=== PATIENT | female | born 1940 | race Caucasian/White ===

== ENCOUNTER → 2017-12-05 12:28 | Outpatient (CLI) | payer MEDICARE, BC, SELFPAY ==
[2017-12-05 14:28] LABS: Anion Gap 7 (5-15); BUN 9 mg/dL (7-18); Calcium,Total 8.4 mg/dL (8.5-10.1); Chloride 100 mmol/L (98-107); Creatinine, Serum 0.82 mg/dL (0.55-1.02); EST Glomerular Filtration Rate 72 mL/min (>60); Est Glom Filt Rate - Afr Amer 87 mL/min (>60); Glucose 98 mg/dL (70-110); Sodium Level 141 mmol/L (136-145)
[2017-12-05 14:30] LABS: CRP 7.12 mg/L (0.0-3.0)
[2017-12-06 16:11] LABS: Endomysial Antibody IgA Negative (Negative)
[2017-12-07 10:49] LABS: Immunoglobulin A 157 mg/dL (64-422); t-Transglutaminase IgA <2 U/mL (0-3)
== END ==
PROVIDERS: Physician Assistant Medical; Family Provider Internal Medicine; PCP Internal Medicine; Visit Provider Internal Medicine Gastroenterology
DX: I10 Essential (primary) hypertension (principal); R19.7 Diarrhea, unspecified
CPT/HCPCS: 36415; 80048; 82784; 83516; 86140; 86255

== ENCOUNTER → 2017-12-19 12:04 | Outpatient (CLI) | payer MEDICARE, BC, SELFPAY ==
[2017-12-19 13:27] LABS: Anion Gap 5 (5-15); BUN 10 mg/dL (7-18); BUN/Creat Ratio 13.3 RATIO (10-20); Calcium,Total 8.3 mg/dL (8.5-10.1); Chloride 105 mmol/L (98-107); Creatinine, Serum 0.75 mg/dL (0.55-1.02); EST Glomerular Filtration Rate 80 mL/min (>60); Est Glom Filt Rate - Afr Amer 97 mL/min (>60); Glucose 103 mg/dL (74-106); Potassium 4.1 mmol/L (3.5-5.1); Sodium Level 142 mmol/L (136-145)
== END ==
PROVIDERS: Family Provider Internal Medicine; PCP Internal Medicine; Visit Provider Physician Assistant Medical
DX: E87.6 Hypokalemia (principal)
CPT/HCPCS: 36415; 80048

== ENCOUNTER → 2018-01-26 10:04 | Outpatient (CLI) | payer MEDICARE, BC, SELFPAY ==
[2018-01-26 10:15] LABS: Bacteria 0 SEEN /hpf (None Seen); Mucous, Urine 0 SEEN /hpf (<or=2+); Red Blood Cells-Urine 0 SEEN /hpf (0-5)
[2018-01-26 11:58] LABS: Absolute Lymphocyte Count 1.56 X10^3/ul (0.83-4.51); Absolute Neutrophil Count 3.5 X10^3/uL (2.0-7.7); Basophil# 0.01 X10^3/uL; Basophil% 0.2 % (0-1); Eosinophil# 0.02 X10^3/uL; Eosinophils% 0.4 % (0-5); Hematocrit 42.3 % (37-47); Hemoglobin 13.7 g/dl (12.0-15.0); Lymphocyte # 1.56 X10^3/ul (4.0); Lymphocyte % 27.9 % (19-41); Mean Corp Hgb Conc 32.4 g/gl (32-36); Mean Corpuscular Hgb 30.7 pg (27.0-32.0); Mean Corpuscular Volume 94.8 fL (81-99); Mean Platelet Vol. 10.2 fl (6.2-12.0); Monocyte# 0.54 X10^3/uL; Monocyte% 9.7 % (0-10); Neutrophil # 3.45 X10^3/uL (2.7-7.7); Neutrophil % 61.6 % (47-70); POSITIVE COUNT NO; POSITIVE DIFFERENTIAL NO; POSITIVE MORPHOLOGY NO; Platelet Count 201 K/mm3 (150-450); RBC Distribution Width CV 13.2 % (11.6-14.6); RBC Distribution Width SD 45.6 fl (35.1-43.9); Red Blood Count 4.46 M/mm3 (4.2-5.4); White Blood Count 5.6 K/mm3 (4.4-11.0)
[2018-01-26 12:01] LABS: Color, Urine Yellow (Yellow); Glucose, Dipstick Normal (Normal); Ketone-Dipstick 5 mg/dl (Negative); Leukocyte Esterase-Dipstick 500 /ul (Negative); Nitrite-Dipstick Negative (Negative); Occult Blood-Urine 10 /ul (Negative); Protein-Dipstick 15 mg/dl (Negative); Urine Bilirubin Dipstick Negative (Negative); Urine Clarity Sl. Cloudy (Clear); Urine Urobilinogen Normal (Normal)
[2018-01-26 12:08] LABS: Squamous Epithelial Cells - UA 0-5 SEEN /hpf (5-10); White Blood Cells 10-25 SEEN /hpf (0-5)
[2018-01-26 12:09] LABS: Erythrocyte Sedimentation Rate 10 mm/hr (0-30)
[2018-01-26 12:28] LABS: AST(SGOT) 22 U/L (15-37); Alanine Aminotransfer ALT/SGPT 36 U/L (13-56); Albumin, Serum 3.5 g/dL (3.2-5.0); Alkaline Phosphatase 90 U/L (45-117); Anion Gap 7 (5-15); BUN 20 mg/dL (7-18); BUN/Creat Ratio 26.7 RATIO (10-20); Calcium,Total 8.5 mg/dL (8.5-10.1); Chloride 107 mmol/L (98-107); Cholesterol 207 mg/dL (200); Creatinine, Serum 0.75 mg/dL (0.55-1.02); EST Glomerular Filtration Rate 80 mL/min (>60); Est Glom Filt Rate - Afr Amer 97 mL/min (>60); Globulin 3.4 g/dL (2.2-4.2); Glucose 88 mg/dL (74-106); High Density Lipoprotein 89 mg/dL; Potassium 3.7 mmol/L (3.5-5.1); Protein, Total 6.9 g/dL (6.4-8.2); Sodium Level 143 mmol/L (136-145); Triglycerides 106 mg/dL; Very Low Density Lipoprotein 21 mg/dL (5-40)
[2018-01-26 12:29] LABS: Microalbumin,Random Urine 43.8 mg/L (NO RANGE EST.); Microalbumin:Creatinine Ratio 27.2 mg/g CRE (<30 mg/g CRE)
[2018-01-30 08:15] LABS: Dopamine, UR 1576 ug/L (Undefined); Epinephrine, 24Ur 5 ug/24 hr (0-20); Epinephrine, Ur 2 ug/L (Undefined); Metanephrine, Ur 30 ug/L (Undefined); Norepinephrine, 24Ur 57 ug/24 hr (0-135); Norepinephrine, Ur 22 ug/L (Undefined); Normetanephrines, Ur 83 ug/L (Undefined)
[2018-01-30 14:34] LABS: Dopamine, 24Ur 4098 ug/24 hr (0-510); Metanephrines, 24Ur 78 ug/24 hr (45-290); Normetanephrines, 24Ur 216 ug/24 hr (82-500)
== END ==
PROVIDERS: Family Provider Internal Medicine; PCP Internal Medicine; Visit Provider Internal Medicine
DX: E78.5 Hyperlipidemia, unspecified (principal); I11.9 Hypertensive heart disease without heart failure; R61 Generalized hyperhidrosis
CPT/HCPCS: 36415; 80053; 80061; 81001; 82043; 82384; 82570; 83835; 85025; 85652

== ENCOUNTER → 2018-02-23 10:17 | Outpatient (CLI) | payer MEDICARE, BC, SELFPAY ==
[2018-02-23 12:02] LABS: Free T3 1.2 pg/mL (2.18-3.98); T4 Free Direct 0.92 ng/dL (0.76-1.46)
[2018-02-28 03:07] LABS: Dopamine, UR 3072 ug/L (Undefined); Epinephrine, 24Ur 4 ug/24 hr (0-20); Epinephrine, Ur 3 ug/L (Undefined); Norepinephrine, 24Ur 63 ug/24 hr (0-135); Norepinephrine, Ur 45 ug/L (Undefined); VMA, UR 2.9 mg/L (Undefined)
[2018-02-28 12:35] LABS: Dopamine, 24Ur 4301 ug/24 hr (0-510); VMA, 24UR 4.1 mg/24 hr (0.0-7.5)
== END ==
PROVIDERS: Family Provider Internal Medicine; PCP Internal Medicine; Visit Provider Internal Medicine Endocrinology, Diabetes & Metabolism
DX: E03.9 Hypothyroidism, unspecified (principal); R61 Generalized hyperhidrosis
CPT/HCPCS: 36415; 82384; 84439; 84443; 84481; 84585

== ENCOUNTER → 2018-04-02 13:58 | Outpatient (CLI) | payer MEDICARE, BC, SELFPAY ==
--- NOTE | 2018-04-02 14:00 | CT_ITS ---
STUDY: CT ABDOMEN WITH AND WITHOUT CONTRAST REASON FOR EXAM: Female, 78 years old. Hypothyroidism RADIATION DOSAGE (If Supplied By Facility): CTDIvol = ( 24+24+36 ) mGy, DLP = ( 1510.63 ) mGycm TECHNIQUE: Transaxial images were obtained pre and post I.V. administration of 100 ml of Isovue 300, and with oral contrast. Sagittal and coronal images were reconstructed. Imaging obtained precontrast, portal venous phase, and renal excretory phase of contrast. Individualized dose optimization techniques were used for this CT. COMPARISON: [facility] scan 11/26/2017. CT abdomen and pelvis 11/12/2017. FINDINGS: Body wall soft tissues: No acute process. Osseous structures: Mild scoliosis and spondylosis. Osteopenia. No acute process. Prominent superior plate Schmorl's node at L1, chronic degenerative. Inferior chest: No acute pulmonary process. Normal distal esophagus. Moderate cardiomegaly without pericardial effusion. Minimal calcifications of the aortic valve. Hepatobiliary: Normal. Pancreas: Mild atrophy. Spleen: Normal. Adrenal glands: Normal. Urogenital: Renal cortical scar on the right. Symmetric nephrograms and excretion. Normal collecting systems and proximal ureters. Retroperitoneum: No mass or adenopathy. Vasculature: Mild atherosclerosis. Gastric: Normal. Small bowel and mesentery: Evaluated portions are normal. Large bowel: Evaluated portions are normal. CT/Abdomen W/WO IV Contrast IMPRESSION: No acute intra-abdominal process is evident. Electronically Signed: Thien Nancy, at 8:51 EDT Tel , Service support ,
[2018-04-02 14:51] LABS: CREATININE FINGERSTICK 0.8 mg/dL (0.55-1.02)
== END ==
PROVIDERS: Family Provider Internal Medicine; PCP Internal Medicine; Visit Provider Internal Medicine Endocrinology, Diabetes & Metabolism
DX: E03.9 Hypothyroidism, unspecified (principal)
CPT/HCPCS: 74170; Q9967

== ENCOUNTER → 2018-04-23 10:48 | Outpatient (CLI) | payer MEDICARE, BC, SELFPAY ==
[2018-04-23 13:00] LABS: Free T3 2.6 pg/mL (2.18-3.98); T4 Free Direct 1.21 ng/dL (0.76-1.46)
== END ==
PROVIDERS: Family Provider Internal Medicine; PCP Internal Medicine; Visit Provider Internal Medicine Endocrinology, Diabetes & Metabolism
DX: E03.9 Hypothyroidism, unspecified (principal)
CPT/HCPCS: 36415; 84439; 84443; 84481

== ENCOUNTER → 2018-05-15 12:48 | Outpatient (CLI) | payer MEDICARE, BC, SELFPAY ==
--- NOTE | 2018-05-15 12:52 | NM_ITS ---
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 I-123 METAIODOBENZYLGUANIDINE (MIBG) SCINTIGRAPHY COMPARISON: CT of the abdomen report 04/02/2018 FINDINGS: Following the intravenous administration of 10.6 mCi of I-123 MIBG, image acquisitions of the head, neck, chest, abdomen and pelvis obtained at 24 and 48 hours post radiopharmaceutical administration reveal: 1. There is no scintigraphic evidence of abnormal increased radiopharmaceutical concentration on review of image projections obtained at 24 and 48 hours following tracer injection. 2. Physiologic distribution of the radiopharmaceutical appears evident in the bilateral parotid and submandibular glands, pulmonary blood pool, right and left kidneys, urinary bladder, hepatic and splenic parenchyma, visualized intestinal tract. NM/Tumor Imaging WB 2+ Days IMPRESSION: 1. NEGATIVE I-123 METAIODOBENZYLGUANIDINE (MIBG) SCINTIGRAPHY. 2. No definitive scintigraphic evidence of abnormal increased tracer concentration is defined on meticulous review of image projections obtained in both 24 and 48 hours as described above. Electronically Signed: Thien Cuevas DO at 12:21 EDT Tel , Service support ,
== END ==
PROVIDERS: Family Provider Internal Medicine; PCP Internal Medicine; Visit Provider Internal Medicine Endocrinology, Diabetes & Metabolism
DX: R61 Generalized hyperhidrosis (principal)
CPT/HCPCS: 78804; A9582

== ENCOUNTER → 2018-06-13 13:32 | Outpatient (CLI) | payer MEDICARE, BC, SELFPAY | PROVIDERS: Family Provider Internal Medicine; PCP Internal Medicine; Visit Provider Nurse Practitioner Acute Care | DX: G47.33 Obstructive sleep apnea (adult) (pediatric) (principal) | CPT/HCPCS: 98960; G0463 ==

== ENCOUNTER 2018-07-31 15:00 | Outpatient (RCR) | payer MEDICARE, BC, SELFPAY ==
--- NOTE | 2018-06-26 13:53 | HP.PTEVAL_ITS ---
Patient's Visit Information BA LANZA is a 78 year old F referred to Physical Therapy by KIEAR Perdomo with a diagnosis of Parkinsons. Date of Evaluation: 06/26/18 Physical Therapist: Dahlia Sampson - Visit Plan Frequency: 2x /Week Duration: 6 Weeks Plan: 2X/ week for 4-8 weeks for gait mechanics ( normal stride length, arm swing, smaller CLAUDINE, and increased heel to toe gait pattern), functional transfers such as sit to stand, Dynamic balance activities with and without head turns, LE strength with HEP - Subjective Subjective: Goes by [employer]. Pt was dx with PD 2 years ago at the most. She is having trouble with balance, unable to stand for long period of time, she can walk but not a long distance like a mile, She has to have arms to get up and down from a chair, can't squat. SHe is doing better into the bathtub but fell a few months a go in the bathtub and medical alert nearby. SHe has not had any other falls. When she gets up she stands to make sure she gets her balance. Neurologist recommend cane on uneven ground but she has not done that yet. 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 No freezing episodes since changed meds 6 months ago. Stairs: pt reports that she needs a good railing but not for a big set of stairs and she tries to go recip with a good handrail pulling on the railing. Pt has some back issues and is seeing a chiropractor. Has a lot of stiffness in the morning. - Objective Gait: Walks with short stride and WBOS and decreased heel to toe. Pt has decreased heel to toe more ont he R than the L and some decreased coordination on the R compared to the L. Pt also had decreased arm swing worse on the R than the L and some tremor on the R. Is able to raise heels with holding on within a normal range but has decreased toe DF even with holding on. Tight gastroc complex B with the R being tighter than the L. FGA: 13. LE MMT: hip flx R 4/5 and L 4+/5, B knee ext 4+/5, B knee flex 4/5, R hip abd 4/5 and L hip abd 4-/5, able to do 3/4 normal ROM bridge. Pt did get dizzy when rising from supine to sit. Sit to stand transfers: needs B UE to be able to get up out of a chair - Balance Scores Functional Gait Assessment Score: 13 % Disability: 56.6700 - Goals Goal 1:: I HEP Goal Time Frame: 4-6 Weeks Goal 2:: Be able to get up from a chair without the use of UE's X 10 attempts Goal Time Frame: 4-6 Weeks Goal 3:: Be able to walk around dept with smaller CLAUDINE, normal stride length, heel to toe gait pattern with arm swing Goal Time Frame: 4-6 Weeks Goal 4:: Increase FGA by 5 points to decrease fall risk (at time of eval FGA was 13) Goal Time Frame: 4-6 Weeks - Rehabilitation Potential Rehabilitation Potential: Good - Anticipated Interventions Patient/Client Instruction: Educate patient on: Condition, Plan of Care For the Purpose of:: To improve muscle performance and motor function, To improve ability to perform ADL's, To increase tolerance to activity/condition/ position, To improve performance and independence with ADL's, To improve gait and locomotor functions, To improve balance, To improve safety with gait Therapeutic Exercise to Include: Strength training, Endurance training, Balance training, Coordination, Postural training, Flexibilty training, Gait and locomotor training, Neuromotor development, Passive ROM For the Purpose of:: To improve muscle performance and motor function, To improve ability to perform ADL's, To increase tolerance to activity/condition/ position, To improve performance and independence with ADL's, To decrease level of supervision to perform tasks, To improve ability of physical actions for home /community/work/leisure, To improve gait and locomotor functions, To increase flexibility/ROM, To improve balance, To improve safety with gait Functional Training to Include: Gait training For the Purpose of:: To improve gait and locomotor functions, To improve balance , To improve safety with gait Thank you for the opportunity to evaluate your patient. For Medicare and Medicare HMO plans, please review the plan of care and approve it. It will need to be FAXED BACK to us at [phone] for Medicare purposes. Please let me know if there are questions or concerns regarding this plan of care. Physician Signature: Date:
--- NOTE | 2018-07-31 15:57 | HP.PTDCSUM ---
HP - PT D/C Summary It has been my pleasure to treat BA LANZA under orders from ANABEL PerdomoC, for the diagnosis of Parkinsons for a total of 7 visit(s). Discharge Date: 07/31/18 Please see the following information for a summary of their discharge status. - Subjective Subjective: Pt thinks she has been doing good but she notices that she is limping on her L leg. She is doing her exercises at home. Does standing hip abd, standing marching, standing heell and toe raises, and mini squats. - Overall Improvement % Improvement: 40 - Objective Objective/Function: FGA: 16. gait: decreased push off on the L and decreased stance time on the L but increased side and increased arm swing. - Goals Goal 1:: I HEP Goal Progress: Goal Met Goal 2:: Be able to get up from a chair without the use of UE's X 10 attempts Goal Progress: Goal Met Goal 3:: Be able to walk around dept with smaller CLAUDINE, normal stride length, heel to toe gait pattern with arm swing Goal Progress: Goal Met Goal 4:: Increase FGA by 5 points to decrease fall risk (at time of eval FGA was 13) Goal Progress: Goal Met - Plan Plan: DC PT - D/C Information Discharge Comments: DC PT to [facility] If there are questions or concerns regarding this patient's physical therapy, please feel free to call me at [phone]. Thank you for the referral of this patient. Sincerely, Dahlia Sampson
== END 2018-07-31 19:00 | disposition home or self-care (01) ==
LOC: PT 15:00
PROVIDERS: Family Provider Internal Medicine; PCP Internal Medicine; Visit Provider Nurse Practitioner Acute Care
DX: G20 Parkinson's disease (principal)
CPT/HCPCS: 97110; 97116; 97161; 97530

== ENCOUNTER → 2018-09-17 12:45 | Outpatient (CLI) | payer MEDICARE, BC, SELFPAY ==
--- NOTE | 2018-09-17 12:49 | VDLE_ITS ---
Reason For Study: Numbness, tingling, Right leg pain, Left leg pain RIGHT LEFT GSV is normal. GSV is normal. CFV is compressible, spontaneous, phasic, CFV is compressible, spontaneous, phasic, competent and demonstrates normal competent, and demonstrates normal augmentation. augmentation. FV is compressible, spontaneous, phasic, FV is compressible, spontaneous, phasic, competent and demonstrates normal competent and demonstrates normal augmentation. augmentation. POP V is compressible, spontaneous, phasic, POP V is compressible, spontaneous, phasic, competent and demonstrates normal competent and demonstrates normal augmentation. augmentation. T/P Trunk is compressible. T/P Trunk is compressible. PTV is compressible. PTV is compressible. RT PerV is compressible. LT PerV is compressible. Procedure Exam performed in department. The exam was diagnostic. A preliminary report was called and/or faxed to Niurka Talbot. <> Interpretation Summary Deep veins of the lower extremities are bilaterally patent and compressible segmentally. There is no evidence of deep vein thrombosis on either side. Valvular competence appears intact within the proximal deep venous systems bilaterally. The greater saphenous veins appear bilaterally patent and compressible segmentally. Ordering Physician: Niurka Talbot Performed By: Joon Bustamante RVT
== END ==
PROVIDERS: Family Provider Internal Medicine; PCP Internal Medicine; Referring Provider Nurse Practitioner Acute Care; Visit Provider Nurse Practitioner Acute Care
DX: M79.604 Pain in right leg (principal); M79.605 Pain in left leg; R20.0 Anesthesia of skin; R20.2 Paresthesia of skin
CPT/HCPCS: 93970

== ENCOUNTER → 2018-11-06 12:20 | Outpatient (CLI) | payer MEDICARE, BC, SELFPAY ==
--- NOTE | 2018-11-06 12:25 | BI_ITS ---
MAMMOGRAPHY - BILATERAL SCREENING REASON FOR EXAM: Female, 78 years old. Routine annual screening examination. PERTINENT HISTORY: Mother with breast cancer. Aunts with breast cancer. TECHNIQUE: Digital bilateral breast yolanda (3D mammographic acquisition) in the CC and MLO projections. 2-D mediolateral oblique (MLO) and craniocaudad (CC) views of both breasts were obtained. CAD: Full Field Digital Mammography with Computer Added Detection was performed. COMPARISON: Comparison is made with prior study dated October 25, 2017 and October 24, 2016. FINDINGS: Breast Composition: There are scattered areas of fibroglandular density. There are no dominant masses or suspicious calcifications. No other significant abnormalities are identified. There has been no significant change since the prior study. BI/SCREENING MAMM (CAD), BILAT IMPRESSION: Stable bilateral screening mammogram. Yearly follow-up mammogram recommended. (A) ASSESSMENT CATEGORY: BIRADS Category 1: Negative. A letter regarding these results will be sent to the patient by the facility within 30 days. Approximately 10% of breast cancers are not detected by mammography. A normal mammogram should not delay biopsy of a clinically suspicious abnormality. [id number] Electronically Signed: Aramis Rodriguez MD at 16:07 EST Tel [phone], Service support ,
== END ==
PROVIDERS: Family Provider Internal Medicine; PCP Internal Medicine; Referring Provider Internal Medicine; Visit Provider Internal Medicine
DX: Z12.31 Encounter for screening mammogram for malignant neoplasm of breast (principal); Z80.3 Family history of malignant neoplasm of breast
CPT/HCPCS: 77063; 77067

== ENCOUNTER → 2018-12-10 07:45 | Outpatient (CLI) | payer MEDICARE, BC, SELFPAY ==
[2018-12-10 07:51] LABS: Mucous, Urine 0 SEEN /hpf (<or=2+)
[2018-12-10 08:19] LABS: Color, Urine Yellow (Yellow); Glucose, Dipstick Normal (Normal); Ketone-Dipstick 5 mg/dl (Negative); Leukocyte Esterase-Dipstick 25 /ul (Negative); Nitrite-Dipstick Negative (Negative); Occult Blood-Urine 10 /ul (Negative); Protein-Dipstick 30 mg/dl (Negative); Specific Gravity, Urine 1.025 (1.002-1.030); Urine Bilirubin Dipstick Negative (Negative); Urine Clarity Sl. Cloudy (Clear); Urine Urobilinogen Normal (Normal)
[2018-12-10 08:24] LABS: Absolute Lymphocyte Count 1.79 X10^3/ul (0.83-4.51); Absolute Neutrophil Count 3.1 X10^3/uL (2.0-7.7); Basophil# 0.02 X10^3/uL; Basophil% 0.4 % (0-1); Eosinophils% 1.8 % (0-5); Hematocrit 43.1 % (37-47); Hemoglobin 13.9 g/dl (12.0-15.0); Lymphocyte # 1.79 X10^3/ul (4.0); Mean Corp Hgb Conc 32.3 g/gl (32-36); Monocyte# 0.55 X10^3/uL; Monocyte% 9.8 % (0-10); Neutrophil # 3.09 X10^3/uL (2.7-7.7); Neutrophil % 55.3 % (47-70); POSITIVE COUNT NO; POSITIVE DIFFERENTIAL NO; POSITIVE MORPHOLOGY NO; Platelet Count 190 K/mm3 (150-450); RBC Distribution Width CV 12.9 % (11.6-14.6); RBC Distribution Width SD 43.7 fl (35.1-43.9); Red Blood Count 4.49 M/mm3 (4.2-5.4); White Blood Count 5.6 K/mm3 (4.4-11.0)
[2018-12-10 08:26] LABS: Red Blood Cells-Urine 0-5 SEEN /hpf (0-5); Squamous Epithelial Cells - UA 5-10 SEEN /hpf (5-10); White Blood Cells 0-5 SEEN /hpf (0-5)
[2018-12-10 08:27] LABS: Bacteria 1+ /hpf (None Seen)
[2018-12-10 08:50] LABS: ALB/GLOB Ratio 1.1 RATIO (0.9-2.4); AST(SGOT) 16 U/L (15-37); Alanine Aminotransfer ALT/SGPT 9 U/L (13-56); Albumin, Serum 3.5 g/dL (3.2-5.0); Alkaline Phosphatase 101 U/L (45-117); Anion Gap 5 (5-15); BUN 14 mg/dL (7-18); BUN/Creat Ratio 17.7 RATIO (10-20); Chloride 110 mmol/L (98-107); Cholesterol 181 mg/dL (200); Creatinine, Serum 0.79 mg/dL (0.55-1.02); EST Glomerular Filtration Rate 75 mL/min (>60); Est Glom Filt Rate - Afr Amer 91 mL/min (>60); Free T3 2.9 pg/mL (2.18-3.98); Globulin 3.3 g/dL (2.2-4.2); Glucose 101 mg/dL (74-106); High Density Lipoprotein 70 mg/dL; Protein, Total 6.8 g/dL (6.4-8.2); Sodium Level 143 mmol/L (136-145); T4 Free Direct 0.96 ng/dL (0.76-1.46); Triglycerides 151 mg/dL; Very Low Density Lipoprotein 30 mg/dL (5-40)
[2018-12-10 08:51] LABS: Microalbumin,Random Urine 26.5 mg/L (NO RANGE EST.); Microalbumin:Creatinine Ratio 16.2 mg/g CRE (<30 mg/g CRE)
--- NOTE | 2018-12-10 10:32 | NEURO ---
NCS and/or EMG Patient Report Ordering Doctor: Niurka Talbot DATE OF SERVICE: 12/10/18 This is a bilateral lower extremity nerve conduction study and a left lower extremity EMG performed on this 78-year-old female with remote history of polio which apparently fully recovered. She also has a diagnosis of prediabetes but reports her latest hemoglobin A1c is only 5.4. She describes weakness and loss of sensation in her legs associated with falls peer there is no back pain. Symptoms are worse on the left. She does have a history of atrial fibrillation and is on Coumadin. On examination she has severe loss of sensation up to her mid calves bilaterally symmetrically. Bilateral lower extremity sensory and motor nerve conduction studies were performed. The sensory distal latencies are mild to moderately prolonged with intact amplitudes. The motor conduction velocities are moderate to severely slowed symmetrically bilaterally with prolonged latencies and low amplitudes bilaterally. The tibial and common peroneal F-wave latencies are prolonged bilaterally and H reflex responses from the tibial nerves are suppressed bilaterally. Left lower extremity needle electromyography is performed. Muscles evaluated included the extensor digitorum brevis, abductor houses, medial gastrocnemius, anterior tibialis, and vastus lateralis muscles. Distal muscles demonstrated large motor units with early recruitment. These abnormalities resolved with larger more proximal muscles. Pathologic spontaneous activity was absent in all muscles tested. Impression: Abnormal electrophysiologic study of the lower extremities consistent with severe polyneuropathy, chronic length dependent.
== END ==
PROVIDERS: Family Provider Internal Medicine; PCP Internal Medicine; Referring Provider Nurse Practitioner Acute Care; Visit Provider Nurse Practitioner Acute Care
DX: R20.0 Anesthesia of skin (principal); R20.2 Paresthesia of skin; M79.604 Pain in right leg; M79.605 Pain in left leg; E78.5 Hyperlipidemia, unspecified; R94.6 Abnormal results of thyroid function studies; R73.01 Impaired fasting glucose
CPT/HCPCS: 36415; 80053; 80061; 81001; 82043; 82570; 84439; 84443; 84481; 85025; 95886; 95910

== ENCOUNTER → 2019-01-21 12:02 | Outpatient (CLI) | payer MEDICARE, BC, SELFPAY ==
[2019-01-21 11:19] VITALS: BMI 36.8
[2019-01-21 13:29] LABS: BNP,B-Type NATRIURETIC PEPTIDE 32.7 pg/mL (0-100)
== END ==
PROVIDERS: Family Provider Internal Medicine; PCP Internal Medicine; Referring Provider Internal Medicine Cardiovascular Disease; Visit Provider Internal Medicine Cardiovascular Disease
DX: R06.02 Shortness of breath (principal); I10 Essential (primary) hypertension; I48.0 Paroxysmal atrial fibrillation
CPT/HCPCS: 36415; 83880

== ENCOUNTER → 2019-02-07 13:51 | Outpatient (CLI) | payer MEDICARE, BC, SELFPAY ==
[2019-01-21 11:19] VITALS: BMI 36.8
--- NOTE | 2019-02-07 13:53 | ECHOCS_ITS ---
Reason For Study: Dyspnea/SOB Procedure This was a 2D Doppler, Color Flow transthoracic echocardiogram. Contrast injection was performed. Exam performed in department. Left Ventricle Normal LV size. Left ventricular systolic function is normal. The estimated ejection fraction is 60 %. Stage 2 diastolic dysfunction. No regional wall motion abnormalities noted. Right Ventricle Normal RV size. Normal systolic function. Atria The left atrium is mildly enlarged. Normal right atrium. Mitral Valve Normal mitral valve. Tricuspid Valve Normal tricuspid valve. Mild (1+) tricuspid valve insufficiency. Pulmonary artery systolic pressure is 40 mmHg. Aortic Valve Normal aortic valve. Pulmonic Valve The pulmonic valve is not well visualized. Great Vessels Normal aortic root. The pulmonary artery is normal size. Normal inferior vena cava. Pericardium/Pleural No pericardial effusion. Medication 22 gauge I.V. with prn adaptor inserted into right arm. Diluted definity 2ml given slow IV push to enhance endocardial definition. MMode/2D Measurements & Calculations LVIDd: 5.3 cm IVSd: 1.3 cm Ao root diam: 3.8 cm LVIDs: 3.3 cm LVPWd: 1.1 cm RVDd: 3.6 cm FS: 37.3 % LAV(MOD-bp): 81.8 ml LA A4 area: 22.0 cm2 RA A4 area: 13.2 cm2 LAV(MOD-bp) Indexed: 38.1 ml/m2 LAV(MOD-sp2): 81.8 ml LAV(MOD-sp4): 70.2 ml Time Measurements MV dec time: 0.21 sec Doppler Measurements & Calculations MV E max jyoti: 97.6 cm/sec MV V2 max: 108.8 cm/sec MV P1/2t max jyoti: 108.8 cm/sec MV A max jyoti: 57.2 cm/sec MV max P.7 mmHg MV P1/2t: 118.0 msec MV E/A: 1.7 MV V2 mean: 58.3 cm/sec MV dec slope: 270.2 cm/sec2 MV mean P.6 mmHg MV V2 VTI: 39.7 cm MVA(P1/2t): 1.9 cm2 Ao V2 max: 141.7 cm/sec AI max jyoti: 438.7 cm/sec LV V1 max: 96.0 cm/sec Ao max P.0 mmHg AI max P.0 mmHg LV V1 max P.7 mmHg AI dec slope: 268.4 cm/sec2 AI P1/2t: 478.8 msec PA V2 max: 108.8 cm/sec TR max jyoti: 298.4 cm/sec TR max P.7 mmHg Interpretation Summary Normal LV size. Left ventricular systolic function is normal. The estimated ejection fraction is 60 %. Stage 2 diastolic dysfunction. Mild (1+) tricuspid valve insufficiency. Contrast injection was performed. Ordering Physician: Irving Lamas Referring Physician: Irving Lamas Performed By: Nathan Enriquez RCS
== END ==
PROVIDERS: Family Provider Internal Medicine; PCP Internal Medicine; Referring Provider Internal Medicine Cardiovascular Disease; Visit Provider Internal Medicine Cardiovascular Disease
DX: I48.0 Paroxysmal atrial fibrillation (principal)
CPT/HCPCS: 93306; Q9957; A4216; C8929

== ENCOUNTER → 2019-03-04 17:33 | Outpatient (CLI) | payer MEDICARE, BC, SELFPAY ==
[2019-01-21 11:19] VITALS: BMI 36.8
--- NOTE | 2019-03-04 18:15 | MRI_ITS ---
STUDY: MRI BRAIN WITHOUT CONTRAST REASON FOR EXAM: Female, 79 years old. Seizure and confusion TECHNIQUE: Standardized multiplanar fat and water weighted pulse sequences were obtained. COMPARISON: 03/07/2016 FINDINGS: Normal size of the ventricles and extra-axial spaces for the patient's age. There are a limited number of small white matter hyperintensities, distributed throughout the deep white matter tracts of the cerebral hemispheres, consistent with mild chronic white matter ischemic changes. Normal bilateral basal ganglia. Normal thalami. There is no extra-axial fluid accumulation. Normal flow voids within the major intracranial circulation suggesting patency by spin echo criteria. Normal sella turcica, pituitary gland, infundibular stalk, optic chiasm and hypothalamus. Normal tectal plate and pineal gland. Normal midbrain, kolton and medulla. Normal cerebellum. Normal basal cisterns. Normal bilateral temporal bones. Normal bilateral internal auditory canals. There are bilateral ocular lens implants with otherwise normal intraorbital contents. Normal visualized paranasal sinuses. Normal calvarium and skull base. Normal visualized soft tissue structures. Normal visualized upper cervical spine. MRI/Brain without Contrast IMPRESSION: No seizure focus is identified. No evidence of infarct or hemorrhage. Mild microangiopathic white matter disease. Electronically Signed: Abram Rosen MD at 19:10 EDT Tel , Service support ,
== END ==
PROVIDERS: Family Provider Internal Medicine; PCP Internal Medicine; Referring Provider Nurse Practitioner Family; Visit Provider Nurse Practitioner Family
DX: R41.82 Altered mental status, unspecified (principal); R53.1 Weakness
CPT/HCPCS: 70551

== ENCOUNTER → 2019-03-10 09:14 | Outpatient (CLI) | payer MEDICARE, BC, SELFPAY ==
[2019-01-21 11:19] VITALS: BMI 36.8
--- NOTE | 2019-03-10 14:19 | EEG ---
- Electroencephalogram Date of service 03/10/2019 History EEG is being done in this 79 yr F to rule out seizures EEG Description: This is an 18 channel EEG with 10-20 lead placement system. Bipolar montages, and Referential montages were reviewed. Photic stimulation and Hyperventilation were performed. The posterior dominant rhythm is 10 HZ synchronous, symmetric, reacting to eye opening and closing. Photo stimulation elicited normal driving response but no abnormal photoparoxysmal response, Hyperventilation did not elicit any abnormal photoparoxysmal response. Sleep was identified. Persistent frontal lead muscle artefact noted during the record. There is no abnormal background slowing noted. EKG artefact noted during the record. There was no epileptiform discharges or electrographic seizures noted during this recording. EEG Interpretation This is a normal awake and asleep EEG. There is no epileptiform discharges or electrographic seizures noted during the record.
== END ==
PROVIDERS: Family Provider Internal Medicine; PCP Internal Medicine; Referring Provider Nurse Practitioner Family; Visit Provider Nurse Practitioner Family
DX: R53.1 Weakness (principal); R41.82 Altered mental status, unspecified
CPT/HCPCS: 95819

== ENCOUNTER 2019-03-19 12:30 | Outpatient (RCR) | payer MEDICARE, BC, SELFPAY ==
--- NOTE | 2019-01-17 14:16 | HP.PTEVAL_ITS ---
Patient's Visit Information BA LANZA is a 78 year old F referred to Physical Therapy by Arthur Liang PA-C with a diagnosis of L Achilles tendonitis. Date of Evaluation: 01/17/19 Physical Therapist: MARIBEL Stafford - Visit Plan Frequency: 2x /Week Duration: 2 Months Plan: 2X/ week for 4-6 weeks for L ankle manual stretching and AA ROM, AROM, gait training, strengthening, with HEP and US PRN to decrease pain and swelling and increase circutaltion - Subjective Findings: Pt reports that she has been having ankle pain for a couple of months. She thought that it was plantar fascitis and was doing those exercises at night but it was not working. Dr said it was achilles tendonitis and she has to wear a boot for awhile and do PT. She has just got off a course of prednizone and it made her feel better but now she has the sweating coming off of it. She now has back pain on the L side cause she is walking uneven. Sometimes she stil lhas pain walking in her boot. She has some pain at night depending on what she does that day. The more she does the more it hurts. She fell on Sunday night and hurt shoulder. She had to cancel her [employer] trip. She is so upset. She just changed her thyroid med. Pt has had a nerve conduction and it revealed severe polyneuropathy. She also had a ultrasound that did not show a blood clot. - Pain L ankle pain Pain Intensity (Out of 10): 2 - Objective Gait: walks with walking boot with decreased stance time on the L foot due to legs being uneven. Ankle AROM: L DF 12 degrees and PF 60 degrees. Pt has trouble with active inversion AROM....needs AA at first and then able to do AROM. without issue....??? motor planning issue. Tight L gastroc and increase pain with stretching ( no reddness, hot or tender to the touch). Palpation: tender over L achilles tendon. L ankle DF 3+/5, PF 3+/5, INV 3-/5 and ev 4/5. Tight gastroc with increase pain on the L - Goals Goal 1:: I HEP Goal Time Frame: 4-6 Weeks Goal 2:: iNCREASE L ankle AROM 5 degrees to 65 degrees PF Goal Time Frame: 4-6 Weeks Goal 3:: Be able to walk without an antalgic gait without her boot and without pain Goal Time Frame: 4-6 Weeks - Rehabilitation Potential Rehabilitation Potential: Good - Anticipated Interventions Patient/Client Instruction: Educate patient on: Condition, Plan of Care For the Purpose of:: To decrease pain, To decrease swelling/inflammation, To increase ROM, To improve nutrient delivery to tissue, To improve muscle performance and motor function, To improve ability to perform ADL's, To increase tolerance to activity/condition/position, To improve performance and independence with ADL's, To improve ability of physical actions for home/community/work/leisure, To improve gait and locomotor functions, To improve health of tissue, To decrease soft tissue restriction, To increase flexibility/ROM, To improve balance Therapeutic Exercise to Include: Strength training, Balance training, Flexibilty training, Gait and locomotor training, Neuromotor development, Passive ROM, Active ROM For the Purpose of:: To decrease pain, To decrease swelling/inflammation, To increase ROM, To increase oxygenation perfusion, To improve muscle performance and motor function, To improve ability to perform ADL's, To increase tolerance to activity/condition/position, To improve performance and independence with ADL's, To improve gait and locomotor functions, To decrease soft tissue restriction, To increase flexibility/ROM Functional Training to Include: Gait training For the Purpose of:: To improve gait and locomotor functions, To improve safety with gait Manual Therapy Techniques to Include: Passive ROM For the Purpose of:: To increase ROM Ultrasound (thermal/non thermal): Yes For the Purpose of:: To decrease pain, To decrease swelling/inflammation, To improve nutrient delivery to tissue, To improve muscle performance and motor function Thank you for the opportunity to evaluate your patient. For Medicare and Medicare HMO plans, please review the plan of care and approve it. It will need to be FAXED BACK to us at [phone] for Medicare purposes. For Medicare only, by signing this I certify the plan of care. Please let me know if there are questions or concerns regarding this plan of care. Physician Signature: Date:
--- NOTE | 2019-06-10 13:28 | HP.PTDCNRP_ITS ---
HP - Discharge Summary (1) - Patient Information BA LANZA was seen in my office for initial evaluation on 01/17/19. The following Plan of Care was established for this patient: Initial Frequency: 2x /Week Initial Duration: 2 Months - Anticipated Interventions Patient/Client Instruction: Educate patient on: Condition, Plan of Care For the Purpose of:: To decrease pain, To decrease swelling/inflammation, To i ncrease ROM, To improve nutrient delivery to tissue, To improve muscle performance and motor function, To improve ability to perform ADL's, To increase tolerance to activity/condition/position, To improve performance and independence with ADL's, To improve ability of physical actions for home/community/work/leisure, To improve gait and locomotor functions, To improve health of tissue, To decrease soft tissue restriction, To increase flexibility/ROM, To improve balance Therapeutic Exercise to Include: Strength training, Balance training, Flexibilty training, Gait and locomotor training, Neuromotor development, Passive ROM, Active ROM For the Purpose of:: To decrease pain, To decrease swelling/inflammation, To increase ROM, To increase oxygenation perfusion, To improve muscle performance and motor function, To improve ability to perform ADL's, To increase tolerance to activity/condition/position, To improve performance and independence with ADL's, To improve gait and locomotor functions, To decrease soft tissue restriction, To increase flexibility/ROM Functional Training to Include: Gait training For the Purpose of:: To improve gait and locomotor functions, To improve safety with gait Manual Therapy Techniques to Include: Passive ROM For the Purpose of:: To increase ROM Ultrasound (thermal/non thermal): Yes For the Purpose of:: To decrease pain, To decrease swelling/inflammation, To improve nutrient delivery to tissue, To improve muscle performance and motor function This patient was last seen in our office 03/19/19. Pertinent comments regarding their Physical therapy will appear below: ALICE PT. Pt cancelled her last couple of visits. She still has some discomfort on her last visit. At this point I will be discontinuing this patient from physical therapy. I would be happy to see this patient again in the future if found appropriate by the physician. Thank you! Dahlia Sampson, MPT
== END 2019-03-19 19:00 | disposition home or self-care (01) ==
LOC: PT 12:30
PROVIDERS: Family Provider Internal Medicine; PCP Internal Medicine; Referring Provider Physician Assistant; Visit Provider Physician Assistant
DX: M76.62 Achilles tendinitis, left leg (principal)
CPT/HCPCS: 93306; 97035; 97110; 97140; 97161; Q9957; A4216; C8929

== ENCOUNTER → 2019-07-09 10:36 | Outpatient (CLI) | payer MEDICARE, BC, SELFPAY ==
[2019-01-21 11:19] VITALS: BMI 36.8
[2019-07-09 10:52] LABS: Mucous, Urine 0 SEEN /hpf (<or=2+)
[2019-07-09 12:33] LABS: Absolute Lymphocyte Count 1.27 X10^3/uL (0.83-4.51); Absolute Neutrophil Count 3.3 X10^3/uL (2.0-7.7); Basophil# 0.03 X10^3/uL; Basophil% 0.6 % (0-1); Eosinophil# 0.08 X10^3/uL; Eosinophils% 1.5 % (0-5); Hematocrit 43.8 % (37-47); Hemoglobin 14.5 g/dL (12.0-15.0); Lymphocyte # 1.27 X10^3/ul (4.0); Lymphocyte % 24.1 % (19-41); Mean Corp Hgb Conc 33.1 g/dL (32-36); Mean Corpuscular Hgb 31.3 pg (27.0-32.0); Mean Corpuscular Volume 94.4 fL (81-99); Mean Platelet Vol. 10.2 fl (6.2-12.0); Monocyte# 0.54 X10^3/uL; Monocyte% 10.2 % (0-10); NRBC Flagged by Analyzer 0 % (0-5); Neutrophil # 3.34 X10^3/uL (2.7-7.7); Neutrophil % 63.2 % (47-70); Platelet Count 207 K/mm3 (150-450); RBC Distribution Width CV 12.3 % (11.6-14.6); RBC Distribution Width SD 42.9 fl (35.1-43.9); Red Blood Count 4.64 M/mm3 (4.2-5.4); White Blood Count 5.3 K/mm3 (4.4-11.0)
[2019-07-09 12:50] LABS: Color, Urine Yellow (Yellow); Glucose, Dipstick Normal (Normal); Ketone-Dipstick 5 mg/dl (Negative); Leukocyte Esterase-Dipstick 25 /ul (Negative); Nitrite-Dipstick Negative (Negative); Occult Blood-Urine 10 /ul (Negative); Protein-Dipstick 15 mg/dl (Negative); Urine Bilirubin Dipstick Negative (Negative); Urine Clarity Sl. Cloudy (Clear); Urine Urobilinogen Normal (Normal)
[2019-07-09 12:57] LABS: Squamous Epithelial Cells - UA 5-10 SEEN /hpf (5-10)
[2019-07-09 12:58] LABS: Bacteria 1+ /hpf (None Seen); Red Blood Cells-Urine 0-5 SEEN /hpf (0-5); White Blood Cells 0-5 SEEN /hpf (0-5)
[2019-07-09 12:59] LABS: Vitamin B12 > 2000 pg/mL (211-911)
[2019-07-09 13:05] LABS: ALB/GLOB Ratio 1.1 RATIO (0.9-2.4); AST(SGOT) 15 U/L (15-37); Alanine Aminotransfer ALT/SGPT 11 U/L (13-56); Albumin, Serum 3.6 g/dL (3.2-5.0); Alkaline Phosphatase 118 U/L (45-117); Anion Gap 4 (5-15); BUN 19 mg/dL (7-18); BUN/Creat Ratio 22.1 RATIO (10-20); Calcium,Total 8.4 mg/dL (8.5-10.1); Chloride 108 mmol/L (98-107); Creatinine, Serum 0.86 mg/dL (0.55-1.02); EST Glomerular Filtration Rate 68 mL/min (>60); Est Glom Filt Rate - Afr Amer 82 mL/min (>60); Free T3 2.9 pg/mL (2.18-3.98); Globulin 3.3 g/dL (2.2-4.2); Glucose 103 mg/dL (74-106); Potassium 4.5 mmol/L (3.5-5.1); Protein, Total 6.9 g/dL (6.4-8.2); Sodium Level 140 mmol/L (136-145); T4 Free Direct 1.06 ng/dL (0.76-1.46); Thyroid Stim Hormone (TSH) 1.66 uIU/mL (0.358-3.74)
[2019-07-09 13:21] LABS: Microalbumin,Random Urine 7.4 mg/L (NO RANGE EST.); Microalbumin:Creatinine Ratio 6.3 mg/g CRE (<30 mg/g CRE)
[2019-07-10 16:08] LABS: CHOLESTEROL TOTAL 209 mg/dL (100-199); HDL-C 63 mg/dL (>39); HDL-P TOTAL 41.8 umol/L (>=30.5); SMALL LDL-P 426 nmol/L (<=527); TRIGLYCERIDES 193 mg/dL (0-149)
[2019-07-11 12:35] LABS: INSULIN RESISTANCE SCORE 54 (<=45); LDL SIZE 21.6 nm (>20.5); LDL-C 107 mg/dL (0-99); LDL-P 1187 nmol/L (<1000)
== END ==
PROVIDERS: Family Provider Internal Medicine; PCP Internal Medicine; Referring Provider Internal Medicine; Visit Provider Internal Medicine
DX: E53.8 Deficiency of other specified B group vitamins (principal); E03.9 Hypothyroidism, unspecified; E11.9 Type 2 diabetes mellitus without complications
CPT/HCPCS: 36415; 80053; 80061; 81001; 82043; 82570; 82607; 83704; 84439; 84443; 84481; 85025

== ENCOUNTER → 2019-07-24 12:46 | Outpatient (CLI) | payer MEDICARE, BC, SELFPAY ==
[2019-01-21 11:19] VITALS: BMI 36.8
--- NOTE | 2019-07-24 12:48 | RAD_ITS ---
STUDY: SWALLOWING STUDY REASON FOR EXAM: Female, 79 years old. Dysphagia. TECHNIQUE: The examination was performed with Speech Pathology in attendance. Under fluoroscopic observation, the patient ingested thin barium, thick barium, barium pudding, and barium coated cracker. FLUOROSCOPY TIME: 1:33 minutes/seconds. 1401 fluoroscopic images were obtained. RADIOLOGIST INVOLVEMENT: Radiologist was present and providing direct supervision. COMPARISON: None. FINDINGS: The following was observed during swallowing of the various mixtures of barium: Thin Barium: There was no evidence of aspiration or laryngeal penetration. Barium Pudding: There was no evidence of aspiration or laryngeal penetration. Barium Coated Cracker: There was no evidence of aspiration or laryngeal penetration. RAD/Swallowing Function w/Video IMPRESSION: Normal tailored barium swallow study. No evidence of increased risk for aspiration. The swallow study findings were discussed with the patient by the speech pathologist at the conclusion of the examination. Please see speech pathology report for more information and recommendations. Electronically Signed: Aramis Rodriguez, at 15:51 EDT , Service support ,
--- NOTE | 2019-07-24 12:50 | SP.MBSS_ITS ---
PRIMARY / SECONDARY DIAGNOSIS: Dysphagia/Parkinson?s Disease REFERRING PHYSICIAN: Trish De La Rosa NP CURRENT DIET: regular textures/thin liquids, no restrictions DENTITION: natural dentition MENTAL STATUS: WFL for participation in MBS RESPIRATORY STATUS: oxygenating on room air, reports occasional exertional dyspnea PREVIOUS MODIFIED BARIUM SWALLOW STUDY: n/a REASON FOR REFERRAL: Referred d/t reported difficulty swallowing when lying down and increased difficulty swallowing food w/ globus sensation. MEDICAL HISTORY: (obtained from patient and review of medical record) Parkinson?s Disease, essential HTN, paroxysmal atrial fibrillation, secondary pulmonary arterial HTN, mcc use of anticoagulants, HLD, diverticulitis, diverticulosis, glucose intolerance, hx poliomyelitis, IBS, GERD, HH, hypothyroidism s/p thyroidectomy, leukoplakia, nephrolithiasis STUDY FINDINGS: Patient participated in a Modified Barium Swallow (MBS) study on 07/24/2019. Dr. Rodriguez was the radiologist present for this evaluation. This study was recorded in the lateral view and images were sent to PACs for storage. The following consistencies were presented to this patient for analysis of oropharyngeal swallow function: thin liquid, pudding and a regular texture cookie. Results of the MBS are as follows: PENETRATION / ASPIRATION SCALE (RODAS): 1 = does not enter airway 2 = enters airway/above vocal folds/ejected 3 = enters airway/above vocal folds/not ejected 4 = enters airway/contacts vocal folds/ejected 5 = enters airway/contacts vocal folds/not ejected 6 = enters airway/below vocal folds/ejected 7 = enters airway/below vocal folds/not ejected despite effort 8 = enters airway/below vocal folds/no effort PENETRATION / ASPIRATION SCALE (SCORE): 1. Thin liquid 5mL via teaspoon: 1 2. Thin liquid 5mL via teaspoon: 1 3. Thin liquid single sip via cup: 1 4. Thin liquid single sip via cup: 1 5. Thin liquid sequential swallows via cup: 2 6. Thin liquid single swallow via straw: 2 7. Puddin 8. ? barium coated cookie: 1 IMPRESSION ORAL PHASE CHARACTERIZED BY: LABIAL SEAL: no labial escape TONGUE CONTROL DURING BOLUS MANIPULATION: cohesive bolus between tongue to palatal seal BOLUS PREPARATION / MASTICATION: slow prolonged chewing/mashing with complete recollection BOLUS TRANSPORT / LINGUAL MOTION: slowed tongue motion ORAL RESIDUE: residue collection on oral structures PHARYNGEAL PHASE CHARACTERIZED BY: INITIATION OF PHARYNGEAL SWALLOW: bolus head at posterior angle of ramus at first hyoid excursion SOFT PALATE ELEVATION: no bolus between soft palate and pharyngeal wall LARYNGEAL ELEVATION: complete superior movement of thyroid cartilage with complete approximation of arytenoids cartilage to epiglottic petiole ANTERIOR HYOID EXCURSION: partial anterior movement EPIGLOTTIC MOVEMENT: complete epiglottic inversion LARYNGEAL VESTIBULE CLOSURE AT HEIGHT OF SWALLOW: complete laryngeal vestibule closure with no air/contrast in laryngeal vestibule PHARYNGEAL STRIPPING WAVE: pharyngeal stripping wave present / complete PHARYNGOESOPHAGEAL SEGMENT OPENING: complete distension and complete duration with no obstruction of flow TONGUE BASE RETRACTION: trace column of contrast between tongue base and posterior pharyngeal wall PHARYNGEAL RESIDUE: trace residue within or on pharyngeal structures ESOPHAGEAL PHASE CHARACTERIZED BY: ESOPHAGEAL BOLUS CLEARANCE IN THE UPRIGHT POSITION: complete clearance; esophageal coating EFFECTS OF TREATMENT STRATEGIES ATTEMPTED: REDUCED RATE OF INTAKE = effective REMOVAL OF STRAW straw = effective INTERPRETATION OF RESULTS Patient presents with mild oropharyngeal dysphagia (R13.12) secondary to Parkinson?s Disease. The oral phase is primarily marked by mildly prolonged mastication time and slowed lingual motion w/ A-P bolus transit resulting in decreased oral bolus clearance, requiring multiple lingual sweeps and a piecemeal deglutition pattern w/ pudding and solid texture boluses. Mildly reduced base of tongue retraction noted resulting in tongue base residue retention post deglutition. The patient was able to effectively clear this residue w/ an independently initiated swallow or use of a liquid chaser. Increased effort noted to elicit a second swallow to clear residue. The pharyngeal phase is primarily marked by prompt swallow onset w/ onset initiating when the leading edge of the bolus reached the posterior angle of the ramus and base of tongue. Incomplete anterior hyoid movement appreciated with delayed arytenoid to epiglottic petiole contact w/ slowed epiglottic inversion, resulting in contrast undercoating the posterior laryngeal surface of the epiglottis during all liquid trials. Laryngeal vestibule penetration occurred only w/ large volume sequential liquid bolus intake and w/ liquid intake via straw. Penetration entered the laryngeal vestibule, above the vocal folds, and was completely ejected from the laryngeal vestibule w/ swallow completion. Elimination of straw use, reduction in bolus volume and reduced rate of intake were all effective to eliminate laryngeal vestibule penetration. The esophageal phase was unremarkable. RECOMMENDATIONS DIET TEXTURE RECOMMENDATIONS: regular textures/thin liquids COMPENSATORY STRATEGIES RECOMMENDED: small bites/sips, slow rate of intake, avoid sequential swallows of liquids, avoid straw use, seated upright at 90 degrees during PO intake, remain upright for 30-60 minutes post meal (GERD precaution) NEED FOR REPEAT MBS: Consider repeating MBS at spaced intervals to assess performance as Parkinson?s Disease progresses and changes in swallow function are reported, as further therapy, diet texture/liquid consistency adjustments and use of compensatory strategies may be needed. NEED FOR SKILLED SPEECH-LANGUAGE INTERVENTION TARGETING DYSPHAGIA: This patient would benefit from skilled speech-language intervention targeting implementation of an oropharyngeal strengthening program for maintenance of current swallow function and to prevent deterioration in function as Parkinson?s Disease progresses. ADDITIONAL COMMENTS/RECOMMENDATIONS: Results and recommendations were discussed with the Patient immediately following MBS completion, along w/ review of the images obtained to improve patient comprehension of the deficits identified and the need for modifications to rate of intake to reduce risk for aspiration. Education was well received. Provided patient w/ an education packet targeting speech and swallowing changes associated w/ Parkinson?s Disease and encouraged the patient to review the information and implement the suggested tasks to maintain/preserve current speech/swallow function and reduce risk of decline as the disease progresses. Education was well received w/ the patient verbalizing understanding and agreement of all results/recommendations provided. Additionally, patient was voicing a desire to ?hold off? on outpatient speech therapy at this time. IMAGE COUNT: 140
== END ==
PROVIDERS: Family Provider Internal Medicine; PCP Internal Medicine; Referring Provider Nurse Practitioner Family; Visit Provider Nurse Practitioner Family
DX: R47.89 Other speech disturbances (principal); R13.10 Dysphagia, unspecified
CPT/HCPCS: 74230; 92611

== ENCOUNTER → 2019-07-31 12:51 | Outpatient (CLI) | payer MEDICARE, BC, SELFPAY ==
[2019-01-21 11:19] VITALS: BMI 36.8
--- NOTE | 2019-07-31 12:55 | BD_ITS ---
STUDY: DUAL ENERGY X-RAY ABSORPTIOMETRY / DXA REASON FOR EXAM: Female, 79 years old. Early menopause. Loss of height. TECHNIQUE: Bone Mineral Density (BMD) measurements of lumbar spine and right hip were obtained. COMPARISON: Comparison is made with prior study dated October 24, 2016. FINDINGS: Lumbar Spine (L1-L4): g/cm2 (1.037) / T-score (-1.2) / Z-score (0.6) Findings are suggestive of osteopenia with a low fracture risk. Right Femur Total: g/cm2 (0.860) / T-score (-1.2) / Z-score (0.7) Right Femoral Neck: g/cm2 (0.835) / T-score (-1.5) / Z-score (0.6) The T-Scores on the most recent prior examination were: Lumbar Spine (L1-L4): There has been worsening of bone density since the previous examination. Right Femur Total: which represents a worsening of 4.3%. BD/Dexa Bone Density Study IMPRESSION: The patient is considered osteopenic as outlined below according to World L[employer] Organization (WHO) criteria with a low fracture risk. There has been worsening of bone density since the previous examination. Reference Information: The T-score is the number of standard deviations above or below the standard which is normal for young adults at their peak bone mineral density. The World Health Organization (WHO) interprets the T-scores as follows: Above -1 Normal bone density Between -1 and -2.5 Osteopenia Equal to / or below -2.5 Osteoporosis As a practical clinical guideline, osteopenia may be graded as follows: Mild -1 through -1.5 Moderate -1.6 through -2.0 Severe -2.1 through -2.4 The Z-score is the number of standard deviations above or below age-matched controls. A Z-score of less than -1.5 would be considered abnormal. References: 1. NIH Osteoporosis and Related Bone Diseases http://www.osteo.org 2. International Society for Clinical Densitometry http://www.iscd.org 3. National Osteoporosis Foundation http://www.nof.org Electronically Signed: Aramis Rodriguez, at 15:34 EDT , Service support ,
== END ==
PROVIDERS: Family Provider Internal Medicine; PCP Internal Medicine; Referring Provider Internal Medicine; Visit Provider Internal Medicine
DX: Z78.0 Asymptomatic menopausal state (principal)
CPT/HCPCS: 77080

== ENCOUNTER → 2019-09-26 12:10 | Outpatient (CLI) | payer MEDICARE, BC, SELFPAY ==
[2019-09-26 10:16] VITALS: BMI 38.9
[2019-09-26 14:17] LABS: BNP,B-Type NATRIURETIC PEPTIDE 105.9 pg/mL (0-100)
== END ==
PROVIDERS: Family Provider Internal Medicine; PCP Internal Medicine; Referring Provider Internal Medicine Cardiovascular Disease; Visit Provider Internal Medicine Cardiovascular Disease
DX: R06.09 Other forms of dyspnea (principal)
CPT/HCPCS: 36415; 83880

== ENCOUNTER → 2019-10-10 13:53 | Outpatient (CLI) | payer MEDICARE, BC, SELFPAY ==
[2019-09-26 10:16] VITALS: BMI 38.9
--- NOTE | 2019-10-10 13:55 | ECHOCS_ITS ---
Reason For Study: Dyspnea/SOB Procedure This was a 2D Doppler, Color Flow transthoracic echocardiogram. The study was technically difficult. Contrast injection was performed. Exam performed in department. Left Ventricle Normal LV size. Left ventricular systolic function is normal. The estimated ejection fraction is 55 %. No regional wall motion abnormalities noted. Right Ventricle Normal RV size. Normal systolic function. Atria The left atrium is mildly enlarged. Normal right atrium. Mitral Valve Normal mitral valve. Tricuspid Valve Normal tricuspid valve. Aortic Valve The aortic valve is not well visualized. Pulmonic Valve The pulmonic valve is not well visualized. Great Vessels Normal aortic root. The pulmonary artery is normal size. Normal inferior vena cava. Pericardium/Pleural No pericardial effusion. Medication 22 gauge I.V. with prn adaptor inserted into right arm. Diluted definity 4ml given slow IV push to enhance endocardial definition. MMode/2D Measurements & Calculations LVIDd: 5.3 cm IVSd: 1.3 cm LA dimension: 4.3 cm LVIDs: 3.3 cm LVPWd: 0.98 cm FS: 37.8 % LAV(MOD-bp): 88.2 ml LVAd ap4: 31.6 cm2 SV(MOD-sp4): 55.7 ml LAV(MOD-bp) Indexed: 40.7 ml/m2 EDV(MOD-sp4): 110.3 ml LAV(MOD-sp2): 81.8 ml EDV(sp4-el): 118.3 ml LAV(MOD-sp4): 80.0 ml LVAs ap4: 20.5 cm2 ESV(MOD-sp4): 54.6 ml ESV(sp4-el): 56.7 ml EF(MOD-sp4): 50.5 % EF(sp4-el): 52.1 % SV(sp4-el): 61.6 ml LA A4 area: 22.5 cm2 RA A4 area: 14.1 cm2 Time Measurements MV dec time: 0.21 sec Doppler Measurements & Calculations MV E max forest: 112.4 cm/sec Lat Peak E' Forest: 11.8 cm/sec Med Peak E' Forest: 7.2 cm/sec MV A max forest: 45.4 cm/sec E/E' lat: 9.5 E/E' med: 15.7 MV E/A: 2.5 MV V2 max: 127.3 cm/sec MV P1/2t max forest: 125.2 cm/sec Ao V2 max: 142.7 cm/sec MV max P.5 mmHg MV P1/2t: 124.3 msec Ao max P.1 mmHg MV V2 mean: 56.0 cm/sec MV mean P.6 mmHg MV dec slope: 295.1 cm/sec2 MV V2 VTI: 42.9 cm MVA(P1/2t): 1.8 cm2 AI max forest: 411.5 cm/sec LV V1 max: 82.4 cm/sec MR max forest: 456.2 cm/sec AI max P.7 mmHg LV V1 max P.7 mmHg MR max P.2 mmHg AI dec slope: 150.7 cm/sec2 AI P1/2t: 799.7 msec PA V2 max: 100.6 cm/sec PI end-d forest: 119.8 cm/sec TR max forest: 302.1 cm/sec TR max P.5 mmHg Interpretation Summary Normal LV size. Left ventricular systolic function is normal. The estimated ejection fraction is 55 %. Contrast injection was performed. Structurally normal valves. Ordering Physician: Irving Lamas Referring Physician: Irving Lamas Performed By: Nathan Enriquez RCS
== END ==
PROVIDERS: Family Provider Internal Medicine; PCP Internal Medicine; Referring Provider Internal Medicine Cardiovascular Disease; Visit Provider Internal Medicine Cardiovascular Disease
DX: R06.09 Other forms of dyspnea (principal)
CPT/HCPCS: 93306; Q9957; A4216; C8929

== ENCOUNTER 2019-11-17 11:20 | Emergency (ER) | payer MEDICARE, SELFPAY ==
[2019-09-26 10:16] VITALS: BMI 38.9
[2019-11-17 11:21] VITALS: BP 105/63; PULSE 75; RESP 18; TEMP 36.7; O2SAT 97; BMI 37.5
[2019-11-17 12:20] VITALS: BP 108/76; PULSE 88; RESP 20; O2SAT 97
--- NOTE | 2019-11-17 12:21 | ED.VIS.DYS ---
History of Present Illness Chief Complaint: Shortness of Breath Informant: Patient, Relative Onset: Weeks - 2 Activity at onset: Exertion Timing: Intermittent Quality: Dyspnea on exertion, Orthopnea Current Severity: Gone - sitting, at rest Maximum Severity: Moderate Worsened by: Coughing, Lying flat Relieved by: Rest - and sitting up Associated Symptoms: Clear sputum, Cough, Rhinorrhea. Negative for: Ear pain, Fever - just chills, Sore throat Chest Pain: None Narrative: Patient has had a respiratory illness for about 2 weeks. Short of breath at times which she is relatively vague about but she does not have a history of asthma or lung disease. She was seen by her PCP at a walk-in clinic today had, she was put on amoxicillin for 2 weeks that she is almost done with as well as prednisone. She states while on the prednisone/antibiotic combination, 4 days ago she felt like she went into atrial fibrillation which she has had before and takes flecainide for. She knows when she goes into it because she can tell, that was the first day she noticed it. It has been off and on since then, she feels it right now. 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 - Past Medical History (1) Chronic diastolic (congestive) heart failure Status: Chronic (2) Essential (primary) hypertension Status: Chronic (3) HLD (hyperlipidemia) Status: Chronic (4) Paroxysmal atrial fibrillation Status: Chronic (5) Secondary pulmonary arterial hypertension Status: Chronic (6) Dyspnea on minimal exertion Status: Chronic Past Medical History - Allergies and Home Meds Allergies/Adverse Reactions: Allergies simvastatin Adverse Reaction (Severe, Verified 11/17/19 11:23) myalgias Primary Care Physician: Irving Lamas MD [STAFF PHYSICIAN] - 3-5 Days Bernice Moctezuma DO [Primary Care Provider] - Surgical History: hysterectomy - due to fibroids, total hip arthroplasty - R Lives: Alone Smoking Status: Former smoker - Family History Offspring Family History: Family History (Last Reviewed 09/26/19 @ 10:15 by Alanis Hayes) Father CAD (coronary artery disease) CVA (cerebral vascular accident) Mother CAD (coronary artery disease) Family History: Reports: - - son of a ME at 53 YOA Maternal Family History: Family History (Last Reviewed 09/26/19 @ 10:15 by Alanis Hayes) Father CAD (coronary artery disease) CVA (cerebral vascular accident) Mother CAD (coronary artery disease) Family History: Reports: Heart Disease Paternal Family History: Family History (Last Reviewed 09/26/19 @ 10:15 by Alanis Hayes) Father CAD (coronary artery disease) CVA (cerebral vascular accident) Mother CAD (coronary artery disease) Family History: Reports: Heart Disease Sibling Family History: Family History (Last Reviewed 09/26/19 @ 10:15 by Alanis Hayes) Father CAD (coronary artery disease) CVA (cerebral vascular accident) Mother CAD (coronary artery disease) Family History: Reports: Heart Disease Review of Systems General: Reports: Chills, Malaise, Sweats. Denies: Fever Eyes: Denies: Visual changes - bilaterally, Diplopia ENT: Reports: Rhinorrhea. Denies: Bilateral ear pain, Sore throat Cardiovascular: Denies: Chest pain, Palpitations Respiratory: Reports: Dyspnea, Cough, Sputum, Dyspnea on exertion, Orthopnea. Denies: Paroxysmal nocturnal dyspnea Gastrointestinal: Denies: Abdominal pain, Nausea, Vomiting, Diarrhea, Melena, Hematochezia Genitourinary: Denies: Dysuria, Hematuria, Frequency Musculoskeletal: Denies: Neck pain, Back pain, Swelling, Extremity Pain Skin: Denies: Rash, Wounds Neurological: Denies: Headache, Weakness, Numbness Physical Exam Vital Signs/Narrative: Vital Signs Temp Pulse Resp BP Pulse Ox 11/17/19 12:20 88 20 H 108/76 97 11/17/19 11:21 98.1 F 75 18 105/63 97 Inital Vital Signs reviewed: Yes General: Well nourished, Well developed, Obese, No Acute Distress Head: Normocephalic, Atraumatic Eyes: Perrl, EOMI ENT: Moist mucous membranes, No rhinorrhea. Negative for: Sinus tenderness Neck: Supple, Nontender, No lymphadenopathy, No JVD Cardiovascular: No murmurs, Irregular. Negative for: Tachycardia Respiratory: No distress, Chest nontender, Rhonchi - right base; otherwise, clear Abdomen: Soft, Nontender, Nondistended, Normal bowel sounds Back: Nontender, Normal Inspection Extremities: Nontender, No edema. Negative for: Calf Tenderness Skin: Normal color, No rash, No Trauma Neurological: Alert, Oriented x3, Cranial nerves II-XII grossly intact, Normal Strength, Normal Sensation Psychological: Normal affect, Normal Mood Diagnostic/Tx/Re-eval Impressions Chest X-Ray 11/17/19 12:34 IMPRESSION: Moderate cardiomegaly. Electronically Signed: Aramis Rodriguez, at 13:01 EST , Service support , 11/17/19 12:34 Chest PA and Lateral [RAD] Stat Laboratory Results 11/17/19 11/17/19 11/17/19 12:25 12:25 12:25 WBC 11.1 H RBC 5.21 Hgb 16.3 H Hct 48.5 H MCV 93.1 MCH 31.3 MCHC 33.6 RDW Std Deviation 41.5 RDW Coeff of Tika 12.0 Plt Count 251 MPV 9.9 Immature Gran % (Auto) 1.900 H Neut % (Auto) 66.8 Lymph % (Auto) 23.2 Glasscock % (Auto) 7.1 Eos % (Auto) 0.5 Baso % (Auto) 0.5 Absolute Neuts (auto) 7.4 Absolute Lymphs (auto) 2.56 Nucleated RBC % 0 PT INR Sodium 143 Potassium 3.5 Chloride 106 Carbon Dioxide 32.0 Anion Gap 5 BUN 27 H Creatinine 1.08 H Estim Creat Clear Calc 42.42 Est GFR (MDRD) Af Amer 63 Est GFR (MDRD) Non-Af 52 L BUN/Creatinine Ratio 25.0 H Glucose 108 H Calcium 8.8 Troponin I < 0.015 B-Natriuretic Peptide 214.0 H 11/17/19 12:25 WBC RBC Hgb Hct MCV MCH MCHC RDW Std Deviation RDW Coeff of Tika Plt Count MPV Immature Gran % (Auto) Neut % (Auto) Lymph % (Auto) Glasscock % (Auto) Eos % (Auto) Baso % (Auto) Absolute Neuts (auto) Absolute Lymphs (auto) Nucleated RBC % PT 28.0 H INR 2.6 Sodium Potassium Chloride Carbon Dioxide Anion Gap BUN Creatinine Estim Creat Clear Calc Est GFR (MDRD) Af Amer Est GFR (MDRD) Non-Af BUN/Creatinine Ratio Glucose Calcium Troponin I B-Natriuretic Peptide - Rhythm Strip Rhythm Strip: A-fib Rate: 80 Ectopy: None - Medical Decision Making Results show no evidence of pneumonia. Her symptoms are consistent with a viral illness for the past 2 weeks, certainly reassuring that her chest x-ray is unremarkable. Given the timing I did not feel an influenza test was going to be helpful. Her BNP is very low which is also reassuring given her orthopnea. I discussed her A. fib with Dr. Lamas. Of note, I did not repeat her EKG because she brought her EKG from the office that showed rate controlled atrial fibrillation with no acute injury pattern. He is aware that she is on flecainide and advises that I give her a dose of Lasix and let her go home with close outpatient follow-up. I am happy to try her on an antibiotic given that she has been 2 weeks without any improvement, however covering her for atypicals may make her INR go up, it is 2.6 right now. I discussed this with her; she states the amoxicillin has not been agreeing with her, and she wishes to discontinue it and does not wish to reintroduce another antibiotic at this time. I think that is reasonable. She is stopping the prednisone as well, she only has 2 days left of a taper and I think that should be fine as well. ED Disposition - Plan for ED Patient: Disposition: Home or Assisted Living Diagnosis: Upper respiratory infection, Rate controlled atrial fibrillation Instructions: Atrial Fibrillation, BRONCHITIS, No Antibiotic (Adult) Referrals: Bernice Moctezuma DO [Primary Care Provider] - Irving Lamas MD [STAFF PHYSICIAN] - 3-5 Days
[2019-11-17 12:22] VITALS: O2SAT 97
--- NOTE | 2019-11-17 12:34 | RAD_ITS ---
STUDY: X-RAY CHEST REASON FOR EXAM: Female, 79 years old. SOB, COUGH AND WEAKNESS FOR ABOUT 2 WEEKS. VERY DIZZY TODAY. TECHNIQUE: PA and lateral views of the chest. COMPARISON: Comparison is made with prior examination dated July 25, 2016. FINDINGS: EKG electrodes are seen. The lungs are clear and expanded. There is no demonstrated pleural abnormality. There is moderate cardiac enlargement. Normal mediastinum and eran. Normal visualized pulmonary arteries. There is atherosclerotic tortuosity of the aortic arch and descending thoracic aorta. There are diffuse degenerative changes of the visualized thoracic spine. Normal visualized ribs, clavicles, and shoulders. There is no demonstrated abnormality of the visualized soft tissue structures of the upper abdomen. RAD/Chest PA and Lateral IMPRESSION: Moderate cardiomegaly. Electronically Signed: Aramis Rodriguez, at 13:01 EST , Service support ,
[2019-11-17 12:36] LABS: Absolute Lymphocyte Count 2.56 X10^3/uL (0.83-4.51); Absolute Neutrophil Count 7.4 X10^3/uL (2.0-7.7); Basophil# 0.06 X10^3/uL; Basophil% 0.5 % (0-1); Eosinophil# 0.06 X10^3/uL; Eosinophils% 0.5 % (0-5); Hematocrit 48.5 % (37-47); Hemoglobin 16.3 g/dL (12.0-15.0); Lymphocyte # 2.56 X10^3/ul (4.0); Lymphocyte % 23.2 % (19-41); Mean Corp Hgb Conc 33.6 g/dL (32-36); Mean Corpuscular Hgb 31.3 pg (27.0-32.0); Mean Corpuscular Volume 93.1 fL (81-99); Mean Platelet Vol. 9.9 fl (6.2-12.0); Monocyte# 0.79 X10^3/uL; Monocyte% 7.1 % (0-10); NRBC Flagged by Analyzer 0 % (0-5); Neutrophil # 7.37 X10^3/uL (2.7-7.7); Neutrophil % 66.8 % (47-70); Platelet Count 251 K/mm3 (150-450); RBC Distribution Width SD 41.5 fl (35.1-43.9); Red Blood Count 5.21 M/mm3 (4.2-5.4); White Blood Count 11.1 K/mm3 (4.4-11.0)
[2019-11-17 12:44] LABS: International Normalized Ratio 2.6
[2019-11-17 12:55] LABS: Anion Gap 5 (5-15); BUN 27 mg/dL (7-18); Calcium,Total 8.8 mg/dL (8.5-10.1); Chloride 106 mmol/L (98-107); Creatinine, Serum 1.08 mg/dL (0.55-1.02); EST Glomerular Filtration Rate 52 mL/min (>60); Est Glom Filt Rate - Afr Amer 63 mL/min (>60); Estimated Creatinine Clearance 42.42 ml/min; Glucose 108 mg/dL (74-106); Potassium 3.5 mmol/L (3.5-5.1); Sodium Level 143 mmol/L (136-145)
[2019-11-17 14:05] VITALS: BP 90/35; PULSE 78; RESP 20; O2SAT 97
[2019-11-17] MEDS: Furosemide 20 MG/2 ML VIAL IV (15:48)
--- NOTE | 2019-11-17 15:50 | CON.PCM_ITS ---
Reason for Consult Date of Consultation: 11/17/19 Reason for Consultation: Shortness of breath History of Present Illness: BA LANZA, is a 79 F who presents to the emergency room with shortness of breath. She apparently has been treated for an upper respiratory tract infection with oral prednisone as well as antibiotics. She says that this been going on for a few weeks and she was not getting better and so she presented to our office today after she felt that she had gone into atrial fibrillation. An EKG confirmed it and she was taken by my nurse down to the emergency room. She is a lady with a history of hypertension, hyperlipidemia, no significant coronary artery disease, and paroxysmal atrial fibrillation. After she was seen in the office a few weeks ago she did have an natruretic peptide performed which was minimally elevated. Previous echocardiogram had demonstrated preserved ejection fraction of 60% with stage II diastolic dysfunction and she was on daily Lasix. She has had no chest pain or pedal edema and she has been compliant with her medications. The emergency room called me for an input regarding her care. Past Medical History Allergies/Adverse Reactions: Allergies simvastatin Adverse Reaction (Severe, Verified 11/17/19 11:23) myalgias Home Medications: Ambulatory Orders Medication Instructions Recorded Carbidopa/Levodopa [Sinemet Cr 1 ea PO BID 11/12/17 50-200 Tablet] melatonin 5 mg capsule mg PO 07/07/18 warfarin 1 mg tablet 1 mg PO 5XW #90 tab 07/30/18 warfarin 4 mg tablet 4 mg PO DAILY #90 tab 07/30/18 levothyroxine 100 mcg tablet 125 mcg PO MOTUWETHFR tab 01/21/19 metoprolol tartrate 25 mg tablet 25 mg PO BID tab 01/21/19 doxycycline hyclate 100 mg capsule PO 7 Days #14 cap 03/28/19 citalopram 20 mg tablet 30 mg PO QHS tab 06/06/19 omeprazole 20 mg capsule,delayed 20 mg PO QDAY #30 cap 07/14/19 release warfarin 5 mg tablet 5 mg PO .COMPLEX #90 tab 07/14/19 flecainide 150 mg tablet 150 mg PO BID #180 tab 08/22/19 lisinopril 10 mg tablet 10 mg PO DAILY #90 tab 08/22/19 alendronate 70 mg tablet 70 mg PO QWEEK 08/26/19 carbidopa 25 mg-levodopa 100 mg 1 tab PO TID 09/26/19 disintegrating tablet furosemide 40 mg tablet 40 mg PO DAILY #90 tab 09/26/19 pravastatin 40 mg tablet 40 mg PO QHS #90 tab 10/06/19 Past Medical History (Chronic Problems): Chronic Problems (Last Reviewed 09/26/19 @ 10:15 by Alanis Hayes) Dyspnea on minimal exertion (Chronic) Chronic diastolic (congestive) heart failure (Chronic) Paroxysmal atrial fibrillation (Chronic) Secondary pulmonary arterial hypertension (Chronic) Essential (primary) hypertension (Chronic) HLD (hyperlipidemia) (Chronic) alf (current) use of anticoagulants (Chronic) Surgical History: hysterectomy - due to fibroids, total hip arthroplasty - R Psychiatric History: 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: dysfunctional uterine bld, uterine fibroids, - - hs had a XAVIER/BSO - *Family History Offspring Family History: Family History (Last Reviewed 09/26/19 @ 10:15 by Alanis Hayes) Father CAD (coronary artery disease) CVA (cerebral vascular accident) Mother CAD (coronary artery disease) History Items: - - son of a [place] at 53 YOA Maternal Family History: Family History (Last Reviewed 09/26/19 @ 10:15 by Alanis Hayes) Father CAD (coronary artery disease) CVA (cerebral vascular accident) Mother CAD (coronary artery disease) History Items: Heart Disease Paternal Family History: Family History (Last Reviewed 09/26/19 @ 10:15 by Alanis Hayes) Father CAD (coronary artery disease) CVA (cerebral vascular accident) Mother CAD (coronary artery disease) History Items: Heart Disease Sibling Family History: Family History (Last Reviewed 09/26/19 @ 10:15 by Alanis Hayes) Father CAD (coronary artery disease) CVA (cerebral vascular accident) Mother CAD (coronary artery disease) History Items: Heart Disease Lives: Alone Smoking Status: Former smoker Alcohol: None Drugs: None Review of Systems - Review of Systems General: Denies: Fever, Night Sweats, Fatigue HEENT: Denies: Vision Change Cardiovascular: Reports: Shortness of Breath, Palpitations. Denies: Chest Discomfort, Orthopnea, PND, Peripheral Edema, Lightheadedness, Dizziness, Near Syncope, Syncope Respiratory: Denies: Cough, Sputum Production, Hemoptysis Gastrointestinal: Denies: Hematemesis, Hematochezia, Melena Genitourinary: Denies: Dysuria, Hematuria Skin: Denies: Rash Neurological: Denies: Dizziness Psychiatric: Denies: Anxiety Endocrine: Denies: Heat Intolerance Hematologic/ Lymphatic: Denies: Lymph Node Enlargement Subjectve: Pleasant lady in no distress sitting in bed Objective: Vital Signs Temp Pulse Resp BP Pulse Ox 98.1 F 78 20 H 90/35 L 97 11/17/19 11:21 11/17/19 14:05 11/17/19 14:05 11/17/19 14:05 11/17/19 14:05 Oxygen Delivery Method Room Air Weight: 240 lb Body Mass Index (BMI) 37.5 General: Awake, Alert, Oriented x 3 HEENT: PERRL, EOMI, Sclera Non Icteric Neck: Supple, Good ROM, No Lymph Node Enlargement Lungs: Clear to auscultation Cardiovascular: Irregular Rhythm, Normal S1, Normal S2, No Murmurs, No Rubs, No Gallops Vascular: No Carotid Bruits, Normal Femoral Pulses, Normal Radial Pulses, Normal Dorsalis Pedal Pulse, Normal Posterior Tibial Pulses Abdomen: Bowel Sounds Present, Soft, Non Tender, No HSM, No Organomegaly Extremities: No Cyanosis, No Clubbing, No edema Musculoskeletal: No Erythema Skin: No Rashes Lymphatic: No Lymph Node Enlargement Neurological: No Focal Motor or Sensory Deficit Psych/Mental Status: Appropriate 11/17/19 12:25: WBC 11.1 H, RBC 5.21, Hgb 16.3 H, Hct 48.5 H, MCV 93.1, MCH 31.3, MCHC 33.6, Plt Count 251, MPV 9.9, Immature Gran % (Auto) 1.900 H, Neut % (Auto) 66.8, Lymph % (Auto) 23.2, [place] % (Auto) 7.1, Eos % (Auto) 0.5, Baso % (Auto) 0.5, Absolute Neuts (auto) 7.4, Nucleated RBC % 0 11/17/19 12:25: Sodium 143, Potassium 3.5, Chloride 106, Carbon Dioxide 32.0, Anion Gap 5, BUN 27 H, Creatinine 1.08 H, Est GFR (MDRD) Af Amer 63, Est GFR (MDRD) Non-Af 52 L, BUN/Creatinine Ratio 25.0 H, Glucose 108 H, Calcium 8.8, Troponin I < 0.015 11/17/19 12:25: B-Natriuretic Peptide 214.0 H 11/17/19 12:25: PT 28.0 H, INR 2.6 Rhythm: EKG: Atrial fibrillation with a controlled ventricular response rate Assessment/Plan 1. Shortness of breath mild congestive heart failure diastolic * Patient appears to be in mild congestive heart failure with her elevated natruretic peptide. My recommendation would be in light of the fact that she has preserved ejection fraction to give her a dose of Lasix and for her to continue her oral Lasix at home. It is possible that her fluid retention may have been caused by her recent increase in prednisone dosage. * 2. Atrial fibrillation * She does have atrial fibrillation but with a controlled ventricular response rate. She has had a paroxysm of the above and my recommendation at this time will be to continue the same medications including the flecainide. No other major changes will be made. We will schedule a follow-up within the next few days in the office * 3. Hypertension * Blood pressure appears to be under good control and I would not recommend we make any changes at this time. * The plan will be to have her discharged from the emergency room for outpatient follow-up * Thank you for allowing me to participate in the care of your patient. Please don't hesitate to call if any issues arise
== END 2019-11-17 15:50 | disposition home or self-care (01) ==
PROVIDERS: Emergency Provider Emergency Medicine; Family Provider Internal Medicine; PCP Internal Medicine
DX: J06.9 Acute upper respiratory infection, unspecified (principal); I48.0 Paroxysmal atrial fibrillation; I11.0 Hypertensive heart disease with heart failure; I50.32 Chronic diastolic (congestive) heart failure; I27.21 Secondary pulmonary arterial hypertension; E78.5 Hyperlipidemia, unspecified; Z79.01 Long term (current) use of anticoagulants; Z79.899 Other long term (current) drug therapy; Z87.891 Personal history of nicotine dependence; Z90.710 Acquired absence of both cervix and uterus
CPT/HCPCS: 71046; 80048; 83880; 84484; 85025; 85610; 96374; 99283; A4216; J1940

== ENCOUNTER → 2019-11-27 11:58 | Outpatient (CLI) | payer MEDICARE, SELFPAY ==
[2019-09-26 10:16] VITALS: BMI 38.9
[2019-11-24 15:26] VITALS: BMI 38.5
--- NOTE | 2019-11-27 12:00 | BI_ITS ---
MAMMOGRAPHY - BILATERAL SCREENING REASON FOR EXAM: Female, 79 years old. Routine annual screening examination. PERTINENT HISTORY: Remote right breast biopsy. Sister with breast cancer. Mother with breast cancer. Aunt with breast cancer. TECHNIQUE: Digital bilateral breast abraham (3D mammographic acquisition) in the CC and MLO projections. 2-D mediolateral oblique (MLO) and craniocaudad (CC) views of both breasts were obtained. CAD: Full Field Digital Mammography with Computer Added Detection was performed. COMPARISON: Comparison is made with prior study dated November 06, 2018 and October 25, 2017. FINDINGS: Breast Composition: There are scattered areas of fibroglandular density. There are no dominant masses or suspicious calcifications. No other significant abnormalities are identified. There has been no significant change since the prior study. BI/SCREEN MAMM (CAD) W/ABRAHAM BILAT IMPRESSION: Stable bilateral screening mammogram. Yearly follow-up mammogram recommended. (A) ASSESSMENT CATEGORY: BIRADS Category 1: Negative. A letter regarding these results will be sent to the patient by the facility within 30 days. Approximately 10% of breast cancers are not detected by mammography. A normal mammogram should not delay biopsy of a clinically suspicious abnormality. [id number] Electronically Signed: Aramis Rodriguez, at 13:47 EST , Service support ,
== END ==
PROVIDERS: Family Provider Internal Medicine; PCP Internal Medicine; Referring Provider Internal Medicine; Visit Provider Internal Medicine
DX: Z12.31 Encounter for screening mammogram for malignant neoplasm of breast (principal)
CPT/HCPCS: 77063; 77067

== ENCOUNTER → 2019-12-15 10:04 | Outpatient (CLI) | payer MEDICARE, SELFPAY ==
[2019-11-24 15:26] VITALS: BMI 38.5
[2019-12-15 10:18] LABS: Mucous, Urine 0 SEEN /hpf (<or=2+); Red Blood Cells-Urine 0 SEEN /hpf (0-5); White Blood Cells 0 SEEN /hpf (0-5)
[2019-12-15 11:14] LABS: Absolute Lymphocyte Count 1.73 X10^3/uL (0.83-4.51); Absolute Neutrophil Count 3.8 X10^3/uL (2.0-7.7); Basophil# 0.03 X10^3/uL; Basophil% 0.5 % (0-1); Eosinophil# 0.05 X10^3/uL; Eosinophils% 0.8 % (0-5); Hematocrit 44.3 % (37-47); Hemoglobin 14.4 g/dL (12.0-15.0); Lymphocyte # 1.73 X10^3/ul (4.0); Lymphocyte % 27.2 % (19-41); Mean Corp Hgb Conc 32.5 g/dL (32-36); Mean Corpuscular Hgb 30.3 pg (27.0-32.0); Mean Corpuscular Volume 93.3 fL (81-99); Mean Platelet Vol. 10.2 fl (6.2-12.0); Monocyte# 0.67 X10^3/uL; Monocyte% 10.5 % (0-10); NRBC Flagged by Analyzer 0 % (0-5); Neutrophil # 3.83 X10^3/uL (2.7-7.7); Neutrophil % 60.2 % (47-70); Platelet Count 227 K/mm3 (150-450); RBC Distribution Width CV 12.6 % (11.6-14.6); RBC Distribution Width SD 42.9 fl (35.1-43.9); Red Blood Count 4.75 M/mm3 (4.2-5.4); White Blood Count 6.4 K/mm3 (4.4-11.0)
[2019-12-15 11:22] LABS: Color, Urine Yellow (Yellow); Glucose, Dipstick Normal (Normal); Ketone-Dipstick Negative (Negative); Leukocyte Esterase-Dipstick Negative /ul (Negative); Nitrite-Dipstick Negative (Negative); Occult Blood-Urine Negative /ul (Negative); Protein-Dipstick Negative (Negative); Urine Bilirubin Dipstick Negative (Negative); Urine Clarity Clear (Clear); Urine Urobilinogen Normal (Normal); Urine pH 6.5 (5.0 - 8.0)
[2019-12-15 11:33] LABS: Microalbumin,Random Urine 6.2 mg/L (NO RANGE EST.)
[2019-12-15 11:39] LABS: International Normalized Ratio 1.8; Prothrombin Time (Protime)PT. 20.7 SECONDS (11.7-14.9)
[2019-12-15 11:53] LABS: Vitamin B12 1207 pg/mL (211-911)
[2019-12-15 12:04] LABS: BUN 23 mg/dL (7-18); Creatinine, Serum 1.07 mg/dL (0.55-1.02); Glucose 101 mg/dL (74-106)
[2019-12-15 12:05] LABS: AST(SGOT) 15 U/L (15-37); Alanine Aminotransfer ALT/SGPT 12 U/L (13-56); Albumin, Serum 3.9 g/dL (3.2-5.0); Alkaline Phosphatase 102 U/L (45-117); Anion Gap 7 (5-15); BUN/Creat Ratio 21.5 RATIO (10-20); Calcium,Total 8.8 mg/dL (8.5-10.1); Chloride 100 mmol/L (98-107); Cholesterol 226 mg/dL (200); EST Glomerular Filtration Rate 53 mL/min (>60); Est Glom Filt Rate - Afr Amer 64 mL/min (>60); Globulin 3.9 g/dL (2.2-4.2); High Density Lipoprotein 78 mg/dL; Protein, Total 7.8 g/dL (6.4-8.2); Sodium Level 138 mmol/L (136-145); Thyroid Stim Hormone (TSH) 0.31 uIU/mL (0.358-3.74); Triglycerides 234 mg/dL; Very Low Density Lipoprotein 47 mg/dL (5-40)
[2019-12-15 12:10] LABS: Bacteria 1+ /hpf (None Seen); Squamous Epithelial Cells - UA 0-5 SEEN /hpf (5-10)
== END ==
PROVIDERS: Internal Medicine Cardiovascular Disease; PCP Internal Medicine; Referring Provider Nurse Practitioner Family; Visit Provider Internal Medicine
DX: I48.0 Paroxysmal atrial fibrillation (principal); E11.9 Type 2 diabetes mellitus without complications; E53.8 Deficiency of other specified B group vitamins; E03.9 Hypothyroidism, unspecified; Z79.01 Long term (current) use of anticoagulants
CPT/HCPCS: 80053; 80061; 81001; 82043; 82570; 82607; 84443; 85025; 85610

== ENCOUNTER → 2020-05-06 13:48 | Outpatient (CLI) | payer MEDICARE, SELFPAY ==
[2020-05-06 13:12] VITALS: BMI 40.1
[2020-05-06 16:44] LABS: BNP,B-Type NATRIURETIC PEPTIDE 135.7 pg/mL (0-100)
[2020-05-06 16:54] LABS: Anion Gap 9 (5-15); BUN 28 mg/dL (7-18); BUN/Creat Ratio 29.5 RATIO (10-20); Calcium,Total 8.4 mg/dL (8.5-10.1); Chloride 101 mmol/L (98-107); Creatinine, Serum 0.95 mg/dL (0.55-1.02); EST Glomerular Filtration Rate 61 mL/min (>60); Est Glom Filt Rate - Afr Amer 73 mL/min (>60); Glucose 79 mg/dL (74-106); Potassium 3.7 mmol/L (3.5-5.1); Sodium Level 139 mmol/L (136-145)
== END ==
PROVIDERS: PCP Internal Medicine; Referring Provider Internal Medicine Cardiovascular Disease; Visit Provider Internal Medicine Cardiovascular Disease
DX: R06.09 Other forms of dyspnea (principal); I10 Essential (primary) hypertension
CPT/HCPCS: 36415; 80048; 83880

== ENCOUNTER 2020-08-27 16:15 | Emergency (ER) | payer MEDICARE, SELFPAY ==
[2020-05-06 13:12] VITALS: BMI 40.1
[2020-08-27 16:16] VITALS: BP 137/42; PULSE 60; RESP 15; TEMP 36.3; O2SAT 92; BMI 35.2
--- NOTE | 2020-08-27 16:47 | EKG12_ITS ---
Test Reason : Blood Pressure : / mmHG Vent. Rate : 058 BPM Atrial Rate : 058 BPM P-R Int : 232 ms QRS Dur : 110 ms QT Int : 506 ms P-R-T Axes : 058 042 035 degrees QTc Int : 496 ms Sinus bradycardia with 1st degree A-V block T wave abnormality, consider anterior ischemia Prolonged QT Abnormal ECG Confirmed by VIDAL LAST, ROSE ([id number]), book editor MAHENDRA VARELA ([id number]) on 08/30/2020 11:38:33 AM Referred By: ZOILA Confirmed By:ROSE DRAKE MD
--- NOTE | 2020-08-27 16:47 | RAD_ITS ---
STUDY: X-RAY CHEST REASON FOR EXAM: Female, 80 years old. BILATERAL FOOT EDEMA AND PAIN SINCE SUNDAY TECHNIQUE: Single AP portable view of the chest. COMPARISON: November 17, 2019 FINDINGS: The lungs are clear and expanded. There is no demonstrated pleural abnormality. The heart is mildly enlarged. This is unchanged from the prior study. Normal mediastinum and eran. Normal visualized pulmonary arteries. Normal visualized aortic arch and descending thoracic aorta. Stable osseous structures. RAD/Chest 1 View (Portable) IMPRESSION: Mild cardiac enlargement Electronically Signed: Chele Burton MD at 18:01 EDT , Service support ,
--- NOTE | 2020-08-27 16:48 | RAD_ITS ---
STUDY: X-RAY - RIGHT FOOT CLINICAL: Female, 80 years old. RIGHT FOOT EDEMA AND PAIN SINCE SUNDAY TECHNIQUE: 3 view(s) of the foot. COMPARISON: None. FINDINGS: Normal talus, calcaneal body, and tarsal bones. A small to moderate-sized kolton are calcaneal spur is present. Normal visualized subtalar, talonavicular, calcaneocuboid, tarsal and tarsometatarsal articulations. Normal metatarsi. The bony structures are demineralized. No visualized acute fracture. Mild soft tissue swelling is present. RAD/Foot min 3 Views IMPRESSION: 1. Mild soft tissue swelling. 2. Degenerative changes. Electronically Signed: Chele Burton MD at 17:49 EDT , Service support ,
--- NOTE | 2020-08-27 16:49 | RAD_ITS ---
STUDY: X-RAY - LEFT FOOT CLINICAL: Female, 80 years old. LEFT FOOT EDEMA AND PAIN SINCE SUNDAY TECHNIQUE: 3 view(s) of the foot. COMPARISON: None. FINDINGS: The bony structures are demineralized. Scattered degenerative changes are present. A small plantar calcaneal spur is present. The soft tissues are mildly swollen. Normal talus, calcaneus, and tarsal bones. Normal visualized subtalar, talonavicular, calcaneocuboid, tarsal and tarsometatarsal articulations. Normal metatarsi. RAD/Foot min 3 Views IMPRESSION: Mild soft tissue swelling and degenerative changes Electronically Signed: Chele Burton MD at 17:51 EDT , Service support ,
--- NOTE | 2020-08-27 16:53 | ED.DCSUM_ITS ---
History of Present Illness Informant: Patient, Family Onset: Yesterday Context: Gradual Onset Timing: Continuous Quality: Swelling Location: Bilateral feet Current Severity: Severe Maximum Severity: Severe Worsened by: Nothing Relieved by: Nothing Associated Symptoms: Cough Narrative: 80-year-old female history of CHF presents with bilateral feet and leg pain and swelling. She is concerned for acute heart failure. She takes 40 Lasix daily. She has not had improvement. She denies any chest pain she is not short of breath at rest but is with mild exertion. No fevers or hemoptysis. She has a nonproductive cough. No orthopnea. No abdominal pain. No vomiting or diarrhea. She states that she also has a history of gout. She also has a history of neuropathy. She is on Coumadin. Prior similar symptoms: Yes Recent Illness/Hospitalization: No <Darron Willoughby - Last Filed: 08/27/20 16:53> <Scotty Perez - Last Filed: 08/28/20 00:05> Chief Complaint: Edema Past Medical History Prior records reviewed: Yes Past Medical History: - - CHF A. fib hypertension hyperlipidemia neuropathy gout Surgical History: hysterectomy - due to fibroids, total hip arthroplasty - R Lives: With Family Smoking Status: Former smoker Alcohol: None Drugs: None - Family History Offspring Family History: Family History (Last Reviewed 05/06/20 @ 13:[address] Irving Lamas MD) Father CAD (coronary artery disease) CVA (cerebral vascular accident) Mother CAD (coronary artery disease) Family History: Reports: - - son of a [place] at 53 YOA Maternal Family History: Family History (Last Reviewed 05/06/20 @ 13:[address] Irving Lamas MD) Father CAD (coronary artery disease) CVA (cerebral vascular accident) Mother CAD (coronary artery disease) Family History: Reports: Heart Disease Paternal Family History: Family History (Last Reviewed 05/06/20 @ 13:[address] Irving Lamas MD) Father CAD (coronary artery disease) CVA (cerebral vascular accident) Mother CAD (coronary artery disease) Family History: Reports: Heart Disease Sibling Family History: Family History (Last Reviewed 05/06/20 @ 13:[address] Irving Lamas MD) Father CAD (coronary artery disease) CVA (cerebral vascular accident) Mother CAD (coronary artery disease) Family History: Reports: Heart Disease <Darron Willoughby - Last Filed: 08/27/20 16:53> - Family History Offspring Family History: Family History (Last Reviewed 05/06/20 @ 13:[address] Irving Lamas MD) Father CAD (coronary artery disease) CVA (cerebral vascular accident) Mother CAD (coronary artery disease) Maternal Family History: Family History (Last Reviewed 05/06/20 @ 13:[address] Irving Lamas MD) Father CAD (coronary artery disease) CVA (cerebral vascular accident) Mother CAD (coronary artery disease) Paternal Family History: Family History (Last Reviewed 05/06/20 @ 13:[address] Irving Lamas MD) Father CAD (coronary artery disease) CVA (cerebral vascular accident) Mother CAD (coronary artery disease) Sibling Family History: Family History (Last Reviewed 05/06/20 @ 13:[address] Irving Lamas MD) Father CAD (coronary artery disease) CVA (cerebral vascular accident) Mother CAD (coronary artery disease) <Scotty Perez - Last Filed: 08/28/20 00:05> - Allergies and Home Meds Allergies/Adverse Reactions: Allergies simvastatin Adverse Reaction (Severe, Verified 08/27/20 16:18) myalgias prednisone Adverse Reaction (Verified 08/27/20 16:18) SOB and possible atrial fibrillation trigger (11/2019) Primary Care Physician: Bernice Moctezuma DO [Primary Care Provider] - 5-7 Days Review of Systems All systems negative except as indicated General: Denies: Chills, Fever, Sweats Eyes: Denies: Visual changes - bilaterally, Diplopia ENT: Denies: Rhinorrhea, Sore throat Cardiovascular: Denies: Chest pain, Palpitations Respiratory: Reports: Cough. Denies: Dyspnea, Sputum, Dyspnea on exertion, Orthopnea Gastrointestinal: Denies: Abdominal pain, Nausea, Vomiting, Diarrhea, Melena, Hematochezia Genitourinary: Denies: Dysuria, Hematuria, Frequency Musculoskeletal: Reports: Swelling, Extremity Pain. Denies: Back pain Skin: Denies: Rash, Wounds Neurological: Denies: Headache, Weakness, Numbness <Darron Willoughby - Last Filed: 08/27/20 16:53> Physical Exam Vital Signs/Narrative: Vital Signs Temp Pulse Resp BP Pulse Ox 08/27/20 16:16 97.4 F L 60 15 137/42 H 92 Inital Vital Signs reviewed: Yes General: Well nourished, Well developed, No Acute Distress Head: Normocephalic, Atraumatic Eyes: Perrl, EOMI ENT: Moist mucous membranes, No rhinorrhea Neck: Supple, Nontender Cardiovascular: Regular rate, Regular rhythm, No murmurs Respiratory: No distress, CTA bilaterally, Chest nontender Abdomen: Soft, Nontender, Nondistended, Normal bowel sounds Back: Nontender, Normal Inspection Extremities: Tenderness - Patient has normal active range of motion of her right ankle and foot without pain. Patient has a normal DP and PT pulse normal sensation and cap refill all 5 toes and normal inspection of the left foot and ankle., Edema, - - She has bilateral lower extremity edema 2+ that is symmetrical. Neither lower extremity demonstrates any redness palpable cords signs of trauma or infection or rash. She has normal DP PT pulses. area on her right lateral ankle that is red and swollen and erythematous concerning for gout. no absce. Negative for: Calf Tenderness Skin: Normal color, No rash Neurological: Alert, Oriented x3, Cranial nerves II-XII grossly intact, Normal Strength, Normal Sensation, - Psychological: Normal affect, Normal Mood <Darron Willoughby - Last Filed: 08/27/20 16:53> Vital Signs/Narrative: Vital Signs Temp Pulse Resp BP Pulse Ox 08/27/20 18:42 57 L 18 118/48 L 95 08/27/20 16:16 97.4 F L 60 15 137/42 H 92 <Scotty Perez - Last Filed: 08/28/20 00:05> Diagnostic/Tx/Re-eval - Medical Decision Making Patient was seen with me. I did a [id number] examination with the patient. Patient presents with bilateral leg swelling but worse on the right. There is also pain in her ankles bilaterally which is also worse on the right. Patient denies any trauma or injury. Patient states the pain is worse with movement. Patient denies any fevers or chills. Patient is on Lasix and is concerned for possible congestive heart failure. Patient also is concerned for possible gout. Patient is currently on Augmentin. Vital signs are stable. Patient is afebrile. Patient is in no acute distress. Skin is warm dry. There is tenderness, erythema, warmth over the lateral aspect of the right ankle. There is no joint effusion noted. There is some mild tenderness over the left ankle. There is no erythema or warmth noted. Range of motion was limited in all motions of the ankles bilaterally secondary to pain. Pedal pulses are equal bilaterally. Sensation was intact to light touch in all digits. Capillary refill was less than 2 seconds in all digits. There is no calf tenderness or edema noted. CBC and basic metabolic profile were obtained and were within normal limits. Troponin was normal. BNP was only slightly elevated at 173. Patient was given oxycodone initially. Patient was still having pain. Patient was given a dose of hydrocodone. Patient was instructed to complete her prescription for Augmentin. Patient was also given a prescription for doxycycline to cover for possible MRSA. I discussed with the patient and family the possibility of gout. Since the redness is only over the lateral aspect of the right ankle I do not feel that is acute gout flareup at this time however, I am unable to completely rule this out as a possibility. Patient was instructed to ice and elevate the ankles. Patient was given a prescription for tramadol to take for severe pain. Patient was instructed to follow-up with her primary care physician or return to the emergency department if worse in any way. Patient and family understood and were agreeable with the plan. All questions were answered. <Scotty Perez - Last Filed: 08/28/20 00:05> ED Disposition <Draron Willoughby - Last Filed: 08/27/20 16:53> <Scotty Perez - Last Filed: 08/28/20 00:05> - Plan for ED Patient: Disposition: Home or Assisted Living Diagnosis: Cellulitis of right ankle Instructions: ED Cellulitis Prescriptions: Doxycycline 100 mg PO BID #20 cap Transmission Status: Received by [facility]/pharmacy #[id number] traMADol [Ultram] 50 mg PO Q4H PRN PRN 3 Days #20 tab PRN Reason: Pain Prescription Printed Referrals: Bernice Moctezuma DO [Primary Care Provider] - 5-7 Days
[2020-08-27] MEDS: oxyCODONE 5 MG Tablet PO (17:02)
--- NOTE | 2020-08-27 17:15 | RAD_ITS ---
STUDY: X-RAY - RIGHT ANKLE REASON FOR EXAM: Female, 80 years old. RIGHT FOOT EDEMA AND PAIN SINCE SUNDAY TECHNIQUE: 3 view(s) of the ankle. COMPARISON: None. FINDINGS: Small corticated ossicle at the undersurface of the medial malleolus is compatible with sequela from previous trauma or bulging. No demonstrated acute fracture. A small plantar calcaneal spur is present. Minor enthesopathy is seen at the Achilles tendon site. The soft tissues are mildly swollen. Normal visualized distal tibia and fibula. Normal tibiotalar articulation and ankle mortise. Normal visualized talus and calcaneus. The visualized subtalar, talonavicular, calcaneocuboid and tarsal articulations are normal. RAD/Ankle min 3 Views IMPRESSION: Mild soft tissue swelling. No acute fracture. Electronically Signed: Chele Burton MD at 18:03 EDT , Service support ,
[2020-08-27 17:16] LABS: Absolute Neutrophil Count 7.8 X10^3/uL (2.0-7.7); Basophil# 0.03 X10^3/uL; Basophil% 0.3 % (0-1); Eosinophil# 0.02 X10^3/uL; Eosinophils% 0.2 % (0-5); Hematocrit 36.7 % (37-47); Hemoglobin 12.1 g/dL (12.0-15.0); Lymphocyte % 10.9 % (19-41); Mean Corpuscular Hgb 30.9 pg (27.0-32.0); Mean Corpuscular Volume 93.6 fL (81-99); Mean Platelet Vol. 9.7 fl (6.2-12.0); Monocyte# 1.08 X10^3/uL; Monocyte% 10.7 % (0-10); NRBC Flagged by Analyzer 0 % (0-5); Neutrophil # 7.84 X10^3/uL (2.7-7.7); Neutrophil % 77.3 % (47-70); Platelet Count 215 K/mm3 (150-450); RBC Distribution Width CV 13.2 % (11.6-14.6); RBC Distribution Width SD 44.5 fl (35.1-43.9); Red Blood Count 3.92 M/mm3 (4.2-5.4); White Blood Count 10.1 K/mm3 (4.4-11.0)
[2020-08-27 17:21] LABS: International Normalized Ratio 1.6
[2020-08-27 17:27] LABS: Anion Gap 6 (5-15); BUN 24 mg/dL (7-18); BUN/Creat Ratio 23.5 RATIO (10-20); Calcium,Total 8.6 mg/dL (8.5-10.1); Chloride 102 mmol/L (98-107); Creatinine, Serum 1.02 mg/dL (0.55-1.02); EST Glomerular Filtration Rate 56 mL/min (>60); Est Glom Filt Rate - Afr Amer 67 mL/min (>60); Glucose 113 mg/dL (74-106); Potassium 3.6 mmol/L (3.5-5.1); Sodium Level 138 mmol/L (136-145)
[2020-08-27 18:42] VITALS: BP 118/48; PULSE 57; RESP 18; O2SAT 95
[2020-08-27] MEDS: HYDROcodone Bitartrate/Apap 5/325 Tablet PO (19:49)
[2020-08-27 19:51] VITALS: BP 126/53; PULSE 59
== END 2020-08-27 19:58 | disposition home or self-care (01) ==
PROVIDERS: Physician Assistant Medical; Emergency Provider Emergency Medicine; PCP Internal Medicine
DX: L03.115 Cellulitis of right lower limb (principal); E78.5 Hyperlipidemia, unspecified; I11.0 Hypertensive heart disease with heart failure; I50.9 Heart failure, unspecified; I48.91 Unspecified atrial fibrillation; Z79.01 Long term (current) use of anticoagulants; Z79.899 Other long term (current) drug therapy
CPT/HCPCS: 71045; 73610; 73630; 80048; 83880; 84484; 85025; 85610; 93005; 99283

== ENCOUNTER → 2020-09-21 11:16 | Outpatient (CLI) | payer MEDICARE, SELFPAY ==
[2020-08-27 16:16] VITALS: BMI 35.2
[2020-09-21 15:19] LABS: Absolute Lymphocyte Count 1.44 X10^3/uL (0.83-4.51); Absolute Neutrophil Count 6.8 X10^3/uL (2.0-7.7); Basophil# 0.03 X10^3/uL; Basophil% 0.3 % (0-1); Eosinophil# 0.02 X10^3/uL; Eosinophils% 0.2 % (0-5); Hematocrit 42.8 % (37-47); Hemoglobin 13.8 g/dL (12.0-15.0); Lymphocyte # 1.44 X10^3/ul (4.0); Lymphocyte % 16.1 % (19-41); Mean Corp Hgb Conc 32.2 g/dL (32-36); Mean Corpuscular Hgb 30.3 pg (27.0-32.0); Mean Corpuscular Volume 93.9 fL (81-99); Mean Platelet Vol. 10.1 fl (6.2-12.0); Monocyte# 0.56 X10^3/uL; Monocyte% 6.3 % (0-10); NRBC Flagged by Analyzer 0 % (0-5); Neutrophil % 76.3 % (47-70); Platelet Count 223 K/mm3 (150-450); RBC Distribution Width CV 13.2 % (11.6-14.6); RBC Distribution Width SD 45.2 fl (35.1-43.9); Red Blood Count 4.56 M/mm3 (4.2-5.4); White Blood Count 8.9 K/mm3 (4.4-11.0)
[2020-09-21 15:30] LABS: CRP 7.37 mg/L (0.0-3.0); Rheumatoid Factor < 10.0 IU/mL (<15); Uric Acid 11.5 mg/dL (2.6-6.0)
[2020-09-21 15:34] LABS: Erythrocyte Sedimentation Rate 23 mm/hr (0-30)
[2020-09-23 14:48] LABS: ANTINUCLEAR ANTIBODIES DIRECT Negative (Negative)
== END ==
PROVIDERS: PCP Internal Medicine; Referring Provider Podiatrist Foot & Ankle Surgery; Visit Provider Podiatrist Foot & Ankle Surgery
DX: M25.571 Pain in right ankle and joints of right foot (principal)
CPT/HCPCS: 36415; 84550; 85025; 85652; 86038; 86140; 86431

== ENCOUNTER → 2020-12-14 11:43 | Outpatient (CLI) | payer MEDICARE, SELFPAY ==
[2020-12-09 12:04] VITALS: BMI 35.2
--- NOTE | 2020-12-14 11:44 | BI_ITS ---
MAMMOGRAPHY - BILATERAL SCREENING REASON FOR EXAM: Female, 80 years old. Routine annual screening examination. PERTINENT HISTORY: Sister with breast cancer. Mother with breast cancer. Aunts with breast cancer. Prior right excisional breast biopsy. TECHNIQUE: Digital bilateral breast abraham (3D mammographic acquisition) in the CC and MLO projections. 2-D mediolateral oblique (MLO) and craniocaudad (CC) views of both breasts were obtained. CAD: Full Field Digital Mammography with Computer Added Detection was performed. COMPARISON: Comparison is made with prior examination dated generally 2019 and 11/06/2018. FINDINGS: Breast Composition: There are scattered areas of fibroglandular density. There are no dominant masses or suspicious calcifications. Stable small benign-appearing bilateral axillary lymph nodes. No other significant abnormalities are identified. There has been no significant change since the prior study. BI/SCRN MAMM (CAD)W/ABRAHAM BILAT IMPRESSION: Stable bilateral screening mammogram. Yearly follow-up mammogram recommended. (A) ASSESSMENT CATEGORY: BIRADS Category 2: Benign. A letter regarding these results will be sent to the patient by the facility within 30 days. Approximately 10% of breast cancers are not detected by mammography. A normal mammogram should not delay biopsy of a clinically suspicious abnormality. [id number] Electronically Signed: Aramis Rodriguez MD at 12:56 EST , Service support ,
== END ==
PROVIDERS: PCP Internal Medicine; Referring Provider Internal Medicine; Visit Provider Internal Medicine
DX: Z12.31 Encounter for screening mammogram for malignant neoplasm of breast (principal)
CPT/HCPCS: 77063; 77067

== ENCOUNTER → 2020-12-15 09:34 | Outpatient (CLI) | payer MEDICARE, SELFPAY ==
[2020-12-09 12:04] VITALS: BMI 35.2
[2020-12-15 12:45] LABS: Cholesterol 196 mg/dL (200); High Density Lipoprotein 71 mg/dL; Triglycerides 207 mg/dL; Very Low Density Lipoprotein 41 mg/dL (5-40)
[2020-12-15 12:52] LABS: Vitamin B12 420 pg/mL (211-911)
[2020-12-15 13:01] LABS: AST(SGOT) 16 U/L (15-37); Alanine Aminotransfer ALT/SGPT 8 U/L (13-56); Albumin, Serum 3.7 g/dL (3.2-5.0); Alkaline Phosphatase 105 U/L (45-117); Anion Gap 5 (5-15); BUN 38 mg/dL (7-18); BUN/Creat Ratio 30.9 RATIO (10-20); Bilirubin, Direct 0.12 mg/dL (0.00-0.30); Calcium,Total 8.6 mg/dL (8.5-10.1); Chloride 105 mmol/L (98-107); Creatinine, Serum 1.23 mg/dL (0.55-1.02); EST Glomerular Filtration Rate 45 mL/min (>60); Est Glom Filt Rate - Afr Amer 54 mL/min (>60); Globulin 3.6 g/dL (2.2-4.2); Glucose 110 mg/dL (74-106); Potassium 4.2 mmol/L (3.5-5.1); Protein, Total 7.3 g/dL (6.4-8.2); Sodium Level 139 mmol/L (136-145); Thyroid Stim Hormone (TSH) 1.18 uIU/mL (0.358-3.74)
[2020-12-16 16:09] LABS: Free Kappa Light Chains 22.3 mg/L (3.3-19.4)
== END ==
PROVIDERS: Psychiatry & Neurology Neurology; PCP Internal Medicine; Referring Provider Internal Medicine Cardiovascular Disease; Visit Provider Internal Medicine Cardiovascular Disease
DX: G62.9 Polyneuropathy, unspecified (principal); E03.9 Hypothyroidism, unspecified; E78.5 Hyperlipidemia, unspecified; G31.84 Mild cognitive impairment of uncertain or unknown etiology
CPT/HCPCS: 36415; 80053; 80061; 82248; 82607; 82746; 83883; 84443

== ENCOUNTER → 2021-01-06 16:04 | Outpatient (CLI) | payer MEDICARE, SELFPAY ==
[2020-12-09 12:04] VITALS: BMI 35.2
--- NOTE | 2021-01-06 16:06 | MRI_ITS ---
STUDY: MRI BRAIN WITHOUT CONTRAST REASON FOR EXAM: Female, 80 years old. Parkinson''s disease; Mild cognitive impairment TECHNIQUE: Standardized multiplanar fat and water weighted pulse sequences were obtained. COMPARISON: 03/04/2019 FINDINGS: Moderate atrophy and periventricular white matter ischemic changes without mass effect or restricted diffusion.. Normal bilateral basal ganglia. Normal thalami. There is no extra-axial fluid accumulation. Normal flow voids within the major intracranial circulation suggesting patency by spin echo criteria. Normal sella turcica, pituitary gland, infundibular stalk, optic chiasm and hypothalamus. Normal tectal plate and pineal gland. Normal midbrain, kolton and medulla. Normal cerebellum. Normal basal cisterns. Normal bilateral temporal bones. Normal bilateral internal auditory canals. Postsurgical changes of the orbits.. Normal visualized paranasal sinuses. Normal calvarium and skull base. Normal visualized soft tissue structures. Normal visualized upper cervical spine. No significant change since prior study MRI/Brain without Contrast IMPRESSION: Moderate atrophy and periventricular white matter ischemic changes without evidence for acute infarct Electronically Signed: Anil Diallo MD at 17:37 EST , Service support ,
== END ==
PROVIDERS: PCP Internal Medicine; Referring Provider Psychiatry & Neurology Neurology; Visit Provider Psychiatry & Neurology Neurology
DX: G20 Parkinson's disease (principal); G31.84 Mild cognitive impairment of uncertain or unknown etiology; I67.9 Cerebrovascular disease, unspecified
CPT/HCPCS: 70551

== ENCOUNTER → 2021-01-11 11:49 | Outpatient (CLI) | payer MEDICARE, SELFPAY ==
[2020-12-09 12:04] VITALS: BMI 35.2
[2021-01-11 12:44] LABS: Hemoglobin A1c 5.7 % (3.8-5.6)
[2021-01-13 14:09] LABS: Alpha-1-Globulins 0.2 g/dL (0.0-0.4); Alpha-2-Globulins 0.7 g/dL (0.4-1.0); Gamma Globulin 0.8 g/dL (0.4-1.8); Immunoglobulin A 160 mg/dL (64-422); Immunoglobulin G 887 mg/dL (586-1602); Immunoglobulin M 51 mg/dL (26-217); PROEL- TOTAL PROTEIN 6.7 g/dL (6.0-8.5)
== END ==
PROVIDERS: PCP Internal Medicine; Referring Provider Nurse Practitioner Family; Visit Provider Nurse Practitioner Family
DX: R73.09 Other abnormal glucose (principal); G62.9 Polyneuropathy, unspecified
CPT/HCPCS: 36415; 82784; 83036; 84165; 86334; 86335

== ENCOUNTER → 2021-05-12 11:42 | Outpatient (CLI) | payer MEDICARE, SELFPAY ==
[2021-05-10 09:44] VITALS: BMI 39.9
== END ==
PROVIDERS: PCP Internal Medicine; Referring Provider Internal Medicine Cardiovascular Disease; Visit Provider Internal Medicine Cardiovascular Disease
DX: I50.32 Chronic diastolic (congestive) heart failure (principal); I48.0 Paroxysmal atrial fibrillation
CPT/HCPCS: 36415; 83880; 93225; 93226

== ENCOUNTER → 2021-05-13 12:38 | Outpatient (CLI) | payer MEDICARE, SELFPAY ==
[2021-05-10 09:44] VITALS: BMI 39.9
--- NOTE | 2021-05-13 12:42 | ECHOCS_ITS ---
Version 2 Reason For Study: Paroxysmal Atrial Fibrillation Procedure This was a 2D Doppler, Color Flow transthoracic echocardiogram. Technically difficult study due to patients body habitus. Contrast injection performed. Exam performed in department. Left Ventricle Normal LV size. Left ventricular systolic function is normal. The estimated ejection fraction is 55 %. Stage 3 diastolic dysfunction. No regional wall motion abnormalities noted. Right Ventricle Normal RV size. Normal systolic function. Atria The left atrium is mildly enlarged. The right atrium is moderately enlarged. Mitral Valve Normal mitral valve. Mild (1+) eccentric mitral valve insufficiency. Tricuspid Valve Normal tricuspid valve. Mild to moderate (1-2+) tricuspid valve insufficiency. Pulmonary artery systolic pressure is 47 mmHg. Mild pulmonary hypertension. Pulmonic Valve Normal pulmonic valve. Great Vessels Normal aortic root. The pulmonary artery is normal size. Normal inferior vena cava. Pericardium/Pleural No pericardial effusion. Medication 22 gauge I.V. with prn adaptor inserted into right arm. Diluted definity 5ml given slow IV push to enhance endocardial definition. MMode/2D Measurements & Calculations LVIDd: 5.5 cm IVSd: 1.3 cm LA dimension: 4.3 cm LVIDs: 3.6 cm LVPWd: 0.99 cm FS: 33.3 % LAV(MOD-sp4): 74.7 ml LA A4 area: 23.4 cm2 RA A4 area: 34.2 cm2 Time Measurements MV dec time: 0.14 sec Doppler Measurements & Calculations MV E max jyoti: 136.5 cm/sec MV V2 max: 131.0 cm/sec MV P1/2t max jyoti: 131.0 cm/sec MV A max jyoti: 35.0 cm/sec MV max P.9 mmHg MV P1/2t: 110.9 msec MV E/A: 3.9 MV V2 mean: 56.0 cm/sec MV dec slope: 346.1 cm/sec2 MV mean P.7 mmHg MVA(P1/2t): 2.0 cm2 MV V2 VTI: 40.5 cm Ao V2 max: 162.2 cm/sec LV V1 max: 93.4 cm/sec PA V2 max: 91.5 cm/sec Ao max P.5 mmHg LV V1 max P.5 mmHg TR max jyoti: 325.6 cm/sec TR max P.4 mmHg ECHO/Echo Complete W/ Contrast Interpretation Summary Normal LV size. Left ventricular systolic function is normal. The estimated ejection fraction is 55 %. Stage 3 diastolic dysfunction. Pulmonary artery systolic pressure is 47 mmHg. Mild pulmonary hypertension. The right atrium is moderately enlarged. Ordering Physician: Irving Lamas Referring Physician: Bernice Moctezuma M.D. Performed By: Nathan Enriquez RCS
== END ==
PROVIDERS: PCP Internal Medicine; Referring Provider Internal Medicine Cardiovascular Disease; Visit Provider Internal Medicine Cardiovascular Disease
DX: I48.0 Paroxysmal atrial fibrillation (principal); R06.00 Dyspnea, unspecified; R06.02 Shortness of breath
CPT/HCPCS: 93306; Q9957; A4216; C8929; J3490

== ENCOUNTER → 2021-05-23 08:34 | Outpatient (CLI) | payer MEDICARE, SELFPAY ==
[2021-05-10 09:44] VITALS: BMI 39.9
[2021-05-23 08:53] LABS: Mucous, Urine 0 SEEN /hpf (<or=2+); Red Blood Cells-Urine 0 SEEN /hpf (0-5); White Blood Cells 0 SEEN /hpf (0-5)
[2021-05-23 10:09] LABS: Absolute Lymphocyte Count 1.65 X10^3/uL (0.83-4.51); Absolute Neutrophil Count 5.8 X10^3/uL (2.0-7.7); Basophil# 0.03 X10^3/uL; Basophil% 0.4 % (0-1); Eosinophils% 1.2 % (0-5); Hematocrit 37.8 % (37-47); Hemoglobin 12.4 g/dL (12.0-15.0); Lymphocyte # 1.65 X10^3/ul (0.83-4.51); Lymphocyte % 19.8 % (19-41); Mean Corp Hgb Conc 32.8 g/dL (32-36); Mean Corpuscular Hgb 31.7 pg (27.0-32.0); Mean Corpuscular Volume 96.7 fL (81-99); Mean Platelet Vol. 10.6 fl (6.2-12.0); Monocyte# 0.74 X10^3/uL; Monocyte% 8.9 % (0-10); NRBC Flagged by Analyzer 0 % (0-5); Neutrophil # 5.77 X10^3/uL (2.7-7.7); Neutrophil % 69.3 % (47-70); Platelet Count 221 K/mm3 (150-450); RBC Distribution Width CV 13.6 % (11.6-14.6); RBC Distribution Width SD 48.3 fl (35.1-43.9); Red Blood Count 3.91 M/mm3 (4.2-5.4); White Blood Count 8.3 K/mm3 (4.4-11.0)
[2021-05-23 10:10] LABS: Color, Urine Yellow (Yellow); Glucose, Dipstick Normal (Normal); Ketone-Dipstick Negative (Negative); Leukocyte Esterase-Dipstick 25 /ul (Negative); Nitrite-Dipstick Negative (Negative); Occult Blood-Urine Negative /ul (Negative); Protein-Dipstick Negative (Negative); Urine Bilirubin Dipstick Negative (Negative); Urine Clarity Clear (Clear); Urine Urobilinogen Normal (Normal)
[2021-05-23 10:20] LABS: Bacteria 1+ /hpf (None Seen); Hyaline Cast 0-5 SEEN /lpf (0-5); Squamous Epithelial Cells - UA 10-25 SEEN /hpf (5-10)
[2021-05-23 10:36] LABS: Microalbumin,Random Urine 32.4 mg/L (NO RANGE EST.); Microalbumin:Creatinine Ratio 173.3 mg/g CRE (<30 mg/g CRE)
[2021-05-23 10:47] LABS: Vitamin B12 1077 pg/mL (211-911); Vitamin D,25 Hydroxy 26.9 ng/mL
[2021-05-23 10:57] LABS: ALB/GLOB Ratio 1.2 RATIO (0.9-2.4); AST(SGOT) 17 U/L (15-37); Alanine Aminotransfer ALT/SGPT 13 U/L (13-56); Albumin, Serum 3.9 g/dL (3.2-5.0); Alkaline Phosphatase 111 U/L (45-117); Anion Gap 8 (5-15); BUN 25 mg/dL (7-18); BUN/Creat Ratio 21.6 RATIO (10-20); Calcium,Total 8.5 mg/dL (8.5-10.1); Chloride 103 mmol/L (98-107); Cholesterol 161 mg/dL (200); Creatinine, Serum 1.16 mg/dL (0.55-1.02); EST Glomerular Filtration Rate 48 mL/min (>60); Est Glom Filt Rate - Afr Amer 58 mL/min (>60); Globulin 3.3 g/dL (2.2-4.2); Glucose 113 mg/dL (74-106); High Density Lipoprotein 69 mg/dL; Potassium 4.1 mmol/L (3.5-5.1); Protein, Total 7.2 g/dL (6.4-8.2); Sodium Level 139 mmol/L (136-145); Thyroid Stim Hormone (TSH) 5.98 uIU/mL (0.358-3.74); Triglycerides 142 mg/dL; Very Low Density Lipoprotein 28 mg/dL (5-40)
== END ==
PROVIDERS: PCP Internal Medicine; Referring Provider Internal Medicine; Visit Provider Internal Medicine
DX: E53.8 Deficiency of other specified B group vitamins (principal); E78.5 Hyperlipidemia, unspecified; E03.9 Hypothyroidism, unspecified; I11.9 Hypertensive heart disease without heart failure; E55.9 Vitamin D deficiency, unspecified
CPT/HCPCS: 36415; 80053; 80061; 81001; 82043; 82306; 82570; 82607; 84443; 85025

== ENCOUNTER 2021-06-13 13:23 | Emergency (ER) | payer MEDICARE, SELFPAY ==
[2021-05-10 09:44] VITALS: BMI 39.9
[2021-06-13 13:24] VITALS: BP 145/59; PULSE 57; RESP 18; TEMP 36.7; O2SAT 97; BMI 33.6
--- NOTE | 2021-06-13 13:59 | RAD_ITS ---
STUDY: X-RAY CHEST REASON FOR EXAM: Female, 81 years old. Sob TECHNIQUE: Single AP portable view of the chest. COMPARISON: Comparison is made with prior study 08/27/2020. FINDINGS: EKG electrodes are seen. New right infrahilar infiltrate. There is no demonstrated pleural abnormality. There is mild cardiac enlargement. Normal mediastinum and eran. Normal visualized pulmonary arteries. There is atherosclerotic calcification of the aortic arch with tortuosity. Normal visualized thoracic spine. Normal visualized ribs, clavicles, and shoulders. There is no demonstrated abnormality of the visualized soft tissue structures of the upper abdomen. RAD/Chest 1 View (Portable) IMPRESSION: There is a new right infrahilar infiltrate. Mild cardiomegaly. Electronically Signed: Aramis Rodriguez MD at 15:07 EDT , Service support ,
--- NOTE | 2021-06-13 14:00 | EKG12_ITS ---
Test Reason : SOB Blood Pressure : / mmHG Vent. Rate : 049 BPM Atrial Rate : 049 BPM P-R Int : 106 ms QRS Dur : 118 ms QT Int : 506 ms P-R-T Axes : 213 096 081 degrees QTc Int : 457 ms Undetermined rhythm : Consider Sinus vs Ectopic Atrial Bradycardia with prolonged OR-Interval and occ asional PVC's Low voltage QRS Incomplete left bundle branch block Borderline ECG Confirmed by VIDAL LAST, ROSE ([id number]), copy editor MAHENDRA VARELA ([id number]) on 06/15/2021 10:37:59 AM Referred By: STONEY Confirmed By:ROSE DRAKE MD
[2021-06-13 14:31] VITALS: BP 136/56; PULSE 51; RESP 17; O2SAT 99
--- NOTE | 2021-06-13 14:33 | EX.ED.DYSGE1 ---
HPI History of Present Illness Chief Complaint: Dizziness Informant: patient Narrative Narrative: Patient is a 81-year-old female complex medical history including atrial fibrillation with RVR and Parkinson's disease presenting with dizziness and bradycardia. Patient was at her PCP office today when she is on be bradycardic with a heart rate of 35. She had an EKG that confirmed this. They spoke to cardiology on-call recommend she come to the emergency for further evaluation. Patient is on metoprolol and flecainide. She is currently being followed for possible CHF exacerbation. Patient was hypoxic and in the office last week and was put on 2 L of home oxygen. 3 weeks ago her Lasix was increased to 2 pills a day however then she states she got dehydrated they took her back down to 1 pill a day. She notes she has had some orthopnea at night and been using multiple pillows. She feels that her weight is down but she is having dyspnea on exertion and feeling like a rag doll. She has had lower extremity swelling. She denies any chest pain. She denies any syncopal episodes. Patient is on Coumadin. She denies any urinary symptoms, change in bowel habits or abdominal pain. She denies any black or blood in her stool. [facility] Medical History Arthritis Atrial fibrillation with RVR Back pain Cerebrovascular disease Chronic diastolic (congestive) heart failure Chronic fatigue Difficulty balancing Diverticulosis Essential (primary) hypertension Fatigue GERD (gastroesophageal reflux disease) Gout Hiatal hernia HLD (hyperlipidemia) Hypothyroidism Hypothyroidism IBS (irritable bowel syndrome) Incontinence Limb weakness MCI (mild cognitive impairment) Microscopic colitis Parkinson disease Paroxysmal atrial fibrillation Polyneuropathy, unspecified Shy-Drager syndrome Home Medications flecainide 150 mg tablet 150 mg PO BID #180 tab 08/18/20 [Rx Last Taken 08/27/20] allopurinol 300 mg tablet 300 mg PO DAILY 12/03/20 [History Last Taken Unknown] levothyroxine 100 mcg tablet 100 mcg PO DAILY tab 12/03/20 [History Last Taken Unknown] lisinopril 10 mg tablet 10 mg PO DAILY tab 01/11/21 [History Last Taken Unknown] Pepto-Bismol 1 tab PO PRN PRN 06/13/21 [History Last Taken Unknown] Zyrtec 10 mg PO DAILY 06/13/21 [History Last Taken Unknown] albuterol sulfate 2.5 mg INHALATION Q4H PRN 06/13/21 [History Last Taken Unknown] albuterol sulfate [ProAir HFA] 2 puff INHALATION Q6H PRN 06/13/21 [History Last Taken Unknown] budesonide [Entocort EC] 3 mg PO DAILY 06/13/21 [History Last Taken Unknown] calcium carbonate-vitamin D3 1 tab PO BID 06/13/21 [History Last Taken Unknown] carbidopa-levodopa 1 tab PO BID 06/13/21 [History Last Taken Unknown] citalopram 20 mg PO QHS 06/13/21 [History Last Taken Unknown] desloratadine [Clarinex] 5 mg PO DAILY PRN PRN 06/13/21 [History Last Taken Unknown] diclofenac sodium 1 ea TOPICAL PRN PRN 06/13/21 [History Last Taken Unknown] doxycycline monohydrate 100 mg PO BID #20 cap 06/13/21 [Rx Last Taken Unknown] furosemide 20 mg PO DAILY #0 tab 06/13/21 [Rx Last Taken Unknown] liothyronine [Cytomel] 6.25 mcg PO DAILY 06/13/21 [History Last Taken Unknown] metoprolol tartrate 25 mg PO DAILY 06/13/21 [History Last Taken Unknown] mometasone [Nasonex] 2 spray INTRANASAL DAILY 06/13/21 [History Last Taken Unknown] jnxkhetfizem-tsfldbvn-xkwxmb 1 tab PO DAILY 06/13/21 [History Last Taken Unknown] nystatin-triamcinolone 1 applic TOPICAL BID 06/13/21 [History Last Taken Unknown] pravastatin 40 mg PO QHS 06/13/21 [History Last Taken Unknown] warfarin 6 mg PO QHS 06/13/21 [History Last Taken Unknown] Allergy/AdvReac Type Severity Reaction Status Date / Time adhesive tape Allergy Intermediate Hives Verified 06/13/21 13:28 simvastatin AdvReac Severe myalgias Verified 06/13/21 13:28 Family History Father CAD (coronary artery disease) CVA (cerebral vascular accident) Anesthesia complication Arthritis Heart disease Myocardial infarction Hypertension Mother CAD (coronary artery disease) Arthritis Breast cancer Heart disease Myocardial infarction Hypertension Thyroid disorder Sister Breast cancer Heart disease Thyroid disorder Aunt Parkinson's disease suspected but no diagnosis; maternal aunt Surgical History H/O bilateral salpingo-oophorectomy History of arthroscopic knee surgery History of cardioversion (04/22/15) History of hysterectomy History of left heart catheterization (08/14/16) History of left hip replacement History of lithotripsy History of lumpectomy Social History Smoking Status: Unknown if ever smoked alcohol intake: current alcohol intake frequency: a few times a week Alcohol type: wine substance use type: does not use ROS ROS ED Constitutional Constitutional ED: Denies chills or fever(s) Eyes Eyes: Denies blurry vision ENT ENT ED: Denies ear pain or rhinorrhea Cardiovascular Cardiovascular: Reports orthopnea; Denies chest pain or palpitations Respiratory/Chest Respiratory/Chest: Reports cough, dyspnea, dyspnea on exertion and orthopnea Gastrointestinal Gastrointestinal: Denies abdominal pain, diarrhea, nausea or vomiting Genitourinary Genitourinary ED: Denies dysuria or hematuria Musculoskeletal Musculoskeletal: Denies arthralgias or myalgias Integumentary Denies rash Neurologic Neurologic: Denies headache(s) or weakness Psychiatric Psychiatric: Denies depression EXAM Physical Exam Const Vital Signs: 06/13/21 13:24 06/13/21 14:31 06/13/21 15:02 Temperature 98.1 F Temperature Source Temporal Pulse Rate 57 L 51 L Pulse Rate [Lying] Pulse Rate [Sitting] Pulse Rate [Standing] Respiratory Rate 18 17 Respiratory Effort Non-Labored Respiratory Pattern Normal Blood Pressure 145/59 H 136/56 H Blood Pressure [Lying] Blood Pressure [Sitting] Blood Pressure [Standing] Blood Pressure Mean 87 82 Blood Pressure Mean [Lying] Blood Pressure Mean [Sitting] Blood Pressure Mean [Standing] Pulse Ox 97 99 Oxygen Delivery Method Room Air Nasal Cannula Oxygen Flow Rate (L/min) 2 06/13/21 15:25 06/13/21 15:42 06/13/21 17:09 Temperature Temperature Source Pulse Rate 50 L 54 L 54 L Pulse Rate [Lying] 48 L Pulse Rate [Sitting] 52 L Pulse Rate [Standing] 50 L Respiratory Rate 16 16 16 Respiratory Effort Respiratory Pattern Blood Pressure 140/85 H 132/77 H Blood Pressure [Lying] 141/67 H Blood Pressure [Sitting] 139/65 H Blood Pressure [Standing] 129/70 H Blood Pressure Mean 103 Blood Pressure Mean [Lying] 91 Blood Pressure Mean [Sitting] 89 Blood Pressure Mean [Standing] 89 Pulse Ox 98 Oxygen Delivery Method Nasal Cannula Oxygen Flow Rate (L/min) 2 Positive well nourished and well developed General Appearance ED: well developed HEENT Reports moist mucous membranes Negative for trauma Eyes PERRL and EOMs intact bilaterally Neck no lymphadenopathy, supple and no JVD Chest Wall inspection of chest normal Resp normal respiratory effort Auscultation: diminished lung sounds right (Base); Negative for rhonchi or wheezes Cardio Rate: bradycardia Rhythm: abnormal rhythm GI normal to inspection, nondistended, normoactive bowel sounds Extremity normal to inspection General Extremety ED: Negative for edema or tenderness General Extremity: Negative for edema Neuro oriented x3 and CN's II-XII intact bilaterally Neuro Narrative: Mild resting tremor Psych mental status grossly normal Mood & Affect: Negative for depressed Skin no rashes or lesions noted and no wounds MDM MDM MDM Narrative Medical decision making narrative: Patient is evaluated for bradycardia that was found on her PCP office today. She does have a history of bradycardia secondary to her metoprolol. She was she has been feeling well. She was recently treated for fluid overload and then subsequently had some overdiuresis. Patient is well-appearing on my exam. She is not having significant bradycardia in the emergency room. CBC is unremarkable. INR is subtherapeutic at 1.7. CMP shows a mild bump in a creatinine of 1.55. No other significant abnormalities. Her chest x-ray entered by myself as well as radiology does show right perihilar infiltrate. I suspect patient has a early pneumonia and that was causing her to feel unwell and weak. She started on doxycycline. I did touch base with cardiology on-call, Dr. Odom, who is comfortable with outpatient follow-up and decreasing her Lasix. I also discussed with her PCP who sent her to the emergency room who is also agreeable this plan will follow up with her outpatient. Patient is instructed to decrease her Lasix to 20 mg daily. She is counseled return precautions. Patient feeling member agreeable with this plan of care. Patient discharged home in stable condition. She is given first dose of doxycycline in the emergency room. Lab Data Labs: Laboratory Results - last 24 hr 06/13/21 06/13/21 06/13/21 14:34 14:34 14:34 WBC 7.7 RBC 3.90 L Hgb 12.0 Hct 37.8 MCV 96.9 MCH 30.8 MCHC 31.7 L RDW Std Deviation 46.5 H RDW Coeff of Tika 13.1 Plt Count 228 MPV 9.8 Immature Gran % (Auto) 0.700 Neut % (Auto) 73.1 H Lymph % (Auto) 18.1 L Parmer % (Auto) 7.3 Eos % (Auto) 0.5 Baso % (Auto) 0.3 Absolute Neuts (auto) 5.6 Absolute Lymphs (auto) 1.39 Nucleated RBC % 0 PT 19.5 H INR 1.7 Sodium 136 Potassium 4.4 Chloride 100 Carbon Dioxide 29.0 Anion Gap 7 BUN 46 H Creatinine 1.55 H Estim Creat Clear Calc 28.62 Est GFR (MDRD) Af Amer 41 L Est GFR (MDRD) Non-Af 34 L BUN/Creatinine Ratio 29.7 H Glucose 96 Calcium 8.5 Total Bilirubin 0.40 AST 15 ALT 10 L Alkaline Phosphatase 106 Troponin I High Sens 4.1 B-Natriuretic Peptide Total Protein 7.5 Albumin 3.9 Globulin 3.6 Albumin/Globulin Ratio 1.1 Urine Color Urine Clarity Urine pH Ur Specific [place] Urine Protein Urine Glucose (UA) Urine Ketones Urine Occult Blood Urine Nitrite Urine Bilirubin Urine Urobilinogen Ur Leukocyte Esterase Urine RBC Urine WBC Ur Squamous Epith Cells Urine Bacteria Urine Mucus 06/13/21 06/13/21 14:34 15:35 WBC RBC Hgb Hct MCV MCH MCHC RDW Std Deviation RDW Coeff of Tika Plt Count MPV Immature Gran % (Auto) Neut % (Auto) Lymph % (Auto) Parmer % (Auto) Eos % (Auto) Baso % (Auto) Absolute Neuts (auto) Absolute Lymphs (auto) Nucleated RBC % PT INR Sodium Potassium Chloride Carbon Dioxide Anion Gap BUN Creatinine Estim Creat Clear Calc Est GFR (MDRD) Af Amer Est GFR (MDRD) Non-Af BUN/Creatinine Ratio Glucose Calcium Total Bilirubin AST ALT Alkaline Phosphatase Troponin I High Sens B-Natriuretic Peptide 204.7 H Total Protein Albumin Globulin Albumin/Globulin Ratio Urine Color Yellow Urine Clarity Clear Urine pH 6.0 Ur Specific Cl[place] 1.015 Urine Protein Negative Urine Glucose (UA) Normal Urine Ketones Negative Urine Occult Blood Negative Urine Nitrite Negative Urine Bilirubin Negative Urine Urobilinogen Normal Ur Leukocyte Esterase Negative Urine RBC 0 SEEN Urine WBC 0 SEEN Ur Squamous Epith Cells 0-5 SEEN Urine Bacteria 0 SEEN Urine Mucus 0 SEEN Radiography Chest X-Ray - ED: 1 View, Read by ED Physician, Read by Radiologist and Right Infiltrate Diagnostic Testing: Radiology Impression Chest X-Ray 06/13/21 13:59 IMPRESSION: There is a new right infrahilar infiltrate. Mild cardiomegaly. Electronically Signed: Aramis Rodriguez MD at 15:07 EDT , Service support , Rhythm Strip Rhythm Strip: A-fib Rate: 49 Ectopy: PVC(s) EKG Initial EKG: Attestation: I personally reviewed and interpreted this EKG as follows: Comments: Poor baseline secondary to motion artifact however it appears to be atrial fibrillation with slow ventricular response at a rate of 49, PVCs present Normal axis Normal ST segments Discharge Plan Triage Chief Complaint: Dizziness ED Provider: Fanta Leija Dx/Rx/DC Orders Clinical Impression: Pneumonia involving right lung, Bradycardia Instructions: ED Bradycardia, ED Pneumonia (Adult) Prescriptions: New doxycycline monohydrate 100 MG capsule 100 mg PO BID Qty: 20 RF: 0 Continued allopurinol 300 mg tablet 300 mg PO DAILY RF: 0 lisinopril 10 mg tablet 10 mg PO DAILY RF: 0 levothyroxine 100 mcg tablet 100 mcg PO DAILY RF: 0 albuterol sulfate 2.5 mg /3 mL (0.083 %) Solution For Nebulization 2.5 mg INHALATION Q4H PRN (Reason: sob) RF: 0 pravastatin 40 mg Tablet 40 mg PO QHS RF: 0 liothyronine [Cytomel] 25 mcg Tablet 6.25 mcg PO DAILY RF: 0 carbidopa-levodopa 50-200 mg Tablet Extended Release 1 tab PO BID RF: 0 calcium carbonate-vitamin D3 600 mg(1,500mg) -200 unit Tablet 1 tab PO BID RF: 0 citalopram 20 mg Tablet 20 mg PO QHS RF: 0 desloratadine [Clarinex] 5 mg Tablet 5 mg PO DAILY PRN PRN (Reason: allergies) RF: 0 mometasone [Nasonex] 50 mcg/actuation [place],Non-Aerosol 2 spray INTRANASAL DAILY RF: 0 Pepto-Bismol 262 mg Tablet 1 tab PO PRN PRN (Reason: Indigestion) RF: 0 budesonide [Entocort EC] 3 mg Capsule,Delayed,Extend.Release 3 mg PO DAILY RF: 0 albuterol sulfate [ProAir HFA] 90 mcg/actuation Hfa Aerosol Inhaler 2 puff INHALATION Q6H PRN (Reason: sob) RF: 0 hpkigenvnibu-wnsvbdra-dlmnat Tablet 1 tab PO DAILY RF: 0 nystatin-triamcinolone Cream 1 applic TOPICAL BID RF: 0 diclofenac sodium 1 % Gel 1 ea TOPICAL PRN PRN (Reason: arthritis pain) RF: 0 Zyrtec 10 mg Capsule 10 mg PO DAILY RF: 0 warfarin 5 mg tablet 6 mg PO QHS RF: 0 metoprolol tartrate 25 mg tablet 25 mg PO DAILY RF: 0 flecainide 150 mg tablet 150 mg PO BID Qty: 180 RF: 3 Changed furosemide 40 mg tablet 20 mg PO DAILY Qty: 0 RF: 0 Primary Care Provider: Bernice Moctezuma Referrals: Bernice Moctezuma, [Primary Care Provider] - Activity Restrictions/Additional Instructions: Take half a pill of your Lasix daily as you do have a mild elevation of your creatinine/slight dehydration. Take antibiotics as prescribed. Your INR today is 1.7. Please follow-up with your Coumadin clinic for this. Let them know you are currently on antibiotics as this can affect your INR. Disposition Disposition: Home, Self Care Discharge Date/Time: 06/13/21 17:27
[2021-06-13 14:41] LABS: Absolute Lymphocyte Count 1.39 X10^3/uL (0.83-4.51); Absolute Neutrophil Count 5.6 X10^3/uL (2.0-7.7); Basophil# 0.02 X10^3/uL; Basophil% 0.3 % (0-1); Eosinophil# 0.04 X10^3/uL; Eosinophils% 0.5 % (0-5); Hematocrit 37.8 % (37-47); Lymphocyte # 1.39 X10^3/ul (0.83-4.51); Lymphocyte % 18.1 % (19-41); Mean Corp Hgb Conc 31.7 g/dL (32-36); Mean Corpuscular Hgb 30.8 pg (27.0-32.0); Mean Corpuscular Volume 96.9 fL (81-99); Mean Platelet Vol. 9.8 fl (6.2-12.0); Monocyte# 0.56 X10^3/uL; Monocyte% 7.3 % (0-10); NRBC Flagged by Analyzer 0 % (0-5); Neutrophil % 73.1 % (47-70); Platelet Count 228 K/mm3 (150-450); RBC Distribution Width CV 13.1 % (11.6-14.6); RBC Distribution Width SD 46.5 fl (35.1-43.9); White Blood Count 7.7 K/mm3 (4.4-11.0)
[2021-06-13 14:50] LABS: International Normalized Ratio 1.7; Prothrombin Time (Protime)PT. 19.5 SECONDS (11.7-14.9)
[2021-06-13 15:02] LABS: ALB/GLOB Ratio 1.1 RATIO (0.9-2.4); AST(SGOT) 15 U/L (15-37); Alanine Aminotransfer ALT/SGPT 10 U/L (13-56); Albumin, Serum 3.9 g/dL (3.2-5.0); Alkaline Phosphatase 106 U/L (45-117); Anion Gap 7 (5-15); BUN 46 mg/dL (7-18); BUN/Creat Ratio 29.7 RATIO (10-20); Calcium,Total 8.5 mg/dL (8.5-10.1); Chloride 100 mmol/L (98-107); Creatinine, Serum 1.55 mg/dL (0.55-1.02); EST Glomerular Filtration Rate 34 mL/min (>60); Est Glom Filt Rate - Afr Amer 41 mL/min (>60); Estimated Creatinine Clearance 28.62 ml/min; Globulin 3.6 g/dL (2.2-4.2); Glucose 96 mg/dL (74-106); Potassium 4.4 mmol/L (3.5-5.1); Protein, Total 7.5 g/dL (6.4-8.2); Sodium Level 136 mmol/L (136-145); Troponin-I HS 4.1 pg/mL (3.0-53.7)
[2021-06-13 15:04] LABS: BNP,B-Type NATRIURETIC PEPTIDE 204.7 pg/mL (0-100)
[2021-06-13 15:25] VITALS: BP 129/70; BP 139/65; BP 141/67; PULSE 48; PULSE 50; PULSE 52; RESP 16
[2021-06-13 15:42] VITALS: BP 140/85; PULSE 54; RESP 16; O2SAT 98
[2021-06-13 15:44] LABS: Bacteria 0 SEEN /hpf (None Seen); Mucous, Urine 0 SEEN /hpf (<or=2+); Red Blood Cells-Urine 0 SEEN /hpf (0-5); White Blood Cells 0 SEEN /hpf (0-5)
[2021-06-13 15:53] LABS: Color, Urine Yellow (Yellow); Glucose, Dipstick Normal (Normal); Ketone-Dipstick Negative (Negative); Leukocyte Esterase-Dipstick Negative /ul (Negative); Nitrite-Dipstick Negative (Negative); Occult Blood-Urine Negative /ul (Negative); Protein-Dipstick Negative (Negative); Specific Gravity, Urine 1.015 (1.002-1.030); Urine Bilirubin Dipstick Negative (Negative); Urine Clarity Clear (Clear); Urine Urobilinogen Normal (Normal)
[2021-06-13 15:59] LABS: Squamous Epithelial Cells - UA 0-5 SEEN /hpf (5-10)
[2021-06-13 17:09] VITALS: BP 132/77; PULSE 54; RESP 16
[2021-06-13] MEDS: Doxycycline 100 MG CAPSULE PO (17:10)
== END 2021-06-13 17:27 | disposition home or self-care (01) ==
PROVIDERS: Emergency Provider Emergency Medicine; PCP Internal Medicine
DX: J18.9 Pneumonia, unspecified organism (principal); R00.1 Bradycardia, unspecified; I11.0 Hypertensive heart disease with heart failure; I50.32 Chronic diastolic (congestive) heart failure; I48.0 Paroxysmal atrial fibrillation; E78.5 Hyperlipidemia, unspecified; E03.9 Hypothyroidism, unspecified; Z79.01 Long term (current) use of anticoagulants; Z79.51 Long term (current) use of inhaled steroids; Z79.899 Other long term (current) drug therapy
CPT/HCPCS: 71045; 80053; 81001; 83880; 84484; 85025; 85610; 93005; 99285; A4216

== ENCOUNTER → 2021-08-04 13:02 | Outpatient (CLI) | payer MEDICARE, SELFPAY ==
--- NOTE | 2021-08-04 13:05 | RAD_ITS ---
STUDY: X-RAY CHEST REASON FOR EXAM: Female, 81 years old. CHEST PAIN PNEUMONIA TECHNIQUE: XR Chest 2 Views COMPARISON: 8.9.21 FINDINGS: There is no demonstrated pleural abnormality. There is mild cardiac enlargement. Normal mediastinum and eran. Normal visualized pulmonary arteries. There is atherosclerotic calcification of the aortic arch with tortuosity. There are diffuse degenerative changes of the visualized thoracic spine. There is degenerative osteoarthritis of the bilateral shoulders. There is no demonstrated abnormality of the visualized soft tissue structures of the upper abdomen. RAD/Chest PA and Lateral IMPRESSION: There are no acute findings. Electronically Signed: Harley Vincent MD at 21:25 EDT , Service support ,
== END ==
PROVIDERS: PCP Internal Medicine; Referring Provider Internal Medicine; Visit Provider Internal Medicine
DX: J18.9 Pneumonia, unspecified organism (principal)
CPT/HCPCS: 71046

== ENCOUNTER → 2021-08-23 12:21 | Outpatient (CLI) | payer MEDICARE, SELFPAY ==
--- NOTE | 2021-08-23 12:26 | BD_ITS ---
STUDY: DUAL ENERGY X-RAY ABSORPTIOMETRY / DXA REASON FOR EXAM: Female, 81 years old. [id number] TECHNIQUE: Bone Mineral Density (BMD) measurements of lumbar spine and right hip were obtained. The patient is status post left hip replacement. COMPARISON: Comparison is made with prior examination of 07/31/2019. FINDINGS: Lumbar Spine (L1-L4): g/cm2 (0.977) / T-score (-0.6) / Z-score (2.0) Findings are suggestive of normal bone density with a low fracture risk. Right Femur Total: g/cm2 (0.800) / T-score (-1.2) / Z-score (0.9) Right Femoral Neck: g/cm2 (0.658) / T-score (-1.7) / Z-score (0.6) The T-Scores on the most recent prior examination were: Lumbar Spine (L1-L4): There has been improvement of bone density since the previous examination. Right Femur Total: which represents an improvement of 0.2%. BD/Dexa Bone Density Study IMPRESSION: The patient is considered osteopenic as outlined below according to World Lenny Organization (WHO) criteria with a moderate fracture risk. There has been improvement of bone density since the previous examination. Reference Information: The T-score is the number of standard deviations above or below the standard which is normal for young adults at their peak bone mineral density. The World Health Organization (WHO) interprets the T-scores as follows: Above -1 Normal bone density Between -1 and -2.5 Osteopenia Equal to / or below -2.5 Osteoporosis As a practical clinical guideline, osteopenia may be graded as follows: Mild -1 through -1.5 Moderate -1.6 through -2.0 Severe -2.1 through -2.4 The Z-score is the number of standard deviations above or below age-matched controls. A Z-score of less than -1.5 would be considered abnormal. References: 1. NIH Osteoporosis and Related Bone Diseases www osteo.org 2. International Society for Clinical Densitometry www iscd.org 3. National Osteoporosis Foundation www nof.org Electronically Signed: Aramis Rodriguez MD at 13:29 EDT , Service support ,
== END ==
PROVIDERS: PCP Internal Medicine; Referring Provider Internal Medicine; Visit Provider Internal Medicine
DX: Z78.0 Asymptomatic menopausal state (principal)
CPT/HCPCS: 77080

== ENCOUNTER → 2021-09-08 14:13 | Outpatient (CLI) | payer MEDICARE, SELFPAY ==
--- NOTE | 2021-09-08 14:15 | RAD_ITS ---
STUDY: X-RAY - LUMBAR SPINE REASON FOR EXAM: Female, 81 years old. Low back pain TECHNIQUE: 3 view(s) of the lumbar spine were obtained. COMPARISON: None FINDINGS: There is straightening of the normal lumbar lordosis. There is no substantial scoliosis. There is a normal alignment of the vertebrae. There is multilevel endplate spondylosis of the lumbar vertebrae. There is multi-level degenerative disc disease with multi-level disc space narrowing. There is no demonstrated fracture. There is atherosclerotic calcification of the abdominal aorta without a demonstrated aneurysm. Calcifications in the left upper quadrant could be within the left kidney RAD/Lumbar Spine 2 or 3 Views IMPRESSION: Degenerative changes of the spine, as detailed above. Possible left nephrolithiasis Electronically Signed: Guy Steniberg MD at 16:51 EDT , Service support ,
== END ==
PROVIDERS: PCP Internal Medicine; Referring Provider Nurse Practitioner Family; Visit Provider Nurse Practitioner Family
DX: M54.42 Lumbago with sciatica, left side (principal); M54.41 Lumbago with sciatica, right side
CPT/HCPCS: 72100

== ENCOUNTER → 2021-09-15 12:11 | Outpatient (CLI) | payer MEDICARE, SELFPAY ==
--- NOTE | 2021-09-15 12:13 | US_ITS ---
STUDY: RENAL ULTRASOUND - COMPLETE REASON FOR EXAM: Female, 81 years old. possible left kidney stone on xray TECHNIQUE: Ultrasound evaluation of the kidneys was performed with real-time and static rabago-scale imaging. COMPARISON: None. FINDINGS: RIGHT KIDNEY: Normal location of the right kidney, which is normal in size. The right kidney measures 11.9 x 5.4 x 4.7 cm. There is a normal cortex of the right kidney. The renal cortex measures 3 cm. There is no right renal mass or cyst. There are no right renal calculi. There is no right hydronephrosis. DISTAL RIGHT URETER: There is non-visualization of the distal right ureter. There is no demonstrated right ureterovesical junction calculus. There is a visualized right ureteral jet. LEFT KIDNEY: Normal location of the left kidney, which is normal in size. The left kidney measures 11.8 x 5.6 x 4.6 cm. There is a normal cortex of the left kidney. The renal cortex measures 1.6 cm. There is no left renal mass or cyst. There are no left renal calculi. There is no left hydronephrosis. DISTAL LEFT URETER: There is non-visualization of the distal left ureter. There is no demonstrated left ureterovesical junction calculus. There is a visualized left ureteral jet. BLADDER: Completely distended urinary bladder has a volume of 10.53 ml. There is a normal wall thickness of the distended urinary bladder. There is no demonstrated mass within the urinary bladder. There are no demonstrated bladder calculi. US/Kidney and Bladder IMPRESSION: Normal ultrasound of the kidneys and urinary bladder. No definitive evidence for renal calculi Electronically Signed: Anil Diallo MD at 19:52 EST , Service support ,
== END ==
PROVIDERS: PCP Internal Medicine; Referring Provider Nurse Practitioner Family; Visit Provider Nurse Practitioner Family
DX: M54.9 Dorsalgia, unspecified (principal); R35.0 Frequency of micturition
CPT/HCPCS: 76770

== ENCOUNTER → 2021-09-16 12:48 | Outpatient (CLI) | payer MEDICARE, SELFPAY | PROVIDERS: PCP Internal Medicine; Referring Provider Physician Assistant Medical; Visit Provider Physician Assistant Medical | DX: I48.0 Paroxysmal atrial fibrillation (principal); R00.1 Bradycardia, unspecified | CPT/HCPCS: 93225; 93226 ==

== ENCOUNTER 2021-12-02 13:12 | Outpatient (CLI) | payer MEDICARE, SELFPAY ==
[2021-12-02 15:35] LABS: Anion Gap 4 (5-15); BUN 20 mg/dL (7-18); BUN/Creat Ratio 22.1 RATIO (10-20); Calcium,Total 8.6 mg/dL (8.5-10.1); Chloride 102 mmol/L (98-107); EST Glomerular Filtration Rate 64 mL/min (>60); Est Glom Filt Rate - Afr Amer 77 mL/min (>60); Glucose 85 mg/dL (74-106); Potassium 3.6 mmol/L (3.5-5.1); Sodium Level 139 mmol/L (136-145)
== END 2021-12-02 23:59 | disposition short-term general hospital (02) ==
LOC: MTLAB 13:13
PROVIDERS: PCP Internal Medicine; Referring Provider Nurse Practitioner Gerontology; Visit Provider Nurse Practitioner Gerontology
DX: R06.09 Other forms of dyspnea (principal)
CPT/HCPCS: 36415; 80048; 83880

== ENCOUNTER 2021-12-15 12:54 | Outpatient (CLI) | payer MEDICARE, SELFPAY ==
--- NOTE | 2021-12-15 12:56 | BI_ITS ---
MAMMOGRAPHY - BILATERAL SCREENING REASON FOR EXAM: Female, 81 years old. Routine annual screening examination. PERTINENT HISTORY: Sister with breast cancer. Mother with breast cancer. Aunt with breast cancer. TECHNIQUE: Digital bilateral breast abraham (3D mammographic acquisition) in the CC and MLO projections. 2-D mediolateral oblique (MLO) and craniocaudad (CC) views of both breasts were obtained. CAD: Full Field Digital Mammography with Computer Added Detection was performed. COMPARISON: Comparison is made with prior study dated 12/14/2020 and 11/27/2019. FINDINGS: Breast Composition: There are scattered areas of fibroglandular density. There are no dominant masses or suspicious calcifications. Stable small benign-appearing bilateral axillary lymph nodes. No other significant abnormalities are identified. There has been no significant change since the prior study. BI/SCRN MAMM (CAD)W/ABRAHAM BILAT IMPRESSION: Stable bilateral screening mammogram. Yearly follow-up mammogram recommended. (A) ASSESSMENT CATEGORY: BIRADS Category 2: Benign. A letter regarding these results will be sent to the patient by the facility within 30 days. Approximately 10% of breast cancers are not detected by mammography. A normal mammogram should not delay biopsy of a clinically suspicious abnormality. [id number] Electronically Signed: Aramis Rodriguez MD at 8:17 EST ,
== END 2021-12-15 23:59 | disposition home or self-care (01) ==
LOC: OPBI 12:54
PROVIDERS: PCP Internal Medicine; Referring Provider Internal Medicine; Visit Provider Internal Medicine
DX: Z12.31 Encounter for screening mammogram for malignant neoplasm of breast (principal)
CPT/HCPCS: 77063; 77067

== ENCOUNTER 2021-12-26 10:02 | Outpatient (CLI) | payer MEDICARE, SELFPAY ==
[2021-12-26 10:11] LABS: Bacteria 0 SEEN /hpf (None Seen); Mucous, Urine 0 SEEN /hpf (<or=2+); Red Blood Cells-Urine 0 SEEN /hpf (0-5); Squamous Epithelial Cells - UA 0 SEEN /hpf (5-10); White Blood Cells 0 SEEN /hpf (0-5)
[2021-12-26 11:55] LABS: Absolute Lymphocyte Count 1.47 X10^3/uL (0.83-4.51); Absolute Neutrophil Count 4.7 X10^3/uL (2.0-7.7); Basophil# 0.04 X10^3/uL; Basophil% 0.6 % (0-1); Eosinophil# 0.11 X10^3/uL; Eosinophils% 1.6 % (0-5); Hematocrit 40.1 % (37-47); Hemoglobin 12.6 g/dL (12.0-15.0); Lymphocyte # 1.47 X10^3/ul (0.83-4.51); Lymphocyte % 21.1 % (19-41); Mean Corp Hgb Conc 31.4 g/dL (32-36); Mean Corpuscular Volume 98.5 fL (81-99); Mean Platelet Vol. 9.9 fl (6.2-12.0); Monocyte# 0.64 X10^3/uL; Monocyte% 9.2 % (0-10); NRBC Flagged by Analyzer 0 % (0-5); Neutrophil # 4.69 X10^3/uL (2.7-7.7); Neutrophil % 67.2 % (47-70); Platelet Count 230 K/mm3 (150-450); RBC Distribution Width CV 13.2 % (11.6-14.6); RBC Distribution Width SD 47.7 fl (35.1-43.9); Red Blood Count 4.07 M/mm3 (4.2-5.4)
[2021-12-26 12:00] LABS: Color, Urine Yellow (Yellow); Glucose, Dipstick NEGATIVE (Normal); Ketone-Dipstick Negative (Negative); Protein-Dipstick Negative (Negative); Urine Bilirubin Dipstick Negative (Negative); Urine Clarity Clear (Clear)
[2021-12-26 12:01] LABS: Leukocyte Esterase-Dipstick Negative /ul (Negative); Nitrite-Dipstick Negative (Negative); Occult Blood-Urine Negative /ul (Negative); Urine Urobilinogen Normal (Normal)
[2021-12-26 12:31] LABS: Microalbumin,Random Urine < 5.0 mg/L (NO RANGE EST.)
[2021-12-26 12:48] LABS: AST(SGOT) 18 U/L (15-37); Alanine Aminotransfer ALT/SGPT 11 U/L (13-56); Albumin, Serum 3.9 g/dL (3.2-5.0); Alkaline Phosphatase 108 U/L (45-117); Anion Gap 6 (5-15); BUN 26 mg/dL (7-18); BUN/Creat Ratio 26.9 RATIO (10-20); Chloride 99 mmol/L (98-107); Cholesterol 181 mg/dL (200); Creatinine, Serum 0.97 mg/dL (0.55-1.02); EST Glomerular Filtration Rate 59 mL/min (>60); Est Glom Filt Rate - Afr Amer 71 mL/min (>60); Globulin 4.1 g/dL (2.2-4.2); Glucose 104 mg/dL (74-106); High Density Lipoprotein 80 mg/dL; Potassium 3.6 mmol/L (3.5-5.1); Sodium Level 139 mmol/L (136-145); Thyroid Stim Hormone (TSH) 8.91 uIU/mL (0.358-3.74); Triglycerides 126 mg/dL; Very Low Density Lipoprotein 25 mg/dL (5-40)
== END 2021-12-26 23:59 | disposition home or self-care (01) ==
LOC: MTLAB 10:06
PROVIDERS: PCP Internal Medicine; Referring Provider Internal Medicine; Visit Provider Internal Medicine
DX: E11.9 Type 2 diabetes mellitus without complications (principal)
CPT/HCPCS: 36415; 80053; 80061; 81001; 82043; 82570; 84443; 85025

== ENCOUNTER 2022-01-04 06:59 | Outpatient (CLI) | payer MEDICARE, SELFPAY ==
--- NOTE | 2022-01-04 17:47 | STRESSREP_ITS ---
Stress Test Report Pharmacologic myocardial perfusion stress test. Patient with a history of paroxysmal atrial fibrillation. Medications warfarin, flecainide, metoprolol, pravastatin. Stress protocol: Resting EKG demonstrates sinus bradycardia with a rate of 47 bpm normal intervals are noted resting blood pressure is 122/80 mmHg. 0.4 mg of regadenoson was infused per usual protocol followed by rapid venous saline flush injection continuous EKG monitoring was performed. The maximum heart rate attained was 70 bpm which was 49% of max impact at heart rate the maximum workload was 1 metabolic equivalent. At rest there were no ST or T wave changes noted to suggest abnormal flow reserve and at peak infusion nonspecific ST changes were noted with did not meet the criteria for ischemia. No clinical angina was noted the final blood pressure was 122/80 mmHg. Myocardial perfusion protocol. 14.1 mCi of technetium 99m sestamibi was injected at rest. 0.4 mg of regadenoson was infused per usual protocol. At peak infusion 44.5 mCi of technetium 99m sestamibi was injected stress images were obtained stress and rest images were reconstructed and compared in the short axis vertical long and horizontal long axis. Gated images were also obtained. Perfusion SPECT analysis: Review of the stress images demonstrate normal uptake of tracer noted in all ar eas of the myocardium. The resting images similarly demonstrate normal uptake of tracer noted in all areas of the myocardium. No areas of reversibility are noted to suggest ischemia and no previous infarct is noted. Gated SPECT analysis: The gated ejection fraction is 63%. Conclusion: Pharmacologic myocardial perfusion stress test with no evidence of ischemia. Preserved ejection fraction.
== END 2022-01-04 23:59 | disposition home or self-care (01) ==
LOC: CVS 07:01
PROVIDERS: PCP Internal Medicine; Referring Provider Nurse Practitioner Gerontology; Visit Provider Nurse Practitioner Gerontology
DX: R07.9 Chest pain, unspecified (principal)
CPT/HCPCS: 78452; 93017; A9500; A4216; J2785

== ENCOUNTER 2022-01-23 13:00 | Outpatient (RCR) | payer MEDICARE, SELFPAY ==
--- NOTE | 2021-09-26 12:02 | HP.PTEVAL_ITS ---
Patient's Visit Information BA LANZA is a 81 year old F referred to Physical Therapy by KIERA Mercedes with a diagnosis of Lumbago, PD, Polyneuropathy. Date of Evaluation: 09/26/21 Physical Therapist: MARIBEL Stafford - Visit Plan Frequency: 2x /Week Duration: 2 Months Plan: Pt has a previous L THR. 2X/ week for 6-8 weeks for Lumbar stretches, neutral spine core stability, LE strengthening (including hip, knee and ankle), transfers, gait training with HEP - Subjective Pt reports that her back started to hurt quite awhile ago and was going to make an appt but had a lot of health issues. She still walks around her house with a cane outside of the house and she can go to a store for a short time. She is weaning herself off the oxygen. She is SOB a lot and she is having some heart issues too. She had a Holter monitor but has not gotten the results yet. Her back hurts all the time across her LB and sometimes more to to the L side. She had Lumbar x-rays and was told that she has DDD. She does have some leg pain B. But she has neuropathy and every once in awhile she will get a tingle. She does not have pain shooting down her legs. She has trouble on stairs and does not use them other than once every 2 weeks. She stays on the one floor of her house. The pain in her back has not keeped her up at night but she has been take 2 extra strength Tylenol before bed. She feels that she has leg weakness. Her balance is not good. She has a way of getting up and standing and make sure she has her balance before she moves and she can not piviot. Tylenol takes the edge off. She sits alot during the day but tries to get [id number] steps a day cooking etc. - Pain Back pain Pain Intensity (Out of 10): 7 Pain Intensity Range: 7 Comment: 05/14 with walking - Objective Gait: walks with a straight can and she shuffles and drags her R foot at times. She has increase stance time on the L. Sit to stand: needs B arms to get up out of the chair and needs the UE support... struggles on first attempt. Has to stand for a minute to get balance. LE MMT: R hip flex 3-/5 and L hip flex 3- /5, knee ext B 4-/5, Knee flex B 4/5, B hip abd 4-/5, pt is able to do less than 1/4 normal ROM bridge. Pelvic Tilt increased pain if went too far but was ok with 1/2 way ROM. LTR (pt was only able to move VERY small movements or had increase pain). Seated trunk flexion (pt was only able to do very small movements or she had increase sharp pain..... it did loosen up the more small movements she did). - Balance/Special Test Scores Lower Extremity Functional Score: 22 - Goals Goal 1:: I HEP Goal Time Frame: 6-8 Weeks Goal 2:: Decrease back pain to 2/10 walking back to the department with straight cane Goal Time Frame: 6-8 Weeks Goal 3:: Increase LE strength by 1/2 muscle grade (at time of the eval: LE MMT: R hip flex 3-/5 and L hip flex 3-/5, knee ext B 4-/5, Knee flex B 4/5, B hip abd 4-/5, pt is able to do less than 1/4 normal ROM bridge) Goal Time Frame: 6-8 Weeks Goal 4:: Pt to walk with a more normal gait pattern with a straight cane Goal Time Frame: 6-8 Weeks Goal 5:: Pt to be able to get out of a chair with ease and use of the chair rails Goal Time Frame: 6-8 Weeks - Rehabilitation Potential Rehabilitation Potential: Good - Anticipated Interventions Patient/Client Instruction: Educate patient on: Condition, Plan of Care For the Purpose of:: To decrease pain, To increase ROM, To improve nutrient delivery to tissue, To improve muscle performance and motor function, To improve ability to perform ADL's, To increase tolerance to activity/condition/position, To improve performance and independence with ADL's, To improve ability of physical actions for home/community/work/leisure, To improve gait and locomotor functions, To improve health of tissue, To decrease soft tissue restriction, To increase flexibility/ROM Therapeutic Exercise to Include: Strength training, Postural training, Flexibilty training, Neuromotor development, Passive ROM, Active ROM, Dynamic Lumbar Stabilization For the Purpose of:: To decrease pain, To increase ROM, To improve nutrient delivery to tissue, To improve muscle performance and motor function, To improve ability to perform ADL's, To increase tolerance to activity/condition/position, To improve performance and independence with ADL's, To decrease level of supervision to perform tasks, To improve ability of physical actions for home/community/work/leisure, To improve gait and locomotor functions, To improve health of tissue, To increase flexibility/ROM Thank you for the opportunity to evaluate your patient. For Medicare and Medicare HMO plans, please review the plan of care and approve it. It will need to be FAXED BACK to us at [phone] for Medicare purposes. For Medicare only, by signing this I certify the plan of care. Please let me know if there are questions or concerns regarding this plan of care. Physician Signature: Date:
--- NOTE | 2021-11-28 13:47 | HP.PTREVAL ---
Aga Cosme, JOAN-Tawny, It has been my pleasure to treat BA LANZA over the last 10 visits for Lumbago, PD, Polyneuropathy. Please see the progress note below for an update on the physical therapy plan of care! Subjective: Pt reports that she had to go to the heart Dr on Sunday cause she was SOB and HR was 157. They changed her meds and will get an EKG to see if damage to the heart. Objective/Function: sit to stands: still needs UE to get out of a chair. Pt walks back to the dept with slow gait pattern. Pt does get dizzy with supine to sit and sit to stand. Plan Plan: Add knee flexion with t-band next visit. Pt has a previous L THR. 2X/ week for 6-8 weeks for Lumbar stretches, neutral spine core stability, LE strengthening (including hip, knee and ankle), transfers, gait training with HEP Balance/Gait/Functional tests - Balance/Special Test Scores Lower Extremity Functional Score: 36 Goals Goal 1:: I HEP Goal Time Frame: 6-8 Weeks Goal Progress: Goal Met Goal 2:: Decrease back pain to 2/10 walking back to the department with straight cane Goal Time Frame: 6-8 Weeks Goal Progress: Progressing Goal 3:: Increase LE strength by 1/2 muscle grade (at time of the eval: LE MMT: R hip flex 3-/5 and L hip flex 3-/5, knee ext B 4-/5, Knee flex B 4/5, B hip abd 4-/5, pt is able to do less than 1/4 normal ROM bridge) Goal Time Frame: 6-8 Weeks Goal Progress: Progressing Goal 4:: Pt to walk with a more normal gait pattern with a straight cane Goal Time Frame: 6-8 Weeks Goal Progress: Progressing Goal 5:: Pt to be able to get out of a chair with ease and use of the chair rails Goal Time Frame: 6-8 Weeks Anticipated Interventions Patient/Client Instruction: Educate patient on: Condition, Plan of Care For the Purpose of:: To decrease pain, To increase ROM, To improve nutrient delivery to tissue, To improve muscle performance and motor function, To improve ability to perform ADL's, To increase tolerance to activity/condition/position, To improve performance and independence with ADL's, To improve ability of physical actions for home/community/work/leisure, To improve gait and locomotor functions, To improve health of tissue, To decrease soft tissue restriction, To increase flexibility/ROM Therapeutic Exercise to Include: Strength training, Postural training, Flexibilty training, Neuromotor development, Passive ROM, Active ROM, Dynamic Lumbar Stabilization For the Purpose of:: To decrease pain, To increase ROM, To improve nutrient delivery to tissue, To improve muscle performance and motor function, To improve ability to perform ADL's, To increase tolerance to activity/condition/position, To improve performance and independence with ADL's, To decrease level of supervision to perform tasks, To improve ability of physical actions for home/community/work/leisure, To improve gait and locomotor functions, To improve health of tissue, To increase flexibility/ROM Please do not hesitate to contact me at [phone] by phone or if you have questions or concerns regarding this new plan of care! Sincerely, Dahlia Sampson MPT
--- NOTE | 2022-01-16 13:52 | HP.PTREVAL_ITS ---
Aga Cosme, JOAN-C, It has been my pleasure to treat BA LANZA over the last 20 visits for Lumbago, PD, Polyneuropathy. Please see the progress note below for an update on the physical therapy plan of care! Subjective: Pt is getting pain in her back and her legs feel so heavy. She could not leave her bed or house last week. She has an appt with the neurologist sharath. Pt feels that her L leg is weaker still. Objective/Function: Pain now with LTR and picking up L leg. Pt is walking now with WBOS and straight cane and less stability, slower cadance and shorter stride. Most of the exercises were uncomfortable today. Not able to progress as we would like. Discussed lack of progress with pt and the fact that her symptoms are changing and her balance is now off as well. Plan Plan: Pt will let us know what says sharath. Pt has a previous L THR. 2X/ week for 10 weeks for Lumbar stretches, neutral spine core stability, LE strengthening (including hip, knee and ankle), transfers, gait training with HEP Balance/Gait/Functional tests - Balance/Special Test Scores Lower Extremity Functional Score: 20 Goals Goal 1:: I HEP Goal Time Frame: 6-8 Weeks Goal Progress: Goal Met Goal 2:: Decrease back pain to 2/10 walking back to the department with straight cane Goal Time Frame: 6-8 Weeks Goal Progress: Progressing Goal 3:: Increase LE strength by 1/2 muscle grade (at time of the eval: LE MMT: R hip flex 3-/5 and L hip flex 3-/5, knee ext B 4-/5, Knee flex B 4/5, B hip abd 4-/5, pt is able to do less than 1/4 normal ROM bridge) Goal Time Frame: 6-8 Weeks Goal Progress: Progressing Goal 4:: Pt to walk with a more normal gait pattern with a straight cane Goal Time Frame: 6-8 Weeks Goal Progress: Progressing Goal 5:: Pt to be able to get out of a chair with ease and use of the chair rails Goal Time Frame: 6-8 Weeks Goal Progress: Progressing Anticipated Interventions Patient/Client Instruction: Educate patient on: Condition, Plan of Care For the Purpose of:: To decrease pain, To increase ROM, To improve nutrient delivery to tissue, To improve muscle performance and motor function, To improve ability to perform ADL's, To increase tolerance to activity/condition/position, To improve performance and independence with ADL's, To improve ability of physical actions for home/community/work/leisure, To improve gait and locomotor functions, To improve health of tissue, To decrease soft tissue restriction, To increase flexibility/ROM Therapeutic Exercise to Include: Strength training, Postural training, Flex ibilty training, Neuromotor development, Passive ROM, Active ROM, Dynamic Lumbar Stabilization For the Purpose of:: To decrease pain, To increase ROM, To improve nutrient deli very to tissue, To improve muscle performance and motor function, To improve ability to perform ADL's, To increase tolerance to activity/condition/position, To improve performance and independence with ADL's, To decrease level of supervision to perform tasks, To improve ability of physical actions for home/community/work/leisure, To improve gait and locomotor functions, To improve health of tissue, To increase flexibility/ROM Please do not hesitate to contact me at [phone] by phone or if you have questions or concerns regarding this new plan of care! Sincerely, Dahlia Sampson MPT
--- NOTE | 2022-01-23 13:39 | HP.PTDCSUM_ITS ---
It has been my pleasure to treat BA LANZA referred by KIERA Mercedes, with the diagnosis of Lumbago, PD, Polyneuropathy for a total of 22 visit(s). Discharge Date: 01/23/22 Please see the following information for a summary of their discharge status. Subjective: Pt has 5/10 back pain. Earlier today it was better but she walked around the house without the cane and she should not have done that. Pt reports that she is on Prednizone and started it on Sunday. She reports that they have not gotten an MRI appointment yet. Back pain Pain Intensity (Out of 10): 5 L hip pain Pain Intensity (Out of 10): 0 R hip pain Pain Intensity (Out of 10): 0 % Improvement: 60 Objective/Function: Sit to stand: pt has to stand for a minute or so before she can walk and has to use B hand rails. Gait: walking with a cane all the time now with wider CLAUDINE and slower kenia and more guarded. LE MMT: R hip flex 3- /5 and L hip flex 3-/5, knee ext B 4-/5, Knee flex B 4/5, B hip abd 4-/5, bridge less than 1/4 rom bridge because too painful Goal 1:: I HEP Goal Progress: Goal Met Goal 2:: Decrease back pain to 2/10 walking back to the department with straight cane Goal Progress: Progressing Goal 3:: Increase LE strength by 1/2 muscle grade (at time of the eval: LE MMT: R hip flex 3-/5 and L hip flex 3-/5, knee ext B 4-/5, Knee flex B 4/5, B hip abd 4-/5, pt is able to do less than 1/4 normal ROM bridge) Goal Progress: Progressing Goal 4:: Pt to walk with a more normal gait pattern with a straight cane Goal Progress: Progressing Goal 5:: Pt to be able to get out of a chair with ease and use of the chair rails Goal Progress: Progressing Plan: DC PT at this point to get an MRI. Discharge Comments: DC PT for further testing If there are questions or concerns regarding this patient's physical therapy, please feel free to call me at [phone]. Thank you for the referral of this patient. Sincerely, Dahlia Sampson, MPT Balance/Gait/Functional tests - Balance/Special Test Scores Lower Extremity Functional Score: 20
== END 2022-01-23 19:00 | disposition home or self-care (01) ==
LOC: PT 13:00
PROVIDERS: PCP Internal Medicine; Referring Provider Nurse Practitioner Family; Visit Provider Nurse Practitioner Family
DX: M54.42 Lumbago with sciatica, left side (principal); G20 Parkinson's disease; M54.41 Lumbago with sciatica, right side; G62.9 Polyneuropathy, unspecified
CPT/HCPCS: 97110; 97162

== ENCOUNTER 2022-02-09 15:30 | Outpatient (CLI) | payer MEDICARE, SELFPAY ==
--- NOTE | 2022-02-09 15:52 | MRI_ITS ---
STUDY: MRI LUMBAR SPINE WITHOUT CONTRAST REASON FOR EXAM: Female, 82 years old. Chronic BL LBP w/ BL radiculopathy; worsening TECHNIQUE: Standardized fat and water weighted pulse sequences were obtained in the sagittal and axial planes. COMPARISON: CT abdomen and pelvis with IV contrast 11/12/2017. FINDINGS: T11-T12: (Sagittal only). Normal endplates. Normal disc height, hydration and morphology. No ventral extradural defect. Normal central canal and bilateral intervertebral neural foramina. T12-L1: (Sagittal only). Normal T12 inferior endplate. Prominent Schmorl''s node in the anterior L1 superior endplate old mild anterior wedging of the upper L1 vertebral body. This is unchanged. No ventral extradural defect. Normal central canal and bilateral intervertebral neural foramina. Normal lumbar lordosis. There is no substantial scoliosis. Normal conus medullaris that terminates at the mid T12 vertebral body level. L1-2: Normal endplates. Normal disc height, hydration and morphology. Normal bilateral facet joints. Normal central canal and bilateral lateral recesses. Normal bilateral intervertebral neural foramina. L2-3: Normal endplates. Normal disc height, hydration and morphology. Normal bilateral facet joints. Normal central canal and bilateral lateral recesses. Normal bilateral intervertebral neural foramina. L3-4: Normal endplates. Moderate disc space height narrowing. No significant facet arthropathy. Normal central canal and bilateral lateral recesses. Normal bilateral intervertebral neural foramina. L4-5: Mixed MODIC type I and type II degenerative changes in the vertebral marrow underneath the vertebral endplates. Moderate disc space height narrowing. Mild degenerative retrolisthesis of L4 on L5. Moderate central canal stenosis with an AP canal diameter of 6.7 mm. Normal bilateral lateral recesses. Mild bilateral degenerative facet arthropathy. Mild stenosis of the right intervertebral neural foramen. Normal left intervertebral neural foramen. L5-S1: Normal endplates. Mild disc space height narrowing. Small posterior bulging disc is unchanged. Prominent ventral epidural fat. Tapered termination of the thecal sac at the disc level. Mild right degenerative facet arthropathy. Normal left facet joint. Normal bilateral intervertebral neural foramina. Normal visualized sacral ala. Normal visualized paraspinous soft tissue structures. MRI/Spine Lumbar (Routine) IMPRESSION: 1. Moderate central canal stenosis at L4-L5 disc space level with an AP canal diameter of 6.7 mm, mild degenerative retrolisthesis of L4 on L5 and mild stenosis of the right intervertebral neural foramen. 2. Small L5-S1 posterior annular bulging disc and mild right L5-S1 degenerative facet arthropathy. 3. No MRI evidence of lumbar extruded disc fragment. Electronically Signed: Yousif Dinh MD at 13:33 EDT ,
== END 2022-02-09 23:59 | disposition home or self-care (01) ==
PROVIDERS: PCP Internal Medicine; Referring Provider Nurse Practitioner Family; Visit Provider Nurse Practitioner Family
DX: M54.16 Radiculopathy, lumbar region (principal)
CPT/HCPCS: 72148

== ENCOUNTER 2022-02-20 12:41 | Outpatient (CLI) | payer MEDICARE, SELFPAY ==
[2022-02-20 14:05] LABS: Anion Gap 6 (5-15); BUN 22 mg/dL (7-18); Calcium,Total 8.3 mg/dL (8.5-10.1); Chloride 101 mmol/L (98-107); EST Glomerular Filtration Rate 57 mL/min (>60); Est Glom Filt Rate - Afr Amer 69 mL/min (>60); Glucose 102 mg/dL (74-106); Magnesium 2.1 mg/dL (1.6-2.6); Potassium 3.5 mmol/L (3.5-5.1); Sodium Level 142 mmol/L (136-145)
[2022-02-20 14:14] LABS: BNP,B-Type NATRIURETIC PEPTIDE 220.1 pg/mL (0-100)
== END 2022-02-20 23:59 | disposition home or self-care (01) ==
PROVIDERS: PCP Internal Medicine; Referring Provider Nurse Practitioner Gerontology; Visit Provider Nurse Practitioner Gerontology
DX: I50.32 Chronic diastolic (congestive) heart failure (principal); R06.09 Other forms of dyspnea
CPT/HCPCS: 36415; 80048; 83735; 83880

== ENCOUNTER → 2022-05-11 | Outpatient (CLI) | payer MEDICARE, SELFPAY ==
[2022-05-16 13:08] LABS: Free Kappa Light Chains 26.7 mg/L (3.3-19.4); Free Lambda Light Chains 20.7 mg/L (5.7-26.3)
== END | disposition home or self-care (01) ==
LOC: MTLAB 12:38
PROVIDERS: PCP Internal Medicine; Referring Provider Nurse Practitioner Family; Visit Provider Nurse Practitioner Family
DX: G62.9 Polyneuropathy, unspecified (principal)
CPT/HCPCS: 36415; 83883; 86335

== ENCOUNTER → 2022-05-23 | Outpatient (CLI) | payer MEDICARE, SELFPAY ==
[2022-05-23 16:24] LABS: Absolute Neutrophil Count 4.8 X10^3/uL (2.0-7.7); Basophil# 0.04 X10^3/uL; Basophil% 0.5 % (0-1); Eosinophil# 0.09 X10^3/uL; Eosinophils% 1.2 % (0-5); Hematocrit 39.9 % (37-47); Hemoglobin 12.9 g/dL (12.0-15.0); Lymphocyte % 24.9 % (19-41); Mean Corp Hgb Conc 32.3 g/dL (32-36); Mean Corpuscular Hgb 31.7 pg (27.0-32.0); Mean Platelet Vol. 10.2 fl (6.2-12.0); Monocyte# 0.74 X10^3/uL; Monocyte% 9.7 % (0-10); NRBC Flagged by Analyzer 0 % (0-5); Neutrophil % 62.9 % (47-70); Platelet Count 185 K/mm3 (150-450); RBC Distribution Width CV 13.7 % (11.6-14.6); RBC Distribution Width SD 49.8 fl (35.1-43.9); Red Blood Count 4.07 M/mm3 (4.2-5.4); White Blood Count 7.6 K/mm3 (4.4-11.0)
[2022-05-23 16:53] LABS: BNP,B-Type NATRIURETIC PEPTIDE 161.1 pg/mL (0-100)
[2022-05-23 17:01] LABS: Anion Gap 5 (5-15); BUN 24 mg/dL (7-18); BUN/Creat Ratio 28.1 RATIO (10-20); Calcium,Total 8.8 mg/dL (8.5-10.1); Chloride 99 mmol/L (98-107); Creatinine, Serum 0.86 mg/dL (0.55-1.02); EST Glomerular Filtration Rate 68 mL/min (>60); Est Glom Filt Rate - Afr Amer 82 mL/min (>60); Glucose 76 mg/dL (74-106); Magnesium 2.4 mg/dL (1.6-2.6); Potassium 3.4 mmol/L (3.5-5.1); Sodium Level 141 mmol/L (136-145); T4 Free Direct 1.01 ng/dL (0.76-1.46)
== END | disposition home or self-care (01) ==
LOC: LAB 14:37
PROVIDERS: PCP Internal Medicine; Referring Provider Nurse Practitioner Gerontology; Visit Provider Nurse Practitioner Gerontology
DX: R06.09 Other forms of dyspnea (principal); I48.0 Paroxysmal atrial fibrillation
CPT/HCPCS: 36415; 80048; 83735; 83880; 84439; 84443; 85025

== ENCOUNTER → 2022-06-02 | Outpatient (CLI) | payer MEDICARE, SELFPAY | END | disposition home or self-care (01) | LOC: CVS 10:52 | PROVIDERS: PCP Internal Medicine; Referring Provider Internal Medicine; Visit Provider Internal Medicine | DX: I73.9 Peripheral vascular disease, unspecified (principal) | CPT/HCPCS: 93922 ==

== ENCOUNTER → 2022-06-21 | Outpatient (CLI) | payer MEDICARE, SELFPAY | END | disposition home or self-care (01) | PROVIDERS: PCP Internal Medicine; Referring Provider Internal Medicine Critical Care Medicine; Visit Provider Internal Medicine Critical Care Medicine | DX: G47.33 Obstructive sleep apnea (adult) (pediatric) (principal) | CPT/HCPCS: 95811 ==

== ENCOUNTER → 2022-07-05 | Outpatient (CLI) | payer MEDICARE, SELFPAY ==
[2022-07-05 16:12] LABS: Anion Gap 5 (5-15); BUN 24 mg/dL (7-18); BUN/Creat Ratio 28.8 RATIO (10-20); Chloride 101 mmol/L (98-107); Creatinine, Serum 0.83 mg/dL (0.55-1.02); EST Glomerular Filtration Rate 70 mL/min (>60); Est Glom Filt Rate - Afr Amer 85 mL/min (>60); Glucose 84 mg/dL (74-106); Magnesium 2.3 mg/dL (1.6-2.6); Potassium 3.9 mmol/L (3.5-5.1); Sodium Level 142 mmol/L (136-145); T4 Total, Thyroxin 9.3 ug/dL (4.8-13.9); Thyroid Stim Hormone (TSH) 2.31 uIU/mL (0.358-3.74)
== END | disposition home or self-care (01) ==
LOC: LAB 14:08
PROVIDERS: PCP Internal Medicine; Referring Provider Specialist; Visit Provider Specialist
DX: I10 Essential (primary) hypertension (principal)
CPT/HCPCS: 36415; 80048; 83735; 84436; 84443

== ENCOUNTER → 2022-07-06 | Outpatient (CLI) | payer MEDICARE, SELFPAY | END | disposition home or self-care (01) | LOC: PSN 10:30 | PROVIDERS: PCP Internal Medicine; Referring Provider Nurse Practitioner Family; Visit Provider Nurse Practitioner Family | DX: I48.0 Paroxysmal atrial fibrillation (principal); G20 Parkinson's disease; R00.1 Bradycardia, unspecified | CPT/HCPCS: 93225; 93226 ==

== ENCOUNTER → 2022-07-06 | Outpatient (CLI) | payer MEDICARE, SELFPAY | END | disposition home or self-care (01) | LOC: SL 11:49 | PROVIDERS: PCP Internal Medicine; Referring Provider Nurse Practitioner Acute Care; Visit Provider Nurse Practitioner Acute Care | DX: Z46.89 Encounter for fitting and adjustment of other specified devices (principal) ==

== ENCOUNTER → 2022-08-14 | Outpatient (CLI) | payer MEDICARE, SELFPAY ==
--- NOTE | 2022-08-16 06:03 | PFTCOMP_ITS ---
COMPLETE PULMONARY FUNCTION TEST INTERPRETATION Brief HPI: Patient is an 82-year-old female, currently under the care of Alma Mason, who presents to [facility] for complete pulmonary function tests secondary to diagnosis of dyspnea. Respiratory therapist reports good effort and reproducible results. Interpretation: Forced expiration spirometry shows no large airways obstructive ventilatory defect with an FEV1 of 76% predicted. There is no significant bronchodilator response by strict ATS criteria. Spirograms are of good quality and plateau normally. The respiratory flow volume loop shows decreased expiratory flow rates at high lung volumes consistent with small airways obstruction. Lung volumes by body plethysmography show a decreased total lung capacity at 4.57 L, 82% predicted. All other lung volumes are reduced symmetrically. Diffusion capacity by carbon monoxide is decreased at 68% predicted. The airway resistance is elevated. Compared to previous pulmonary function tests from 12/04/2016, there is been a significant reduction in FEV1 by 17%. Impression: Mild restrictive ventilatory defect with a disproportionate reduction in diffusion capacity. There is some stigmata of small airways disease noted.
== END | disposition home or self-care (01) ==
LOC: PSN 12:52
PROVIDERS: PCP Internal Medicine; Referring Provider Nurse Practitioner Acute Care; Visit Provider Nurse Practitioner Acute Care
DX: R06.09 Other forms of dyspnea (principal)
CPT/HCPCS: 94060; 94726; 94729

== ENCOUNTER → 2022-08-15 | Outpatient (CLI) | payer MEDICARE, SELFPAY ==
--- NOTE | 2022-08-15 09:38 | BI_ITS ---
MAMMOGRAPHY - UNILATERAL DIAGNOSTIC: RIGHT BREAST REASON FOR EXAM: Female, 82 years old. Right breast lump. The swelling has subsided at this time. PERTINENT HISTORY: Sister with breast cancer. Mother with breast cancer. Aunts with breast cancer. Remote right excisional breast biopsy. TECHNIQUE: Digital unilateral breast yolanda (3D mammographic acquisition) in the CC and MLO projections. 2-D mediolateral oblique (MLO) and craniocaudad (CC) views of both breasts were obtained. CAD: Full Field Digital Mammography with Computer Added Detection was performed. COMPARISON: Comparison is made with prior study dated 12/15/2021 and 12/14/2020. FINDINGS: Breast Composition: There are scattered areas of fibroglandular density. There are no dominant masses or suspicious calcifications. No other significant abnormalities are identified. There has been no significant change since the prior study. BI/DIAG MAMM W/CAD, UNILAT IMPRESSION: Stable unilateral diagnostic mammogram. With the patient''s history of a palpable lump in the right breast, correlation with ultrasound is recommended. ASSESSMENT CATEGORY: BIRADS Category 0: Incomplete. Need additional imaging evaluation. A letter regarding these results will be sent to the patient by the facility within 30 days. Approximately 10% of breast cancers are not detected by mammography. A normal mammogram should not delay biopsy of a clinically suspicious abnormality. Electronically Signed: Aramis Rodriguez MD at 10:55 EDT ,
--- NOTE | 2022-08-15 09:38 | US_ITS ---
STUDY: ULTRASOUND BREAST - RIGHT REASON FOR EXAM: Female, 82 years old. Retroareolar pain and pea-sized lump. TECHNIQUE: Axial and longitudinal images of the RIGHT breast were performed with a high resolution ultrasound transducer. # OF IMAGES: 62 COMPARISON: None. FINDINGS: RIGHT Breast: The retroareolar region of the breast was examined by ultrasound. There is evidence of a dilated retroareolar ducts. This also evidence of a 3 mm x 4 mm x 3 mm hypoechoic nodule in the retroareolar region. This is not a typical cyst. Biopsy recommended. US/Breast Limited Unilateral IMPRESSION: Dilated retroareolar ducts. 3 mm x 4 mm x 3 mm well-defined hypoechoic nodule in the retroareolar region. Biopsy is recommended. ASSESSMENT CATEGORY: BIRADS Category 4: Suspicious - Biopsy Should Be Considered. A letter regarding these results will be sent to the patient by the facility within 30 days. Electronically Signed: Aramis Rodriguez MD at 10:17 EDT ,
== END | disposition home or self-care (01) ==
LOC: OPBI 09:24
PROVIDERS: PCP Internal Medicine; Referring Provider Obstetrics & Gynecology Gynecology; Visit Provider Obstetrics & Gynecology Gynecology
DX: N64.4 Mastodynia (principal); R92.2 Inconclusive mammogram
CPT/HCPCS: 76642; 77061; 77065; G0279

== ENCOUNTER → 2022-08-17 | Outpatient (CLI) | payer MEDICARE, SELFPAY ==
[2022-08-17 11:15] VITALS: PULSE 100; PULSE 103; PULSE 84; PULSE 90; PULSE 92; PULSE 97; O2SAT 90; O2SAT 91; O2SAT 92; O2SAT 93; O2SAT 94; O2SAT 95
--- NOTE | 2022-08-17 14:04 | WT_ITS ---
PSN 6 Minute Walk Test 6 Minute Walk Test 6 Minute Walk Test: 6 Minute Walk Test PSN:6-Minute Walk Test Start: 08/17/22 11:28 Freq: Status: Active Protocol: [id number] Document 08/17/22 11:15 EW (Rec: 08/17/22 11:34 EW [id number]) 6 Minute Walk Test Date Performed 08/17/22 Time Performed 11:15 Height 5 ft 7 in Weight: 102.058 kg Weight in Pounds 225.[address]: Alma Mason [employer] Assistive device used: Cane Pre-test Oxygen Delivery Method Room Air Pulse Ox (%) 95 Pulse Rate (60-100 beats/min) 84 Dyspnea Apolonia Scale (0-10) 3 Exertion Apoolnia Scale (6-20) 8 1st minute Oxygen Delivery Method Room Air Pulse Ox (%) 90 Pulse Rate (60-100 beats/min) 103 H 2nd minute Oxygen Delivery Method Room Air Pulse Ox (%) 90 Pulse Rate (60-100 beats/min) 100 3rd minute Oxygen Delivery Method Room Air Pulse Ox (%) 90 Pulse Rate (60-100 beats/min) 97 4th minute Oxygen Delivery Method Room Air Pulse Ox (%) 91 Pulse Rate (60-100 beats/min) 103 H 5th minute Oxygen Delivery Method Room Air Pulse Ox (%) 92 Pulse Rate (60-100 beats/min) 97 6th minute Oxygen Delivery Method Room Air Pulse Ox (%) 93 Pulse Rate (60-100 beats/min) 90 Post-test Oxygen Delivery Method Room Air Pulse Ox (%) 94 Pulse Rate (60-100 beats/min) 92 Dyspnea Apolonia Scale (0-10) 4 Exertion Apolonia Scale (6-20) 13 Full Laps Walked 9 Partial Lap, Number of Tiles Walked 25 Total Distance Walked (ft) 556 Interpretation Interpretation: The patient was able to ambulate 556 feet over the course of 6 minutes on room air with no assistive devices or breaks. The patient did experience significant desaturation from a baseline of 95% to as low as 90% with ambulation. No significant tachycardia was noted. These findings are consistent with a respiratory limitation exercise tolerance. Recommendations Recommendations: No supplemental oxygen is indicated at this time. However, patient will need to be followed closely given level of desaturation.
== END | disposition home or self-care (01) ==
LOC: PSN 11:00
PROVIDERS: PCP Internal Medicine; Visit Provider Nurse Practitioner Acute Care
DX: R06.09 Other forms of dyspnea (principal)
CPT/HCPCS: 94618

== ENCOUNTER → 2022-08-21 | Outpatient (CLI) | payer MEDICARE, SELFPAY ==
[2022-08-21 15:15] LABS: Anion Gap 5 (5-15); BUN 28 mg/dL (7-18); BUN/Creat Ratio 26.4 RATIO (10-20); Calcium,Total 8.9 mg/dL (8.5-10.1); Chloride 105 mmol/L (98-107); Creatinine, Serum 1.06 mg/dL (0.55-1.02); EST Glomerular Filtration Rate 53 mL/min (>60); Est Glom Filt Rate - Afr Amer 64 mL/min (>60); Glucose 95 mg/dL (74-106); Potassium 4.4 mmol/L (3.5-5.1); Sodium Level 142 mmol/L (136-145)
[2022-08-21 15:18] LABS: BNP,B-Type NATRIURETIC PEPTIDE 208.2 pg/mL (0-100)
== END | disposition home or self-care (01) ==
LOC: LAB 14:12
PROVIDERS: PCP Internal Medicine; Referring Provider Nurse Practitioner Gerontology; Visit Provider Nurse Practitioner Gerontology
DX: R06.09 Other forms of dyspnea (principal)
CPT/HCPCS: 80048; 83880

== ENCOUNTER → 2022-08-28 | Outpatient (CLI) | payer MEDICARE, SELFPAY ==
[2022-08-28 18:03] LABS: Anion Gap 8 (5-15); BUN 49 mg/dL (7-18); BUN/Creat Ratio 36.3 RATIO (10-20); Calcium,Total 9.3 mg/dL (8.5-10.1); Chloride 100 mmol/L (98-107); Creatinine, Serum 1.35 mg/dL (0.55-1.02); EST Glomerular Filtration Rate 40 mL/min (>60); Est Glom Filt Rate - Afr Amer 49 mL/min (>60); Glucose 81 mg/dL (74-106); Potassium 3.8 mmol/L (3.5-5.1); Sodium Level 138 mmol/L (136-145)
== END | disposition home or self-care (01) ==
LOC: MTLAB 14:38
PROVIDERS: PCP Internal Medicine; Referring Provider Nurse Practitioner Gerontology; Visit Provider Nurse Practitioner Gerontology
DX: R06.09 Other forms of dyspnea (principal)
CPT/HCPCS: 36415; 80048

== ENCOUNTER → 2022-08-29 | Outpatient (CLI) | payer MEDICARE, SELFPAY ==
--- NOTE | 2022-08-29 09:33 | US_ITS ---
STUDY: ABDOMINAL ULTRASOUND - ELASTOGRAPHY REASON FOR VISIT: Female, 82 years old. Fatty infiltration of the liver. TECHNIQUE: Liver stiffness measurements were obtained on a CEYX RS 85 ultrasound machine using a CA 1-7 probe following the SRU guidelines. 3 measurements were obtained using a 2-D-SWE method. The IQR/M was 22% suggesting a quality data set. TECHNICAL QUALITY: Adequate. COMPARISON: Comparison is made with prior study done earlier today. FINDINGS: Liver: Fatty infiltration of the liver. Median liver stiffness measured 12.6 kPa. US/Elastography Parenchyma/Organ IMPRESSION: Liver stiffness measures 12.6 kPa compatible with F2-F3 (Mild to moderate liver fibrosis) Metavir score. Electronically Signed: Aramis Rodriguez MD at 14:51 EDT ,
--- NOTE | 2022-08-29 09:33 | US_ITS ---
STUDY: ABDOMINAL ULTRASOUND - RIGHT UPPER QUADRANT REASON FOR VISIT: Female, 82 years old FATTY LIVER -- K76.0 TECHNIQUE: Ultrasound evaluation of the right upper quadrant was performed with real-time and static zheng-scale imaging. TECHNICAL QUALITY: Adequate. COMPARISON: Comparison is made with prior examination of 05/22/2017. FINDINGS: Liver: The liver measures 16.7 cm. There is increased echogenicity consistent with fatty infiltration. The bile ducts are within normal limits. There is hepatic color flow. The direction of portal flow is hepatopetal. There is no demonstrated mass lesion. Gallbladder: Normal distended gallbladder. The gallbladder wall measures 2 mm. There is a negative sonographic Grajeda''s sign. There is no pericholecystic fluid. There are no gallstones. Common Bile Duct (C.B.D.): The common bile duct measures 6 mm. Pancreas: Normal size of the head, body and tail of the pancreas. There is increased echogenicity of the pancreas. There is no demonstrated pancreatic mass or cyst. Right Kidney: Normal size of the right kidney. The right kidney measures 12.6 cm x 5.2 cm x 4.6 cm. Normal renal cortex. The right cortex measures 1.2 cm. There is no demonstrated renal mass or cyst. There is no right hydronephrosis. US/Abdomen Limited IMPRESSION: Fatty infiltration of the liver. Electronically Signed: Aramis Rodriguez MD at 14:50 EDT ,
== END | disposition home or self-care (01) ==
LOC: US 09:32
PROVIDERS: PCP Internal Medicine; Referring Provider Internal Medicine; Visit Provider Internal Medicine
DX: K76.0 Fatty (change of) liver, not elsewhere classified (principal)
CPT/HCPCS: 76705; 76981

== ENCOUNTER → 2022-09-15 | Outpatient (CLI) | payer MEDICARE, SELFPAY ==
[2022-09-15 18:08] LABS: Anion Gap 7 (5-15); BUN 59 mg/dL (7-18); BUN/Creat Ratio 34.5 RATIO (10-20); Calcium,Total 8.9 mg/dL (8.5-10.1); Chloride 102 mmol/L (98-107); Creatinine, Serum 1.71 mg/dL (0.55-1.02); EST Glomerular Filtration Rate 31 mL/min (>60); Est Glom Filt Rate - Afr Amer 37 mL/min (>60); Glucose 95 mg/dL (74-106); Potassium 4.4 mmol/L (3.5-5.1); Sodium Level 139 mmol/L (136-145)
== END | disposition home or self-care (01) ==
LOC: MTLAB 13:03
PROVIDERS: PCP Internal Medicine; Referring Provider Internal Medicine Cardiovascular Disease; Visit Provider Internal Medicine Cardiovascular Disease
DX: I50.32 Chronic diastolic (congestive) heart failure (principal)
CPT/HCPCS: 36415; 80048

== ENCOUNTER → 2022-09-21 | Outpatient (CLI) | payer MEDICARE, SELFPAY ==
[2022-09-21 14:59] LABS: Hematocrit 37.2 % (37-47); Hemoglobin 12.4 g/dL (12.0-15.0); Mean Corp Hgb Conc 33.3 g/dL (32-36); Mean Corpuscular Hgb 33.2 pg (27.0-32.0); Mean Corpuscular Volume 99.5 fL (81-99); Mean Platelet Vol. 10.5 fl (6.2-12.0); Platelet Count 181 K/mm3 (150-450); RBC Distribution Width CV 13.6 % (11.6-14.6); RBC Distribution Width SD 49.1 fl (35.1-43.9); Red Blood Count 3.74 M/mm3 (4.2-5.4); White Blood Count 6.6 K/mm3 (4.4-11.0)
[2022-09-21 15:12] LABS: BNP,B-Type NATRIURETIC PEPTIDE 201.6 pg/mL (0-100)
[2022-09-21 15:22] LABS: International Normalized Ratio 1.5; Prothrombin Time (Protime)PT. 18.1 SECONDS (11.7-14.9)
[2022-09-21 15:28] LABS: Anion Gap 7 (5-15); BUN 66 mg/dL (7-18); BUN/Creat Ratio 34.2 RATIO (10-20); Calcium,Total 8.7 mg/dL (8.5-10.1); Chloride 102 mmol/L (98-107); Creatinine, Serum 1.93 mg/dL (0.55-1.02); EST Glomerular Filtration Rate 27 mL/min (>60); Est Glom Filt Rate - Afr Amer 32 mL/min (>60); Glucose 133 mg/dL (74-106); Potassium 4.3 mmol/L (3.5-5.1); Sodium Level 139 mmol/L (136-145); T4 Total, Thyroxin 13.2 ug/dL (4.8-13.9); Thyroid Stim Hormone (TSH) 1.86 uIU/mL (0.358-3.74)
== END | disposition home or self-care (01) ==
LOC: MTLAB 12:36
PROVIDERS: PCP Internal Medicine; Referring Provider Internal Medicine Cardiovascular Disease; Visit Provider Internal Medicine Cardiovascular Disease
DX: I50.32 Chronic diastolic (congestive) heart failure (principal); I48.0 Paroxysmal atrial fibrillation; E03.9 Hypothyroidism, unspecified; R53.83 Other fatigue
CPT/HCPCS: 36415; 80048; 83880; 84436; 84443; 85027; 85610

== ENCOUNTER → 2022-09-22 | Outpatient (CLI) | payer MEDICARE, SELFPAY ==
--- NOTE | 2022-09-22 | BRBX_PTH ---
PATIENT: BA LANZA LOC: U#:[id number] AGE/SX: 82/F ROOM: RE09/22/[address]: Dr. Rohan Viera MD : 1940 BED: DIS: 09/22/2022 SPEC #: [id number] RECD: 09/22/22 13:56 STATUS: SANDRA REMary Kate #: [id number] TRACI: 09/22/22 00:[address]: Rohan Viera DEPT: SURGICAL PATHOLOGY RECD BY: Mack Walden ENTERED: 09/22/22 13:57 SP TYPE: BREAST BX OTHR DR: Dr. Bernice Moctezuma, DO Tissues: Right breast, NOS Procedures: Surgery Specimen Level IV HEADER OPERATION: Ultrasound guided, right breast biopsy PRE-OP DIAGNOSIS: Right retro areolar TISSUE SUBMITTED: Right breast biopsy MICROSCOPIC DIAGNOSIS Right breast, ultrasound-guided core biopsy: Fibrocystic change. No evidence of malignancy. AM:maggie 09/25/2022 MICROSCOPIC DESCRIPTION Slides are reviewed. GROSS DESCRIPTION Received in fixative is one container labeled with the patient's name and designated right breast. The specimen consists of multiple elongated fragments of joya-yellow fibroadipose tissue that in aggregate measure 2 x 0.3 x 0.1 cm. The entire specimen is submitted in one cassette. / SJ:maggie 09/22/2022 TC:5 [facility]: [id number]
--- NOTE | 2022-09-22 11:49 | US_ITS ---
MAMMOGRAPHY - UNILATERAL DIAGNOSTIC: RIGHT BREAST REASON FOR EXAM: Female, 82 years old. ABN MAMM -- ABN RT US PERTINENT HISTORY: Clip placement. TECHNIQUE: Digital examination. Mediolateral oblique (MLO) and craniocaudad (CC) views of the breast were obtained. CAD: CAD was performed on this study. COMPARISON: None. FINDINGS: A tissue clip marker is seen in the deep retroareolar region of the right breast. US/US Breast Biopsy 1st Lesion IMPRESSION: A tissue clip marker is seen in the deep retroareolar region of the right breast. ASSESSMENT CATEGORY: BIRADS Category 2: Benign. A letter regarding these results will be sent to the patient by the facility within 30 days. FOLLOW-UP RECOMMENDATION: Approximately 10% of breast cancers are not detected by mammography. A normal mammogram should not delay biopsy of a clinically suspicious abnormality. Electronically Signed: Aramis Rodriguez MD at 13:45 EST ,
--- NOTE | 2022-09-22 12:57 | HP.PCM_ITS ---
History and Physical Date of Admission: 09/22/22 HISTORY AND PHYSICAL - BREAST COMPLAINT ? Mirtha Ventura 1940 ? ? REFERRING PHYSICIAN: Self ? CHIEF COMPLAINT: Abnormal mammogram (primary encounter diagnosis) ? HPI: The patient is a 82 year old female with a complaint of an abnormal mammogram. The patient had a mammogram with ultrasound which demonstrated 4 mm lesion in the retroareolar region of the right breast: ? ? The patient denies a history of breast masses. She does perform a self breast exam routinely. She notes no skin changes. She denies nipple discharge. She notes no axillary masses. She notes no family history of breast problems. She notes no significant breast trauma or breast difficulties in the past. ? ? ? PAST MEDICAL HISTORY PAST MEDICAL HISTORY Diagnosis Date ? Acute bronchitis ? ? Acute gastritis without mention of hemorrhage ? ? Acute sinusitis, unspecified ? ? Allergic rhinitis, cause unspecified ? ? Arthropathy, unspecified, site unspecified ? ? Atrial fibrillation (HCC) ? ? Backache, unspecified ? ? Diarrhea ? ? Diverticulitis ? ? Esophageal reflux ? ? Essential hypertension, benign ? ? GERD (gastroesophageal reflux disease) ? ? Heart disease, unspecified ? ? Neuropathy ? ? Other malaise and fatigue ? ? Pneumonia, organism unspecified([id number]) ? ? Thyroid disease ? ? Type II or unspecified type diabetes mellitus without mention of complication, not stated as uncontrolled ? ? Unspecified cataract ? ? Unspecified hypothyroidism ? ? Unspecified urinary incontinence ? ? ? PAST SURGICAL HISTORY PAST SURGICAL HISTORY Procedure Laterality Date ? COLONOSCOPY ? 2001 ? COLONOSCOPY W/BIOPSY SINGLE/MULTIPLE ? 10/03/11 ? RECALL-2014 MAC- 3 DAY STOP COUMADIN ? EGD TRANSORAL BIOPSY SINGLE/MULTIPLE ? 10/03/11 ? HYSTEROTOMY, ABDOMINAL ? ? ? LITHOTRIPSY COMMON BILE DUCT ? ? ? SALPINGECTOMY OR OOPHERECTOMY-ECTOPIC ? 09/13 ? bilat ? THYROIDECTOMY TOTAL/COMPLETE ? 2009 ? total ? TOTAL HIP JOINT REPLACEMENT ? 2005 ? left ? TUBAL LIGATION, ? CURRENT MEDICATIONS Current Outpatient Medications Medication Sig Dispense Refill ? furosemide (LASIX) 40 mg tablet Take 40 mg by mouth twice daily. ? ? ? allopurinol (ZYLOPRIM) 300 mg tablet Take 300 mg by mouth once daily. ? ? ? omeprazole (PRILOSEC) 20 mg capsule Take 20 mg by mouth once daily. ? ? ? carbidopa-levodopa CR (SINEMET CR) 50-200 mg per tablet Take 1 tablet by mouth twice daily. ? ? ? carbidopa-levodopa (SINEMET 25-100) 25-100 mg per tablet Take 2 tablets by mouth three times daily. ? ? ? potassium chloride 20 mEq TbER Take 1 tablet by mouth once daily. ? ? ? traZODone (DESYREL) 100 mg tablet Take 100 mg by mouth daily at bedtime. ? ? ? metoprolol succinate ER (TOPROL XL) 50 mg 24 hr tablet Take 50 mg by mouth twice daily. ? ? ? citalopram (CELEXA) 20 mg tablet Take 20 mg by mouth once daily. ? ? ? warfarin (COUMADIN) 5 mg tablet Take 5 mg by mouth daily as directed. as directed ? ? ? pravastatin 40 mg tablet Take 40 mg by mouth once daily. ? ? ? levothyroxine sodium(SYNTHROID 125 MCG TAB) Take one(1) tablet daily. ? 0 ? multivitamins w-minerals/lut(CENTRUM SILVER TAB) Take one(1) tablet daily. ? 0 ? calcium carbonate/vitamin d3(CALCIUM 600 + D(3) 600 MG-125 UNIT TAB) Take one(1) tablet two(2) times daily. ? 0 ? hydrochlorothiazide (HYDRODIURIL, ESIDRIX) 25 mg tablet Take 25 mg by mouth once daily. (Patient not taking: Reported on 08/28/2022) ? ? ? zolpidem (AMBIEN) 5 mg tablet Take 5 mg by mouth daily at bedtime. (Patient not taking: Reported on 08/28/2022) ? ? ? COQ10, UBIQUINOL, ORAL Take 200 mg by mouth once daily. (Patient not taking: Reported on 08/28/2022) ? ? ? ROPINIROLE HCL (REQUIP ORAL) Take by mouth daily at bedtime. (Patient not taking: Reported on 08/28/2022) ? ? ? esomeprazole mag trihydrate(NEXIUM 40 MG CAP) Take one(1) capsule daily. (Patient not taking: Reported on 08/28/2022) ? 0 ? No current facility-administered medications for this visit. ? ? ALLERGIES: Patient has no known allergies. ? PERSONAL HISTORY: SOCIAL HISTORY Social History ? Tobacco Use ? Smoking status: Former ? ? Packs/day: 0.50 ? ? Types: Cigarettes ? ? Quit date: 07/06/2002 ? ? Years since quittin.1 Substance Use Topics ? Alcohol use: Yes ? ? Alcohol/week: 5.0 - 10.0 standard drinks ? ? Types: 2 - 4 Glasses of Wine (5oz) per week ? FAMILY HISTORY: FAMILY HISTORY FAMILY HISTORY Problem Relation Age of Onset ? Breast Cancer Mother ? ? Cancer Mother ? ? Coronary Artery Disease Father ? ? Diabetes Mother ? ? Diabetes Father ? ? Diabetes Sister ? ? Diabetes Son ? ? Heart Mother ? ? Heart Father ? ? Hypertension Mother ? ? Hypertension Father ? ? Stroke Father ? ? ? REVIEW OF SYMPTOMS: The review of systems data was entered by the nurse and reviewed by me ? Nursing Notes: Alla Seymour RN 08/28/2022 2:16 PM Signed REVIEW OF SYSTEMS: General: The patient denies fatigue, denies weight loss, NOTES weight gain, denies feeling hot, and denies feelings of cold. Eyes: The patient denies glaucoma, NOTES eye injury/surgery, does not wear glasses or contacts. Ear/Nose/Throat: The patient NOTES allergies, NOTES hayfever, denies ear infections, and denies bloody noses. Cardiovascular: The patient denies chest pain, NOTES heart disease, NOTES high blood pressure,denies cardiac stent, denies prior heart attack, NOTES irregular heart beat, NOTES high cholesterol, NOTES poor circulation, NOTES heart failure, other cardiac issues, denies claudication, denies cold feet, denies peripheral arterial stent. Respiratory: The patient denies tuberculosis, NOTES pneumonia, denies frequent cough, denies pulmonary embolism, NOTES shortness of breath, and denies coughing up blood. Gastrointestinal: The patient NOTES difficulty swallowing, denies acid reflux, denies ulcers, denies vomiting, denies jaundice/hepatitis, denies gallbladder problems, denies black or tarry stools, NOTES hemorrhoids, denies bleeding from rectum, NOTES diverticulitis, denies constipation, NOTES diarrhea, denies loss of stool control, and NOTES hernias. Kidney/Bladder: The patient NOTES kidney stones, denies urine infections, and denies bloody urine. Skin: The patient denies a history of skin cancer, denies bleeding/changing moles, and denies a history of skin rash. Neurologic: The patient denies a history of epilepsy/convulsions, denies headaches, denies head/spinal injuries, and denies stroke/TIA. Psychiatric: The patient denies psychiatric medications, notes depression, and denies voices, denies substance abuse. Endocrine: The patient denies thyroid disorders, NOTES diabetes, and denies hormonal problems. Hematologic: The patient NOTES a history of bruising, denies bleeding, and denies anemia, denies blood clots. Infections: The patient NOTES a history of measles and mumps, denies rheumatic fever, and denies sexually transmitted diseases. Musculoskeletal: The patient denies back pain/injury, NOTES back problems, denies sciatica, denies knee/foot trouble, denies arthritis, or NOTES gout. ? ? When was patient's last Mammogram screening? 2021 ? Last Colonoscopy: unknown ? Alla Seymour RN PHYSICAL EXAMINATION: ? General: The patient is 82 year old female, well nourished, well hydrated in no acute distress. The patient is oriented to time, place, and person. ? VITALS: Blood pressure 112/72, pulse 60, temperature 36.1 ?C (97 ?F), resp. rate 14, height 172.7 cm (5' 8), weight 114.3 kg (252 lb), SpO2 93 %. Body mass index is 38.32 kg/m?. ? HEENT: Normal cephalic, ataumatic, pupils are equally round, sclera are anicteric, mucous membranes are moist, oropharynx is clear. Neck has no masses, asymmetry or lymphadenopathy. Thyroid is unremarkable. ? Respiratory: Clear to auscultation and percussion. Normal respiratory excursion and pattern. ? Cardiac: Examination is regular rate and rhythm. ? Abdominal exam: Soft, nontender, with no palpable masses. No hepatospl enomegaly. No palpable hernias. ? Rectal exam: exam deferred Extremities: no clubbing, cyanosis or edema. No adenopathy. ? Breast: Visual inspection reveals no retractions, nipple inversion, or skin changes. Palpation of the right breast reveals no dominant or suspicious masses. Palpation of the left breast reveals no dominant or suspicious masses. Axillary exam demonstrates no suspicious masses in either the left or right axilla. There is no nipple discharge expressed from either the left or right breast. ? LABORATORY VALUES: As Noted ? RADIOLOGIC STUDIES: As Noted ? Assessment IMPRESSION: Abnormal mammogram (primary encounter diagnosis) ? PLAN: I plan to perform a ultrasound guided mammotome core biopsy of the right breast. The planned surgical procedure was discussed extensively with the patient. The risks, benefits, anticipated outcomes and possible complications were mentioned. My staff has also explained the procedure in understandable terms and the patient was given the option to take printed material concerning the planned procedure. The patient had the opportunity to ask questions concerning the planned procedure. The patient freely consents to the planned procedure. ? ? Diagnoses: (R92.8) Abnormal mammogram (primary encounter diagnosis) ? ? Patient will be off her Coumadin for 5 days prior to the procedure Return to Clinic: The patient is instructed to follow-up with me 1 week post operatively. ? Rohan Viera III, MD I have examined the patient and the H&P has been reviewed. There are no clinical changes since date of exam.
--- NOTE | 2022-09-22 12:58 | PCM.OPRPT ---
Problems Associated Problem List Diagnoses (1) Abnormal mammogram of right breast: Report of Operation Date of Procedure: 09/22/22 Pre-Operative Diagnosis: Abnormal mammogram right breast Post-Operative Diagnosis: Same Surgery/Procedure Performed:: Ultrasound-guided needle core biopsy of abnormal mammogram to right breast Surgeon: Rohan Viera rn support services: None Type of Anesthesia: Local Description of Procedure: Patient was brought into the ultrasound unit placed in the supine position. Ultrasound of the right breast underneath the nipple areolar complex revealed the lesion in question. I prepped the breast with chlorhexidine. I injected 1% lidocaine plain. A skin elana was made. I injected local down to the lesion. Under ultrasound guidance 2 needle core biopsies were obtained of this lesion. Under ultrasound guidance a small titanium clip was placed. Sterile dressings were applied. Patient was taken down in standard mammograms were obtained. She tolerated the procedure well. Admit VTE Documentation VTE Present on Admission: No VTE Pharm Prophylaxis ordered?: No Reason prophylaxis not ordered:: Treatment Not Indicated
== END | disposition home or self-care (01) ==
LOC: US 11:46
PROVIDERS: PCP Internal Medicine; Visit Provider Surgery
DX: N60.11 Diffuse cystic mastopathy of right breast (principal); E11.40 Type 2 diabetes mellitus with diabetic neuropathy, unspecified; I48.91 Unspecified atrial fibrillation; I10 Essential (primary) hypertension; E03.9 Hypothyroidism, unspecified; K21.9 Gastro-esophageal reflux disease without esophagitis; R32 Unspecified urinary incontinence; R92.8 Other abnormal and inconclusive findings on diagnostic imaging of breast; F17.210 Nicotine dependence, cigarettes, uncomplicated; Z79.84 Long term (current) use of oral hypoglycemic drugs; Z79.01 Long term (current) use of anticoagulants; Z79.899 Other long term (current) drug therapy
CPT/HCPCS: 19083; 88305

== ENCOUNTER → 2022-11-08 | Outpatient (CLI) | payer MEDICARE, SELFPAY | END | disposition home or self-care (01) | PROVIDERS: PCP Internal Medicine; Referring Provider Internal Medicine Gastroenterology; Visit Provider Internal Medicine Gastroenterology | DX: R19.7 Diarrhea, unspecified (principal) | CPT/HCPCS: 36415; 86140 ==

== ENCOUNTER → 2022-11-10 | Outpatient (CLI) | payer MEDICARE, SELFPAY ==
[2022-11-15 16:55] LABS: Calprotectin, Stool 146 ug/g (0-120)
== END | disposition home or self-care (01) ==
LOC: LABSPEC 13:54
PROVIDERS: PCP Internal Medicine; Visit Provider Internal Medicine Gastroenterology
DX: R19.7 Diarrhea, unspecified (principal)
CPT/HCPCS: 83993

== ENCOUNTER → 2023-01-04 | Outpatient (CLI) | payer MEDICARE, SELFPAY ==
[2023-01-04 14:53] LABS: Absolute Neutrophil Count 6.3 X10^3/uL (2.0-7.7); Basophil# 0.03 X10^3/uL; Basophil% 0.3 % (0-1); Eosinophil# 0.03 X10^3/uL; Eosinophils% 0.3 % (0-5); Erythrocyte Sedimentation Rate 19 mm/hr (0-30); Hematocrit 42.4 % (37-47); Hemoglobin 14.2 g/dL (12.0-15.0); Lymphocyte % 20.8 % (19-41); Mean Corp Hgb Conc 33.5 g/dL (32-36); Mean Corpuscular Volume 95.5 fL (81-99); Mean Platelet Vol. 9.6 fl (6.2-12.0); Monocyte# 0.81 X10^3/uL; Monocyte% 8.9 % (0-10); NRBC Flagged by Analyzer 0 % (0-5); Neutrophil # 6.32 X10^3/uL (2.7-7.7); Platelet Count 205 K/mm3 (150-450); RBC Distribution Width CV 13.2 % (11.6-14.6); RBC Distribution Width SD 46.7 fl (35.1-43.9); Red Blood Count 4.44 M/mm3 (4.2-5.4); White Blood Count 9.2 K/mm3 (4.4-11.0)
[2023-01-04 14:58] LABS: International Normalized Ratio 2.5; Prothrombin Time (Protime)PT. 26.7 SECONDS (11.7-14.9)
[2023-01-04 15:30] LABS: ALB/GLOB Ratio 1.1 RATIO (0.9-2.4); AST(SGOT) 45 U/L (15-37); Alanine Aminotransfer ALT/SGPT 56 U/L (13-56); Albumin, Serum 3.6 g/dL (3.2-5.0); Alkaline Phosphatase 89 U/L (45-117); Anion Gap 9 (5-15); BUN 37 mg/dL (7-18); BUN/Creat Ratio 29.6 RATIO (10-20); CRP 3.77 mg/L (0.0-3.0); Calcium,Total 8.9 mg/dL (8.5-10.1); Chloride 99 mmol/L (98-107); Creatinine, Serum 1.25 mg/dL (0.55-1.02); EST Glomerular Filtration Rate 44 mL/min (>60); Est Glom Filt Rate - Afr Amer 53 mL/min (>60); Ferritin 356 ng/mL (8-252); Globulin 3.4 g/dL (2.2-4.2); Glucose 93 mg/dL (74-106); LDH 296 U/L (84-246); Sodium Level 139 mmol/L (136-145)
[2023-01-04 15:34] LABS: Hemoglobin A1c 5.8 % (3.8-5.6)
[2023-01-04 15:55] LABS: HIV - WCH Non-Reactive (Nonreactive)
[2023-01-08 12:08] LABS: Anti-Centromere B Ab <0.2 AI (0.0-0.9); Anti-Chromatin <0.2 AI (0.0-0.9); Anti-Jo <0.2 AI (0.0-0.9); Anti-Scleroderma-70 AB <0.2 AI (0.0-0.9); RNP Ab 0.3 AI (0.0-0.9); SJOGREN'S Anti-SS-A test < 0.2 AI (0.0-0.9); SJOGREN'S Anti-SS-B test < 0.2 AI (0.0-0.9); Smith Ab <0.2 AI (0.0-0.9)
[2023-01-08 15:08] LABS: Angiotensin Convert Enzyme 21 U/L (14-82); Ceruloplasmin 26.2 mg/dL (19.0-39.0); Cytoplasmic Ab (C-ANCA) <1:20 titer (Neg:<1:20); HEPATITIS B SURFACE AG Negative (Negative); Hep C Antibodies Non Reactive (Non Reactive); Hepatitis A IgM Antibody Negative (Negative); Hepatitis B Core AB IgM Negative (Negative)
[2023-01-08 18:50] LABS: Anti-Mitochondrial AB <20.0 Units (0.0-20.0); Anti-dsDNA Ab <1 IU/mL (0-9)
[2023-01-08 19:01] LABS: Anti-Smooth Muscle ABS 4 Units (0-19); Copper, Serum or Plasma 117 ug/dL (80-158); Haptoglobin 284 mg/dL (42-346); Perinuclear Ab (P-ANCA) <1:20 titer (Neg:<1:20)
== END | disposition home or self-care (01) ==
LOC: LAB 14:07
PROVIDERS: PCP Internal Medicine; Referring Provider Nurse Practitioner Adult Health; Visit Provider Nurse Practitioner Adult Health
DX: K76.0 Fatty (change of) liver, not elsewhere classified (principal); Z79.01 Long term (current) use of anticoagulants; R79.89 Other specified abnormal findings of blood chemistry; G62.9 Polyneuropathy, unspecified; R53.82 Chronic fatigue, unspecified
CPT/HCPCS: 36415; 80053; 80074; 82140; 82164; 82390; 82525; 82728; 83010; 83036; 83516; 83615; 85025; 85610; 85652; 86140; 86225; 86235; 86256; 86703

== ENCOUNTER → 2023-01-19 | Outpatient (CLI) | payer MEDICARE, SELFPAY ==
--- NOTE | 2023-01-19 13:00 | BI_ITS ---
MAMMOGRAPHY - BILATERAL SCREENING 3-D TOMOSYNTHESIS REASON FOR EXAM: Female, 82 years old. Routine screening PERTINENT HISTORY: Mother, sister, and aunt with breast cancer TECHNIQUE: 2-D mammograms and 3-D Tomosynthesis of the breast (s) were performed. CAD was performed. COMPARISON: 12/15/2021 FINDINGS: The breast composition is almost entirely fat. Scattered benign calcifications are seen. No dense spiculated masses or suspicious microcalcifications are identified. No architectural distortion is identified. There is no skin thickening or retraction. There has been no significant change since the prior study. BI/SCRN MAMM (CAD)W/ABRAHAM BILAT IMPRESSION: No mammographic signs of malignancy. Routine yearly mammograms recommended. ASSESSMENT CATEGORY: BIRADS Category 1: Negative. A letter regarding these results will be sent to the patient by the facility within 30 days. FOLLOW UP RECOMMENDATION: Yearly follow up mammogram recommended. (A) Approximately 10% of breast cancers are not detected by mammography. A normal mammogram should not delay biopsy of a clinically suspicious abnormality. Electronically Signed: Guy Steinberg MD at 14:13 EDT ,
== END | disposition home or self-care (01) ==
LOC: OPBI 12:58
PROVIDERS: PCP Internal Medicine; Referring Provider Internal Medicine; Visit Provider Internal Medicine
DX: Z12.31 Encounter for screening mammogram for malignant neoplasm of breast (principal)
CPT/HCPCS: 77063; 77067

== ENCOUNTER 2023-02-09 10:44 | Outpatient (CLI) | payer MEDICARE, SELFPAY ==
[2023-02-09 10:48] LABS: Bacteria 0 SEEN /hpf (None Seen); Mucous, Urine 0 SEEN /hpf (<or=2+); Red Blood Cells-Urine 0 SEEN /hpf (0-5); Squamous Epithelial Cells - UA 0 SEEN /hpf (5-10); White Blood Cells 0 SEEN /hpf (0-5)
[2023-02-09 13:00] LABS: Absolute Lymphocyte Count 1.88 X10^3/uL (0.83-4.51); Absolute Neutrophil Count 6.1 X10^3/uL (2.0-7.7); Basophil# 0.03 X10^3/uL; Basophil% 0.3 % (0-1); Eosinophil# 0.01 X10^3/uL; Eosinophils% 0.1 % (0-5); Hematocrit 40.2 % (37-47); Hemoglobin 13.6 g/dL (12.0-15.0); Lymphocyte # 1.88 X10^3/ul (0.83-4.51); Lymphocyte % 21.5 % (19-41); Mean Corp Hgb Conc 33.8 g/dL (32-36); Mean Corpuscular Hgb 33.3 pg (27.0-32.0); Mean Corpuscular Volume 98.3 fL (81-99); Mean Platelet Vol. 10.2 fl (6.2-12.0); Monocyte# 0.64 X10^3/uL; Monocyte% 7.3 % (0-10); NRBC Flagged by Analyzer 0 % (0-5); Neutrophil # 6.05 X10^3/uL (2.7-7.7); Neutrophil % 69.1 % (47-70); Platelet Count 191 K/mm3 (150-450); RBC Distribution Width SD 50.1 fl (35.1-43.9); Red Blood Count 4.09 M/mm3 (4.2-5.4); White Blood Count 8.8 K/mm3 (4.4-11.0)
[2023-02-09 13:05] LABS: Vitamin B12 667 pg/mL (211-911); Vitamin D,25 Hydroxy 34.9 ng/mL
[2023-02-09 13:15] LABS: ALB/GLOB Ratio 1.1 RATIO (0.9-2.4); AST(SGOT) 18 U/L (15-37); Alanine Aminotransfer ALT/SGPT 13 U/L (13-56); Albumin, Serum 3.5 g/dL (3.2-5.0); Alkaline Phosphatase 87 U/L (45-117); Anion Gap 7 (5-15); BUN 35 mg/dL (7-18); BUN/Creat Ratio 38.3 RATIO (10-20); Calcium,Total 8.6 mg/dL (8.5-10.1); Chloride 104 mmol/L (98-107); Cholesterol 208 mg/dL (200); Creatinine, Serum 0.91 mg/dL (0.55-1.02); EST Glomerular Filtration Rate 63 mL/min (>60); Est Glom Filt Rate - Afr Amer 76 mL/min (>60); Globulin 3.3 g/dL (2.2-4.2); Glucose 104 mg/dL (74-106); High Density Lipoprotein 88 mg/dL; Potassium 3.2 mmol/L (3.5-5.1); Protein, Total 6.8 g/dL (6.4-8.2); Sodium Level 141 mmol/L (136-145); Thyroid Stim Hormone (TSH) 1.34 uIU/mL (0.358-3.74); Triglycerides 159 mg/dL; Very Low Density Lipoprotein 32 mg/dL (5-40)
[2023-02-09 13:23] LABS: Color, Urine Yellow (Yellow); Glucose, Dipstick Normal (Normal); Ketone-Dipstick Negative (Negative); Leukocyte Esterase-Dipstick 100 /ul (Negative); Nitrite-Dipstick Negative (Negative); Occult Blood-Urine Negative /ul (Negative); Protein-Dipstick Negative (Negative); Specific Gravity, Urine 1.015 (1.002-1.030); Urine Bilirubin Dipstick Negative (Negative); Urine Clarity Clear (Clear); Urine Urobilinogen Normal (Normal)
[2023-02-09 13:25] LABS: Microalbumin,Random Urine 12.1 mg/L (NO RANGE EST.); Microalbumin:Creatinine Ratio 20.9 mg/g CRE (<30 mg/g CRE)
== END 2023-02-09 23:59 | disposition home or self-care (01) ==
LOC: MTLAB 10:46
PROVIDERS: PCP Internal Medicine; Referring Provider Internal Medicine; Visit Provider Internal Medicine
DX: E55.9 Vitamin D deficiency, unspecified (principal); E11.9 Type 2 diabetes mellitus without complications; E53.8 Deficiency of other specified B group vitamins
CPT/HCPCS: 36415; 80053; 80061; 81001; 82043; 82306; 82570; 82607; 84443; 85025

== ENCOUNTER → 2023-02-23 | Outpatient (CLI) | payer MEDICARE, SELFPAY ==
[2023-02-23 18:41] LABS: Hemoglobin A1c 5.7 % (3.8-5.6); Magnesium 2.2 mg/dL (1.6-2.6); Potassium 2.9 mmol/L (3.5-5.1)
== END | disposition home or self-care (01) ==
LOC: MTLAB 14:19
PROVIDERS: PCP Internal Medicine; Referring Provider Internal Medicine; Visit Provider Internal Medicine
DX: E11.9 Type 2 diabetes mellitus without complications (principal); E87.6 Hypokalemia
CPT/HCPCS: 36415; 83036; 83735; 84132

== ENCOUNTER → 2023-03-02 | Outpatient (CLI) | payer MEDICARE, SELFPAY ==
[2023-03-02 16:09] LABS: Potassium 4.3 mmol/L (3.5-5.1)
== END | disposition home or self-care (01) ==
LOC: LABSPEC 15:20
PROVIDERS: PCP Internal Medicine; Referring Provider Internal Medicine; Visit Provider Internal Medicine
DX: E87.6 Hypokalemia (principal)
CPT/HCPCS: 84132

== ENCOUNTER 2023-03-12 13:00 | Outpatient (RCR) | payer MEDICARE, SELFPAY ==
--- NOTE | 2023-02-12 13:54 | HP.PTEVAL_ITS ---
Patient's Visit Information BA LANZA is a 83 year old F referred to Physical Therapy by Dr. Josep Law MD with a diagnosis of Shy-Drager syndrome and OD, polyneuropathy. 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 A-fib is under control. said to go to therapy and have her brain talk to her muscles. She feels unsteady. She uses the cane when she goes out, not in the house. She has had no falls recently. She is struggles with balance and tremors the most and even now restless legs. She wants o not be wobbly when getting out of a chair or stand for longer periods of time. Currently she is a ble to stand 10-15 minutes and then she will have to sit and then get back up. Sit to stand: she has to use the arms of the chair. - Objective Gait: walks with WBOS and decreased stride length with a cane. Flexed trunk, decreased to no arm swing. LE MMT: R hip flex 5.2 and L 4.7. R KNEE EXT 14.7 and L 8.5. R Knee flex 5.1 and L 6.6. TU.73. FGA: 7. Sit to stand: Able to sit to stand on first attempt with use of B UE's. Tight gastroc B - Balance/Special Test Scores Functional Gait Assessment Score: 7 % Disability: 76.6700 Lower Extremity Functional Score: 30 - Goals Goal 1:: I HEP Goal Time Frame: 6-8 Weeks Goal 2:: Be able to sit to stand X 10 with 1 UE and stand up tall balance on first attempt Goal Time Frame: 6-8 Weeks Goal 3:: Increase LE strength (LE MMT: R hip flex 5.2 and L 4.7. R KNEE EXT 14.7 and L 8.5. R Knee flex 5.1 and L 6.6). Goal Time Frame: 6-8 Weeks Goal 4:: Decrease TUG time (25.73 at eval) Goal Time Frame: 6-8 Weeks Goal 5:: Walk with increase stride length and smaller CLAUDINE Goal Time Frame: 6-8 Weeks Goal 6:: Increase balance by increase FGA (score was 7 at eval) Goal Time Frame: 6-8 Weeks - Rehabilitation Potential Rehabilitation Potential: Good - Anticipated Interventions Patient/Client Instruction: Educate patient on: Condition, Plan of Care For the Purpose of:: To decrease pain, To decrease swelling/inflammation, To increase ROM, To improve nutrient delivery to tissue, To increase oxygenation perfusion, To improve muscle performance and motor function, To improve ability to perform ADL's, To increase tolerance to activity/condition/position, To improve performance and independence with ADL's, To decrease level of supervision to perform tasks, To improve ability of physical actions for home/community/work/leisure, To improve gait and locomotor functions, To improve health of tissue, To increase flexibility/ROM, To improve balance, To improve safety with gait Therapeutic Exercise to Include: Strength training, Endurance training, Balance training, Postural training, Flexibilty training, Gait and locomotor training, Neuromotor development, Passive ROM, Active ROM For the Purpose of:: To decrease pain, To increase ROM, To improve nutrient delivery to tissue, To improve muscle performance and motor function, To improve ability to perform ADL's, To increase tolerance to activity/condition/position, To improve performance and independence with ADL's, To decrease level of supervision to perform tasks, To improve ability of physical actions for home/community/work/leisure, To improve gait and locomotor functions, To improve health of tissue, To increase flexibility/ROM, To improve endurance, To improve balance, To improve safety with gait Functional Training to Include: Gait training For the Purpose of:: To improve gait and locomotor functions, To improve safety with gait Thank you for the opportunity to evaluate your patient. For Medicare and Medicare HMO plans, please review the plan of care and approve it. It will need to be FAXED BACK to us at [phone] for Medicare purposes. For Medicare only, by signing this I certify the plan of care. Please let me know if there are questions or concerns regarding this plan of care. Physician Signature: Date:
--- NOTE | 2023-03-12 13:34 | HP.PTDCSUM ---
It has been my pleasure to treat BA LANZA referred by Dr. Josep Law MD, with the diagnosis of Shy-Drager syndrome and OD, polyneuropathy for a total of 9 visit(s). Discharge Date: 03/12/23 Please see the following information for a summary of their discharge status. Subjective: Pt feels that lately she feels that she has more strength in her legs and back. She feels that her balance is better but she still has to stand up a few seconds before she goes. She was up all night cause her sister is in the ICU. Objective/Function: LE MMT: R hip flex 7 and L 7.6. R KNEE EXT 20.5 and L 18.8. R Knee flex 11.2 and L 7.4. Sit to stand X 10 with the use of the B UE (has to go slow to make sure her legs are working). TUG time (25.73 at eval) today 19.35. FGA 10 Goal 1:: I HEP Goal Progress: Progressing Goal 2:: Be able to sit to stand X 10 with 1 UE and stand up tall balance on first attempt Goal Progress: Progressing Goal 3:: Increase LE strength (LE MMT: R hip flex 5.2 and L 4.7. R KNEE EXT 14.7 and L 8.5. R Knee flex 5.1 and L 6.6). Goal Progress: Goal Met Goal 4:: Decrease TUG time (25.73 at eval) Goal Progress: Goal Met Goal 5:: Walk with increase stride length and smaller CLAUDINE Goal Progress: Progressing Goal 6:: Increase balance by increase FGA (score was 7 at eval) Goal Progress: Goal Met Plan: DC PT to PD [facility] class starting this week or next. Discharge Comments: DC PT to [facility] PD class If there are questions or concerns regarding this patient's physical therapy, please feel free to call me at [phone]. Thank you for the referral of this patient. Sincerely, Dahlia Sampson, MPT Balance/Gait/Functional tests - Balance/Special Test Scores Functional Gait Assessment Score: 10 % Disability: 66.6700 Lower Extremity Functional Score: 39
== END 2023-03-12 19:00 | disposition home or self-care (01) ==
LOC: PT 13:00
PROVIDERS: PCP Internal Medicine; Referring Provider Psychiatry & Neurology Neurology; Visit Provider Psychiatry & Neurology Neurology
DX: G90.3 Multi-system degeneration of the autonomic nervous system (principal); G20 Parkinson's disease; G62.9 Polyneuropathy, unspecified
CPT/HCPCS: 97110; 97161; 97530

== ENCOUNTER 2023-03-30 06:31 | Day surgery (SDC) | payer MEDICARE, SELFPAY ==
--- NOTE | 2023-03-29 14:28 | RAD_ITS ---
INDICATION: Atrial fib, cardioversion EXAMINATION/TECHNIQUE: X-RAY - XR Chest 2 Views COMPARISON: August 04, 2021. FINDINGS: LINES/DEVICES: None. LUNGS: Lungs symmetrically mildly hyperexpanded with flattening of the hemidiaphragms on lateral view. No consolidation or florid edema. Trace left effusion. No pneumothorax. MEDIASTINUM AND CARDIOVASCULAR STRUCTURES: Unchanged cardiomegaly. Mild aortic atherosclerosis. BONES AND SOFT TISSUES: Unremarkable. RAD/Chest PA and Lateral IMPRESSION: Hyperexpansion as can be seen with chronic obstructive pulmonary disease. Cardiomegaly without florid edema or focal airspace consolidation. Trace left effusion. Electronically Signed: Rafael Delgado MD at 0:17 EDT ,
[2023-03-29 14:30] VITALS: BMI 37.7
--- NOTE | 2023-03-29 14:56 | HP.PCM_ITS ---
History and Physical Date of Admission: 03/30/23 BA LANZA, is an 83 F who presents today for a cardioversion. Her EKG from 03/29/2023 demonstrated atrial fibrillation. She acknowledges shortness of breath, weakness, and fatigue over the last three days. She has a history of hypertension, hyperlipidemia, no significant coronary artery disease, paroxysmal atrial fibrillation, KEE with CPAP, and Parkinson's.? As you know she has had intermittent periods of being lightheaded and she has been diagnosed with Shy- Drager syndrome.? Holter monitor performed in September 2021 demonstrated an average heart rate of 56 bpm minimum of 43 bpm and a maximum of 81 bpm.? No atrial fibrillation was noted at that time and no pauses.? Her last ejection fraction in May of 2021 demonstrated an ejection fraction of 55% with stage III diastolic dysfunction and pulmonary artery systolic pressure of 47 mmHg.? Patient presented to our office on 07/05/2022 for a nurse visit with complaints of elevated blood pressure and low heart rate.? Her EKG at that time demonstrated atrial fibrillation with PVCs, heart rate 52-56 her flecainide was stopped and her lisinopril was increased to 10 mg twice daily.? She obtained a Holter monitor which demonstrated PAF with wide QRS/aberrancy, average HR 91. She was then started on amiodarone, and restarted metoprolol, 12.5 mg twice daily, which was then increased to 25mg daily for elevated heart rates. Intake Vital Signs See EMR Allergies See EMR Medications See EMR [facility] Medical History? Acute insomnia Arthritis Atrial fibrillation with RVR Back pain Cellulitis Cerebrovascular disease Chronic diastolic (congestive) heart failure Chronic fatigue Claudication Difficulty balancing Diverticulosis Edema Essential (primary) hypertension Fatigue Fatty liver Gastritis GERD (gastroesophageal reflux disease) Gout Heart disease Hiatal hernia HLD (hyperlipidemia) Hypothyroidism Hypothyroidism Hypoxia IBS (irritable bowel syndrome) Incontinence Limb weakness Low back pain with bilateral sciatica Lumbar degenerative disc disease MCI (mild cognitive impairment) Microscopic colitis Osteopenia Parkinson disease Paroxysmal atrial fibrillation Pneumonia involving right lung Polyneuropathy, unspecified Postural lightheadedness Shy-Drager syndrome Stool incontinence Tremor Urinary incontinence Surgical History? H/O bilateral salpingo-oophorectomy History of arthroscopic knee surgery History of cardioversion (04/22/15) History of colonoscopy History of hysterectomy History of left heart catheterization (08/14/16) History of left hip replacement History of lithotripsy History of lumpectomy Family History? Father CAD (coronary artery disease) CVA (cerebral vascular accident) Anesthesia complication Arthritis Heart disease Myocardial infarction HypertensionMother CAD (coronary artery disease) Arthritis Breast cancer Heart disease Myocardial infarction Hypertension Thyroid disorderSister Breast cancer Heart disease Thyroid disorderAunt Parkinson's disease ?? ? suspected but no diagnosis; maternal aunt Social History? Smoking Status:? Unknown if ever smoked Tobacco: How many years used:? 5 second hand exposure:? No alcohol intake:? current alcohol intake frequency: a few times a week Alcohol type: wine details:? DAILY WINE substance use type:? does not use ROS Const Const: Positive for fatigue, weakness. Negative for fever(s), headache(s), chills, frequent falls, weight gain or weight loss Eyes Eyes: Negative for blind spots, loss of peripheral vision, transient loss of vision, blurry vision, change in vision, double vision, floaters or tunnel vision ENT ENT: Negative for headache(s), dizziness, Nosebleed/epistaxis, balance problems or neck pain Cardio Chest Pain: No Palpitations: Yes (occasional) Edema: None Muscle aches with walking: None Resp Respiratory: Positive for SOB with activity; Negative for SOB at rest or SOB orthopnea\SOB lying down GI GI: Negative nausea, vomiting, heartburn, bloating, vomiting blood/hematemesis, bright, red blood in stools or black,tarry stools Musc Musc: Negative for muscle aches/ myalgia, muscle weakness, joint pain or balance problems Neuro Neuro: Positive for lightheadedness (occasional with positional changes); Negative for dizziness, near syncope, syncope, orthostatic symptoms, frequent falls, headache(s), weakness, blurry vision or double vision Noah Hematologic/Lymphatic: Negative for easy bleeding or easy bruising Endo Endo: Negative for fatigue Cardiology Exam Const Appearance: cooperative and no acute distress Nutritional Appearance: obese Orientation: alert and oriented x3 Limitations: physical limitations (uses a cane to help with ambulation) Head Head: normal to inspection Ears: hearing grossly normal bilaterally Nose: external nose normal Face and Sinus: face symmetric Eyes General: appearance normal, both eyes and all related structures Eyelids: eyelids normal Conjunctivae: conjunctivae normal Pupils: PERRL and pupil size EOM: EOM intact bilaterally Neck Neck: normal visual inspection Carotids: Negative bruit Chest Chest inspection: normal inspection of the chest and normal respiratory effort Auscultation: Bilateral: Clear to Auscultation Cardio Palpation: normal PMI Rate: regular rate Rhythm: irregularly irregular rhythm Heart sounds: S1 normal and S2 normal; Negative rub, gallop or murmur GI GI: normal to inspection, soft and obese; Negative no hepatosplenomegaly Neuro General: patient alert, patient oriented x3 and CN's II-XI intact bilaterally Skin Skin: no rashes or lesions noted Extremities Pulses: Normal: Right Posterior Tibial Pulse, Left Posterior Tibial Pulse, Right Radial Pulse and Left Radial Pulse Lower Extremity Edema: None: Bilateral Psych Psychological: normal affect Supplemental Info Supplemental Information Stress Test 01/04/2022: Pharmacologic myocardial perfusion stress test. Patient with a history of paroxysmal atrial fibrillation. Medications warfarin, flecainide, metoprolol, pravastatin. Stress protocol: Resting EKG demonstrates sinus bradycardia with a rate of 47 bpm normal intervals are noted resting blood pressure is 122/80 mmHg.? 0.4 mg of regadenoson was infused per usual protocol followed by rapid venous saline flush injection continuous EKG monitoring was performed.? The maximum heart rate attained was 70 bpm which was 49% of max impact at heart rate the maximum workload was 1 metabolic equivalent.? At rest there were no ST or T wave changes noted to suggest abnormal flow reserve and at peak infusion nonspecific ST changes were noted with did not meet the criteria for ischemia.? No clinical angina was noted the final blood pressure was 122/80 mmHg. Myocardial perfusion protocol. 14.1 mCi of technetium 99m sestamibi was injected at rest.? 0.4 mg of regadenoson was infused per usual protocol.? At peak infusion 44.5 mCi of technetium 99m sestamibi was injected stress images were obtained stress and rest images were reconstructed and compared in the short axis vertical long and horizontal long axis.? Gated images were also obtained. Perfusion SPECT analysis: Review of the stress images demonstrate normal uptake of tracer noted in all areas of the myocardium.? The resting images similarly demonstrate normal uptake of tracer noted in all areas of the myocardium.? No areas of reversibility are noted to suggest ischemia and no previous infarct is noted. Gated SPECT analysis: The gated ejection fraction is 63%. Conclusion: Pharmacologic myocardial perfusion stress test with no evidence of ischemia. Preserved ejection fraction. Echocardiogram 05/2021: Normal LV size. Left ventricular systolic function is normal. The estimated ejection fraction is 55 %. Stage 3 diastolic dysfunction. Pulmonary artery systolic pressure is 47 mmHg. Mild pulmonary hypertension. The right atrium is moderately enlarged. CORONARY ARTERIOGRAPHY 2016 : 1.? LEFT MAIN: The left main coronary artery was noted to be angiographically normal.? It bifurcated into left anterior descending artery and left circumflex artery. LEFT CIRCUMFLEX ARTERY: The left circumflex artery was a nondominant vessel.? It gave off a small obtuse marginal branch, a second larger obtuse marginal branch, which bifurcated.? The superior and inferior divisions both bifurcated with no significant stenosis. LEFT ANTERIOR DESCENDING ARTERY: The left anterior descending artery was a medium-sized vessel.? It gave off a first diagonal branch, which was angiographically free of significant disease.? The left anterior descending artery then continued and gave off another small diagonal branch.? The vessel continued towards the apex of the left ventricle.? No high-grade stenosis was noted in this vessel. RAMUS INTERMEDIUS: There was a ramus intermedius, which was noted coursing between the left anterior descending artery and left anterior ascending artery and this vessel also bifurcated with no high-grade stenosis. RIGHT CORONARY ARTERY: The right coronary artery was a dominant vessel.? It gave a sinoatrial branch, a conus branch, and an acute marginal branch.? Distally terminated with a posterior descending artery and a posterolateral vessel.? No significant stenosis was noted in this vessel. LEFT VENTRICULOGRAM: The left ventriculogram demonstrated preserved left ventricular systolic function, estimated ejection fraction of 65%, mild 1+ mitral regurgitation was noted. CONCLUSION: 1.? Mild mitral regurgitation. 2.? Preserved ejection fraction. 3.? Hypertension. 4.? Normal left main coronary artery. 5.? Left anterior descending artery with no high-grade stenosis. 6.? Left circumflex artery with no high-grade stenosis. 7.? Ramus intermedius with no high-grade stenosis. 8.? Dominant right coronary artery with no high-grade stenosis. Assessment and Plan Assessment and Plan (1) Paroxysmal atrial fibrillation: ?Status:?Chronic ?Plan: Patient has a history of paroxysmal atrial fibrillation. Her most recent echocardiogram from 05/2021 demonstrated an ejection fraction of 55%, and a mildly enlarged left atrium, and moderately enlarged right atrium. Patient's EKG from 03/29/2023 demonstrated atrial fibrillation, heart rate 77 bpm, right bundle branch block. She is symptomatic with this, complaining of fatigue, shortness of breath, and weakness. Her INR has been therapeutic. She will proceed with cardioversion.
[2023-03-29 16:24] LABS: International Normalized Ratio 2.2; Prothrombin Time (Protime)PT. 24.4 SECONDS (11.7-14.9)
[2023-03-29 16:40] LABS: Anion Gap 7 (5-15); BUN 23 mg/dL (7-18); BUN/Creat Ratio 27.4 RATIO (10-20); Calcium,Total 8.7 mg/dL (8.5-10.1); Chloride 100 mmol/L (98-107); Creatinine, Serum 0.84 mg/dL (0.55-1.02); EST Glomerular Filtration Rate 69 mL/min (>60); Est Glom Filt Rate - Afr Amer 84 mL/min (>60); Estimated Creatinine Clearance 51.08 ml/min; Glucose 90 mg/dL (74-106); Sodium Level 142 mmol/L (136-145)
[2023-03-30 06:45] LABS: INR Fingerstick 2.4; Prothrombin Time Fingerstick 25.7 SEC (11.7-14.9)
[2023-03-30 07:05] LABS: Anion Gap 6 (5-15); BUN 26 mg/dL (7-18); BUN/Creat Ratio 26.2 RATIO (10-20); Calcium,Total 8.4 mg/dL (8.5-10.1); Chloride 104 mmol/L (98-107); Creatinine, Serum 0.99 mg/dL (0.55-1.02); EST Glomerular Filtration Rate 57 mL/min (>60); Est Glom Filt Rate - Afr Amer 69 mL/min (>60); Estimated Creatinine Clearance 43.34 ml/min; Glucose 110 mg/dL (74-106); Potassium 4.4 mmol/L (3.5-5.1); Sodium Level 142 mmol/L (136-145)
--- NOTE | 2023-03-30 07:40 | EKG12_ITS ---
Test Reason : DCCV Blood Pressure : / mmHG Vent. Rate : 078 BPM Atrial Rate : 110 BPM P-R Int : 000 ms QRS Dur : 140 ms QT Int : 468 ms P-R-T Axes : 000 093 -24 degrees QTc Int : 533 ms Atrial fibrillation Right bundle branch block Abnormal ECG When compared with ECG of 13-JUN-2021 13:33, Current undetermined rhythm precludes rhythm comparison, needs review Right bundle branch block is now Present Confirmed by WAN LAST, IRVING ([id number]), school photograph editor MAHENDRA VARELA ([id number]) on 03/30/2023 1:35:41 PM Referred By: Irving Lamas Confirmed By:IRVING LAMAS MD
--- NOTE | 2023-03-30 08:30 | EKG12_ITS ---
Test Reason : DCCV Blood Pressure : / mmHG Vent. Rate : 051 BPM Atrial Rate : 045 BPM P-R Int : 164 ms QRS Dur : 134 ms QT Int : 560 ms P-R-T Axes : 053 072 000 degrees QTc Int : 516 ms Marked sinus bradycardia with Premature atrial complexes Right bundle branch block Abnormal ECG When compared with ECG of 30-MAR-2023 07:40, MANUAL COMPARISON REQUIRED, DATA IS UNCONFIRMED Confirmed by WAN LAST, IRVING ([id number]), graphic editor MAHENDRA VARELA ([id number]) on 03/30/2023 1:35:48 PM Referred By: Irving Lamas Confirmed By:IRVING LAMAS MD
--- NOTE | 2023-03-30 08:44 | PCM.OP.BLANK ---
Operative Report Date of Procedure: 03/30/23 DC cardioversion. Atrial fibrillation. Patient presented to the noninvasive suite with atrial fibrillation which is symptomatic has been on anticoagulation for a minimum of 4 weeks with therapeutic INRs. Patient was seen by Dr. Reis of the critical care division. Informed consent was obtained. Anterior-posterior pads were applied. The patient was then administered 60 mg of intravenous propofol. 200 J of biphasic DC cardioversion energy were applied with prompt reversal to sinus rhythm. Patient tolerated the procedure well. Conclusion: Successful DC cardioversion from atrial fibrillation to sinus rhythm. Follow-up as per office protocol.
--- NOTE | 2023-03-30 10:24 | PRO.PCM_ITS ---
Procedure Report Date of Procedure: 03/30/23 CONSCIOUS SEDATION REPORT BRIEF HISTORY OF PRESENT ILLNESS: The patient is an 83-year-old female who presented to [facility] for an elective outpatient cardioversion due to underlying atrial fibrillation. The patient reports no PO intake since midnight, but is currently therapeutic on anticoagulation. The patient does have a history of KEE, but only uses supplemental oxygen at night with sleep. The patient reports no history of smoking and COPD. The patient denies any recent constitutional symptoms such as fevers, chills, nausea or vomiting. The patient denies previous applicable anesthetic complications. Patient's last known ejection fraction was 55%. INR on the day of the procedure was noted to be 2.4. PHYSICAL EXAMINATION: VITAL SIGNS: Reviewed and were acceptable. GENERAL: The patient is a female, in no apparent distress, speaking in full sentences. HEENT: Normocephalic, atraumatic. Mucous membranes are moist and pink. Good mouth opening noted. Trachea is midline. Good neck mobility. MP III CHEST: S1, S2 irregularly irregular. No murmurs, rubs or gallops were noted. LUNGS: Clear to auscultation bilaterally without appreciable wheezes, rales or rhonchi. ABDOMEN: Soft, nontender, nondistended. Positive bowel sounds. EXTREMITIES: There is no clubbing, cyanosis or edema. ASA Class: II DESCRIPTION OF PROCEDURE: After confirmation of informed consent, the patient's anesthesia plan was reviewed in detail. Propofol was chosen. Risks and benefits were reviewed and the patient agreed to proceed. At 8:34 AM, the patient was given 40 mg of propofol. The patient required a total of 60 mg of propofol throughout the procedure to achieve appropriate sedation. The patient achieved an appropriate level of sedation and received 1 attempt synchronized cardioversion, at [address] Lamas at the bedside. This was successful in achieving normal sinus rhythm, but was noted to be bradycardic. The patient was monitored until 8:48 AM, at which time the patient reached their baseline mental status and function. The patient tolerated the procedure well. COMPLICATIONS: None ESTIMATED BLOOD LOSS: None RECOMMENDATIONS: Okay to recover in usual fashion. Procedures Pulmonary 9xxxx: [id number] Con Sedation
== END 2023-03-30 09:45 | disposition home or self-care (01) ==
PROVIDERS: PCP Internal Medicine; Referring Provider Internal Medicine Cardiovascular Disease; Visit Provider Internal Medicine Cardiovascular Disease
DX: I48.0 Paroxysmal atrial fibrillation (principal); I11.0 Hypertensive heart disease with heart failure; I50.32 Chronic diastolic (congestive) heart failure; I45.10 Unspecified right bundle-branch block; K76.0 Fatty (change of) liver, not elsewhere classified; R53.1 Weakness; R53.83 Other fatigue; R06.02 Shortness of breath; E66.9 Obesity, unspecified; K21.9 Gastro-esophageal reflux disease without esophagitis; E78.5 Hyperlipidemia, unspecified; E03.9 Hypothyroidism, unspecified; Z79.899 Other long term (current) drug therapy; Z79.01 Long term (current) use of anticoagulants
CPT/HCPCS: 36415; 36416; 71046; 80048; 85610; 92960; 93005; J7040

== ENCOUNTER → 2023-04-06 | Outpatient (CLI) | payer MEDICARE, SELFPAY ==
--- NOTE | 2023-04-06 14:20 | RAD_ITS ---
INDICATION: Shortness of breath EXAMINATION/TECHNIQUE: X-RAY - frontal and lateral views of chest COMPARISON: Two-view chest x-ray from 03/29/2023 FINDINGS: LINES/DEVICES: None. LUNGS: No overt pulmonary edema or focal airspace consolidation. No sizable pleural effusion. No detectable pneumothorax. Stable slightly elevated right hemidiaphragm. MEDIASTINUM AND CARDIOVASCULAR STRUCTURES: Stable mild cardiomegaly. Atherosclerotic calcifications along aorta. BONES AND SOFT TISSUES: Skeletal degenerative changes. RAD/Chest PA and Lateral IMPRESSION: Stable atherosclerotic disease and mild cardiomegaly. Electronically Signed: Franck Johnson MD at 23:47 EDT ,
[2023-04-06 15:44] LABS: Absolute Lymphocyte Count 1.16 X10^3/uL (0.83-4.51); Absolute Neutrophil Count 7.6 X10^3/uL (2.0-7.7); Basophil# 0.04 X10^3/uL; Basophil% 0.4 % (0-1); Eosinophil# 0.02 X10^3/uL; Eosinophils% 0.2 % (0-5); Hematocrit 41.6 % (37-47); Hemoglobin 14.2 g/dL (12.0-15.0); Lymphocyte # 1.16 X10^3/ul (0.83-4.51); Lymphocyte % 12.3 % (19-41); Mean Corp Hgb Conc 34.1 g/dL (32-36); Mean Corpuscular Hgb 34.1 pg (27.0-32.0); Mean Platelet Vol. 10.3 fl (6.2-12.0); Monocyte# 0.57 X10^3/uL; Monocyte% 6.1 % (0-10); NRBC Flagged by Analyzer 0 % (0-5); Neutrophil # 7.55 X10^3/uL (2.7-7.7); Neutrophil % 80.3 % (47-70); Platelet Count 184 K/mm3 (150-450); RBC Distribution Width SD 48.2 fl (35.1-43.9); Red Blood Count 4.16 M/mm3 (4.2-5.4); White Blood Count 9.4 K/mm3 (4.4-11.0)
[2023-04-06 16:14] LABS: Anion Gap 9 (5-15); BNP,B-Type NATRIURETIC PEPTIDE 181.2 pg/mL (0-100); BUN 20 mg/dL (7-18); BUN/Creat Ratio 19.2 RATIO (10-20); Chloride 99 mmol/L (98-107); Creatinine, Serum 1.04 mg/dL (0.55-1.02); EST Glomerular Filtration Rate 54 mL/min (>60); Est Glom Filt Rate - Afr Amer 65 mL/min (>60); Glucose 106 mg/dL (74-106); Potassium 3.2 mmol/L (3.5-5.1); Sodium Level 141 mmol/L (136-145)
== END | disposition home or self-care (01) ==
LOC: RAD 14:02
PROVIDERS: Internal Medicine Cardiovascular Disease; PCP Internal Medicine; Referring Provider Nurse Practitioner Family; Visit Provider Nurse Practitioner Family
DX: E87.6 Hypokalemia (principal); R06.09 Other forms of dyspnea
CPT/HCPCS: 36415; 71046; 80048; 83880; 85025

== ENCOUNTER 2023-04-25 12:21 | Emergency (ER) | payer MEDICARE, SELFPAY ==
[2023-04-25 12:21] VITALS: BP 157/107; PULSE 70; RESP 18; TEMP 36.4; O2SAT 98
[2023-04-25 12:28] VITALS: BMI 38.0
--- NOTE | 2023-04-25 13:16 | EX.ED.DYSGE1 ---
HPI History of Present Illness Chief Complaint: Nosebleed Narrative Narrative: 83-year-old female with epistaxis in the right naris. Patient states that started about 4 to 5 hours ago. She has not been able to control it. Is been dripping the whole time. Patient states that when she pinches her nose it starts to bleed out of the other side. She does states that the back of her throat. Patient on Coumadin. She does not feel lightheaded or dizzy. Her last INR on the was 3.3. [facility] Medical History Acute insomnia Arthritis Atrial fibrillation with RVR Back pain Cellulitis Cerebrovascular disease Chronic diastolic (congestive) heart failure Chronic fatigue Claudication Difficulty balancing Diverticulosis Edema Essential (primary) hypertension Fatigue Fatty liver Gastritis GERD (gastroesophageal reflux disease) Gout Heart disease Hiatal hernia HLD (hyperlipidemia) Hypothyroidism Hypothyroidism Hypoxia IBS (irritable bowel syndrome) Incontinence Limb weakness Low back pain with bilateral sciatica Lumbar degenerative disc disease MCI (mild cognitive impairment) Microscopic colitis Osteopenia Parkinson disease Paroxysmal atrial fibrillation Pneumonia involving right lung Polyneuropathy, unspecified Postural lightheadedness Shy-Drager syndrome Stool incontinence Tremor Urinary incontinence Home Medications allopurinol 300 mg tablet 300 mg PO DAILY 12/03/20 [History Last Taken Unknown] citalopram 20 mg tablet 20 mg PO QHS 06/13/21 [History Last Taken Unknown] sswjexeczadp-pihebnwb-plqiea tablet 1 tab PO DAILY 06/13/21 [History Last Taken Unknown] trazodone 100 mg tablet 100 mg PO QHS 09/05/21 [History Last Taken Unknown] ascorbate calcium (vitamin C) 500 mg tablet 500 mg PO DAILY 01/17/22 [History Last Taken Unknown] cetirizine 10 mg capsule (Zyrtec) 10 mg PO DAILY 01/17/22 [History Last Taken Unknown] cholecalciferol (vitamin D3) 25 mcg (1,000 unit) capsule 25 mcg PO DAILY 01/17/22 [History Last Taken Unknown] meclizine 25 mg tablet 25 mg PO DAILY PRN Dizziness 10/16/22 [History Last Taken Unknown] amiodarone 200 mg tablet 200 mg PO DAILY #90 tabs 11/15/22 [Rx Last Taken Unknown] furosemide 40 mg tablet 40 mg PO .COMPLEX #180 tabs 11/15/22 [Rx Last Taken Unknown] levothyroxine 112 mcg tablet 112 mcg PO DAILY #90 tabs 11/15/22 [Rx Last Taken Unknown] metoprolol tartrate 50 mg tablet 50 mg PO BID #180 tabs 11/15/22 [Rx Last Taken Unknown] omeprazole 20 mg capsule,delayed release 20 mg PO DAILY #90 caps 11/15/22 [Rx Last Taken Unknown] warfarin 5 mg tablet 5 mg PO .COMPLEX #180 tabs 11/15/22 [Rx Last Taken Unknown] zinc acetate 50 mg (zinc) capsule 100 mg PO DAILY 11/28/22 [History Last Taken Unknown] ursodiol 250 mg tablet 250 mg PO BID #180 tabs 01/04/23 [Rx Last Taken Unknown] pravastatin 40 mg tablet 40 mg PO DAILY #90 TABLETS 01/29/23 [Rx Last Taken Unknown] baclofen 20 mg tablet 20 mg PO .Every evening #30 tabs 02/01/23 [Rx Last Taken Unknown] carbidopa 25 mg-levodopa 100 mg tablet 2 tab PO .COMPLEX #540 tabs 02/01/23 [Rx Last Taken Unknown] carbidopa ER 50 mg-levodopa 200 mg tablet,extended release 1 tab PO .COMPLEX #180 tabs 02/01/23 [Rx Last Taken Unknown] buspirone 10 mg tablet 10 mg PO BID PRN anxiety #60 tabs 02/08/23 [Rx Last Taken Unknown] budesonide 3 mg capsule,delayed,extended release 6 mg PO QAM #180 ea 03/20/23 [Rx Last Taken Unknown] potassium chloride 20 mEq tablet,extended release 40 meq PO DAILY 04/06/23 [History Last Taken Unknown] Allergy/AdvReac Type Severity Reaction Status Date / Time adhesive tape Allergy Intermediate Hives Verified 02/01/23 14:37 amitriptyline Allergy Intermediate Rash Verified 02/01/23 14:37 prednisone Allergy Intermediate Other Verified 02/01/23 14:37 simvastatin AdvReac Severe myalgias Verified 02/01/23 14:37 celecoxib [From Celebrex] AdvReac Mild Diarrhea Verified 02/01/23 14:37 Family History Father CAD (coronary artery disease) CVA (cerebral vascular accident) Anesthesia complication Arthritis Heart disease Myocardial infarction Hypertension Mother CAD (coronary artery disease) Arthritis Breast cancer Heart disease Myocardial infarction Hypertension Thyroid disorder Sister Breast cancer Heart disease Thyroid disorder Aunt Parkinson's disease suspected but no diagnosis; maternal aunt Surgical History H/O bilateral salpingo-oophorectomy History of arthroscopic knee surgery History of cardioversion (04/22/15) History of colonoscopy History of hysterectomy History of left heart catheterization (08/14/16) History of left hip replacement History of lithotripsy History of lumpectomy Social History Smoking Status: Former smoker Tobacco: How many years used: 8 second hand exposure: No alcohol intake: current alcohol intake frequency: a few times a week Alcohol type: wine details: DAILY WINE substance use type: does not use ramsey/zoroastrian: Catholic seatbelt use: always ROS ROS ED Review of Systems ROS Unobtainable: Denies due to encephalopathy Constitutional Constitutional ED: Denies fever(s) Eyes Eyes: Denies change in vision or diplopia ENT ENT ED: Reports other Details: Epistaxis Cardiovascular Cardiovascular: Denies chest pain or palpitations Respiratory/Chest Respiratory/Chest: Denies cough or dyspnea Gastrointestinal Gastrointestinal: Denies abdominal pain or constipation Genitourinary Genitourinary ED: Denies dysuria or hematuria Musculoskeletal Musculoskeletal: Denies arthralgias or back pain Integumentary Denies abscess or Abrasions Neurologic Neurologic: Denies headache(s) Psychiatric Psychiatric: Denies anxiety or depression EXAM Physical Exam Const Vital Signs: 04/25/23 12:21 Temperature 97.5 F L Temperature Source Temporal Pulse Rate 70 Respiratory Rate 18 Blood Pressure 157/107 H Blood Pressure Mean 123 Pulse Ox 98 Oxygen Delivery Method Room Air Positive well nourished and obese Nutritional Appearance: obese HEENT Reports moist mucous membranes HEENT Narrative: Dried blood in bilateral naris. trauma Eyes PERRL and EOMs intact bilaterally Chest Wall inspection of chest normal Cardio regular rate and regular rhythm GI normal to inspection, nondistended, normoactive bowel sounds Extremity normal to inspection Neuro oriented x3 and CN's II-XII intact bilaterally Sensorium / Orientation: alert Motor Exam: strength 5/5 throughout Psych mental status grossly normal Skin no rashes or lesions noted MDM MDM MDM Narrative Medical decision making narrative: Patient presents with epistaxis from the right nare. The blood is dried right now. I had her blow her nose to blow out a lot of clots and is now a lot of bleeding coming from the right nare. Is difficult to find where the source is. Given that she is on Coumadin think she would benefit from a packing. I put a 5.5 cm rapid Rhino into the left nare and this completely stopped the bleeding. Patient's been monitored for 20 minutes afterwards and she still feels well. She is not have any blood going on the back of her throat. She states she already sees Dr. Bach. We will leave the packing in place and have her see ENT in follow-up. She is amenable to this. Return precautions discussed. Impression: 1. Epistaxis Lab Data Attestation: I reviewed the patient's lab results. Discharge Plan Triage Chief Complaint: Nosebleed ED Provider: Nader Camarena Dx/Rx/DC Orders Instructions: Nosebleed Prescriptions: No Action allopurinol 300 mg tablet 300 mg PO DAILY trazodone 100 mg tablet 100 mg PO QHS Zyrtec 10 mg capsule 10 mg PO DAILY ascorbate calcium (vitamin C) 500 mg tablet 500 mg PO DAILY cholecalciferol (vitamin D3) 25 mcg (1,000 unit) capsule 25 mcg PO DAILY zinc acetate 50 mg (zinc) capsule 100 mg PO DAILY meclizine 25 mg tablet 25 mg PO DAILY PRN (Reason: Dizziness) ursodiol 250 mg tablet 250 mg PO BID Qty: 180 3RF baclofen 20 mg tablet 20 mg PO .Every evening Qty: 30 5RF carbidopa-levodopa 25-100 mg tablet 2 tab PO .COMPLEX Qty: 540 1RF Rx Instructions: 2 tabs orally 3 times daily (8 AM, 2 PM and 6 PM) carbidopa-levodopa 50-200 mg tablet extended release 1 tab PO .COMPLEX Qty: 180 1RF Rx Instructions: 1 TAB orally Twice daily (11 AM and 10 PM) buspirone 10 mg tablet 10 mg PO BID PRN (Reason: anxiety) Qty: 60 5RF citalopram 20 mg Tablet 20 mg PO QHS glmizwgunfuh-agrfklhc-mmjcle Tablet 1 tab PO DAILY amiodarone 200 mg tablet 200 mg PO DAILY Qty: 90 3RF Rx Instructions: start after loading dose furosemide 40 mg tablet 40 mg PO .COMPLEX Qty: 180 3RF Rx Instructions: 40 mg orally daily: give extra pills as pt may need to take extra for SOB, swelling, etc; levothyroxine 112 mcg tablet 112 mcg PO DAILY Qty: 90 3RF metoprolol tartrate 50 mg tablet 50 mg PO BID Qty: 180 3RF omeprazole 20 mg capsule,delayed release(DR/EC) 20 mg PO DAILY Qty: 90 3RF warfarin 5 mg tablet 5 mg PO .COMPLEX Qty: 180 3RF Protocol: Dose Management Condition: Sunday Dose/Route: 5 mg Instruction: 1 x 5 mg tablet Condition: Sunday Dose/Route: 5 mg Instruction: 1 x 5 mg tablet Condition: Sunday Dose/Route: 2.5 mg Instruction: 0.5 x 5 mg tablets Condition: Sunday Dose/Route: 2.5 mg Instruction: 0.5 x 5 mg tablets Condition: Dose/Route: 2.5 mg Instruction: 0.5 x 5 mg tablets Condition: Sunday Dose/Route: 2.5 mg Instruction: 0.5 x 5 mg tablets Condition: Sunday Dose/Route: 5 mg Instruction: 1 x 5 mg tablet Protocol Text: Adjustment Start Date: Sunday04/18/23 INR Value: 3.3 INR Date: 04/18/23 Recheck Date: 04/25/23 Rx Instructions: 5 mg orally take TWO tablets (10 mg) on and Sunday, 1 tablet all other days of the week; or as directed (dose changes often, please give extra pills); pravastatin 40 mg tablet 40 mg PO DAILY Qty: 90 3RF budesonide 3 mg capsule,delayed,extend.release 6 mg PO QAM Qty: 180 1RF potassium chloride 20 mEq tablet extended release 40 meq PO DAILY Primary Care Provider: Bernice Moctezuma Referrals: Bernice Moctezuma DO [Primary Care Provider] - Disposition Disposition: Home, Self Care
[2023-04-25] MEDS: Mixture 30 ML Bottle 15 ML TOPICAL (14:53)
== END 2023-04-25 14:58 | disposition home or self-care (01) ==
PROVIDERS: Emergency Provider Student in an Organized Health Care Education/Training Program; PCP Internal Medicine; Visit Provider Student in an Organized Health Care Education/Training Program
DX: R04.0 Epistaxis (principal); I50.32 Chronic diastolic (congestive) heart failure; K76.0 Fatty (change of) liver, not elsewhere classified; E66.9 Obesity, unspecified; Z87.891 Personal history of nicotine dependence; Z79.01 Long term (current) use of anticoagulants
CPT/HCPCS: 30901; 99282

== ENCOUNTER → 2023-06-05 | Outpatient (CLI) | payer MEDICARE, SELFPAY ==
[2023-06-05 12:32] LABS: Anion Gap 7 (5-15); BNP,B-Type NATRIURETIC PEPTIDE 142.7 pg/mL (0-100); BUN 27 mg/dL (7-18); BUN/Creat Ratio 30.5 RATIO (10-20); Calcium,Total 8.8 mg/dL (8.5-10.1); Chloride 100 mmol/L (98-107); Creatinine, Serum 0.89 mg/dL (0.55-1.02); EST Glomerular Filtration Rate 65 mL/min (>60); Est Glom Filt Rate - Afr Amer 79 mL/min (>60); Glucose 109 mg/dL (74-106); Sodium Level 140 mmol/L (136-145)
== END | disposition home or self-care (01) ==
LOC: LAB 11:43
PROVIDERS: PCP Internal Medicine; Referring Provider Internal Medicine Cardiovascular Disease; Visit Provider Internal Medicine Cardiovascular Disease
DX: I50.32 Chronic diastolic (congestive) heart failure (principal); R06.09 Other forms of dyspnea
CPT/HCPCS: 36415; 80048; 83880

== ENCOUNTER → 2023-06-19 | Outpatient (CLI) | payer MEDICARE, SELFPAY ==
[2023-06-19 11:42] LABS: Bacteria 0 SEEN /hpf (None Seen); Mucous, Urine 0 SEEN /hpf (<or=2+); Red Blood Cells-Urine 0 SEEN /hpf (0-5); Squamous Epithelial Cells - UA 0 SEEN /hpf (5-10); White Blood Cells 0 SEEN /hpf (0-5)
[2023-06-19 15:29] LABS: Absolute Lymphocyte Count 2.75 X10^3/uL (0.83-4.51); Absolute Neutrophil Count 6.5 X10^3/uL (2.0-7.7); Basophil# 0.07 X10^3/uL; Basophil% 0.7 % (0-1); Color, Urine Yellow (Yellow); Eosinophil# 0.06 X10^3/uL; Eosinophils% 0.6 % (0-5); Glucose, Dipstick Normal (Normal); Hematocrit 43.7 % (37-47); Hemoglobin 14.4 g/dL (12.0-15.0); Ketone-Dipstick Negative (Negative); Leukocyte Esterase-Dipstick Negative /ul (Negative); Lymphocyte # 2.75 X10^3/ul (0.83-4.51); Lymphocyte % 26.7 % (19-41); Mean Corpuscular Hgb 32.7 pg (27.0-32.0); Mean Corpuscular Volume 99.3 fL (81-99); Mean Platelet Vol. 10.3 fl (6.2-12.0); Monocyte# 0.75 X10^3/uL; Monocyte% 7.3 % (0-10); NRBC Flagged by Analyzer 0 % (0-5); Neutrophil # 6.47 X10^3/uL (2.7-7.7); Neutrophil % 62.9 % (47-70); Nitrite-Dipstick Negative (Negative); Occult Blood-Urine Negative /ul (Negative); Platelet Count 231 K/mm3 (150-450); Protein-Dipstick Negative (Negative); RBC Distribution Width SD 46.9 fl (35.1-43.9); Urine Bilirubin Dipstick Negative (Negative); Urine Clarity Clear (Clear); Urine Urobilinogen Normal (Normal); White Blood Count 10.3 K/mm3 (4.4-11.0)
[2023-06-19 15:53] LABS: Vitamin B12 746 pg/mL (211-911)
[2023-06-19 16:01] LABS: Cholesterol 225 mg/dL (200); Free T3 1.1 pg/mL (2.18-3.98); High Density Lipoprotein 93 mg/dL; Triglycerides 157 mg/dL; Very Low Density Lipoprotein 31 mg/dL (5-40)
[2023-06-19 16:04] LABS: Microalbumin,Random Urine 12.5 mg/L (NO RANGE EST.); Microalbumin:Creatinine Ratio 39.1 mg/g CRE (<30 mg/g CRE)
[2023-06-19 16:11] LABS: Anion Gap 8 (5-15); BUN 27 mg/dL (7-18); BUN/Creat Ratio 24.1 RATIO (10-20); Calcium,Total 9.1 mg/dL (8.5-10.1); Chloride 102 mmol/L (98-107); Creatinine, Serum 1.12 mg/dL (0.55-1.02); EST Glomerular Filtration Rate 50 mL/min (>60); Est Glom Filt Rate - Afr Amer 60 mL/min (>60); Glucose 102 mg/dL (74-106); Potassium 3.7 mmol/L (3.5-5.1); Sodium Level 140 mmol/L (136-145)
[2023-06-19 16:22] LABS: Hemoglobin A1c 5.9 % (3.8-5.6)
== END | disposition home or self-care (01) ==
LOC: MTLAB 11:37
PROVIDERS: Physician Assistant Medical; PCP Internal Medicine; Referring Provider Internal Medicine; Visit Provider Internal Medicine
DX: E11.9 Type 2 diabetes mellitus without complications (principal); E53.8 Deficiency of other specified B group vitamins; E03.9 Hypothyroidism, unspecified
CPT/HCPCS: 36415; 80048; 80061; 81001; 82043; 82570; 82607; 83036; 84439; 84443; 84481; 85025

== ENCOUNTER 2023-07-03 09:43 | Emergency (ER) | payer MEDICARE, SELFPAY ==
[2023-07-03 09:44] VITALS: BP 124/78; PULSE 76; RESP 14; TEMP 36.4; O2SAT 98; BMI 35.2
--- NOTE | 2023-07-03 09:50 | EDS_ITS ---
HPI History of Present Illness Chief Complaint: Nosebleed Detail of Chief Complaint: Epistaxis initially right-sided now blood both sides Informant: patient Onset/Context/Timing Onset: Today (Onset approximately midnight) Context: Sudden Onset Timing: Intermittent Quality: Bright red blood from right naris predominantly but also left Location: No Current Severity: Mild Maximum Severity: Moderate Worsened by: Patient warfarin for A-fib, INR 2.4 Relieved by: Temporarily pressure Associated Symptoms Associated Symptoms: None Narrative Narrative: Patient is an 83-year-old woman with history of hypertension, hyperlipidemia, cerebrovascular disease, Parkinson disease on long-term anticoagulant for A-fib who presents with spontaneous epistaxis. Blood initially right side. She now reports blood both sides. She states she contacted the ENT office. She was instructed to come to the emergency department. She has been seen by Dr. Jaiden Sanchez in the past. Last nosebleed April. Prior similar symptoms: Yes Recent Illness/Hospitalization: No PFSH PFSH Medical History Acute insomnia Arthritis Atrial fibrillation with RVR Back pain Cellulitis Cerebrovascular disease Chronic diastolic (congestive) heart failure Chronic fatigue Claudication Difficulty balancing Diverticulosis Edema Essential (primary) hypertension Fatigue Fatty liver Gastritis GERD (gastroesophageal reflux disease) Gout Heart disease Hiatal hernia HLD (hyperlipidemia) Hypothyroidism Hypoxia IBS (irritable bowel syndrome) Incontinence Limb weakness Low back pain with bilateral sciatica Lumbar degenerative disc disease MCI (mild cognitive impairment) Microscopic colitis Osteopenia Parkinson disease Paroxysmal atrial fibrillation Pneumonia involving right lung Polyneuropathy, unspecified Postural lightheadedness Shy-Drager syndrome Stool incontinence Tremor Urinary incontinence Home Medications allopurinol 300 mg tablet 300 mg PO DAILY 12/03/20 [History Last Taken Unknown] citalopram 20 mg tablet 20 mg PO QHS 06/13/21 [History Last Taken Unknown] bjefgncxehsb-xzsinwrr-xsevts tablet 1 tab PO DAILY 06/13/21 [History Last Taken Unknown] trazodone 100 mg tablet 100 mg PO QHS 09/05/21 [History Last Taken Unknown] ascorbate calcium (vitamin C) 500 mg tablet 500 mg PO DAILY 01/17/22 [History Last Taken Unknown] cholecalciferol (vitamin D3) 25 mcg (1,000 unit) capsule 25 mcg PO DAILY 01/17/22 [History Last Taken Unknown] meclizine 25 mg tablet 25 mg PO DAILY PRN Dizziness 12/12/22 [History Last Taken Unknown] amiodarone 200 mg tablet 200 mg PO DAILY #90 tabs 11/15/22 [Rx Last Taken Unknown] levothyroxine 112 mcg tablet 112 mcg PO DAILY #90 tabs 11/15/22 [Rx Last Taken Unknown] metoprolol tartrate 50 mg tablet 50 mg PO BID #180 tabs 11/15/22 [Rx Last Taken Unknown] omeprazole 20 mg capsule,delayed release 20 mg PO DAILY #90 caps 11/15/22 [Rx Last Taken Unknown] warfarin 5 mg tablet 5 mg PO .COMPLEX #180 tabs 11/15/22 [Rx Last Taken Unknown] zinc acetate 50 mg (zinc) capsule 100 mg PO DAILY 11/28/22 [History Last Taken Unknown] ursodiol 250 mg tablet 250 mg PO BID #180 tabs 01/04/23 [Rx Last Taken Unknown] pravastatin 40 mg tablet 40 mg PO DAILY #90 TABLETS 01/29/23 [Rx Last Taken Unknown] budesonide 3 mg capsule,delayed,extended release 6 mg (2 x 3 mg) PO QAM #180 ea 03/20/23 [Rx Last Taken Unknown] amlodipine 5 mg tablet 5 mg PO DAILY #30 tabs 05/21/23 [Rx Last Taken Unknown] cetirizine 10 mg capsule (Zyrtec) 10 mg PO DAILY PRN 06/05/23 [History Last Taken Unknown] entacapone 200 mg tablet 200 mg PO BID 06/05/23 [History Last Taken Unknown] furosemide 40 mg tablet 40 mg PO BID #180 tabs 06/05/23 [Rx Last Taken Unknown] spironolactone 25 mg tablet 25 mg PO DAILY #90 tabs 06/05/23 [Rx Last Taken Unknown] baclofen 20 mg tablet 20 mg PO .Every evening #30 tabs 06/08/23 [Rx Last Taken Unknown] buspirone 10 mg tablet 10 mg PO TID anxiety #90 tabs 06/08/23 [Rx Last Taken Unknown] carbidopa 25 mg-levodopa 100 mg tablet 2 tab PO .COMPLEX #540 tabs 06/08/23 [Rx Last Taken Unknown] carbidopa ER 50 mg-levodopa 200 mg tablet,extended release 1 tab PO .COMPLEX #180 tabs 06/08/23 [Rx Last Taken Unknown] potassium chloride 20 mEq tablet,extended release 20 meq PO DAILY #90 tabs 06/26/23 [Rx Last Taken Unknown] amoxicillin 500 mg tablet 500 mg PO TID #12 tabs 07/03/23 [Rx Last Taken Unknown] Allergy/AdvReac Type Severity Reaction Status Date / Time adhesive tape Allergy Intermediate Hives Verified 07/03/23 09:45 amitriptyline Allergy Intermediate Rash Verified 07/03/23 09:45 prednisone Allergy Intermediate Other Verified 07/03/23 09:45 simvastatin AdvReac Severe myalgias Verified 07/03/23 09:45 celecoxib [From Celebrex] AdvReac Mild Diarrhea Verified 07/03/23 09:45 Family History Father CAD (coronary artery disease) CVA (cerebral vascular accident) Anesthesia complication Arthritis Heart disease Myocardial infarction Hypertension Mother CAD (coronary artery disease) Arthritis Breast cancer Heart disease Myocardial infarction Hypertension Thyroid disorder Sister Breast cancer Heart disease Thyroid disorder Aunt Parkinson's disease suspected but no diagnosis; maternal aunt Surgical History H/O bilateral salpingo-oophorectomy History of arthroscopic knee surgery History of cardioversion (03/30/23) History of colonoscopy History of hysterectomy History of left heart catheterization (08/14/16) History of left hip replacement History of lithotripsy History of lumpectomy Social History Smoking Status: Former smoker Tobacco: How many years used: 8 second hand exposure: No alcohol intake: current alcohol intake frequency: a few times a week Alcohol type: wine details: DAILY WINE substance use type: does not use ramsey/pentecostalism: Muslim seatbelt use: always ROS ROS ED Constitutional Constitutional ED: Denies chills, fever(s) or subjective ENT ENT ED: Reports other Details: Please read HPI narrative for complete detail ; Denies ear pain, rhinorrhea or sore throat Cardiovascular Cardiovascular: Reports chest pain Respiratory/Chest Respiratory/Chest: Reports dyspnea and dyspnea on exertion Hematologic/Lymphatic Hematologic/Lymphatic: Reports systems reviewed and no addt'l complaints, except as documented and as per HPI EXAM Physical Exam Const Vital Signs: 07/03/23 09:44 Temperature 97.6 F L Temperature Source Temporal Pulse Rate 76 Respiratory Rate 14 Blood Pressure 124/78 H Blood Pressure Mean 93 Pulse Ox 98 Oxygen Delivery Method Room Air Positive well nourished, well developed and obese Constitutional Narrative: Patient is noted to have multiple areas of blood on her sweatshirt type jacket. General Appearance ED: well developed and NAD; Negative for cyanotic, diaphoretic or pallor Nutritional Appearance: obese HEENT Reports moist mucous membranes HEENT Narrative: Patient noted to have blood right and left vestibule. There is a clot noted on the left. There is irritation over the nasal septum on the right. Presently there is no active bleeding. There is some blood noted in the posterior pharynx. Uvula is midline. Eyes PERRL and EOMs intact bilaterally General Eye ED: Negative for pale conjunctiva or scleral icterus Neck no lymphadenopathy, supple and no JVD Resp normal respiratory effort and clear to auscultation bilaterally Cardio regular rate, S2 normal heart sound and no murmurs Rhythm: abnormal rhythm irregularly irregular Extremity normal to inspection General Extremety ED: Yes edema; Negative for tenderness General Extremity: edema Neuro oriented x3, CN's II-XII intact bilaterally and no sensory deficits noted Sensorium / Orientation: alert Psych mental status grossly normal Skin no rashes or lesions noted, no wounds and skin turgor normal General Skin Exam: Negative for jaundice or pallor MDM MDM MDM Narrative Medical decision making narrative: Patient presents with epistaxis. Will have patient evacuate clots. Will then and still cotton saturated with [place] mix followed by repeat examination and probable packing. INR was not reassessed since it was assessed yesterday and 2.4. Treatment and Re-Evaluation :: Right and left naris packed with cotton saturated with [place] mix. Patient appears to have a septal defect. Procedures Other Procedures Procedure(s): Right and left naris anesthetized using [place] solution. Patient's bleeding site is a large septal defect. Because there is a large septal defect as a source of bleeding and she is on Coumadin bilateral anterior packs were placed. Discharge Plan Triage Chief Complaint: Nosebleed ED Provider: Reynaldo Barnhart Dx/Rx/DC Orders Clinical Impression: Acute anterior epistaxis, Anticoagulant long-term use, Paroxysmal atrial fibrillation, Acquired nasal septal defect Instructions: ED Epistaxis (Adult) Prescriptions: New amoxicillin 500 mg tablet 500 mg PO TID Qty: 12 0RF No Action allopurinol 300 mg tablet 300 mg PO DAILY trazodone 100 mg tablet 100 mg PO QHS ascorbate calcium (vitamin C) 500 mg tablet 500 mg PO DAILY cholecalciferol (vitamin D3) 25 mcg (1,000 unit) capsule 25 mcg PO DAILY Zyrtec 10 mg capsule 10 mg PO DAILY PRN zinc acetate 50 mg (zinc) capsule 100 mg PO DAILY meclizine 25 mg tablet 25 mg PO DAILY PRN (Reason: Dizziness) ursodiol 250 mg tablet 250 mg PO BID Qty: 180 3RF baclofen 20 mg tablet 20 mg PO .Every evening Qty: 30 5RF buspirone 10 mg tablet 10 mg PO TID Qty: 90 5RF carbidopa-levodopa 25-100 mg tablet 2 tab PO .COMPLEX Qty: 540 1RF Rx Instructions: 2 tabs orally 3 times daily (8 AM, 2 PM and 6 PM) carbidopa-levodopa 50-200 mg tablet extended release 1 tab PO .COMPLEX Qty: 180 1RF Rx Instructions: 1 TAB orally Twice daily (11 AM and 10 PM) entacapone 200 mg tablet 200 mg PO BID Rx Instructions: administer at the same time as l-dopa/carbidopa dose Hasn't started yet. furosemide 40 mg tablet 40 mg PO BID Qty: 180 3RF citalopram 20 mg Tablet 20 mg PO QHS sbilfewlkrkx-psainipq-djksud Tablet 1 tab PO DAILY amiodarone 200 mg tablet 200 mg PO DAILY Qty: 90 3RF Rx Instructions: start after loading dose levothyroxine 112 mcg tablet 112 mcg PO DAILY Qty: 90 3RF metoprolol tartrate 50 mg tablet 50 mg PO BID Qty: 180 3RF omeprazole 20 mg capsule,delayed release(DR/EC) 20 mg PO DAILY Qty: 90 3RF warfarin 5 mg tablet 5 mg PO .COMPLEX Qty: 180 3RF Protocol: Dose Management Condition: Sunday Dose/Route: 5 mg Instruction: 1 x 5 mg tablet Condition: Sunday Dose/Route: 2.5 mg Instruction: 0.5 x 5 mg tablets Condition: Sunday Dose/Route: 2.5 mg Instruction: 0.5 x 5 mg tablets Condition: Sunday Dose/Route: 5 mg Instruction: 1 x 5 mg tablet Condition: Dose/Route: 2.5 mg Instruction: 0.5 x 5 mg tablets Condition: Sunday Dose/Route: 5 mg Instruction: 1 x 5 mg tablet Condition: Sunday Dose/Route: 5 mg Instruction: 1 x 5 mg tablet Protocol Text: Adjustment Start Date: Sunday07/02/23 INR Value: 2.4 INR Date: 07/02/23 Recheck Date: 07/09/23 Rx Instructions: 5 mg orally take TWO tablets (10 mg) on and Sunday, 1 tablet all other days of the week; or as directed (dose changes often, please give extra pills); pravastatin 40 mg tablet 40 mg PO DAILY Qty: 90 3RF budesonide 3 mg capsule,delayed,extend.release 6 mg PO QAM Qty: 180 1RF amlodipine 5 mg tablet 5 mg PO DAILY Qty: 30 1RF spironolactone 25 mg tablet 25 mg PO DAILY Qty: 90 3RF potassium chloride 20 mEq tablet extended release 20 meq PO DAILY Qty: 90 3RF Primary Care Provider: Bernice Moctezuma Referrals: Bernice Moctezuma DO [Primary Care Provider] - Thierry Bach MD [Med Staff - Courtesy Staff] - 3-5 Days Activity Restrictions/Additional Instructions: 1. Hold your warfarin dose. Do not resume taking the warfarin until Sunday 2. Call Dr. Veronica Sanchez's office today to be seen Sunday Disposition Disposition: Home, Self Care
[2023-07-03] MEDS: Mixture 30 ML Bottle 20 ML TOPICAL (10:33)
[2023-07-03] MEDS: AMOXICILLIN 500 MG CAPSULE PO (10:33)
[2023-07-03 10:35] VITALS: BP 134/78; PULSE 74; RESP 14; TEMP 36.9; O2SAT 100
== END 2023-07-03 10:36 | disposition home or self-care (01) ==
PROVIDERS: Emergency Provider Emergency Medicine; PCP Internal Medicine; Visit Provider Emergency Medicine
DX: R04.0 Epistaxis (principal); I50.32 Chronic diastolic (congestive) heart failure; I48.0 Paroxysmal atrial fibrillation; J34.2 Deviated nasal septum; E66.9 Obesity, unspecified; Z79.01 Long term (current) use of anticoagulants; Z87.891 Personal history of nicotine dependence
CPT/HCPCS: 30901; 99283

== ENCOUNTER → 2023-08-14 | Outpatient (CLI) | payer MEDICARE, SELFPAY ==
[2023-08-14 15:39] LABS: Absolute Lymphocyte Count 2.11 X10^3/uL (0.83-4.51); Absolute Neutrophil Count 5.7 X10^3/uL (2.0-7.7); Basophil# 0.04 X10^3/uL; Basophil% 0.5 % (0-1); Eosinophil# 0.04 X10^3/uL; Eosinophils% 0.5 % (0-5); Hematocrit 40.4 % (37-47); Hemoglobin 13.5 g/dL (12.0-15.0); Lymphocyte # 2.11 X10^3/ul (0.83-4.51); Lymphocyte % 24.2 % (19-41); Mean Corp Hgb Conc 33.4 g/dL (32-36); Mean Corpuscular Hgb 33.1 pg (27.0-32.0); Mean Platelet Vol. 10.4 fl (6.2-12.0); Monocyte# 0.71 X10^3/uL; Monocyte% 8.1 % (0-10); NRBC Flagged by Analyzer 0 % (0-5); Neutrophil % 65.3 % (47-70); Platelet Count 202 K/mm3 (150-450); RBC Distribution Width CV 13.3 % (11.6-14.6); RBC Distribution Width SD 48.4 fl (35.1-43.9); RET-HE 36.6 pg (30-35); Red Blood Count 4.08 M/mm3 (4.2-5.4); Reticulocyte Count 2.73 % (0.5-1.5); White Blood Count 8.7 K/mm3 (4.4-11.0)
[2023-08-14 15:56] LABS: Erythrocyte Sedimentation Rate 11 mm/hr (0-30)
[2023-08-14 16:24] LABS: ALB/GLOB Ratio 1.1 RATIO (0.9-2.4); AST(SGOT) 14 U/L (15-37); Alanine Aminotransfer ALT/SGPT 13 U/L (13-56); Albumin, Serum 3.5 g/dL (3.2-5.0); Alkaline Phosphatase 75 U/L (45-117); Anion Gap 9 (5-15); BUN 28 mg/dL (7-18); BUN/Creat Ratio 20.1 RATIO (10-20); CRP < 2.90 mg/L (0.0-3.0); Calcium,Total 8.6 mg/dL (8.5-10.1); Chloride 100 mmol/L (98-107); Creatinine, Serum 1.39 mg/dL (0.55-1.02); EST Glomerular Filtration Rate 39 mL/min (>60); Est Glom Filt Rate - Afr Amer 47 mL/min (>60); Ferritin 241 ng/mL (8-252); Free T3 1.2 pg/mL (2.18-3.98); Globulin 3.1 g/dL (2.2-4.2); Glucose 107 mg/dL (74-106); Iron 139 ug/dL (50-170); Iron Binding Capacity,Total 325 ug/dL (250-450); LDH 307 U/L (84-246); Potassium 3.3 mmol/L (3.5-5.1); Protein, Total 6.6 g/dL (6.4-8.2); Sodium Level 140 mmol/L (136-145); T4 Free Direct 1.03 ng/dL (0.76-1.46)
[2023-08-16 14:09] LABS: Albumin 3.7 g/dL (2.9-4.4); Alpha-1-Globulins 0.2 g/dL (0.0-0.4); Alpha-2-Globulins 0.9 g/dL (0.4-1.0); Gamma Globulin 0.6 g/dL (0.4-1.8); Haptoglobin 306 mg/dL (41-333); Immunoglobulin A 161 mg/dL (64-422); Immunoglobulin G 598 mg/dL (586-1602); Immunoglobulin M 50 mg/dL (26-217); PROEL- TOTAL PROTEIN 6.3 g/dL (6.0-8.5)
[2023-08-17 04:07] LABS: AFP, Tumor Marker 9.5 ng/mL (0.0-8.7)
== END | disposition home or self-care (01) ==
LOC: MTLAB 11:32
PROVIDERS: Internal Medicine Gastroenterology; PCP Internal Medicine; Referring Provider Internal Medicine; Visit Provider Internal Medicine
DX: Z79.01 Long term (current) use of anticoagulants (principal); I48.0 Paroxysmal atrial fibrillation; E87.6 Hypokalemia; K52.839 Microscopic colitis, unspecified; K76.0 Fatty (change of) liver, not elsewhere classified; R79.89 Other specified abnormal findings of blood chemistry
CPT/HCPCS: 36415; 80053; 82105; 82677; 82728; 82784; 83010; 83540; 83550; 83615; 84165; 84439; 84443; 84481; 84702; 85025; 85045; 85652; 86140; 86334

== ENCOUNTER 2023-08-31 04:01 | Emergency (ER) | payer MEDICARE, SELFPAY ==
[2023-08-31 04:02] VITALS: BP 129/84; PULSE 84; RESP 16; TEMP 36.9; O2SAT 98; BMI 38.0
--- NOTE | 2023-08-31 04:09 | EKG12_ITS ---
Test Reason : N/V Blood Pressure : / mmHG Vent. Rate : 084 BPM Atrial Rate : 000 BPM P-R Int : 000 ms QRS Dur : 150 ms QT Int : 468 ms P-R-T Axes : 000 085 -41 degrees QTc Int : 553 ms Atrial fibrillation Right bundle branch block Cannot rule out Inferior infarct , age undetermined Abnormal ECG Confirmed by WAN LAST, SARAH ([id number]), subeditor ALEJANDRINA THOMPSON ([id number]) on 09/05/2023 6:40:12 AM Referred By: Confirmed By:SARAH BLAS MD
--- NOTE | 2023-08-31 04:11 | EDS_ITS ---
HPI History of Present Illness Chief Complaint: Nausea/Vomiting Informant: patient and EMS Onset/Context/Timing Onset: Days (2 days) Context: Gradual Onset Current Severity: Moderate Maximum Severity: Moderate Narrative Narrative: Patient presents with nausea, dry heaves, diarrhea and abdominal pain. Patient states for the past couple days she had nausea and vomiting with some diarrhea. She noted some blood in her stool yesterday. She felt as if she may have a fever tonight but did not check her temperature. [facility] Medical History Acute insomnia Arthritis Atrial fibrillation with RVR Back pain Cellulitis Cerebrovascular disease Chronic diastolic (congestive) heart failure Chronic fatigue Claudication Difficulty balancing Diverticulosis Edema Essential (primary) hypertension Fatigue Fatty liver Gastritis GERD (gastroesophageal reflux disease) Gout Heart disease Hiatal hernia HLD (hyperlipidemia) Hypothyroidism Hypoxia IBS (irritable bowel syndrome) Incontinence Limb weakness Low back pain with bilateral sciatica Lumbar degenerative disc disease MCI (mild cognitive impairment) Microscopic colitis Osteopenia Parkinson disease Paroxysmal atrial fibrillation Pneumonia involving right lung Polyneuropathy, unspecified Postural lightheadedness Shy-Drager syndrome Stool incontinence Tremor Urinary incontinence Home Medications allopurinol 300 mg tablet 300 mg PO DAILY 12/03/20 [History Last Taken Unknown] citalopram 20 mg tablet 20 mg PO QHS 06/13/21 [History Last Taken Unknown] [id number] tablet 1 tab PO DAILY 06/13/21 [History Last Taken Unknown] trazodone 100 mg tablet 100 mg PO QHS 09/05/21 [History Last Taken Unknown] ascorbate calcium (vitamin C) 500 mg tablet 500 mg PO DAILY 01/17/22 [History Last Taken Unknown] cholecalciferol (vitamin D3) 25 mcg (1,000 unit) capsule 25 mcg PO DAILY 01/17/22 [History Last Taken Unknown] meclizine 25 mg tablet 25 mg PO DAILY PRN Dizziness 10/16/22 [History Last Taken Unknown] amiodarone 200 mg tablet 200 mg PO DAILY #90 tabs 11/15/22 [Rx Last Taken Unknown] metoprolol tartrate 50 mg tablet 50 mg PO BID #180 tabs 11/15/22 [Rx Last Taken Unknown] omeprazole 20 mg capsule,delayed release 20 mg PO DAILY #90 caps 11/15/22 [Rx Last Taken Unknown] zinc acetate 50 mg (zinc) capsule 100 mg PO DAILY 11/28/22 [History Last Taken Unknown] ursodiol 250 mg tablet 250 mg PO BID #180 tabs 01/04/23 [Rx Last Taken Unknown] pravastatin 40 mg tablet 40 mg PO DAILY #90 TABLETS 01/29/23 [Rx Last Taken Unknown] budesonide 3 mg capsule,delayed,extended release 6 mg (2 x 3 mg) PO QAM #180 ea 03/20/23 [Rx Last Taken Unknown] entacapone 200 mg tablet 200 mg PO BID 06/05/23 [History Last Taken Unknown] furosemide 40 mg tablet 40 mg PO BID #180 tabs 06/05/23 [Rx Last Taken Unknown] carbidopa 25 mg-levodopa 100 mg tablet 2 tab PO .COMPLEX #540 tabs 06/08/23 [Rx Last Taken Unknown] carbidopa ER 50 mg-levodopa 200 mg tablet,extended release 1 tab PO .COMPLEX #180 tabs 06/08/23 [Rx Last Taken Unknown] potassium chloride 20 mEq tablet,extended release 20 meq PO DAILY #90 tabs 06/26/23 [Rx Last Taken Unknown] apixaban 2.5 mg tablet (Eliquis) 2.5 mg PO BID #180 tabs 08/06/23 [Rx Last Taken Unknown] folic acid 1 mg tablet 1 mg PO DAILY #30 tabs 08/09/23 [Rx Last Taken Unknown] sulfasalazine 500 mg tablet,delayed release 1 g (2 x 500 mg) PO BID 30 days #120 tabs 08/09/23 [Rx Last Taken Unknown] spironolactone 25 mg tablet 25 mg PO DAILY #90 tabs 08/16/23 [Rx Last Taken Unknown] amlodipine 5 mg tablet 5 mg PO DAILY #90 tabs 08/20/23 [Rx Last Taken Unknown] colestipol 1 gram tablet 1 g PO BID 30 days #60 tabs 08/30/23 [Rx Last Taken Unknown] baclofen 20 mg tablet 20 mg PO QHS 08/31/23 [History Last Taken Unknown] buspirone 10 mg tablet 10 mg PO TID PRN anxiety 08/31/23 [History Last Taken Unknown] cyclosporine 0.05 % eye drops in a dropperette 1 drp ophthalmic (eye) Q12H 08/31/23 [History Last Taken Unknown] levothyroxine 175 mcg tablet 175 mcg PO DAILY 08/31/23 [History Last Taken Unknown] Allergy/AdvReac Type Severity Reaction Status Date / Time adhesive tape Allergy Intermediate Hives Verified 08/31/23 04:08 amitriptyline Allergy Intermediate Rash Verified 08/31/23 04:08 simvastatin AdvReac Severe myalgias Verified 08/31/23 04:08 celecoxib [From Celebrex] AdvReac Mild Diarrhea Verified 08/31/23 04:08 Family History Father CAD (coronary artery disease) CVA (cerebral vascular accident) Anesthesia complication Arthritis Heart disease Myocardial infarction Hypertension Mother CAD (coronary artery disease) Arthritis Breast cancer Heart disease Myocardial infarction Hypertension Thyroid disorder Sister Breast cancer Heart disease Thyroid disorder Aunt Parkinson's disease suspected but no diagnosis; maternal aunt Surgical History H/O bilateral salpingo-oophorectomy History of arthroscopic knee surgery History of cardioversion (03/30/23) History of colonoscopy History of hysterectomy History of left heart catheterization (08/14/16) History of left hip replacement History of lithotripsy History of lumpectomy Social History Smoking Status: Former smoker Tobacco: How many years used: 8 second hand exposure: No alcohol intake: current alcohol intake frequency: a few times a week Alcohol type: wine details: DAILY WINE substance use type: does not use ramsey/buddhist: Anabaptist seatbelt use: always ROS ROS ED Constitutional Constitutional ED: Reports fever(s) and subjective; Denies chills Eyes Eyes: Denies change in vision ENT ENT ED: Denies rhinorrhea or sore throat Cardiovascular Cardiovascular: Denies chest pain or palpitations Respiratory/Chest Respiratory/Chest: Denies cough or dyspnea Gastrointestinal Gastrointestinal: Reports abdominal pain, diarrhea and nausea Genitourinary Genitourinary ED: Denies dysuria Musculoskeletal Musculoskeletal: Denies back pain or extremity pain Integumentary Denies Abrasions or rash Neurologic Neurologic: Denies headache(s) or weakness Psychiatric Psychiatric: Denies anxiety or depression Allergic/Immunologic Allergic/Immunologic ED: Denies lip swelling or urticaria EXAM Physical Exam Const Vital Signs: 08/31/23 04:02 08/31/23 06:02 Temperature 98.5 F Temperature Source Oral Pulse Rate 84 77 Respiratory Rate 16 19 H Blood Pressure 129/84 H 122/82 H Blood Pressure Mean 99 95 Pulse Ox 98 97 Positive well nourished and well developed General Appearance ED: well developed Eyes EOMs intact bilaterally Chest Wall inspection of chest normal and palpation of chest normal Resp normal respiratory effort and clear to auscultation bilaterally Cardio Rhythm: abnormal rhythm irregularly irregular GI GI Narrative: Abdomen soft with mild diffuse tenderness, worse in the suprapubic region. Hypoactive but present bowel sounds are noted. No guarding or rebound. Extremity normal to inspection Neuro oriented x3 and no sensory deficits noted Motor Exam: strength 5/5 throughout Psych mental status grossly normal Skin no rashes or lesions noted MDM MDM MDM Narrative Medical decision making narrative: Patient was on cardiac rehabilitation specialist. EKG obtained to evaluate for cardiac arrhythmia/ischemia. Labwork obtained to evaluate for leukocytosis, anemia, and electrolyte derangement. Urinalysis obtained to evaluate for infection/hematuria. Patient given IV fluids along with fentanyl and Zofran to help with pain and nausea. History & Record Review Discussion w/independent historian: EMS personnel and Patient Additional record(s) reviewed:: Prior labs Lab Data Attestation: I reviewed the patient's lab results. Labs: Laboratory Results - last 24 hr 08/31/23 08/31/23 04:20 04:50 WBC 8.8 RBC 4.03 L Hgb 13.1 Hct 39.5 MCV 98.0 MCH 32.5 H MCHC 33.2 RDW Std Deviation 48.7 H RDW Coeff of Tika 13.4 Plt Count 203 MPV 10.0 Immature Gran % (Auto) 1.100 H Neut % (Auto) 66.9 Lymph % (Auto) 22.3 Hood % (Auto) 9.1 Eos % (Auto) 0.0 Baso % (Auto) 0.6 Absolute Neuts (auto) 5.9 Absolute Lymphs (auto) 1.97 Nucleated RBC % 0 Sodium 140 Potassium 2.9 L Chloride 103 Carbon Dioxide 29.0 Anion Gap 8 BUN 15 Creatinine 1.18 H Estim Creat Clear Calc 36.36 Est GFR (MDRD) Af Amer 57 L Est GFR (MDRD) Non-Af 47 L BUN/Creatinine Ratio 12.7 Glucose 118 H Lactic Acid 2.0 Calcium 9.2 Total Bilirubin 0.60 Direct Bilirubin 0.18 AST 14 L ALT 11 L Alkaline Phosphatase 69 Total Protein 7.1 Albumin 3.8 Globulin 3.3 Lipase 20 Urine Color Yellow Urine Clarity Clear Urine pH 6.0 Ur Specific [place] 1.010 Urine Protein 30 H Urine Glucose (UA) Normal Urine Ketones 5 H Urine Occult Blood 10 H Urine Nitrite Negative Urine Bilirubin Negative Urine Urobilinogen Normal Ur Leukocyte Esterase 100 H Urine RBC 0 SEEN Urine WBC 0-5 SEEN Ur Squamous Epith Cells 0-5 SEEN Ur Transition Epith Cell 0-5 SEEN Ur Renal Epithelial Cell 0-5 SEEN Urine Bacteria 1+ Hyaline Casts 0-5 SEEN Urine Mucus 0 SEEN Radiography Diagnostic Testing: Clinical Impression(s) from Imaging Studies Abdomen/Pelvis CT 08/31/23 05:04 IMPRESSION: Mild wall thickening and inflammation of the sigmoid colon with multiple diverticuli, consistent with mild diverticulitis. Electronically Signed: Harley Miramontes MD at 6:06 EDT , EKG Initial EKG: Attestation: I personally reviewed and interpreted this EKG as follows: Interpretation: Atrial Fibrillation (Atrial fibrillation 84 bpm. Right bundle branch block.) Treatment and Re-Evaluation :: CBC was normal white count 8.8 with a hemoglobin of 13.1. Chemistry studies significant for potassium of 2.9. This is replaced via IV potassium chloride. LFTs are unremarkable. Lipase is normal. Urinalysis reveals 1+ bacteria with no sign of acute infection. CT scan of the abdomen and pelvis with IV contrast is obtained. Mild wall thickening and inflammation of the sigmoid colon with multiple diverticuli consistent with mild diverticulitis. Patient had initially been given Zofran for nausea. She states this helped for only a short time. She was then given a dose of Reglan which she states did not help her nausea. At this time she has been given a dose of p.o. Phenergan as well as a dose of Imodium for diarrhea. Nursing staff notes that she has had multiple bouts of diarrhea here with no bloody stool noted. If patient's nausea and diarrhea are controlled, she would like to try to go home with antibiotics for her diverticulitis. She will be observed during her potassium replacement and final disposition decision will be made depending on her progress. Patient was sent out to oncoming physician for repeat evaluation. Discharge Plan Triage Chief Complaint: Nausea/Vomiting ED Provider: Shannan Llamas Dx/Rx/DC Orders Clinical Impression: Nausea vomiting and diarrhea, Diverticulitis, Hypokalemia Instructions: ED Diverticulitis Prescriptions: No Action allopurinol 300 mg tablet 300 mg PO DAILY trazodone 100 mg tablet 100 mg PO QHS ascorbate calcium (vitamin C) 500 mg tablet 500 mg PO DAILY cholecalciferol (vitamin D3) 25 mcg (1,000 unit) capsule 25 mcg PO DAILY zinc acetate 50 mg (zinc) capsule 100 mg PO DAILY meclizine 25 mg tablet 25 mg PO DAILY PRN (Reason: Dizziness) ursodiol 250 mg tablet 250 mg PO BID Qty: 180 3RF carbidopa-levodopa 25-100 mg tablet 2 tab PO .COMPLEX Qty: 540 1RF Rx Instructions: 2 tabs orally 3 times daily (8 AM, 2 PM and 6 PM) carbidopa-levodopa 50-200 mg tablet extended release 1 tab PO .COMPLEX Qty: 180 1RF Rx Instructions: 1 TAB orally Twice daily (11 AM and 10 PM) sulfasalazine 500 mg tablet,delayed release (DR/EC) 1 g PO BID 30 Days Qty: 120 3RF Patient Comments: HAS NOT STARTED YET folic acid 1 mg tablet 1 mg PO DAILY Qty: 30 3RF entacapone 200 mg tablet 200 mg PO BID Rx Instructions: administer at the same time as l-dopa/carbidopa dose Hasn't started yet. furosemide 40 mg tablet 40 mg PO BID Qty: 180 3RF Patient Comments: OCCASIONALLY TAKES ONLY ONCE DAILY citalopram 20 mg Tablet 20 mg PO QHS [id number] Tablet 1 tab PO DAILY levothyroxine 175 mcg tablet 175 mcg PO DAILY Patient Comments: TAKE 1 TABLET BY MOUTH EVERY DAY cyclosporine 0.05 % dropperette 1 drp ophthalmic (eye) Q12H Rx Instructions: EACH EYE baclofen 20 mg tablet 20 mg PO QHS buspirone 10 mg tablet 10 mg PO TID PRN (Reason: anxiety) amiodarone 200 mg tablet 200 mg PO DAILY Qty: 90 3RF Rx Instructions: start after loading dose metoprolol tartrate 50 mg tablet 50 mg PO BID Qty: 180 3RF omeprazole 20 mg capsule,delayed release(DR/EC) 20 mg PO DAILY Qty: 90 3RF pravastatin 40 mg tablet 40 mg PO DAILY Qty: 90 3RF budesonide 3 mg capsule,delayed,extend.release 6 mg PO QAM Qty: 180 1RF potassium chloride 20 mEq tablet extended release 20 meq PO DAILY Qty: 90 3RF Eliquis 2.5 mg tablet 2.5 mg PO BID Qty: 180 4RF spironolactone 25 mg tablet 25 mg PO DAILY Qty: 90 3RF amlodipine 5 mg tablet 5 mg PO DAILY Qty: 90 3RF colestipol 1 gram tablet 1 g PO BID 30 Days Qty: 60 1RF Patient Comments: HAS NOT STARTED YET Primary Care Provider: Bernice Moctezuma Referrals: Bernice Moctezuma DO [Primary Care Provider] -
[2023-08-31] MEDS: Ondansetron 4 MG/2 ML Vial IV (04:20)
[2023-08-31] MEDS: 0.9% Normal Saline (1000mL) 1,000 ML 150 ML IV (04:20)
[2023-08-31] MEDS: fentaNYL 100 MCG/2 ML Ampul 25 MCG IV (04:20)
[2023-08-31 04:35] LABS: Absolute Lymphocyte Count 1.97 X10^3/uL (0.83-4.51); Absolute Neutrophil Count 5.9 X10^3/uL (2.0-7.7); Basophil# 0.05 X10^3/uL; Basophil% 0.6 % (0-1); Hematocrit 39.5 % (37-47); Hemoglobin 13.1 g/dL (12.0-15.0); Lymphocyte # 1.97 X10^3/ul (0.83-4.51); Lymphocyte % 22.3 % (19-41); Mean Corp Hgb Conc 33.2 g/dL (32-36); Mean Corpuscular Hgb 32.5 pg (27.0-32.0); Monocyte% 9.1 % (0-10); NRBC Flagged by Analyzer 0 % (0-5); Neutrophil % 66.9 % (47-70); Platelet Count 203 K/mm3 (150-450); RBC Distribution Width CV 13.4 % (11.6-14.6); RBC Distribution Width SD 48.7 fl (35.1-43.9); Red Blood Count 4.03 M/mm3 (4.2-5.4); White Blood Count 8.8 K/mm3 (4.4-11.0)
[2023-08-31 04:56] LABS: Mucous, Urine 0 SEEN /hpf (<or=2+); Red Blood Cells-Urine 0 SEEN /hpf (0-5)
[2023-08-31 04:59] LABS: AST(SGOT) 14 U/L (15-37); Alanine Aminotransfer ALT/SGPT 11 U/L (13-56); Albumin, Serum 3.8 g/dL (3.2-5.0); Alkaline Phosphatase 69 U/L (45-117); Anion Gap 8 (5-15); BUN 15 mg/dL (7-18); BUN/Creat Ratio 12.7 RATIO (10-20); Bilirubin, Direct 0.18 mg/dL (0.00-0.30); Calcium,Total 9.2 mg/dL (8.5-10.1); Chloride 103 mmol/L (98-107); Creatinine, Serum 1.18 mg/dL (0.55-1.02); EST Glomerular Filtration Rate 47 mL/min (>60); Est Glom Filt Rate - Afr Amer 57 mL/min (>60); Estimated Creatinine Clearance 36.36 ml/min; Globulin 3.3 g/dL (2.2-4.2); Glucose 118 mg/dL (74-106); Lipase 20 U/L (13-75); Potassium 2.9 mmol/L (3.5-5.1); Protein, Total 7.1 g/dL (6.4-8.2); Sodium Level 140 mmol/L (136-145)
[2023-08-31 05:03] LABS: Color, Urine Yellow (Yellow); Glucose, Dipstick Normal (Normal); Ketone-Dipstick 5 mg/dl (Negative); Leukocyte Esterase-Dipstick 100 /ul (Negative); Nitrite-Dipstick Negative (Negative); Occult Blood-Urine 10 /ul (Negative); Protein-Dipstick 30 mg/dl (Negative); Urine Bilirubin Dipstick Negative (Negative); Urine Clarity Clear (Clear); Urine Urobilinogen Normal (Normal)
--- NOTE | 2023-08-31 05:04 | CT_ITS ---
EXAM: CT ABDOMEN AND PELVIS WITH INTRAVENOUS CONTRAST CLINICAL INDICATION: abd pain TECHNIQUE: Helically acquired images were obtained of the abdomen and pelvis with intravenous contrast. This CT exam was performed using one or more of the following dose reduction techniques: automated exposure control, adjustment of the mA and/or kV according to patient size, and/or use of iterative reconstruction technique. CONTRAST: IV 100mL Isovue-370 RADIATION DOSE: CTDIvol = 24.39 mGy, DLP = 1667.40 mGy-cm COMPARISON: CT abdomen and pelvis 11/12/2017 FINDINGS: LOWER THORAX: Bibasilar dependent atelectasis. ABDOMEN: LIVER: Unremarkable. Homogeneous. No focal mass. GALLBLADDER AND BILE DUCTS: Unremarkable. No calcified gallstones. No gallbladder distention or wall edema. No intra- or extrahepatic biliary ductal dilation. PANCREAS: Unremarkable. No focal cystic or solid mass. SPLEEN: Unremarkable. Normal size without focal cystic or solid mass. ADRENALS: Unremarkable. No nodules. KIDNEYS AND URETERS: Unremarkable. Normal renal size and position. No hydronephrosis. STOMACH AND BOWEL: Mild wall thickening and inflammation of the sigmoid colon with multiple diverticuli. PELVIS: APPENDIX: No evidence of acute appendicitis. BLADDER: Unremarkable. REPRODUCTIVE: Hysterectomy. ABDOMEN and PELVIS: INTRAPERITONEAL SPACE: Unremarkable. No ascites or other fluid collection. No free air. BONES/JOINTS: Degenerative changes of the spine. Left hip arthroplasty. No suspicious lytic or blastic abnormality. SOFT TISSUES: Lipomatosis of the ileocecal valve. No discrete abdominal or pelvic wall hernia. VASCULATURE: Moderate atherosclerotic changes of the abdominal aorta without aneurysm. LYMPH NODES: Unremarkable. No enlarged lymph nodes. CT/Abdomen/Pelvis W IV Cont ONLY IMPRESSION: Mild wall thickening and inflammation of the sigmoid colon with multiple diverticuli, consistent with mild diverticulitis. Electronically Signed: Harley Miramontes MD at 6:06 EDT ,
[2023-08-31 05:10] LABS: Bacteria 1+ /hpf (None Seen); Hyaline Cast 0-5 SEEN /lpf (0-5); Renal Epithelial Cells 0-5 SEEN /hpf (0-5); Squamous Epithelial Cells - UA 0-5 SEEN /hpf (5-10); Transitional Epithelial - Ur 0-5 SEEN /hpf (0-5); White Blood Cells 0-5 SEEN /hpf (0-5)
[2023-08-31] MEDS: Potassium Chloride 10mEq/100mL 10 MEQ/100 ML IV.SOLN. 100 MEQ IV BOLUS ×4 (05:38→09:10)
[2023-08-31 06:02] VITALS: BP 122/82; PULSE 77; RESP 19; O2SAT 97
[2023-08-31] MEDS: Metoclopramide 10 MG/2 ML Vial 5 MG IV (06:42)
[2023-08-31] MEDS: proMETHazine 25 MG Tablet 12.5 MG PO (08:01)
[2023-08-31] MEDS: Loperamide 2 MG Capsule 4 MG PO (08:01)
--- NOTE | 2023-08-31 08:20 | ED.RN ---
Patient cleaned of medium incontinent stool. Tolerated well
[2023-08-31 08:33] LABS: Reflex Lactate? Y
--- NOTE | 2023-08-31 09:02 | ED.RN ---
Blood drawn and sent to lab
[2023-08-31 09:23] VITALS: BP 110/61; PULSE 76; RESP 18; O2SAT 99
[2023-08-31] MEDS: Dicyclomine 20 MG/2 ML Vial IM (10:13)
[2023-08-31] MEDS: Morphine 4 MG/ML Syringe IV (10:13)
[2023-08-31 10:43] VITALS: BP 138/78; PULSE 70; RESP 16; O2SAT 99
== END 2023-08-31 10:45 | disposition home or self-care (01) ==
PROVIDERS: Emergency Provider Emergency Medicine; PCP Internal Medicine; Visit Provider Emergency Medicine
DX: R11.2 Nausea with vomiting, unspecified (principal); I11.0 Hypertensive heart disease with heart failure; I50.32 Chronic diastolic (congestive) heart failure; I48.0 Paroxysmal atrial fibrillation; R19.7 Diarrhea, unspecified; E78.5 Hyperlipidemia, unspecified; K57.92 Diverticulitis of intestine, part unspecified, without perforation or abscess without bleeding; E87.6 Hypokalemia; K21.9 Gastro-esophageal reflux disease without esophagitis; E03.9 Hypothyroidism, unspecified; Z79.01 Long term (current) use of anticoagulants; Z79.899 Other long term (current) drug therapy; Z87.891 Personal history of nicotine dependence
CPT/HCPCS: 96365; 96366; 96372; 96375; 99285; 74177; 80048; 80076; 81001; 83605; 83690; 85025; 93005; J7030; Q9967; A4216; J2405

== ENCOUNTER 2023-09-03 13:41 | Inpatient (IN) | payer MEDICARE, SELFPAY ==
[2023-09-03 13:41] VITALS: BP 131/80; PULSE 94; RESP 16; TEMP 36.2; O2SAT 98
[2023-09-03 14:11] LABS: Absolute Lymphocyte Count 0.84 X10^3/uL (0.83-4.51); Absolute Neutrophil Count 7.4 X10^3/uL (2.0-7.7); Basophil# 0.04 X10^3/uL; Basophil% 0.4 % (0-1); Eosinophil# 0.01 X10^3/uL; Eosinophils% 0.1 % (0-5); Hematocrit 40.3 % (37-47); Hemoglobin 13.2 g/dL (12.0-15.0); Lymphocyte # 0.84 X10^3/ul (0.83-4.51); Lymphocyte % 9.3 % (19-41); Mean Corp Hgb Conc 32.8 g/dL (32-36); Mean Corpuscular Hgb 32.7 pg (27.0-32.0); Mean Corpuscular Volume 99.8 fL (81-99); Mean Platelet Vol. 9.8 fl (6.2-12.0); Monocyte# 0.63 X10^3/uL; NRBC Flagged by Analyzer 0 % (0-5); Neutrophil # 7.37 X10^3/uL (2.7-7.7); Neutrophil % 81.8 % (47-70); Platelet Count 231 K/mm3 (150-450); RBC Distribution Width CV 13.6 % (11.6-14.6); RBC Distribution Width SD 50.1 fl (35.1-43.9); Red Blood Count 4.04 M/mm3 (4.2-5.4)
--- NOTE | 2023-09-03 14:25 | CT_ITS ---
STUDY: CT ABDOMEN AND PELVIS WITH CONTRAST REASON FOR EXAM: Female, 83 years old. Worsening LLQ pain, recent CT w/ divertic. RADIATION DOSAGE (If Supplied By Facility): CTDIvol = ( 23.61 ) mGy, DLP = ( 1461.54 ) mGycm TECHNIQUE: Transaxial images were obtained from the dome of the diaphragm to the symphysis pubis without oral contrast. IV 100mL Isovue-300 was administered. Sagittal and coronal images were reconstructed. Individualized dose optimization techniques were used for this CT. COMPARISON: Comparison is made with prior study dated August 31, 2003. FINDINGS: Stable minimal increase in markings at the lung bases suggestive of linear atelectasis and/or scarring. Coronary artery calcification. Normal liver. Questionable sludge or small gallstones along the deep ended portion of the gallbladder lumen. Normal spleen. Normal pancreas. Normal bilateral adrenal glands. Stable focal scarring in the lateral aspect of the right kidney. Normal left kidney. Normal visualized stomach. Normal small intestine. There is diverticulosis, with thickening of the colon wall, and pericolonic inflammation changes consistent with a mild degree of acute diverticulitis. There has been improvement as compared to prior study. The patient is status post appendectomy. There is scattered atherosclerotic calcification of the abdominal aorta, without a demonstrated aneurysm. Normal inferior vena cava. There is small retroperitoneal lymphadenopathy with enlarged nodes no greater than 10mm in the short axis diameter. Normal urinary bladder. There is absence of the uterus consistent with a prior hysterectomy. Normal abdominal wall. There are diffuse degenerative changes of the visualized lumbar spine. Stable Schmorl''s node along the superior endplate of the L1 vertebrae. Left total hip replacement. CT/Abdomen/Pelvis W IV Cont ONLY IMPRESSION: Mild degree of residual sigmoid diverticulitis. There has been improvement as compared to prior study. The remainder of the examination is unchanged. Electronically Signed: Aramis Rodriguez MD at 15:20 EDT ,
[2023-09-03 14:30] LABS: ALB/GLOB Ratio 1.2 RATIO (0.9-2.4); AST(SGOT) 20 U/L (15-37); Alanine Aminotransfer ALT/SGPT 13 U/L (13-56); Albumin, Serum 3.8 g/dL (3.2-5.0); Alkaline Phosphatase 68 U/L (45-117); Anion Gap 7 (5-15); BUN 11 mg/dL (7-18); BUN/Creat Ratio 10.1 RATIO (10-20); Calcium,Total 8.8 mg/dL (8.5-10.1); Chloride 106 mmol/L (98-107); Creatinine, Serum 1.09 mg/dL (0.55-1.02); EST Glomerular Filtration Rate 51 mL/min (>60); Est Glom Filt Rate - Afr Amer 62 mL/min (>60); Globulin 3.3 g/dL (2.2-4.2); Glucose 136 mg/dL (74-106); Potassium 2.8 mmol/L (3.5-5.1); Protein, Total 7.1 g/dL (6.4-8.2); Sodium Level 142 mmol/L (136-145)
--- NOTE | 2023-09-03 14:34 | ED.VIS.GI ---
HPI HPI - GI History of Present Illness Chief Complaint: Nausea/Vomiting Informant: patient Narrative Narrative: Patient states she was here 4 days ago diagnosed with diverticulitis on CT and placed on antibiotics discharged home treated as an outpatient. Since then she has been vomiting more, increasing pain, feels like she is getting worse. She is having subjective fevers and chills. Feeling weak. She was having pain for about a week prior to being seen here and diagnosed on CT. She has also been having some discomfort in epigastrium that goes up into her chest all of which is worse with vomiting. Her vomiting is yellow stomach juice nonbilious nonbloody. Patient also states for the past 5 days she has noticed trouble swallowing things and feeling like things are stuck in her upper esophagus area. She states she was barely able to squeeze her potassium pill down this morning. She is even having trouble swallowing liquids although she is able to take some of it if she just barely sips. [facility] Medical History Acute insomnia Arthritis Atrial fibrillation with RVR Back pain Cellulitis Cerebrovascular disease Chronic diastolic (congestive) heart failure Chronic fatigue Claudication Difficulty balancing Diverticulosis Edema Essential (primary) hypertension Fatigue Fatty liver Gastritis GERD (gastroesophageal reflux disease) Gout Heart disease Hiatal hernia HLD (hyperlipidemia) Hypothyroidism Hypoxia IBS (irritable bowel syndrome) Incontinence Limb weakness Low back pain with bilateral sciatica Lumbar degenerative disc disease MCI (mild cognitive impairment) Microscopic colitis Osteopenia Parkinson disease Paroxysmal atrial fibrillation Pneumonia involving right lung Polyneuropathy, unspecified Postural lightheadedness Shy-Drager syndrome Stool incontinence Tremor Urinary incontinence Home Medications allopurinol 300 mg tablet 300 mg PO DAILY 12/03/20 [History Last Taken 09/03/23] citalopram 20 mg tablet 20 mg PO QHS 06/13/21 [History Last Taken 09/02/23] twvxvylcnbki-[id number] tablet 1 tab PO DAILY 06/13/21 [History Last Taken 09/02/23] trazodone 100 mg tablet 100 mg PO QHS 09/05/21 [History Last Taken 09/02/23] ascorbate calcium (vitamin C) 500 mg tablet 500 mg PO DAILY 01/17/22 [History Last Taken 09/03/23] cholecalciferol (vitamin D3) 25 mcg (1,000 unit) capsule 25 mcg PO DAILY 01/17/22 [History Last Taken 09/03/23] meclizine 25 mg tablet 25 mg PO DAILY PRN Dizziness 10/16/22 [History Last Taken Unknown] amiodarone 200 mg tablet 200 mg PO DAILY #90 tabs 11/15/22 [Rx Last Taken 09/03/23] metoprolol tartrate 50 mg tablet 50 mg PO BID #180 tabs 11/15/22 [Rx Last Taken 09/03/23] omeprazole 20 mg capsule,delayed release 20 mg PO DAILY #90 caps 11/15/22 [Rx Last Taken 09/03/23] zinc acetate 50 mg (zinc) capsule 100 mg PO DAILY 11/28/22 [History Last Taken 09/03/23] ursodiol 250 mg tablet 250 mg PO BID #180 tabs 01/04/23 [Rx Last Taken 09/03/23] pravastatin 40 mg tablet 40 mg PO DAILY #90 TABLETS 01/29/23 [Rx Last Taken 09/03/23] budesonide 3 mg capsule,delayed,extended release 6 mg (2 x 3 mg) PO QAM #180 ea 03/20/23 [Rx Last Taken Unknown] entacapone 200 mg tablet 200 mg PO BID 06/05/23 [History Last Taken 09/03/23] furosemide 40 mg tablet 40 mg PO BID #180 tabs 06/05/23 [Rx Last Taken 09/03/23] carbidopa 25 mg-levodopa 100 mg tablet 2 tab PO .COMPLEX #540 tabs 06/08/23 [Rx Last Taken 09/03/23] carbidopa ER 50 mg-levodopa 200 mg tablet,extended release 1 tab PO .COMPLEX #180 tabs 06/08/23 [Rx Last Taken 09/03/23] potassium chloride 20 mEq tablet,extended release 20 meq PO DAILY #90 tabs 06/26/23 [Rx Last Taken 09/03/23] apixaban 2.5 mg tablet (Eliquis) 2.5 mg PO BID #180 tabs 08/06/23 [Rx Last Taken 09/03/23] folic acid 1 mg tablet 1 mg PO DAILY #30 tabs 08/09/23 [Rx Last Taken 09/03/23] sulfasalazine 500 mg tablet,delayed release 1 g (2 x 500 mg) PO BID 30 days #120 tabs 08/09/23 [Rx Last Taken 09/03/23] spironolactone 25 mg tablet 25 mg PO DAILY #90 tabs 08/16/23 [Rx Last Taken 09/03/23] amlodipine 5 mg tablet 5 mg PO DAILY #90 tabs 08/20/23 [Rx Last Taken 09/03/23] colestipol 1 gram tablet 1 g PO BID 30 days #60 tabs 08/30/23 [Rx Last Taken 09/03/23] baclofen 20 mg tablet 20 mg PO QHS 08/31/23 [History Last Taken 09/02/23] buspirone 10 mg tablet 10 mg PO TID PRN anxiety 08/31/23 [History Last Taken 09/03/23] ciprofloxacin HCl 500 mg tablet 500 mg PO BID #14 TABLETS 08/31/23 [Rx Last Taken 09/03/23] cyclosporine 0.05 % eye drops in a dropperette 1 drp ophthalmic (eye) Q12H 08/31/23 [History Last Taken 09/03/23] dicyclomine 10 mg capsule 20 mg (2 x 10 mg) PO TIDAC #20 CAPSULES 08/31/23 [Rx Last Taken 09/03/23] hydrocodone-acetaminophen 5-325mg 5mg-325mg 1 tab PO Q6H PRN PRN Pain 3 days #10 TABLETS 08/31/23 [Rx Last Taken 09/03/23] levothyroxine 175 mcg tablet 175 mcg PO DAILY 08/31/23 [History Last Taken 09/03/23] metronidazole 500 mg tablet 500 mg PO Q8H #21 tabs 08/31/23 [Rx Last Taken 09/03/23] Allergy/AdvReac Type Severity Reaction Status Date / Time adhesive tape Allergy Intermediate Hives Verified 09/03/23 13:43 amitriptyline Allergy Intermediate Rash Verified 09/03/23 13:43 simvastatin AdvReac Severe myalgias Verified 09/03/23 13:43 celecoxib [From Celebrex] AdvReac Mild Diarrhea Verified 09/03/23 13:43 Family History Father CAD (coronary artery disease) CVA (cerebral vascular accident) Anesthesia complication Arthritis Heart disease Myocardial infarction Hypertension Mother CAD (coronary artery disease) Arthritis Breast cancer Heart disease Myocardial infarction Hypertension Thyroid disorder Sister Breast cancer Heart disease Thyroid disorder Aunt Parkinson's disease suspected but no diagnosis; maternal aunt Surgical History H/O bilateral salpingo-oophorectomy History of arthroscopic knee surgery History of cardioversion (03/30/23) History of colonoscopy History of hysterectomy History of left heart catheterization (08/14/16) History of left hip replacement History of lithotripsy History of lumpectomy Social History Smoking Status: Former smoker Tobacco: How many years used: 8 second hand exposure: No alcohol intake: current alcohol intake frequency: a few times a week Alcohol type: wine details: DAILY WINE substance use type: does not use ramsey/voodoo: Latter-Day seatbelt use: always ROS ROS ED Constitutional Constitutional ED: Reports chills, fatigue, fever(s) and subjective Eyes Eyes: Denies change in vision or diplopia ENT ENT ED: Denies rhinorrhea or sore throat Cardiovascular Cardiovascular: Denies chest pain or palpitations Respiratory/Chest Respiratory/Chest: Denies cough or dyspnea Gastrointestinal Gastrointestinal: Reports abdominal pain, nausea and vomiting; Denies diarrhea, melena or rectal bleeding Genitourinary Genitourinary ED: Denies dysuria or hematuria Musculoskeletal Musculoskeletal: Denies back pain or neck pain Integumentary Denies abscess or rash Neurologic Neurologic: Denies headache(s), paresthesias or weakness Psychiatric Psychiatric: Denies anxiety or suicidal thoughts EXAM Physical Exam Const Vital Signs: 09/03/23 13:41 Temperature 97.2 F L Temperature Source Temporal Pulse Rate 94 Respiratory Rate 16 Blood Pressure 131/80 H Blood Pressure Mean 97 Pulse Ox 98 Oxygen Delivery Method Room Air Positive well nourished and well developed General Appearance ED: well developed and NAD HEENT Reports moist mucous membranes normocephalic and atraumatic Eyes PERRL and EOMs intact bilaterally Neck full ROM and supple Resp normal respiratory effort and clear to auscultation bilaterally Cardio regular rate, regular rhythm and no murmurs GI non-distended GI Narrative: Moderate tenderness in the medial aspect of the left lower quadrant, mildly tender in epigastrium, otherwise benign abdomen. No guarding or rebound. Auscultation: normoactive bowel sounds Palpation: soft Back/Spine no CVA tenderness General Back: other FROM Extremity normal to inspection General Extremety ED: Negative for edema, pulses abnormal or tenderness General Extremity: Negative for edema or pulses abnormal Neuro oriented x3, CN's II-XII intact bilaterally and no sensory deficits noted Sensorium / Orientation: awake and alert Motor Exam: strength 5/5 throughout Skin no rashes or lesions noted and no wounds MDM MDM MDM Narrative Medical decision making narrative: Out of concern for worsening diverticulitis or development of an abscess, CT was repeated with IV contrast, I reviewed images and report and agree with it, basically showing that her diverticulitis has been improving on antibiotic she has been taking. Patient states has been having significant difficulty swallowing. Her potassium is pretty low, 2.8. She states she has been vomiting on occasion but mostly when she swallows and not vomiting a lot. She is on diuretics, furosemide, for congestive heart failure as well as potassium. She and her daughter indicate that her most recent refill for her potassium was changed from her usual twice daily to once daily and they do not know why that she has been taking it as prescribed, once daily. We gave her IV 10 mill equivalents of potassium chloride here in addition to 20 mill equivalents orally she was not able to swallow it or plain water. She has never had a stricture that she knows of in the past or had issues like this. I discussed with Dr. Quintana who is available and happy to consult on her for possible EGD, discussed with hospitalist for admission for this reason not for the diverticulitis. Lab Data Attestation: I reviewed the patient's lab results. Labs: Laboratory Results - last 24 hr 09/03/23 09/03/23 13:45 14:55 WBC 9.0 RBC 4.04 L Hgb 13.2 Hct 40.3 MCV 99.8 H MCH 32.7 H MCHC 32.8 RDW Std Deviation 50.1 H RDW Coeff of Tika 13.6 Plt Count 231 MPV 9.8 Immature Gran % (Auto) 1.400 H Neut % (Auto) 81.8 H Lymph % (Auto) 9.3 L [place] % (Auto) 7.0 Eos % (Auto) 0.1 Baso % (Auto) 0.4 Absolute Neuts (auto) 7.4 Absolute Lymphs (auto) 0.84 Nucleated RBC % 0 Sodium 142 Potassium 2.8 L Chloride 106 Carbon Dioxide 29.0 Anion Gap 7 BUN 11 Creatinine 1.09 H Est GFR (MDRD) Af Amer 62 Est GFR (MDRD) Non-Af 51 L BUN/Creatinine Ratio 10.1 Glucose 136 H Calcium 8.8 Total Bilirubin 0.60 AST 20 ALT 13 Alkaline Phosphatase 68 Total Protein 7.1 Albumin 3.8 Globulin 3.3 Albumin/Globulin Ratio 1.2 Lipase 33 Urine Color Yellow Urine Clarity Sl. Cloudy Urine pH 6.0 Ur Specific [place] 1.010 Urine Protein Negative Urine Glucose (UA) Normal Urine Ketones Negative Urine Occult Blood Negative Urine Nitrite Negative Urine Bilirubin Negative Urine Urobilinogen Normal Ur Leukocyte Esterase Negative Urine RBC 0 SEEN Urine WBC 0 SEEN Ur Squamous Epith Cells 0 SEEN Urine Bacteria 0 SEEN Urine Mucus 0 SEEN Radiography Diagnostic Testing: Clinical Impression(s) from Imaging Studies Abdomen/Pelvis CT 09/03/23 14:25 IMPRESSION: Mild degree of residual sigmoid diverticulitis. There has been improvement as compared to prior study. The remainder of the examination is unchanged. Electronically Signed: Aramis Rodriguez MD at 15:20 EDT , Management Discussion w/another healthcare provider: Hospitalist and Financial Analyst (GI friend) Discharge Plan Triage Chief Complaint: Nausea/Vomiting ED Provider: Andreas Soto Dx/Rx/DC Orders Clinical Impression: Diverticulitis, Esophageal dysphagia, Hypokalemia Prescriptions: No Action allopurinol 300 mg tablet 300 mg PO DAILY trazodone 100 mg tablet 100 mg PO QHS ascorbate calcium (vitamin C) 500 mg tablet 500 mg PO DAILY cholecalciferol (vitamin D3) 25 mcg (1,000 unit) capsule 25 mcg PO DAILY zinc acetate 50 mg (zinc) capsule 100 mg PO DAILY meclizine 25 mg tablet 25 mg PO DAILY PRN (Reason: Dizziness) ursodiol 250 mg tablet 250 mg PO BID Qty: 180 3RF carbidopa-levodopa 25-100 mg tablet 2 tab PO .COMPLEX Qty: 540 1RF Rx Instructions: 2 tabs orally 3 times daily (8 AM, 2 PM and 6 PM) carbidopa-levodopa 50-200 mg tablet extended release 1 tab PO .COMPLEX Qty: 180 1RF Rx Instructions: 1 TAB orally Twice daily (11 AM and 10 PM) sulfasalazine 500 mg tablet,delayed release (DR/EC) 1 g PO BID 30 Days Qty: 120 3RF folic acid 1 mg tablet 1 mg PO DAILY Qty: 30 3RF entacapone 200 mg tablet 200 mg PO BID Rx Instructions: administer at the same time as l-dopa/carbidopa dose furosemide 40 mg tablet 40 mg PO BID Qty: 180 3RF Patient Comments: OCCASIONALLY TAKES ONLY ONCE DAILY citalopram 20 mg Tablet 20 mg PO QHS [id number] Tablet 1 tab PO DAILY levothyroxine 175 mcg tablet 175 mcg PO DAILY Patient Comments: TAKE 1 TABLET BY MOUTH EVERY DAY cyclosporine 0.05 % dropperette 1 drp ophthalmic (eye) Q12H Rx Instructions: EACH EYE baclofen 20 mg tablet 20 mg PO QHS buspirone 10 mg tablet 10 mg PO TID PRN (Reason: anxiety) hydrocodone-acetaminophen [hydrocodone-acetaminophen] 5-325 mg tablet 1 tab PO Q6H PRN PRN (Reason: Pain) 3 Days Qty: 10 0RF ciprofloxacin HCl [ciprofloxacin HCl] 500 mg tablet 500 mg PO BID Qty: 14 0RF dicyclomine 10 mg capsule 20 mg PO TIDAC Qty: 20 0RF metronidazole [metronidazole] 500 mg tablet 500 mg PO Q8H Qty: 21 0RF amiodarone 200 mg tablet 200 mg PO DAILY Qty: 90 3RF Rx Instructions: start after loading dose metoprolol tartrate 50 mg tablet 50 mg PO BID Qty: 180 3RF omeprazole 20 mg capsule,delayed release(DR/EC) 20 mg PO DAILY Qty: 90 3RF pravastatin 40 mg tablet 40 mg PO DAILY Qty: 90 3RF budesonide 3 mg capsule,delayed,extend.release 6 mg PO QAM Qty: 180 1RF potassium chloride 20 mEq tablet extended release 20 meq PO DAILY Qty: 90 3RF Eliquis 2.5 mg tablet 2.5 mg PO BID Qty: 180 4RF spironolactone 25 mg tablet 25 mg PO DAILY Qty: 90 3RF amlodipine 5 mg tablet 5 mg PO DAILY Qty: 90 3RF colestipol 1 gram tablet 1 g PO BID 30 Days Qty: 60 1RF Primary Care Provider: Bernice Moctezuma Referrals: Bernice Moctezuma DO [Primary Care Provider] - Disposition Disposition: Acute Care Hospital [facility]
[2023-09-03] MEDS: 0.9% Normal Saline (1000mL) 1,000 ML 125 ML IV (14:38)
[2023-09-03] MEDS: Morphine 4 MG/ML Syringe IV (14:39)
[2023-09-03] MEDS: Ondansetron 4 MG/2 ML Vial IV (14:39)
[2023-09-03 15:02] LABS: Bacteria 0 SEEN /hpf (None Seen); Mucous, Urine 0 SEEN /hpf (<or=2+); Red Blood Cells-Urine 0 SEEN /hpf (0-5); Squamous Epithelial Cells - UA 0 SEEN /hpf (5-10); White Blood Cells 0 SEEN /hpf (0-5)
[2023-09-03 15:22] LABS: Color, Urine Yellow (Yellow); Glucose, Dipstick Normal (Normal); Ketone-Dipstick Negative (Negative); Leukocyte Esterase-Dipstick Negative /ul (Negative); Nitrite-Dipstick Negative (Negative); Occult Blood-Urine Negative /ul (Negative); Protein-Dipstick Negative (Negative); Urine Bilirubin Dipstick Negative (Negative); Urine Clarity Sl. Cloudy (Clear); Urine Urobilinogen Normal (Normal)
[2023-09-03 15:27] LABS: Lipase 33 U/L (13-75)
--- NOTE | 2023-09-03 16:46 | ED.RN ---
PT ATTEMPTED TO SWALLOW POTASSIUM, COUGHING AND CHOKING UNABLE TO KEEP IT DOWN. PT COUGHED FOR SEVERAL MINUTES AFTER DRINKING WATER AFTER PILL WELL.
[2023-09-03] MEDS: Potassium Chloride 10mEq/100mL 10 MEQ/100 ML IV.SOLN. 100 MEQ IV BOLUS ×4 (16:55→23:29)
[2023-09-03 17:36] VITALS: BP 134/85; PULSE 89; RESP 16; O2SAT 99
[2023-09-03 18:50] VITALS: BP 145/90; PULSE 90; RESP 18; O2SAT 97
[2023-09-03 18:56] VITALS: BMI 36.8
[2023-09-03 19:00] VITALS: BP 142/79; PULSE 86; RESP 18; TEMP 36.1; O2SAT 97
[2023-09-03 19:02] VITALS: BMI 36.8
--- NOTE | 2023-09-03 19:18 | PCM.HP.STD ---
HPI - General General Date of Admission: 09/03/23 Date of Service: 09/03/23 Chief Complaint: Difficulty swallowing, nausea and vomiting HPI Narrative BA LANZA, is a 83 F who presents to the emergency room at [facility] with a chief complaint of persistent vomiting along with epigastric discomfort, she states that has been going on for the last 2 to 3 days. Patient was diagnosed recently with diverticulitis and is currently taking Cipro and Flagyl. She has a history of Parkinson's disease. Labs obtained in the emergency room showed her white blood cell count to be normal, hemoglobin was also normal, potassium was low at 2.8, creatinine was slightly elevated at 1.09, urinalysis was unremarkable. Patient had a CT of the abdomen and pelvis which showed improving diverticulitis in the sigmoid area. Patient was given oral potassium due to her low potassium, she was unable to swallow water or her potassium tablet. Gastroenterology was contacted and agreed to see the patient in consultation for an EGD tomorrow to rule out esophageal stricture. Patient will be admitted to PCU for hypokalemia and dysphagia, her oral medicines will be held at this time, she will receive potassium supplementation. BMP will be monitored. COUNTS INCLUDE 234 BEDS AT THE [facility] Medical History Acute insomnia Arthritis Atrial fibrillation with RVR Back pain Cellulitis Cerebrovascular disease Chronic diastolic (congestive) heart failure Chronic fatigue Claudication Difficulty balancing Diverticulosis Edema Essential (primary) hypertension Fatigue Fatty liver Gastritis GERD (gastroesophageal reflux disease) Gout Heart disease Hiatal hernia HLD (hyperlipidemia) Hypothyroidism Hypoxia IBS (irritable bowel syndrome) Incontinence Limb weakness Low back pain with bilateral sciatica Lumbar degenerative disc disease MCI (mild cognitive impairment) Microscopic colitis Osteopenia Parkinson disease Paroxysmal atrial fibrillation Pneumonia involving right lung Polyneuropathy, unspecified Postural lightheadedness Shy-Drager syndrome Stool incontinence Tremor Urinary incontinence Home Medications allopurinol 300 mg tablet 300 mg PO DAILY 12/03/20 [History Last Taken 09/03/23] citalopram 20 mg tablet 20 mg PO QHS 06/13/21 [History Last Taken 09/02/23] sewrgahxnkrg-clwtyans-gdmbsy tablet 1 tab PO DAILY 06/13/21 [History Last Taken 09/02/23] trazodone 100 mg tablet 100 mg PO QHS 09/05/21 [History Last Taken 09/02/23] ascorbate calcium (vitamin C) 500 mg tablet 500 mg PO DAILY 01/17/22 [History Last Taken 09/03/23] cholecalciferol (vitamin D3) 25 mcg (1,000 unit) capsule 25 mcg PO DAILY 01/17/22 [History Last Taken 09/03/23] meclizine 25 mg tablet 25 mg PO DAILY PRN Dizziness 10/16/22 [History Last Taken Unknown] amiodarone 200 mg tablet 200 mg PO DAILY #90 tabs 11/15/22 [Rx Last Taken 09/03/23] metoprolol tartrate 50 mg tablet 50 mg PO BID #180 tabs 11/15/22 [Rx Last Taken 09/03/23] omeprazole 20 mg capsule,delayed release 20 mg PO DAILY #90 caps 11/15/22 [Rx Last Taken 09/03/23] zinc acetate 50 mg (zinc) capsule 100 mg PO DAILY 11/28/22 [History Last Taken 09/03/23] ursodiol 250 mg tablet 250 mg PO BID #180 tabs 01/04/23 [Rx Last Taken 09/03/23] pravastatin 40 mg tablet 40 mg PO DAILY #90 TABLETS 01/29/23 [Rx Last Taken 09/03/23] budesonide 3 mg capsule,delayed,extended release 6 mg (2 x 3 mg) PO QAM #180 ea 03/20/23 [Rx Last Taken Unknown] entacapone 200 mg tablet 200 mg PO BID 06/05/23 [History Last Taken 09/03/23] furosemide 40 mg tablet 40 mg PO BID #180 tabs 06/05/23 [Rx Last Taken 09/03/23] carbidopa 25 mg-levodopa 100 mg tablet 2 tab PO .COMPLEX #540 tabs 06/08/23 [Rx Last Taken 09/03/23] carbidopa ER 50 mg-levodopa 200 mg tablet,extended release 1 tab PO .COMPLEX #180 tabs 06/08/23 [Rx Last Taken 09/03/23] potassium chloride 20 mEq tablet,extended release 20 meq PO DAILY #90 tabs 06/26/23 [Rx Last Taken 09/03/23] apixaban 2.5 mg tablet (Eliquis) 2.5 mg PO BID #180 tabs 08/06/23 [Rx Last Taken 09/03/23] folic acid 1 mg tablet 1 mg PO DAILY #30 tabs 08/09/23 [Rx Last Taken 09/03/23] sulfasalazine 500 mg tablet,delayed release 1 g (2 x 500 mg) PO BID 30 days #120 tabs 08/09/23 [Rx Last Taken 09/03/23] spironolactone 25 mg tablet 25 mg PO DAILY #90 tabs 08/16/23 [Rx Last Taken 09/03/23] amlodipine 5 mg tablet 5 mg PO DAILY #90 tabs 08/20/23 [Rx Last Taken 09/03/23] colestipol 1 gram tablet 1 g PO BID 30 days #60 tabs 08/30/23 [Rx Last Taken 09/03/23] baclofen 20 mg tablet 20 mg PO QHS 08/31/23 [History Last Taken 09/02/23] buspirone 10 mg tablet 10 mg PO TID PRN anxiety 08/31/23 [History Last Taken 09/03/23] ciprofloxacin HCl 500 mg tablet 500 mg PO BID #14 TABLETS 08/31/23 [Rx Last Taken 09/03/23] cyclosporine 0.05 % eye drops in a dropperette 1 drp ophthalmic (eye) Q12H 08/31/23 [History Last Taken 09/03/23] dicyclomine 10 mg capsule 20 mg (2 x 10 mg) PO TIDAC #20 CAPSULES 08/31/23 [Rx Last Taken 09/03/23] hydrocodone-acetaminophen 5-325mg 5mg-325mg 1 tab PO Q6H PRN PRN Pain 3 days #10 TABLETS 08/31/23 [Rx Last Taken 09/03/23] levothyroxine 175 mcg tablet 175 mcg PO DAILY 08/31/23 [History Last Taken 09/03/23] metronidazole 500 mg tablet 500 mg PO Q8H #21 tabs 08/31/23 [Rx Last Taken 09/03/23] Allergy/AdvReac Type Severity Reaction Status Date / Time adhesive tape Allergy Intermediate Hives Verified 09/03/23 13:43 amitriptyline Allergy Intermediate Rash Verified 09/03/23 13:43 simvastatin AdvReac Severe myalgias Verified 09/03/23 13:43 celecoxib [From Celebrex] AdvReac Mild Diarrhea Verified 09/03/23 13:43 Family History Father CAD (coronary artery disease) CVA (cerebral vascular accident) Anesthesia complication Arthritis Heart disease Myocardial infarction Hypertension Mother CAD (coronary artery disease) Arthritis Breast cancer Heart disease Myocardial infarction Hypertension Thyroid disorder Sister Breast cancer Heart disease Thyroid disorder Aunt Parkinson's disease suspected but no diagnosis; maternal aunt Surgical History H/O bilateral salpingo-oophorectomy History of arthroscopic knee surgery History of cardioversion (03/30/23) History of colonoscopy History of hysterectomy History of left heart catheterization (08/14/16) History of left hip replacement History of lithotripsy History of lumpectomy Social History Smoking Status: Former smoker Tobacco: How many years used: 8 second hand exposure: No alcohol intake: current alcohol intake frequency: a few times a week Alcohol type: wine details: DAILY WINE substance use type: does not use ramsey/taoist: Taoism seatbelt use: always ROS Constitutional Constitutional: Denies anorexia, change in weight, chills, fatigue, fever(s), night sweats or weakness Eyes Eyes: Denies blurry vision, change in vision, discharge from eye(s) or eye pain ENT HEENT: Reports dysphagia; Denies ear pain, epistaxis or headache(s) Cardiovascular Cardiovascular: Denies chest pain, claudication, dyspnea on exertion, edema, lightheadedness or palpitations Respiratory/Chest Respiratory/Chest: Denies cough, hemoptysis, shortness of breath at rest or shortness of breath with exertion Gastrointestinal Gastrointestinal: Reports abdominal pain, nausea and vomiting; Denies constipation, diarrhea, hematemesis, hematochezia or melena Genitourinary Genitourinary: Denies dysuria, hematuria, urinary frequency, urinary hesitancy, urinary incontinence or urinary urgency Musculoskeletal Musculoskeletal: Denies back pain, joint pain, joint stiffness, joint swelling, myalgias or neck pain Neurologic Neurologic: Denies abnormal gait, abnormal speech, dizziness, focal weakness, headache(s), loss of vision, numbness, other visual disturbances, paresthesias, syncope or tingling Psychiatric Psychiatric: Denies anxiety, cognitive impairment, depression, irritability, mood swings or suicidal ideation Endocrine Endocrinology: Denies change in body appearance, cold intolerance, excessive sweating, heat intolerance, polydipsia or polyuria Hematologic/Lymphatic Hematologic/Lymphatic: Denies none, anemia, easy bleeding, easy bruising or lymphadenopathy Allergic/Immunologic Allergic/Immunologic: Denies rhinitis, urticaria, eczemia or asthma Vital Signs Vital Signs Vital Signs: 09/03/23 13:41 09/03/23 17:36 09/03/23 18:50 Temperature 97.2 F L Temperature Source Temporal Pulse Rate 94 89 90 Respiratory Rate 16 16 18 Blood Pressure 131/80 H 134/85 H 145/90 H Blood Pressure Mean 97 101 108 Blood Pressure Source Blood Pressure Position Blood Pressure Location Pulse Ox 98 99 97 Oxygen Delivery Method Room Air 09/03/23 19:00 Temperature 97 F L Temperature Source Temporal Pulse Rate 86 Respiratory Rate 18 Blood Pressure 142/79 H Blood Pressure Mean 100 Blood Pressure Source Monitor Blood Pressure Position Semi-Fowlers Blood Pressure Location Right Arm Pulse Ox 97 Oxygen Delivery Method Room Air Weight Weight: 106.594 kg Body Mass Index (BMI) 36.8 Physical Exam Const alert, oriented x3 and no apparent distress General Appearance: cooperative, well kempt and well developed Orientation / Consciousness: awake, oriented to person, oriented to place and oriented to time HEENT normocephalic, head/scalp atraumatic, hearing grossly normal bilaterally and moist oral mucous membranes Eyes PERRL, EOMs intact bilaterally and conjunctivae normal Neck supple, no JVD, thyroid normal and no carotid bruits General: trachea midline Resp normal respiratory effort, no retractions, no use of accessory muscles and clear to auscultation bilaterally Auscultation: Negative for rales, rhonchi or wheezes Cardio regular rate, regular rhythm, S1 normal heart sound, S2 normal heart sound, no murmurs, no rub and no gallops GI normal to inspection, nondistended, normoactive bowel sounds, soft to palpation, non-tender and non-distended Extremity Extremity Narrative: Has generalized edema over both lower legs. There is a small skin opening on the posterior aspect of her right lower leg, she does have an abrasion over her right upper meehan area Skin no rashes or lesions noted Neuro oriented x3, CN's II-XII intact bilaterally, moves all extremities, no focal motor deficits and no sensory deficits noted Neuro Narrative: Patient has a resting tremor noted Sensorium / Orientation: awake and alert Speech: speech normal Psych affect normal Results Lab / Micro Data 09/03/23 13:45 09/03/23 13:45 Labs: Laboratory Results - last 24 hr 09/03/23 13:45: WBC 9.0, RBC 4.04 L, Hgb 13.2, Hct 40.3, MCV 99.8 H, MCH 32.7 H, MCHC 32.8, RDW Std Deviation 50.1 H, RDW Coeff of Tika 13.6, Plt Count 231, MPV 9.8, Immature Gran % (Auto) 1.400 H, Neut % (Auto) 81.8 H, Lymph % (Auto) 9.3 L, [place] % (Auto) 7.0, Eos % (Auto) 0.1, Baso % (Auto) 0.4, Absolute Neuts (auto) 7.4, Absolute Lymphs (auto) 0.84, Nucleated RBC % 0, Sodium 142, Potassium 2.8 L, Chloride 106, Carbon Dioxide 29.0, Anion Gap 7, BUN 11, Creatinine 1.09 H, Est GFR (MDRD) Af Amer 62, Est GFR (MDRD) Non-Af 51 L, BUN/Creatinine Ratio 10.1, Glucose 136 H, Calcium 8.8, Total Bilirubin 0.60, AST 20, ALT 13, Alkaline Phosphatase 68, Total Protein 7.1, Albumin 3.8, Globulin 3.3, Albumin/Globulin Ratio 1.2, Lipase 33 09/03/23 14:55: Urine Color Yellow, Urine Clarity Sl. Cloudy, Urine pH 6.0, Ur Specific [place] 1.010, Urine Protein Negative, Urine Glucose (UA) Normal, Urine Ketones Negative, Urine Occult Blood Negative, Urine Nitrite Negative, Urine Bilirubin Negative, Urine Urobilinogen Normal, Ur Leukocyte Esterase Negative, Urine RBC 0 SEEN, Urine WBC 0 SEEN, Ur Squamous Epith Cells 0 SEEN, Urine Bacteria 0 SEEN, Urine Mucus 0 SEEN Radiology Impression Abdomen/Pelvis CT 09/03/23 14:25 IMPRESSION: Mild degree of residual sigmoid diverticulitis. There has been improvement as compared to prior study. The remainder of the examination is unchanged. Electronically Signed: Aramis Rodriguez MD at 15:20 EDT , Assessment & Plan Assessment/Plan (1) Hypokalemia: PLAN: Plan 1. Hypokalemia-patient will be admitted to PCU and given IV potassium supplementation, BMP will be rechecked #2 dysphagia-etiology unclear at this point, patient will undergo an EGD tomorrow to rule out esophageal pathology she will be seen by gastroenterology. Patient is n.p.o. #3 recent diverticulitis-present on admission, patient will be placed on IV Unasyn #4 consents disease-patient will be seen by speech therapy #5 paroxysmal atrial fibrillation, now in atrial fib-patient is currently taking Eliquis, amiodarone, metoprolol-these will have to be held due to her n.p.o. status #6 hypothyroidism-patient will remain off her Synthroid at the present time due to her n.p.o. status #7 microscopic colitis-patient's Entocort will be held at this time due to her n.p.o. status #8 essential hypertension-patient's medications will be held at this time due to her n.p.o. status blood pressure will be monitored #9 chronic diastolic congestive heart failure-patient's Lasix will be held at this time due to her n.p.o. status, her spironolactone will also be held #10 hyperlipidemia-patient's statin will be held at this time due to her n.p.o. status #11 mild pulmonary hypertension-patient's diuretics will be held at this time due to her n.p.o. status Clinical time spent by myself addressing patient's medical issues, reviewing all of her data, and collaborating with patient's care team: 55 minutes Charges/Coding Visit Charges Inpatient E&M: 29056 Init Hosp L2
[2023-09-03] MEDS: KCl 20MEQ in D5NS 20 MEQ/1,000 ML IV.SOLN. 100 MEQ IV (20:09)
[2023-09-03] MEDS: Morphine 2 MG/ML Syringe IV (21:37)
[2023-09-03] MEDS: Pantoprazole Sodium 40 MG in 0.9% Normal Saline (100mL MB+) 100 ML 330 MG IV (22:29)
--- NOTE | 2023-09-03 23:00 | EX.PCM.CON.G ---
HPI Consult Data Date of Consult: 09/03/23 HPI Narrative Reason for Consultation: Dysphagia HPI Narrative: BA LANZA, is a 83 F who presents with difficulty swallowing. Patient states she was here 4 days ago diagnosed with diverticulitis on CT and placed on antibiotics discharged home treated as an outpatient. Since then she has been vomiting more, increasing pain, feels like she is getting worse. She is having subjective fevers and chills. Feeling weak. She was having pain for about a week prior to being seen here and diagnosed on CT. She has also been having some discomfort in epigastrium that goes up into her chest all of which is worse with vomiting. Her vomiting is yellow stomach juice nonbilious nonbloody. Patient also states for the past 5 days she has noticed trouble swallowing things and feeling like things are stuck in her upper esophagus area. She states she was barely able to squeeze her potassium pill down this morning. She is even having trouble swallowing liquids although she is able to take some of it if she just barely sips. FORMERLY [facility], [facility] Medical History (Updated 09/03/23 @ 20:55 by Adriana Martinez) Acute insomnia Arthritis Atrial fibrillation Atrial fibrillation with RVR Back pain Bleeding tendency Cellulitis Cerebrovascular disease Chronic diastolic (congestive) heart failure Chronic fatigue Claudication Congestive heart failure (CHF) Coronary artery disease Diabetes Difficulty balancing Difficulty swallowing Diverticulosis Dyspnea Edema Essential (primary) hypertension Fatigue Fatty liver Former smoker Gastritis GERD (gastroesophageal reflux disease) Gout Hearing loss, left Hearing loss, right Heart disease Hiatal hernia High cholesterol History of steroid therapy History of stress test HLD (hyperlipidemia) Hypertension Hypothyroidism Hypoxia IBS (irritable bowel syndrome) Incontinence Limb weakness Low back pain with bilateral sciatica Lumbar degenerative disc disease MCI (mild cognitive impairment) Microscopic colitis On home oxygen therapy Osteopenia Osteoporosis Parkinson disease Paroxysmal atrial fibrillation Pneumonia involving right lung Polyneuropathy, unspecified Post-menopausal Postural lightheadedness Restless legs Shy-Drager syndrome Sleep apnea Stool incontinence Tremor Urinary incontinence Home Medications allopurinol 300 mg tablet 300 mg PO DAILY 12/03/20 [History Last Taken 09/03/23] citalopram 20 mg tablet 20 mg PO QHS 06/13/21 [History Last Taken 09/02/23] npmddxfqqaei-spmbbzde-jwwmbx tablet 1 tab PO DAILY 06/13/21 [History Last Taken 09/02/23] trazodone 100 mg tablet 100 mg PO QHS 09/05/21 [History Last Taken 09/02/23] ascorbate calcium (vitamin C) 500 mg tablet 500 mg PO DAILY 01/17/22 [History Last Taken 09/03/23] cholecalciferol (vitamin D3) 25 mcg (1,000 unit) capsule 25 mcg PO DAILY 01/17/22 [History Last Taken 09/03/23] meclizine 25 mg tablet 25 mg PO DAILY PRN Dizziness 10/16/22 [History Last Taken Unknown] amiodarone 200 mg tablet 200 mg PO DAILY #90 tabs 11/15/22 [Rx Last Taken 09/03/23] metoprolol tartrate 50 mg tablet 50 mg PO BID #180 tabs 11/15/22 [Rx Last Taken 09/03/23] omeprazole 20 mg capsule,delayed release 20 mg PO DAILY #90 caps 11/15/22 [Rx Last Taken 09/03/23] zinc acetate 50 mg (zinc) capsule 100 mg PO DAILY 11/28/22 [History Last Taken 09/03/23] ursodiol 250 mg tablet 250 mg PO BID #180 tabs 01/04/23 [Rx Last Taken 09/03/23] pravastatin 40 mg tablet 40 mg PO DAILY #90 TABLETS 01/29/23 [Rx Last Taken 09/03/23] budesonide 3 mg capsule,delayed,extended release 6 mg (2 x 3 mg) PO QAM #180 ea 03/20/23 [Rx Last Taken Unknown] entacapone 200 mg tablet 200 mg PO BID 06/05/23 [History Last Taken 09/03/23] furosemide 40 mg tablet 40 mg PO BID #180 tabs 06/05/23 [Rx Last Taken 09/03/23] carbidopa 25 mg-levodopa 100 mg tablet 2 tab PO .COMPLEX #540 tabs 06/08/23 [Rx Last Taken 09/03/23] carbidopa ER 50 mg-levodopa 200 mg tablet,extended release 1 tab PO .COMPLEX #180 tabs 06/08/23 [Rx Last Taken 09/03/23] potassium chloride 20 mEq tablet,extended release 20 meq PO DAILY #90 tabs 06/26/23 [Rx Last Taken 09/03/23] apixaban 2.5 mg tablet (Eliquis) 2.5 mg PO BID #180 tabs 08/06/23 [Rx Last Taken 09/03/23] folic acid 1 mg tablet 1 mg PO DAILY #30 tabs 08/09/23 [Rx Last Taken 09/03/23] sulfasalazine 500 mg tablet,delayed release 1 g (2 x 500 mg) PO BID 30 days #120 tabs 08/09/23 [Rx Last Taken 09/03/23] spironolactone 25 mg tablet 25 mg PO DAILY #90 tabs 08/16/23 [Rx Last Taken 09/03/23] amlodipine 5 mg tablet 5 mg PO DAILY #90 tabs 08/20/23 [Rx Last Taken 09/03/23] colestipol 1 gram tablet 1 g PO BID 30 days #60 tabs 08/30/23 [Rx Last Taken 09/03/23] baclofen 20 mg tablet 20 mg PO QHS 08/31/23 [History Last Taken 09/02/23] buspirone 10 mg tablet 10 mg PO TID PRN anxiety 08/31/23 [History Last Taken 09/03/23] ciprofloxacin HCl 500 mg tablet 500 mg PO BID #14 TABLETS 08/31/23 [Rx Last Taken 09/03/23] cyclosporine 0.05 % eye drops in a dropperette 1 drp ophthalmic (eye) Q12H 08/31/23 [History Last Taken 09/03/23] dicyclomine 10 mg capsule 20 mg (2 x 10 mg) PO TIDAC #20 CAPSULES 08/31/23 [Rx Last Taken 09/03/23] hydrocodone-acetaminophen 5-325mg 5mg-325mg 1 tab PO Q6H PRN PRN Pain 3 days #10 TABLETS 08/31/23 [Rx Last Taken 09/03/23] levothyroxine 175 mcg tablet 175 mcg PO DAILY 08/31/23 [History Last Taken 09/03/23] metronidazole 500 mg tablet 500 mg PO Q8H #21 tabs 08/31/23 [Rx Last Taken 09/03/23] Allergy/AdvReac Type Severity Reaction Status Date / Time adhesive tape Allergy Intermediate Hives Verified 09/03/23 13:43 amitriptyline Allergy Intermediate Rash Verified 09/03/23 13:43 simvastatin AdvReac Severe myalgias Verified 09/03/23 13:43 celecoxib [From Celebrex] AdvReac Mild Diarrhea Verified 09/03/23 13:43 Family History Father CAD (coronary artery disease) CVA (cerebral vascular accident) Anesthesia complication Arthritis Heart disease Myocardial infarction Hypertension Mother CAD (coronary artery disease) Arthritis Breast cancer Heart disease Myocardial infarction Hypertension Thyroid disorder Sister Breast cancer Heart disease Thyroid disorder Aunt Parkinson's disease suspected but no diagnosis; maternal aunt Surgical History (Updated 09/03/23 @ 20:55 by Adriana Martinez) H/O bilateral salpingo-oophorectomy H/O cardiac catheterization History of appendectomy History of arthroscopic knee surgery History of cardioversion (03/30/23) History of colonoscopy History of hysterectomy History of left heart catheterization (08/14/16) History of left hip replacement History of lithotripsy History of lumpectomy S/P hysterectomy Social History Smoking Status: Former smoker Tobacco: How many years used: 8 second hand exposure: No alcohol intake: current alcohol intake frequency: a few times a week Alcohol type: wine details: DAILY WINE substance use type: does not use ramsey/yarsani: [employer] seatbelt use: always ROS Constitutional Constitutional: Denies anorexia, change in weight, chills, fatigue, fever(s), night sweats or weakness Eyes Eyes: Denies blurry vision, change in vision, discharge from eye(s) or eye pain ENT HEENT: Reports dysphagia; Denies ear pain, epistaxis or headache(s) Cardiovascular Cardiovascular: Denies chest pain, claudication, dyspnea on exertion, edema, lightheadedness or palpitations Respiratory/Chest Respiratory/Chest: Denies cough, hemoptysis, shortness of breath at rest or shortness of breath with exertion Gastrointestinal Gastrointestinal: Reports abdominal pain, nausea and vomiting; Denies constipation, diarrhea, hematemesis, hematochezia or melena Genitourinary Genitourinary: Denies dysuria, hematuria, urinary frequency, urinary hesitancy, urinary incontinence or urinary urgency Musculoskeletal Musculoskeletal: Denies back pain, joint pain, joint stiffness, joint swelling, myalgias or neck pain Neurologic Neurologic: Denies abnormal gait, abnormal speech, dizziness, focal weakness, headache(s), loss of vision, numbness, other visual disturbances, paresthesias, syncope or tingling Psychiatric Psychiatric: Denies anxiety, cognitive impairment, depression, irritability, mood swings or suicidal ideation Endocrine Endocrinology: Denies change in body appearance, cold intolerance, excessive sweating, heat intolerance, polydipsia or polyuria Hematologic/Lymphatic Hematologic/Lymphatic: Denies none, anemia, easy bleeding, easy bruising or lymphadenopathy Allergic/Immunologic Allergic/Immunologic: Denies rhinitis, urticaria, eczemia or asthma Physical Exam Const alert, oriented x3 and no apparent distress General Appearance: cooperative, well kempt and well developed Orientation / Consciousness: awake, oriented to person, oriented to place and oriented to time HEENT normocephalic, head/scalp atraumatic, hearing grossly normal bilaterally and moist oral mucous membranes Eyes PERRL, EOMs intact bilaterally and conjunctivae normal Neck supple, no JVD, thyroid normal and no carotid bruits General: trachea midline Resp normal respiratory effort, no retractions, no use of accessory muscles and clear to auscultation bilaterally Auscultation: Negative for rales, rhonchi or wheezes Cardio regular rate, regular rhythm, S1 normal heart sound, S2 normal heart sound, no murmurs, no rub and no gallops GI normal to inspection, nondistended, normoactive bowel sounds, soft to palpation, non-tender and non-distended Extremity Extremity Narrative: Has generalized edema over both lower legs. There is a small skin opening on the posterior aspect of her right lower leg, she does have an abrasion over her right upper meehan area Skin no rashes or lesions noted Neuro oriented x3, CN's II-XII intact bilaterally, moves all extremities, no focal motor deficits and no sensory deficits noted Neuro Narrative: Patient has a resting tremor noted Sensorium / Orientation: awake and alert Speech: speech normal Psych affect normal Lab / Micro Data 09/04/23 06:15 09/04/23 06:15 Labs: Laboratory Results - last 24 hr 09/03/23 13:45: WBC 9.0, RBC 4.04 L, Hgb 13.2, Hct 40.3, MCV 99.8 H, MCH 32.7 H, MCHC 32.8, RDW Std Deviation 50.1 H, RDW Coeff of Tika 13.6, Plt Count 231, MPV 9.8, Immature Gran % (Auto) 1.400 H, Neut % (Auto) 81.8 H, Lymph % (Auto) 9.3 L, [place] % (Auto) 7.0, Eos % (Auto) 0.1, Baso % (Auto) 0.4, Absolute Neuts (auto) 7.4, Absolute Lymphs (auto) 0.84, Nucleated RBC % 0, Sodium 142, Potassium 2.8 L, Chloride 106, Carbon Dioxide 29.0, Anion Gap 7, BUN 11, Creatinine 1.09 H, Est GFR (MDRD) Af Amer 62, Est GFR (MDRD) Non-Af 51 L, BUN/Creatinine Ratio 10.1, Glucose 136 H, Calcium 8.8, Total Bilirubin 0.60, AST 20, ALT 13, Alkaline Phosphatase 68, Total Protein 7.1, Albumin 3.8, Globulin 3.3, Albumin/Globulin Ratio 1.2, Lipase 33 09/03/23 14:55: Urine Color Yellow, Urine Clarity Sl. Cloudy, Urine pH 6.0, Ur Specific [place] 1.010, Urine Protein Negative, Urine Glucose (UA) Normal, Urine Ketones Negative, Urine Occult Blood Negative, Urine Nitrite Negative, Urine Bilirubin Negative, Urine Urobilinogen Normal, Ur Leukocyte Esterase Negative, Urine RBC 0 SEEN, Urine WBC 0 SEEN, Ur Squamous Epith Cells 0 SEEN, Urine Bacteria 0 SEEN, Urine Mucus 0 SEEN 09/04/23 06:15: WBC 5.7, RBC 3.52 L, Hgb 11.6 L, Hct 36.0 L, MCV 102.3 H, MCH 33.0 H, MCHC 32.2, RDW Std Deviation 53.1 H, RDW Coeff of [place]ika 14.1, Plt Count 206, MPV 10.1, Immature Gran % (Auto) 1.400 H, Neut % (Auto) 62.8, Lymph % (Auto) 23.5, [place] % (Auto) 11.1 H, Eos % (Auto) 0.7, Baso % (Auto) 0.5, Absolute Neuts (auto) 3.6, Absolute Lymphs (auto) 1.33, Nucleated RBC % 0, Sodium 146 H, Potassium 3.1 L, Chloride 114 H, Carbon Dioxide 30.0, Anion Gap 2 L, BUN 8, Creatinine 0.84, Estim Creat Clear Calc 51.08, Est GFR (MDRD) Af Amer 84, Est GFR (MDRD) Non-Af 69, BUN/Creatinine Ratio 9.6 L, Glucose 95, Calcium 8.0 L, Magnesium 1.8, Total Bilirubin 0.40, Direct Bilirubin 0.15, AST 24, ALT 22, Alkaline Phosphatase 53, Total Protein 5.8 L, Albumin 3.0 L, Globulin 2.8, TSH 0.98 09/04/23 07:56: PT 15.4 H, INR 1.2, APTT 29.9 Radiology Impression Abdomen/Pelvis CT 09/03/23 14:25 IMPRESSION: Mild degree of residual sigmoid diverticulitis. There has been improvement as compared to prior study. The remainder of the examination is unchanged. Electronically Signed: Aramis Rodriguez MD at 15:20 EDT , Assessment & Plan Assessment/Plan (1) Hypokalemia: PLAN: Plan 83-year-old who comes in with progressive esophageal dysphagia with a recent diagnosis of diverticulitis and inability to tolerate oral medications Dysphagia-etiology unclear at this point, patient will undergo an EGD tomorrow to rule out esophageal pathology. She was explained alternatives, risk, benefits include not withstanding bleeding, infection, sepsis, perforation, need for more discharge and . She will have an ASA of 3. Diverticulitis-present on admission, patient will be placed on IV Unasyn. Continue as per primary team. Charges/Coding Visit Charges Inpatient E&M: 39916 Init Hosp L3
[2023-09-03] MEDS: Ampicillin/Sulbactam 3 GM in 0.9% Normal Saline (100mL MB+) 100 ML IV (23:27)
[2023-09-04] VITALS (10 sets, daily range): BP systolic 103–128; BP diastolic 70–81; PULSE 74–93; RESP 14–18; TEMP 36.4–37.1; O2SAT 90–99; BMI 36.8
--- NOTE | 2023-09-04 | GASB_PTH ---
PATIENT: BA LANZA LOC: [facility] U#:[id number] AGE/SX: 83/F ROOM: [facility] RE09/03/[address]: Dr. Alexandre Mckeon MD : [id number] BED: 1 DIS: 09/06/2023 SPEC #: [id number] RECD: 09/04/23 15:13 STATUS: SANDRA NICHOLSON #: [id number] TRACI: 09/04/23 00:[address]: Chino Quintana DEPT: SURGICAL PATHOLOGY RECD BY: Mack Walden ENTERED: 09/05/23 10:09 SP TYPE: Gastric Bx OTHR DR: Dr. Scotty Khan, DO Dr. Bernice Moctezuma, DO Dr. Franck Sánchez, DO Dr. Alexandre Mckeon MD Tissues: A - Gastric mucous membrane B - Esophageal mucous membrane Procedures: Surgery Specimen Level IV Comments: @ Ordering doctor for SUIV edited from to @ by ALMA at 09/05/23 1404 @ Submitting doctor edited from to @ by RGOOD at 09/05/23 1404 HEADER OPERATION: EGD with biopsies and dilation PRE-OP DIAGNOSIS: Esophageal dysphagia TISSUE SUBMITTED: A - Gastric body biopsy, B - Random esophagus biopsy MICROSCOPIC DIAGNOSIS A. Gastric body, biopsy: Chronic gastritis. See comment. B. Esophagus, random biopsy: No pathologic change. AM:maggie 09/06/2023 COMMENT A. The results of immunohistochemistry for Helicobacter pylori will be reported separately ([id number]). MICROSCOPIC DESCRIPTION Slides are reviewed. GROSS DESCRIPTION A - Received in fixative is one container labeled with the patient's name and designated gastric body biopsy. The specimen consists of multiple irregular fragments of light joya soft tissue that in aggregate measure 1.3 x 0.5 x 0.1 cm. The specimen is totally submitted in one cassette. B - Received in fixative is one container labeled with the patient's name and designated random esophagus biopsy. The specimen consists of multiple irregular fragments of light joya soft tissue that in aggregate measure 1.2 x 0.6 x 0.1 cm. The specimen is totally submitted in one cassette. / EVARISTO:maggie 09/05/2023 TC:3 CPT: 24669 x2
[2023-09-04] MEDS: Ampicillin/Sulbactam 3 GM in 0.9% Normal Saline (100mL MB+) 100 ML IV ×3 (05:23→21:50)
--- NOTE | 2023-09-04 05:55 | EKG12_ITS ---
Test Reason : Blood Pressure : / mmHG Vent. Rate : 072 BPM Atrial Rate : 000 BPM P-R Int : 000 ms QRS Dur : 158 ms QT Int : 486 ms P-R-T Axes : 000 092 -30 degrees QTc Int : 532 ms Atrial fibrillation Right bundle branch block T wave abnormality, consider inferior ischemia Abnormal ECG When compared with ECG of 31-AUG-2023 04:24, MANUAL COMPARISON REQUIRED, DATA IS UNCONFIRMED Confirmed by WAN LAST, SARAH ([id number]), videotape editor ALEJANDRINA THOMPSON ([id number]) on 09/05/2023 6:29:50 AM Referred By: Confirmed By:SARAH BLAS MD
[2023-09-04] MEDS: KCl 20MEQ in D5NS 20 MEQ/1,000 ML IV.SOLN. 100 MEQ IV ×2 (06:29→23:50)
[2023-09-04 07:36] LABS: Anion Gap 2 (5-15); BUN 8 mg/dL (7-18); BUN/Creat Ratio 9.6 RATIO (10-20); Chloride 114 mmol/L (98-107); Creatinine, Serum 0.84 mg/dL (0.55-1.02); EST Glomerular Filtration Rate 69 mL/min (>60); Est Glom Filt Rate - Afr Amer 84 mL/min (>60); Estimated Creatinine Clearance 51.08 ml/min; Glucose 95 mg/dL (74-106); Potassium 3.1 mmol/L (3.5-5.1); Sodium Level 146 mmol/L (136-145)
[2023-09-04 07:47] LABS: Absolute Lymphocyte Count 1.33 X10^3/uL (0.83-4.51); Absolute Neutrophil Count 3.6 X10^3/uL (2.0-7.7); Basophil# 0.03 X10^3/uL; Basophil% 0.5 % (0-1); Eosinophil# 0.04 X10^3/uL; Eosinophils% 0.7 % (0-5); Hemoglobin 11.6 g/dL (12.0-15.0); Lymphocyte # 1.33 X10^3/ul (0.83-4.51); Lymphocyte % 23.5 % (19-41); Mean Corp Hgb Conc 32.2 g/dL (32-36); Mean Corpuscular Volume 102.3 fL (81-99); Mean Platelet Vol. 10.1 fl (6.2-12.0); Monocyte# 0.63 X10^3/uL; Monocyte% 11.1 % (0-10); NRBC Flagged by Analyzer 0 % (0-5); Neutrophil # 3.55 X10^3/uL (2.7-7.7); Neutrophil % 62.8 % (47-70); Platelet Count 206 K/mm3 (150-450); RBC Distribution Width CV 14.1 % (11.6-14.6); RBC Distribution Width SD 53.1 fl (35.1-43.9); Red Blood Count 3.52 M/mm3 (4.2-5.4); White Blood Count 5.7 K/mm3 (4.4-11.0)
[2023-09-04 08:09] LABS: AST(SGOT) 24 U/L (15-37); Alanine Aminotransfer ALT/SGPT 22 U/L (13-56); Alkaline Phosphatase 53 U/L (45-117); Bilirubin, Direct 0.15 mg/dL (0.00-0.30); Globulin 2.8 g/dL (2.2-4.2); Protein, Total 5.8 g/dL (6.4-8.2); Thyroid Stim Hormone (TSH) 0.98 uIU/mL (0.358-3.74)
[2023-09-04 08:12] LABS: International Normalized Ratio 1.2; Prothrombin Time (Protime)PT. 15.4 SECONDS (11.7-14.9)
[2023-09-04 08:13] LABS: Partial Thromboplast Time 29.9 Seconds (24.1-36.2)
--- NOTE | 2023-09-04 08:40 | PN.HOSP_ITS ---
Reason for Visit Reason for Visit: Diagnoses Hypokalemia (09/03/23) Subjective Subjective Still with abdominal pain. Objective Data Objective Data Vital Signs: Vital Signs Temp Pulse Resp BP Pulse Ox O2 Del Method O2 Flow Rate 36.8 C 90 16 128/73 H 97 Nasal Cannula 2.5 09/04/23 03:00 09/04/23 03:00 09/04/23 03:00 09/04/23 03:00 09/04/23 03:00 09/04/23 03:00 09/04/23 03:00 Oxygen Flow Rate (L/min) 2.5 Oxygen Delivery Method Nasal Cannula Weight: 106.594 kg Body Mass Index (BMI) 36.8 Intake & Output: Intake and Output for Last 24 Hours 09/02/23 09/03/23 09/04/23 23:59 23:59 23:59 Intake Total 1375.83 / 1375.83 877.33 / 877.33 Balance 1375.83 / 1375.83 877.33 / 877.33 Lab / Micro Data 09/04/23 06:15 09/04/23 06:15 Labs: Laboratory Results - last 24 hr 09/03/23 13:45: WBC 9.0, RBC 4.04 L, Hgb 13.2, Hct 40.3, MCV 99.8 H, MCH 32.7 H, MCHC 32.8, RDW Std Deviation 50.1 H, RDW Coeff of Tika 13.6, Plt Count 231, MPV 9.8, Immature Gran % (Auto) 1.400 H, Neut % (Auto) 81.8 H, Lymph % (Auto) 9.3 L, [place] % (Auto) 7.0, Eos % (Auto) 0.1, Baso % (Auto) 0.4, Absolute Neuts (auto) 7.4, Absolute Lymphs (auto) 0.84, Nucleated RBC % 0, Sodium 142, Potassium 2.8 L , Chloride 106, Carbon Dioxide 29.0, Anion Gap 7, BUN 11, Creatinine 1.09 H, Est GFR (MDRD) Af Amer 62, Est GFR (MDRD) Non-Af 51 L, BUN/Creatinine Ratio 10.1, Glucose 136 H, Calcium 8.8, Total Bilirubin 0.60, AST 20, ALT 13, Alkaline Phosphatase 68, Total Protein 7.1, Albumin 3.8, Globulin 3.3, Albumin/Globulin Ratio 1.2, Lipase 33 09/03/23 14:55: Urine Color Yellow, Urine Clarity Sl. Cloudy, Urine pH 6.0, Ur Specific [place] 1.010, Urine Protein Negative, Urine Glucose (UA) Normal, Urine Ketones Negative, Urine Occult Blood Negative, Urine Nitrite Negative, Urine Bilirubin Negative, Urine Urobilinogen Normal, Ur Leukocyte Esterase Negative, Urine RBC 0 SEEN, Urine WBC 0 SEEN, Ur Squamous Epith Cells 0 SEEN, Urine Bacteria 0 SEEN, Urine Mucus 0 SEEN 09/04/23 06:15: WBC 5.7, RBC 3.52 L, Hgb 11.6 L, Hct 36.0 L, MCV 102.3 H, MCH 33.0 H, MCHC 32.2, RDW Std Deviation 53.1 H, RDW Coeff of [place]ika 14.1, Plt Count 206, MPV 10.1, Immature Gran % (Auto) 1.400 H, Neut % (Auto) 62.8, Lymph % (Auto) 23.5, [place] % (Auto) 11.1 H, Eos % (Auto) 0.7, Baso % (Auto) 0.5, Absolute Neuts (auto) 3.6, Absolute Lymphs (auto) 1.33, Nucleated RBC % 0, Sodium 146 H, Potassium 3.1 L, Chloride 114 H, Carbon Dioxide 30.0, Anion Gap 2 L, BUN 8, Creatinine 0.84, Estim Creat Clear Calc 51.08, Est GFR (MDRD) Af Amer 84, Est GFR (MDRD) Non-Af 69, BUN/Creatinine Ratio 9.6 L, Glucose 95, Calcium 8.0 L, Total Bilirubin 0.40, Direct Bilirubin 0.15, AST 24, ALT 22, Alkaline Phosphatas e 53, Total Protein 5.8 L, Albumin 3.0 L, Globulin 2.8, TSH 0.98 09/04/23 07:56: PT 15.4 H, INR 1.2, APTT 29.9 Radiography Diagnostic Testing: Radiology Impression Abdomen/Pelvis CT 09/03/23 14:25 IMPRESSION: Mild degree of residual sigmoid diverticulitis. There has been improvement as compared to prior study. The remainder of the examination is unchanged. Electronically Signed: Aramis Rodriguez MD at 15:20 EDT , Physical Exam Const alert and no apparent distress Resp normal respiratory effort, no retractions, no use of accessory muscles and clear to auscultation bilaterally Cardio regular rate, regular rhythm, S1 normal heart sound and S2 normal heart sound GI normal to inspection, nondistended, normoactive bowel sounds, soft to palpation, non-tender and non-distended Extremity normal to inspection Assessment & Plan Assessment/Plan (1) Diverticulitis: PLAN: on ampicillin/SB (2) Hypokalemia: PLAN: Improved, but ongoing. Continue to replace. Check magnesium and replace if low. (3) Esophageal dysphagia: PLAN: 2/2 esophageal stenosis. EGD today showed esophageal changes cw eosinophilic esophagitis (biopsied), pill in esophagus (removed), benign esophageal stenosis (dilated), bile gastritis (biopsied) ST eval. PLAN: Plan Chronic conditions: * Parkinson's diseasea: resume carbidopa/levodopa when able * pAfib: resume amiodarone, apixaban, metoprolol tartrate when able * hypothyroidism: resume levothyroxine when able. * HTN: resume amlodipine when able * microscopic colitis: hold entocort until completed abx for diverticulitis * HFpEF: chronic. compensated. furosemide and spironolactone currently on hold, resume when able. VTE prophylaxis: SCDs. Disposition: TBD. Awaiting on ST and PT. If does well with those evaluations, can eat and take pills safely, hopefully she can be discharged on 09/05. Charges/Coding Visit Charges Inpatient E&M: 06725 Subs Hosp L2
[2023-09-04 09:16] LABS: Magnesium 1.8 mg/dL (1.6-2.6)
[2023-09-04] MEDS: Pantoprazole Sodium 40 MG in 0.9% Normal Saline (100mL MB+) 100 ML 330 MG IV ×2 (10:49→23:33)
[2023-09-04] MEDS: Potassium Chloride 10mEq/100mL 10 MEQ/100 ML IV.SOLN. 100 MEQ IV BOLUS ×4 (10:51→16:47)
--- NOTE | 2023-09-04 11:20 | CASEMGMT ---
RN CM Face to Face with patient for initial transition planning/care coordination assessment. RN CM introduced self and role at [facility]. Patient lying in bed, alert and oriented, son at bedside. Patient willing to participate in assessment and is able to answer all questions appropriately. Care providers, pharmacy, and demographics verified. Patient wishes to discharge home, will monitor for HHC at discharge pending progress with therapy. Patient states she has no further needs or concerns at this time. CM to follow for discharge planning needs that may arise. PCP: Jose Elias Specialists: Lilian, GI; Adams, toxicology supervisor; Isreal, ENT; True, Core Checker; Lillian Hinton, design engineer agricultural equipment; Preferred Pharmacy: [facility] Insurance: [facility] Prescription Benefit: yes Living Will/HPOA: yes, son Jose Ventura LNOK: son, daughter Living Arrangements: Patient lives alone in a first floor condo with 2 steps and railing to enter the home. Patient states she is indepnednet at home. Transportation: self, children, neighbors. DME/HHC: Patient has shower chiar, raised toilet, grab bars, cane, walker, medical alert, pulse ox, and oxygen at 2.5lpm at with portability. No previous HHC or SNF. Disposition Plan: Anticipate discharge home with possible HHC, family support, and follow-up plans in place. Vicenta MARTINEZ, RN, CM
--- NOTE | 2023-09-04 13:37 | OP.CCLET_ITS ---
09/04/2023 Bernice Moctezuma [address] [place] [address] [place] [address] Re : Upper GI endoscopy procedure for Mirtha Ventura Dear Dr. Moctezuma This procedure was performed on Monday, September 04, 2023. My impressions and recommendations are as follows: Impressions : - Esophageal mucosal changes consistent with eosinophilic esophagitis. - A pill was found in the esophagus. Removal was successful. - Benign-appearing esophageal stenosis. Dilated. - Bile gastritis. Biopsied. - No gross lesions in the second portion of the duodenum. - Biopsies were taken with a cold forceps for evaluation of eosinophilic esophagitis. Recommendations : - [facility]. - Advance diet as tolerated. - Continue present medications. - Await pathology results. My findings are described in the full procedure note, which is enclosed. If I can be of further assistance, please feel free to contact me at . Sincerely, Chino Quintana, 09/04/2023 1:36:35 PM This report has been signed electronically.
--- NOTE | 2023-09-04 13:37 | OP.EGD_ITS ---
Patient Name: Mirtha Ventura Procedure Date: 09/04/2023 1:06 PM Date of : 1940 Age: 83 Procedure: Upper GI endoscopy Indications: Dysphagia Providers: Chino Quintana DO Medicines: Monitored Anesthesia Care Patient Profile: This is an 83 year old female. Refer to note in patient chart for documentation of history and physical. Patient has symptoms of acute dysphagia. Complications: No immediate complications. Procedure: Pre-Anesthesia Assessment: - Prior to the procedure, a History and Physical was performed, and patient medications and allergies were reviewed. The patient is competent. The risks and benefits of the procedure and the sedation options and risks were discussed with the patient. All questions were answered and informed consent was obtained. Patient identification and proposed procedure were verified by the physician in the pre-procedure area. Mental Status Examination: alert and oriented. Airway Examination: normal oropharyngeal airway and neck mobility. Respiratory Examination: clear to auscultation. CV Examination: normal. Prophylactic Antibiotics: The patient does not require prophylactic antibiotics. Prior Anticoagulants: The patient has taken no anticoagulant or antiplatelet agents. ASA Grade Assessment: II - A patient with mild systemic disease. After reviewing the risks and benefits, the patient was deemed in satisfactory condition to undergo the procedure. The anesthesia plan was to use monitored anesthesia care (MAC). Immediately prior to administration of medications, the patient was re-assessed for adequacy to receive sedatives. The heart rate, respiratory rate, oxygen saturations, blood pressure, adequacy of pulmonary ventilation, and response to care were monitored throughout the procedure. The physical status of the patient was re-assessed after the procedure. After obtaining informed consent, the endoscope was passed under direct vision. Throughout the procedure, the patient's blood pressure, pulse, and oxygen saturations were monitored continuously. The gastroscope was introduced through the mouth, and advanced to the second part of duodenum. The upper GI endoscopy was accomplished without difficulty. The patient tolerated the procedure well. Scope In: 1:19:45 PM Scope Out: 1:28:15 PM Total Procedure Duration Time 0 hours 8 minutes 30 seconds Findings: Mucosal changes including ringed esophagus and small-caliber esophagus were found in the middle third of the esophagus and in the lower third of the esophagus. Biopsies were obtained from the proximal and distal esophagus with cold forceps for histology of suspected eosinophilic esophagitis. Verification of patient identification for the specimen was done. Estimated blood loss was minimal. A pill was found in the lower third of the esophagus, 37 cm from the incisors. Removal was accomplished with a pentapod forceps. Verification of patient identification for the specimen was done. Estimated blood loss was minimal. One benign-appearing, intrinsic moderate stenosis was found 35 to 37 cm from the incisors. The stenosis was traversed. A guidewire was placed and the scope was withdrawn. Dilation was performed with a Savary dilator with no resistance at 54 Fr. The dilation site was examined and showed moderate mucosal disruption. Estimated blood loss was minimal. Diffuse severe inflammation characterized by congestion (edema), erosions and erythema was found in the entire examined stomach. Biopsies were taken with a cold forceps for histology. Verification of patient identification for the specimen was done. Estimated blood loss was minimal. Biopsies were taken with a cold forceps for Helicobacter pylori testing. Verification of patient identification for the specimen was done. Estimated blood loss was minimal. No gross lesions were noted in the second portion of the duodenum. Impression: - Esophageal mucosal changes consistent with eosinophilic esophagitis. - A pill was found in the esophagus. Removal was successful. - Benign-appearing esophageal stenosis. Dilated. - Bile gastritis. Biopsied. - No gross lesions in the second portion of the duodenum. - Biopsies were taken with a cold forceps for evaluation of eosinophilic esophagitis. Recommendation: - [facility]. - Advance diet as tolerated. - Continue present medications. - Await pathology results. Procedure Code(s): --- Professional --- 74915, Esophagogastroduodenoscopy, flexible, transoral; with removal of foreign body(s) 27297, 51, Esophagogastroduodenoscopy, flexible, transoral; with insertion of guide wire followed by passage of dilator(s) through esophagus over guide wire 33700, 59, Esophagogastroduodenoscopy, flexible, transoral; with biopsy, single or multiple CPT copyright 2021 [employer]. All rights reserved. The codes documented in this report are preliminary and upon senior ui ux developer review may be revised to meet current compliance requirements. Chino Quintana DO 09/04/2023 1:36:35 PM This report has been signed electronically. Number of Addenda: 0 Note Initiated On: 09/04/2023 1:06 PM
--- NOTE | 2023-09-04 16:00 | IMM_PTH ---
PATIENT: BA LANZA LOC: PCU U#:[id number] AGE/SX: 83/F ROOM: [facility] RE09/03/[address]: Dr. Alexandre Mckeon MD : 1940 BED: 1 DIS: 09/06/2023 SPEC #: [id number] RECD: 09/05/23 14:02 STATUS: SANDRA REMary Kate #: [id number] TRACI: 09/04/23 16:[address]: Chino Quintana DEPT: IMMUNOHISTOCHEMISTRY RECD BY: Linda Lewis ENTERED: 09/05/23 14:03 SP TYPE: IMMUNO OTHR DR: Dr. Scotty Khan, DO Dr. Bernice Moctezuma, DO Dr. Franck Sánchez, DO Dr. Alexandre Mckeon MD Tissues: A - Stomach, NOS Procedures: H Pylori (initial) PHYSICIAN & INSTITUTION [place] [id number] SPECIMEN INFORMATION: Tissue Source: A - Gastric body Clinical Info: Esophageal dysphagia Specimen Number: [id number] CPT code: 17738 METHODOLOGY: Deparaffinized sections of prefer/formalin-fixed tissue or PAP/DQ stained slides are incubated with monoclonal/polyclonal antibodies/oligonucleotide probes. Localization is made via biotin free immunoperoxidase method. Appropriate controls are performed and reacted as expected. Results on target cell population are indicated in the following table: RESULTS: ANTIBODY / CLONE RESULT Block A H Pylori (polyclonal) negative These tests were developed and their performance characteristics determined by [facility]. They may not have been cleared or approved by the U.S. Food and Drug Administration. The FDA has determined that such clearance or approval is not necessary. The above immunohistochemical/dualISH markers are ordered and reviewed by the Pathologist. INTERPRETATION: A. Gastric body, biopsy: Negative for Helicobacter pylori organisms. AM:maggie 09/07/2023
[2023-09-04] MEDS: Magnesium Sulfate 2 GM in Dextrose 5%-Water (100mL Bag) 100 ML IV (17:26)
[2023-09-05] VITALS (11 sets, daily range): BP systolic 107–125; BP diastolic 58–73; PULSE 71–96; RESP 15–18; TEMP 36.3–36.9; O2SAT 93–98
[2023-09-05] MEDS: Ampicillin/Sulbactam 3 GM in 0.9% Normal Saline (100mL MB+) 100 ML IV ×3 (05:09→22:41)
[2023-09-05 06:23] LABS: Anion Gap 4 (5-15); BUN 7 mg/dL (7-18); BUN/Creat Ratio 10.3 RATIO (10-20); Calcium,Total 8.3 mg/dL (8.5-10.1); Chloride 118 mmol/L (98-107); Creatinine, Serum 0.68 mg/dL (0.55-1.02); EST Glomerular Filtration Rate 88 mL/min (>60); Est Glom Filt Rate - Afr Amer 107 mL/min (>60); Estimated Creatinine Clearance 42.91 ml/min; Glucose 115 mg/dL (74-106); Potassium 3.8 mmol/L (3.5-5.1); Sodium Level 147 mmol/L (136-145)
--- NOTE | 2023-09-05 08:44 | PN.HOSP_ITS ---
Reason for Visit Reason for Visit: Diagnoses Hypokalemia (09/03/23) Diverticulitis of intestine, part unspecified, without perforation or abscess without bleeding (09/03/23) Other dysphagia (09/03/23) Objective Data Objective Data Vital Signs: Vital Signs Temp Pulse Resp BP Pulse Ox O2 Del Method O2 Flow Rate 98.1 F 84 18 125/73 H 96 Room Air 2.5 09/05/23 05:15 09/05/23 05:15 09/05/23 05:15 09/05/23 05:15 09/05/23 05:15 09/05/23 08:21 09/05/23 05:15 Oxygen Flow Rate (L/min) 2.5 Oxygen Delivery Method Room Air Weight: 234 lb 15.992 oz Body Mass Index (BMI) 36.8 Intake & Output: Intake and Output for Last 24 Hours 09/03/23 09/04/23 09/05/23 23:59 23:59 23:59 Intake Total 1375.83 / 1375.83 3298.67 / 3298.67 352 / 352 Output Total 0 / 0 Balance 1375.83 / 1375.83 3298.67 / 3298.67 352 / 352 Lab / Micro Data 09/04/23 06:15 09/05/23 05:01 Labs: Laboratory Results - last 24 hr 09/04/23 06:15: Magnesium 1.8 09/05/23 05:01: Sodium 147 H, Potassium 3.8, Chloride 118 H, Carbon Dioxide 25.0, Anion Gap 4 L, BUN 7, Creatinine 0.68, Estim Creat Clear Calc 42.91, Est GFR (MDRD) Af Amer 107, Est GFR (MDRD) Non-Af 88, BUN/Creatinine Ratio 10.3, Glucose 115 H, Calcium 8.3 L Physical Exam Narrative Seen and examined. Patient is states she can swallow well after EGD. Her GI symptoms have improved no nausea vomiting or abdominal pain. She is on IV antibiotic for mild sigmoid diverticulitis. She states she is too weak and very hard time in walking even with the help of physical therapist. Physical exam General: Alert, Oriented x3, Cooperative HEENT: Atraumatic, PERRLA, EOMI, Normocephalic Oral: Oral mucosa moist. No Gingival or Mucosal Lesions/ Ulcerations Neck: Supple, No JVD, Negative Carotid Bruits Lungs: Air entry diminished in bilateral lung bases. No crepitation/rhonchi Cardiovascular: Regular rate, Regular Rhythm, Normal S1, Normal S2, No murmurs Abdomen: Bowel Sounds Present, Soft, Non Tender, Non-Distended : No renal angle tenderness. No suprapubic tenderness. Extremities: No edema, Capillary Refill Less than 3 Seconds Skin: No rashes, No breakdown Musculoskeletal: No Tenderness to Palpation of Joints or Extremities Neurological: Cranial nerves II-XII grossly intact, DTR 2+/4. No acute focal neurological deficit. Psych/Mental Status: Flat affect. Assessment & Plan Assessment/Plan (1) Diverticulitis: PLAN: CT abdomen pelvis reviewed. Mild degree of residual sigmoid diverticulitis. Uncomplicated with no complicating abscess perforation. Patient on IV Unasyn. Clinical Impression(s) from Imaging Studies Abdomen/Pelvis CT 09/03/23 14:25 IMPRESSION: Mild degree of residual sigmoid diverticulitis. There has been improvement as compared to prior study. The remainder of the examination is unchanged. (2) Hypokalemia: PLAN: Improved, but ongoing. Continue to replace. Check magnesium and replace if low. (3) Esophageal dysphagia: PLAN: 2/2 esophageal stenosis. EGD today showed esophageal changes cw eosinophilic esophagitis (biopsied), pill in esophagus (removed), benign esophageal stenosis (dilated), bile gastritis (biopsied) ST eval. PLAN: Plan Chronic conditions: * Parkinson's diseasea: resume carbidopa/levodopa when able * pAfib: resume amiodarone, apixaban, metoprolol tartrate when able * hypothyroidism: resume levothyroxine when able. * HTN: resume amlodipine when able * microscopic colitis: hold entocort until completed abx for diverticulitis * HFpEF: chronic. compensated. furosemide and spironolactone currently on hold, resume when able. VTE prophylaxis: SCDs. Disposition: TBD. Awaiting on ST and PT. If does well with those evaluations, can eat and take pills safely, hopefully she can be discharged on 09/05. Charges/Coding Visit Charges Inpatient E&M: 21182 Subs Hosp L2
--- NOTE | 2023-09-05 08:47 | DCINST_ITS ---
Discharge Instructions Diet Discharge Diet: No restrictions Activity Discharge Activity: Return to Normal Activity Weight Bearing Status: Weight bearing as tolerated Dressing / Incision Call your doctor if you observe: Fever of 101 or Higher, Coldness, Increased Pain, Numbness or Tingling, Change in Color, Inability to urinate, Inability to have a bowel movement, Using more than 1 pad per hour, Shortness of breath, Dizziness, Fainting spells, Swelling in the ankles, Chest pain, Prolonged hiccupping, Increased palpitations (irregular heartbeat) and Calf discomfort Follow Up Care When: IN 2 WEEKS Test Results: Test results from this visit will be discussed in further detail at your follow- up appointment, if applicable. Discharge Plan Admission Admit Date/Time: 09/03/23 17:47 Attending Provider: Alexandre Mckeon Primary Care Provider: Bernice Moctezuma Consulting Providers: Franck Sánchez; Scotty Khan Discharge Orders/Prescriptions Prescriptions: New pantoprazole [Protonix] 40 mg tablet,delayed release (DR/EC) 40 mg PO DAILY Qty: 30 2RF Continued allopurinol 300 mg tablet 300 mg PO DAILY trazodone 100 mg tablet 100 mg PO QHS ascorbate calcium (vitamin C) 500 mg tablet 500 mg PO DAILY cholecalciferol (vitamin D3) 25 mcg (1,000 unit) capsule 25 mcg PO DAILY zinc acetate 50 mg (zinc) capsule 100 mg PO DAILY meclizine 25 mg tablet 25 mg PO DAILY PRN (Reason: Dizziness) ursodiol 250 mg tablet 250 mg PO BID Qty: 180 3RF carbidopa-levodopa 25-100 mg tablet 2 tab PO .COMPLEX Qty: 540 1RF Rx Instructions: 2 tabs orally 3 times daily (8 AM, 2 PM and 6 PM) carbidopa-levodopa 50-200 mg tablet extended release 1 tab PO .COMPLEX Qty: 180 1RF Rx Instructions: 1 TAB orally Twice daily (11 AM and 10 PM) sulfasalazine 500 mg tablet,delayed release (DR/EC) 1 g PO BID 30 Days Qty: 120 3RF folic acid 1 mg tablet 1 mg PO DAILY Qty: 30 3RF entacapone 200 mg tablet 200 mg PO BID Rx Instructions: administer at the same time as l-dopa/carbidopa dose citalopram 20 mg Tablet 20 mg PO QHS [id number] Tablet 1 tab PO DAILY levothyroxine 175 mcg tablet 175 mcg PO DAILY Patient Comments: TAKE 1 TABLET BY MOUTH EVERY DAY cyclosporine 0.05 % dropperette 1 drp ophthalmic (eye) Q12H Rx Instructions: EACH EYE baclofen 20 mg tablet 20 mg PO QHS buspirone 10 mg tablet 10 mg PO TID PRN (Reason: anxiety) hydrocodone-acetaminophen 5-325 mg tablet 1 tab PO Q6H PRN PRN (Reason: Pain) 3 Days Qty: 10 0RF ciprofloxacin HCl 500 mg tablet 500 mg PO BID Qty: 14 0RF dicyclomine 10 mg capsule 20 mg PO TIDAC Qty: 20 0RF metronidazole 500 mg tablet 500 mg PO Q8H Qty: 21 0RF amiodarone 200 mg tablet 200 mg PO DAILY Qty: 90 3RF Rx Instructions: start after loading dose metoprolol tartrate 50 mg tablet 50 mg PO BID Qty: 180 3RF pravastatin 40 mg tablet 40 mg PO DAILY Qty: 90 3RF budesonide 3 mg capsule,delayed,extend.release 6 mg PO QAM Qty: 180 1RF Eliquis 2.5 mg tablet 2.5 mg PO BID Qty: 180 4RF spironolactone 25 mg tablet 25 mg PO DAILY Qty: 90 3RF amlodipine 5 mg tablet 5 mg PO DAILY Qty: 90 3RF colestipol 1 gram tablet 1 g PO BID 30 Days Qty: 60 1RF Held furosemide 40 mg tablet 40 mg PO BID Qty: 180 3RF Hold Instructions: Hold for 2 days. Patient Comments: OCCASIONALLY TAKES ONLY ONCE DAILY potassium chloride 20 mEq tablet extended release 20 meq PO DAILY Qty: 90 3RF Hold Instructions: Hold while holding Lasix. Discontinued omeprazole 20 mg capsule,delayed release(DR/EC) 20 mg PO DAILY Qty: 90 3RF Referrals / Follow Up: Bernice Moctezuma DO [Primary Care Provider] - Friend,DO Chino [Med Staff - Active Staff] - Within 1 Month Disposition Disposition (needs filled in before D/C Order can be placed): Home, Self Care
[2023-09-05] MEDS: Pantoprazole Sodium 40 MG in 0.9% Normal Saline (100mL MB+) 100 ML 330 MG IV ×2 (09:15→21:16)
--- NOTE | 2023-09-05 10:40 | CASEMGMT ---
Discharge Planning A list of SNF providers including quality and resource use data and consistent with the patient's preferred geographic region, medical needs, and insurance network was created in [employer] Guide.? This list was provided to the SW. Darshana Worrell Discharge Planning Asst.
[2023-09-05] MEDS: KCl 20MEQ in D5NS 20 MEQ/1,000 ML IV.SOLN. 100 MEQ IV ×2 (11:03→21:17)
--- NOTE | 2023-09-05 11:07 | CASEMGMT ---
LILI CM updated by therapy, recommending SNF at discharge. RN CM in to discuss discharge planning with patient, son at bedside. RN CM updated patient regarding therapy recommendations. Patient and son agreeable to SNF placement at discharge. SNF list provided to patient and son to review and provide preferences. Patient and son had no further questions or concerns. SW updated regarding SNF placement. CM will continue to follow this patient and plan for a safe discharge.
--- NOTE | 2023-09-05 12:13 | CASEMGMT ---
FREDY spoke with patient and her son regarding their preferences. They were interested in [facility] Acute Rehab. SW explained that right now Rehab is full. Their other choices were [facility] if they have a private room, [facility], and [facility]. FREDY did check with [facility] and she will have a bed for patient in Rehab. [facility] will start the pre-cert once OT eval is done. Plan: [facility] Acute Rehab Unit pending insurance approval. Deandra BARRETO
[2023-09-05] MEDS: 0.9% Saline Lock 10 ML Syringe IV ×2 (13:15→21:24)
--- NOTE | 2023-09-05 19:25 | EX.PCM.PN.GI ---
Subjective Subjective Patient underwent an upper endoscopy and was discovered to have eosinophilic esophagitis along with pill induced esophagitis. Objective Data Objective Data Vital Signs: Vital Signs Temp Pulse Resp BP Pulse Ox O2 Del Method O2 Flow Rate 98.3 F 71 16 107/62 96 Room Air 2 09/05/23 16:00 09/05/23 16:00 09/05/23 16:00 09/05/23 16:00 09/05/23 16:00 09/05/23 16:00 09/05/23 10:15 Oxygen Flow Rate (L/min) 2 Oxygen Delivery Method Room Air Weight: 234 lb 15.992 oz Body Mass Index (BMI) 36.8 Intake & Output: Intake and Output for Last 24 Hours 09/03/23 09/04/23 09/05/23 23:59 23:59 23:59 Intake Total 1375.83 / 1375.83 3298.67 / 3298.67 2053 Output Total 0 / 0 Balance 1375.83 / 1375.83 3298.67 / 3298.67 2053 Lab / Micro Data 09/04/23 06:15 09/05/23 05:01 Labs: Laboratory Results - last 24 hr 09/05/23 05:01: Sodium 147 H, Potassium 3.8, Chloride 118 H, Carbon Dioxide 25.0, Anion Gap 4 L, BUN 7, Creatinine 0.68, Estim Creat Clear Calc 42.91, Est GFR (MDRD) Af Amer 107, Est GFR (MDRD) Non-Af 88, BUN/Creatinine Ratio 10.3, Glucose 115 H, Calcium 8.3 L Physical Exam Narrative Seen and examined. Patient is states she can swallow well after EGD. Her GI symptoms have improved no nausea vomiting or abdominal pain. She is on IV antibiotic for mild sigmoid diverticulitis. She states she is too weak and very hard time in walking even with the help of physical therapist. Physical exam General: Alert, Oriented x3, Cooperative HEENT: Atraumatic, PERRLA, EOMI, Normocephalic Oral: Oral mucosa moist. No Gingival or Mucosal Lesions/ Ulcerations Neck: Supple, No JVD, Negative Carotid Bruits Lungs: Air entry diminished in bilateral lung bases. No crepitation/rhonchi Cardiovascular: Regular rate, Regular Rhythm, Normal S1, Normal S2, No murmurs Abdomen: Bowel Sounds Present, Soft, Non Tender, Non-Distended : No renal angle tenderness. No suprapubic tenderness. Extremities: No edema, Capillary Refill Less than 3 Seconds Skin: No rashes, No breakdown Musculoskeletal: No Tenderness to Palpation of Joints or Extremities Neurological: Cranial nerves II-XII grossly intact, DTR 2+/4. No acute focal neurological deficit. Psych/Mental Status: Flat affect. Assessment & Plan Assessment/Plan (1) Esophageal dysphagia: PLAN: Esophageal mucosal changes consistent with eosinophilic esophagitis. - A pill was found in the esophagus. Removal was successful. - Benign-appearing esophageal stenosis. Dilated. - Bile gastritis. Biopsied. - No gross lesions in the second portion of the duodenum. - Biopsies were taken with a cold forceps for evaluation of eosinophilic esophagitis. Recommendations : - Return patient to [facility] for [facility] care. - Advance diet as tolerated. - Continue present medications. - Await pathology results. - follow-up as an outpatient Charges/Coding Visit Charges Inpatient E&M: 80126 Subs Hosp L3
[2023-09-05] MEDS: 0.9% Normal Saline (250mL Bag) 250 ML 15 ML IV (21:34)
[2023-09-06 03:40] VITALS: BP 124/80; PULSE 81; RESP 16; TEMP 37.1; O2SAT 96
[2023-09-06] MEDS: Ampicillin/Sulbactam 3 GM in 0.9% Normal Saline (100mL MB+) 100 ML IV ×2 (05:47→14:31)
[2023-09-06] MEDS: KCl 20MEQ in D5NS 20 MEQ/1,000 ML IV.SOLN. 100 MEQ IV (05:53)
[2023-09-06 07:40] VITALS: O2SAT 96
[2023-09-06 09:22] VITALS: BP 141/80; PULSE 103; RESP 18; TEMP 36.6; O2SAT 97
[2023-09-06] MEDS: Pantoprazole Sodium 40 MG in 0.9% Normal Saline (100mL MB+) 100 ML 330 MG IV (09:23)
--- NOTE | 2023-09-06 09:28 | PN.HOSP_ITS ---
Reason for Visit Reason for Visit: Diagnoses Hypokalemia (09/03/23) Diverticulitis of intestine, part unspecified, without perforation or abscess without bleeding (09/03/23) Other dysphagia (09/03/23) Objective Data Objective Data Vital Signs: Vital Signs Temp Pulse Resp BP Pulse Ox O2 Del Method O2 Flow Rate 97.9 F 103 H 18 141/80 H 97 Room Air 2 09/06/23 09:22 09/06/23 09:22 09/06/23 09:22 09/06/23 09:22 09/06/23 09:22 09/06/23 09:22 09/05/23 10:15 Oxygen Flow Rate (L/min) 2 Oxygen Delivery Method Room Air Weight: 234 lb 15.992 oz Body Mass Index (BMI) 36.8 Intake & Output: Intake and Output for Last 24 Hours 09/04/23 09/05/23 09/06/23 23:59 23:59 23:59 Intake Total 3298.67 / 3298.67 3276 / 3276 1123.25 / 1123.25 Output Total 0 / 0 0 / 0 Balance 3298.67 / 3298.67 3276 / 3276 1123.25 / 1123.25 Lab / Micro Data 09/04/23 06:15 09/05/23 05:01 Physical Exam Narrative Seen and examined. Patient is states she can swallow well after EGD. Her GI symptoms have improved no nausea vomiting or abdominal pain. She is on IV antibiotic for mild sigmoid diverticulitis. She states she is too weak and very hard time in walking even with the help of physical therapist. Physical exam General: Alert, Oriented x3, Cooperative HEENT: Atraumatic, PERRLA, EOMI, Normocephalic Oral: Oral mucosa moist. No Gingival or Mucosal Lesions/ Ulcerations Neck: Supple, No JVD, Negative Carotid Bruits Lungs: Air entry diminished in bilateral lung bases. No crepitation/rhonchi Cardiovascular: Regular rate, Regular Rhythm, Normal S1, Normal S2, No murmurs Abdomen: Bowel Sounds Present, Soft, Non Tender, Non-Distended : No renal angle tenderness. No suprapubic tenderness. Extremities: No edema, Capillary Refill Less than 3 Seconds Skin: No rashes, No breakdown Musculoskeletal: No Tenderness to Palpation of Joints or Extremities Neurological: Cranial nerves II-XII grossly intact, DTR 2+/4. No acute focal neurological deficit. Psych/Mental Status: Flat affect. Assessment & Plan Assessment/Plan (1) Diverticulitis: PLAN: CT abdomen pelvis reviewed. Mild degree of residual sigmoid diverticulitis. Uncomplicated with no complicating abscess perforation. Patient on IV Unasyn. Clinical Impression(s) from Imaging Studies Abdomen/Pelvis CT 09/03/23 14:25 IMPRESSION: Mild degree of residual sigmoid diverticulitis. There has been improvement as compared to prior study. The remainder of the examination is unchanged. (2) Hypokalemia: PLAN: Improved, but ongoing. Continue to replace. Check magnesium and replace if low. (3) Esophageal dysphagia: PLAN: 2/2 esophageal stenosis. EGD today showed esophageal changes cw eosinophilic esophagitis (biopsied), pill in esophagus (removed), benign esophageal stenosis (dilated), bile gastritis (biopsied) ST eval. PLAN: Plan Chronic conditions: * Parkinson's diseasea: resume carbidopa/levodopa when able * pAfib: resume amiodarone, apixaban, metoprolol tartrate when able * hypothyroidism: resume levothyroxine when able. * HTN: resume amlodipine when able * microscopic colitis: hold entocort until completed abx for diverticulitis * HFpEF: chronic. compensated. furosemide and spironolactone currently on hold, resume when able. VTE prophylaxis: SCDs. Disposition: TBD. Awaiting on ST and PT. If does well with those evaluations, can eat and take pills safely, hopefully she can be discharged on 09/05.
[2023-09-06 10:33] LABS: Absolute Lymphocyte Count 1.67 X10^3/uL (0.83-4.51); Absolute Neutrophil Count 5.1 X10^3/uL (2.0-7.7); Basophil# 0.04 X10^3/uL; Basophil% 0.5 % (0-1); Eosinophils% 1.3 % (0-5); Hematocrit 38.2 % (37-47); Hemoglobin 12.1 g/dL (12.0-15.0); Lymphocyte # 1.67 X10^3/ul (0.83-4.51); Lymphocyte % 21.7 % (19-41); Mean Corp Hgb Conc 31.7 g/dL (32-36); Mean Corpuscular Hgb 32.9 pg (27.0-32.0); Mean Corpuscular Volume 103.8 fL (81-99); Mean Platelet Vol. 10.1 fl (6.2-12.0); Monocyte# 0.64 X10^3/uL; Monocyte% 8.3 % (0-10); NRBC Flagged by Analyzer 0 % (0-5); Neutrophil # 5.11 X10^3/uL (2.7-7.7); Neutrophil % 66.6 % (47-70); Platelet Count 186 K/mm3 (150-450); RBC Distribution Width CV 14.5 % (11.6-14.6); RBC Distribution Width SD 55.1 fl (35.1-43.9); Red Blood Count 3.68 M/mm3 (4.2-5.4); White Blood Count 7.7 K/mm3 (4.4-11.0)
--- NOTE | 2023-09-06 10:35 | DCINST_ITS ---
Discharge Instructions Diet Discharge Diet: No restrictions Activity Discharge Activity: Return to Normal Activity Weight Bearing Status: Weight bearing as tolerated Dressing / Incision Call your doctor if you observe: Fever of 101 or Higher, Coldness, Increased Pain, Numbness or Tingling, Change in Color, Inability to urinate, Inability to have a bowel movement, Using more than 1 pad per hour, Shortness of breath, Dizziness, Fainting spells, Swelling in the ankles, Chest pain, Prolonged hiccupping, Increased palpitations (irregular heartbeat) and Calf discomfort Follow Up Care When: IN 2 WEEKS Test Results: Test results from this visit will be discussed in further detail at your follow- up appointment, if applicable. Discharge Plan Admission Admit Date/Time: 09/03/23 17:47 Primary Reason for Your Visit: Esophageal dysphagia. Sigmoid diverticulitis Attending Provider: Alexandre Mckeon Primary Care Provider: Bernice Moctezuma Consulting Providers: Franck Sánchez; Scotty Khan Discharge Orders/Prescriptions Prescriptions: New pantoprazole [Protonix] 40 mg tablet,delayed release (DR/EC) 40 mg PO DAILY Qty: 30 2RF acidophilus-pectin, citrus 25 million cell -100 mg Tablet 2 tab PO BID Qty: 0 0RF amoxicillin-pot clavulanate [Augmentin] 500-125 mg tablet 1 tab PO BID 5 Days Qty: 10 0RF Continued allopurinol 300 mg tablet 300 mg PO DAILY trazodone 100 mg tablet 100 mg PO QHS ascorbate calcium (vitamin C) 500 mg tablet 500 mg PO DAILY cholecalciferol (vitamin D3) 25 mcg (1,000 unit) capsule 25 mcg PO DAILY zinc acetate 50 mg (zinc) capsule 100 mg PO DAILY meclizine 25 mg tablet 25 mg PO DAILY PRN (Reason: Dizziness) ursodiol 250 mg tablet 250 mg PO BID Qty: 180 3RF carbidopa-levodopa 25-100 mg tablet 2 tab PO .COMPLEX Qty: 540 1RF Rx Instructions: 2 tabs orally 3 times daily (8 AM, 2 PM and 6 PM) carbidopa-levodopa 50-200 mg tablet extended release 1 tab PO .COMPLEX Qty: 180 1RF Rx Instructions: 1 TAB orally Twice daily (11 AM and 10 PM) sulfasalazine 500 mg tablet,delayed release (DR/EC) 1 g PO BID 30 Days Qty: 120 3RF folic acid 1 mg tablet 1 mg PO DAILY Qty: 30 3RF entacapone 200 mg tablet 200 mg PO BID Rx Instructions: administer at the same time as l-dopa/carbidopa dose citalopram 20 mg Tablet 20 mg PO QHS [id number] Tablet 1 tab PO DAILY levothyroxine 175 mcg tablet 175 mcg PO DAILY Patient Comments: TAKE 1 TABLET BY MOUTH EVERY DAY cyclosporine 0.05 % dropperette 1 drp ophthalmic (eye) Q12H Rx Instructions: EACH EYE baclofen 20 mg tablet 20 mg PO QHS buspirone 10 mg tablet 10 mg PO TID PRN (Reason: anxiety) hydrocodone-acetaminophen 5-325 mg tablet 1 tab PO Q6H PRN PRN (Reason: Pain) 3 Days Qty: 10 0RF ciprofloxacin HCl 500 mg tablet 500 mg PO BID Qty: 14 0RF dicyclomine 10 mg capsule 20 mg PO TIDAC Qty: 20 0RF metronidazole 500 mg tablet 500 mg PO Q8H Qty: 21 0RF amiodarone 200 mg tablet 200 mg PO DAILY Qty: 90 3RF Rx Instructions: start after loading dose metoprolol tartrate 50 mg tablet 50 mg PO BID Qty: 180 3RF pravastatin 40 mg tablet 40 mg PO DAILY Qty: 90 3RF budesonide 3 mg capsule,delayed,extend.release 6 mg PO QAM Qty: 180 1RF Eliquis 2.5 mg tablet 2.5 mg PO BID Qty: 180 4RF spironolactone 25 mg tablet 25 mg PO DAILY Qty: 90 3RF amlodipine 5 mg tablet 5 mg PO DAILY Qty: 90 3RF colestipol 1 gram tablet 1 g PO BID 30 Days Qty: 60 1RF Held furosemide 40 mg tablet 40 mg PO BID Qty: 180 3RF Hold Instructions: Hold for 2 days. Patient Comments: OCCASIONALLY TAKES ONLY ONCE DAILY potassium chloride 20 mEq tablet extended release 20 meq PO DAILY Qty: 90 3RF Hold Instructions: Hold while holding Lasix. Discontinued omeprazole 20 mg capsule,delayed release(DR/EC) 20 mg PO DAILY Qty: 90 3RF Referrals / Follow Up: Bernice Moctezuma DO [Primary Care Provider] - 09/10/23 10:30 am FriendChion DO [Med Staff - Active Staff] - Within 1 Month Disposition Disposition (needs filled in before D/C Order can be placed): Home, Self Care
[2023-09-06 10:41] LABS: Anion Gap 4 (5-15); BUN 7 mg/dL (7-18); BUN/Creat Ratio 9.9 RATIO (10-20); Calcium,Total 8.2 mg/dL (8.5-10.1); Chloride 119 mmol/L (98-107); Creatinine, Serum 0.71 mg/dL (0.55-1.02); EST Glomerular Filtration Rate 84 mL/min (>60); Est Glom Filt Rate - Afr Amer 102 mL/min (>60); Estimated Creatinine Clearance 42.91 ml/min; Glucose 106 mg/dL (74-106); Potassium 3.5 mmol/L (3.5-5.1); Sodium Level 145 mmol/L (136-145)
[2023-09-06] MEDS: Glycerin/Hypromellose/PEG400 15 ml Bottle 1 DRP EACH EYE (12:13)
[2023-09-06] MEDS: Allopurinol 300 MG Tablet PO (12:14)
[2023-09-06] MEDS: amLODIPine 5 MG Tablet PO (12:14)
[2023-09-06] MEDS: Levothyroxine 175 MCG Tablet PO (12:14)
[2023-09-06] MEDS: Cholecalciferol (VIT D3) 25 MCG TABLET (1,000 UNITS) PO (12:14)
[2023-09-06] MEDS: APIXABAN 2.5 MG TABLET (WCH) PO (12:14)
[2023-09-06] MEDS: sulfaSALAzine 500 MG Tablet PO (12:15)
[2023-09-06] MEDS: Folic Acid 1 MG Tablet PO (12:15)
[2023-09-06] MEDS: Ascorbic Acid 500 MG Tablet PO (12:15)
[2023-09-06] MEDS: Amiodarone 200 MG Tablet PO (12:15)
[2023-09-06] MEDS: Ursodiol 250 MG Tablet PO (12:16)
[2023-09-06] MEDS: Budesonide 3 MG CAPSULE.EC 6 MG PO (12:16)
[2023-09-06] MEDS: Dicyclomine 10 MG Capsule 20 MG PO (12:16)
[2023-09-06 12:17] VITALS: PULSE 97
[2023-09-06] MEDS: Metoprolol Tartrate 50 MG Tablet PO (12:17)
[2023-09-06] MEDS: Colestipol 1 GM TABLET PO (12:17)
[2023-09-06] MEDS: CARBIDOPA/LEVODOPA CR 50/200 Tablet PO (12:18)
--- NOTE | 2023-09-06 14:28 | CASEMGMT ---
Patient was approved to go to [facility] Acute Rehab Unit. SW notified physician, RN, patient, and her son. Plan: d/c to [facility] Acute Rehab Unit. Deandra BARRETO
[2023-09-06] MEDS: Carbidopa/Levodopa 25/100 Tablet PO (14:31)
--- NOTE | 2023-09-06 14:41 | DS.PCM_ITS ---
Providers Date of Admission: 09/03/23 Date of Discharge: 09/06/23 Primary Care Physician: Dr. Bernice Moctezuma, DO Consultations 09/03/23 18:56 Consult: Gastroenterology Routine Consulting Provider: [facility] Reason for Consult: dysphagia EMERGENT Consult: No MD Notified: Yes Date Notified: 09/03/23 Time Notified: 17:51 Method of Notification: Verbal Reason For Visit: HYPOKALEMIA, DYSPHAGIA Diagnosis Discharge Diagnosis (1) Diverticulitis: Status: Acute Code(s): K57.92 - Diverticulitis of intestine, part unspecified, without perforation or abscess without bleeding Plan: CT abdomen pelvis reviewed. Mild degree of residual sigmoid diverticulitis. Uncomplicated with no complicating abscess perforation. Patient on IV Unasyn. 09/06: Patient had mild diarrhea about 3 bowel movements. I think most likely antibiotic associated diarrhea. Started on probiotic. Stool for enteric pathogen and C. difficile ordered. Patient is going to be discharged to acute rehab. Discussed with attending Dr. Youssef my colleague and she had already talked to insurance for approval to be transferred there. We will continue IV Unasyn and she will take care of antibiotic and might transition to oral Augmentin.Follow-up C. difficile and enteric bacteriology panel which is pending. Follow-up in GI/hepatology clinic in 4 weeks. Clinical Impression(s) from Imaging Studies Abdomen/Pelvis CT 09/03/23 14:25 IMPRESSION: Mild degree of residual sigmoid diverticulitis. There has been improvement as compared to prior study. The remainder of the examination is unchanged. (2) Hypokalemia: Status: Acute Code(s): E87.6 - Hypokalemia Plan: Improved, but ongoing. Continue to replace. Check magnesium and replace if low. (3) Esophageal dysphagia: Status: Acute Code(s): R13.19 - Other dysphagia Plan: 2/2 esophageal stenosis. EGD today showed esophageal changes cw eosinophilic esophagitis (biopsied), pill in esophagus (removed), benign esophageal stenosis (dilated), bile gastritis (biopsied) ST eval. Plan Chronic conditions: * Parkinson's diseases: resume carbidopa/levodopa when able. She has significant polyneuropathy and Parkinson disease with disequilibrium difficult gait and decreased lower extremity muscle power. Continue PT and OT. Advised follow-up in neurology clinic. * pAfib: resume amiodarone, apixaban, metoprolol tartrate * hypothyroidism: resume levothyroxine * HTN: resume amlodipine * microscopic colitis: hold entocort until completed abx for diverticulitis * HFpEF: chronic. compensated. Hold furosemide and potassium supplement as patient is having diarrhea. Continue spironolactone for hypokalemia.. VTE prophylaxis: SCDs. Discharge medication reconciliation done. Discharge follow-up instructions completed. Discharge process discussed with the patient and all questions were answered to patient's satisfaction. Patient discharged to acute rehab. Total time spent, exact 35 minutes on discharge meds reconciliation, examination, coordination of care with nurses and ancillary staff, review of imaging and blood test and discussion with the patient on follow-up instructions. Medications at Discharge Home Medications allopurinol 300 mg tablet 300 mg PO DAILY 12/03/20 citalopram 20 mg tablet 20 mg PO QHS 06/13/21 xvejuujnkeis-adqrwbfc-kydhdm tablet 1 tab PO DAILY 06/13/21 trazodone 100 mg tablet 100 mg PO QHS 09/05/21 ascorbate calcium (vitamin C) 500 mg tablet 500 mg PO DAILY 01/17/22 cholecalciferol (vitamin D3) 25 mcg (1,000 unit) capsule 25 mcg PO DAILY 01/17/22 meclizine 25 mg tablet 25 mg PO DAILY PRN Dizziness 10/16/22 amiodarone 200 mg tablet 200 mg PO DAILY #90 tabs 11/15/22 metoprolol tartrate 50 mg tablet 50 mg PO BID #180 tabs 11/15/22 zinc acetate 50 mg (zinc) capsule 100 mg PO DAILY 11/28/22 ursodiol 250 mg tablet 250 mg PO BID #180 tabs 01/04/23 pravastatin 40 mg tablet 40 mg PO DAILY #90 TABLETS 01/29/23 budesonide 3 mg capsule,delayed,extended release 6 mg (2 x 3 mg) PO QAM #180 ea 03/20/23 entacapone 200 mg tablet 200 mg PO BID 06/05/23 furosemide 40 mg tablet 40 mg PO BID #180 tabs 06/05/23 carbidopa 25 mg-levodopa 100 mg tablet 2 tab PO .COMPLEX #540 tabs 06/08/23 carbidopa ER 50 mg-levodopa 200 mg tablet,extended release 1 tab PO .COMPLEX #180 tabs 06/08/23 potassium chloride 20 mEq tablet,extended release 20 meq PO DAILY #90 tabs 06/26/23 apixaban 2.5 mg tablet (Eliquis) 2.5 mg PO BID #180 tabs 08/06/23 folic acid 1 mg tablet 1 mg PO DAILY #30 tabs 08/09/23 sulfasalazine 500 mg tablet,delayed release 1 g (2 x 500 mg) PO BID 30 days #120 tabs 08/09/23 spironolactone 25 mg tablet 25 mg PO DAILY #90 tabs 08/16/23 amlodipine 5 mg tablet 5 mg PO DAILY #90 tabs 08/20/23 colestipol 1 gram tablet 1 g PO BID 30 days #60 tabs 08/30/23 baclofen 20 mg tablet 20 mg PO QHS 08/31/23 buspirone 10 mg tablet 10 mg PO TID PRN anxiety 08/31/23 ciprofloxacin HCl 500 mg tablet 500 mg PO BID #14 TABLETS 08/31/23 cyclosporine 0.05 % eye drops in a dropperette 1 drp ophthalmic (eye) Q12H 08/31/23 dicyclomine 10 mg capsule 20 mg (2 x 10 mg) PO TIDAC #20 CAPSULES 08/31/23 hydrocodone-acetaminophen 5-325mg 5mg-325mg 1 tab PO Q6H PRN PRN Pain 3 days #10 TABLETS 08/31/23 levothyroxine 175 mcg tablet 175 mcg PO DAILY 08/31/23 metronidazole 500 mg tablet 500 mg PO Q8H #21 tabs 08/31/23 pantoprazole 40 mg tablet,delayed release (Protonix) 40 mg PO DAILY #30 tabs 09/05/23 acidophilus 25 million cell-pectin, citrus 100 mg tablet 2 tab PO BID #0 tabs 09/06/23 amoxicillin 500 mg-potassium clavulanate 125 mg tablet (Augmentin) 1 tab PO BID 5 days #10 tabs 09/06/23 ampicillin-sulbactam 3 gram solution for injection 3 g IV Q8 #0 ea 09/06/23 Physical Exam Narrative Seen and examined. Patient complaining of liquid to semisolid 3 bowel movements today. Mild abdominal cramps. She does not have abdominal tenderness. Stool for enteric bacteriology panel and C. difficile ordered. No nausea or vomiting. Patient is states she can swallow well after EGD. She is on IV antibiotic for mild sigmoid diverticulitis. She states she is too weak and very hard time in walking even with the help of physical therapist. Physical exam General: Alert, Oriented x3, Cooperative HEENT: Atraumatic, PERRLA, EOMI, Normocephalic Oral: Oral mucosa moist. No Gingival or Mucosal Lesions/ Ulcerations Neck: Supple, No JVD, Negative Carotid Bruits Lungs: Air entry diminished in bilateral lung bases. No crepitation/rhonchi Cardiovascular: Regular rate, Regular Rhythm, Normal S1, Normal S2, No murmurs Abdomen: Bowel Sounds Present, Soft, Non Tender, Non-Distended. No palpable mass. : No renal angle tenderness. No suprapubic tenderness. Extremities: No edema, Capillary Refill Less than 3 Seconds Skin: No rashes, No breakdown Musculoskeletal: No Tenderness to Palpation of Joints or Extremities. Muscle strength 4+/5 at knees and hip joints Neurological: Cranial nerves II-XII grossly intact, DTR 2+/4. No acute focal neurological deficit. Psych/Mental Status: Flat affect. Weight / BMI Weight Weight: 234 lb 15.992 oz Body Mass Index (BMI) 36.8 ABG / Lab / Microbiology Data 09/06/23 10:19 09/06/23 10:19 Laboratory: Laboratory Results - last 24 hr 09/06/23 10:19: WBC 7.7, RBC 3.68 L, Hgb 12.1, Hct 38.2, MCV 103.8 H, MCH 32.9 H , MCHC 31.7 L, RDW Std Deviation 55.1 H, RDW Coeff of Tika 14.5, Plt Count 186, MPV 10.1, Immature Gran % (Auto) 1.600 H, Neut % (Auto) 66.6, Lymph % (Auto) 21.7, [place] % (Auto) 8.3, Eos % (Auto) 1.3, Baso % (Auto) 0.5, Absolute Neuts (auto) 5.1, Absolute Lymphs (auto) 1.67, Nucleated RBC % 0, Sodium 145, Potassium 3.5, Chloride 119 H, Carbon Dioxide 22.0, Anion Gap 4 L, BUN 7, Creatinine 0.71, Estim Creat Clear Calc 42.91, Est GFR (MDRD) Af Amer 102, Est GFR (MDRD) Non-Af 84, BUN/Creatinine Ratio 9.9 L, Glucose 106, Calcium 8.2 L D/C Instructions Discharge Diet: No restrictions Weight Bearing Status: Weight bearing as tolerated Call your doctor if you observe: Fever of 101 or Higher, Coldness, Increased Pain, Numbness or Tingling, Change in Color, Inability to urinate, Inability to have a bowel movement, Using more than 1 pad per hour, Shortness of breath, Dizziness, Fainting spells, Swelling in the ankles, Chest pain, Prolonged hiccupping, Increased palpitations (irregular heartbeat) and Calf discomfort When: IN 2 WEEKS Meaningful Use Info Meaningful Use Diagnoses (Choose all that apply): None applicable Discharge Plan Admission Admit Date/Time: 09/03/23 17:47 Primary Reason for Your Visit: Esophageal dysphagia. Sigmoid diverticulitis Attending Provider: Alexandre Mckeon Primary Care Provider: Bernice Moctezuma Consulting Providers: Franck Sánchez; Scotty Khan Discharge Orders/Prescriptions Prescriptions: New pantoprazole [Protonix] 40 mg tablet,delayed release (DR/EC) 40 mg PO DAILY Qty: 30 2RF acidophilus-pectin, citrus 25 million cell -100 mg Tablet 2 tab PO BID Qty: 0 0RF amoxicillin-pot clavulanate [Augmentin] 500-125 mg tablet 1 tab PO BID 5 Days Qty: 10 0RF ampicillin-sulbactam 3 gram Recon Soln 3 g IV Q8 Qty: 0 0RF Rx Instructions: IV Unasyn to continue today and acute rehab tomorrow. Dr. Youssef will discontinue Unasyn there and will start Augmentin. Continued allopurinol 300 mg tablet 300 mg PO DAILY trazodone 100 mg tablet 100 mg PO QHS ascorbate calcium (vitamin C) 500 mg tablet 500 mg PO DAILY cholecalciferol (vitamin D3) 25 mcg (1,000 unit) capsule 25 mcg PO DAILY zinc acetate 50 mg (zinc) capsule 100 mg PO DAILY meclizine 25 mg tablet 25 mg PO DAILY PRN (Reason: Dizziness) ursodiol 250 mg tablet 250 mg PO BID Qty: 180 3RF carbidopa-levodopa 25-100 mg tablet 2 tab PO .COMPLEX Qty: 540 1RF Rx Instructions: 2 tabs orally 3 times daily (8 AM, 2 PM and 6 PM) carbidopa-levodopa 50-200 mg tablet extended release 1 tab PO .COMPLEX Qty: 180 1RF Rx Instructions: 1 TAB orally Twice daily (11 AM and 10 PM) sulfasalazine 500 mg tablet,delayed release (DR/EC) 1 g PO BID 30 Days Qty: 120 3RF folic acid 1 mg tablet 1 mg PO DAILY Qty: 30 3RF entacapone 200 mg tablet 200 mg PO BID Rx Instructions: administer at the same time as l-dopa/carbidopa dose citalopram 20 mg Tablet 20 mg PO QHS [id number] Tablet 1 tab PO DAILY levothyroxine 175 mcg tablet 175 mcg PO DAILY Patient Comments: TAKE 1 TABLET BY MOUTH EVERY DAY cyclosporine 0.05 % dropperette 1 drp ophthalmic (eye) Q12H Rx Instructions: EACH EYE baclofen 20 mg tablet 20 mg PO QHS buspirone 10 mg tablet 10 mg PO TID PRN (Reason: anxiety) hydrocodone-acetaminophen 5-325 mg tablet 1 tab PO Q6H PRN PRN (Reason: Pain) 3 Days Qty: 10 0RF ciprofloxacin HCl 500 mg tablet 500 mg PO BID Qty: 14 0RF dicyclomine 10 mg capsule 20 mg PO TIDAC Qty: 20 0RF metronidazole 500 mg tablet 500 mg PO Q8H Qty: 21 0RF amiodarone 200 mg tablet 200 mg PO DAILY Qty: 90 3RF Rx Instructions: start after loading dose metoprolol tartrate 50 mg tablet 50 mg PO BID Qty: 180 3RF pravastatin 40 mg tablet 40 mg PO DAILY Qty: 90 3RF budesonide 3 mg capsule,delayed,extend.release 6 mg PO QAM Qty: 180 1RF Eliquis 2.5 mg tablet 2.5 mg PO BID Qty: 180 4RF spironolactone 25 mg tablet 25 mg PO DAILY Qty: 90 3RF amlodipine 5 mg tablet 5 mg PO DAILY Qty: 90 3RF colestipol 1 gram tablet 1 g PO BID 30 Days Qty: 60 1RF Held furosemide 40 mg tablet 40 mg PO BID Qty: 180 3RF Hold Instructions: Hold for 2 days. Patient Comments: OCCASIONALLY TAKES ONLY ONCE DAILY potassium chloride 20 mEq tablet extended release 20 meq PO DAILY Qty: 90 3RF Hold Instructions: Hold while holding Lasix. Discontinued omeprazole 20 mg capsule,delayed release(DR/EC) 20 mg PO DAILY Qty: 90 3RF Referrals / Follow Up: Bernice Moctezuma DO [Primary Care Provider] - 09/10/23 10:30 am FriendChino DO [Med Staff - Active Staff] - Within 1 Month Disposition Disposition (needs filled in before D/C Order can be placed): Home, Self Care Charges/Coding Visit Charges Inpatient E&M: 03956 Disch Hosp >30min
[2023-09-06 15:20] VITALS: BP 121/69; PULSE 86; RESP 16; TEMP 36.8; O2SAT 93
--- NOTE | 2023-09-06 15:43 | NURSING ---
Called report to [facility] on rehab unit
== END 2023-09-06 16:11 | disposition home or self-care (01) | DRG 392 ==
LOC: ED 17:18 → PCU 17:57
PROVIDERS: Anesthesiology; Internal Medicine Gastroenterology; Admitting Provider Internal Medicine; Emergency Provider Emergency Medicine; PCP Internal Medicine; Visit Provider Internal Medicine
PROC: 0DJ08ZZ Inspection of Upper Intestinal Tract, Via Natural or Artificial Opening Endoscopic (ICD-10-PCS; CPT 43235; principal; 2023-09-04 15:55)
DX: K22.2 Esophageal obstruction (principal); I50.32 Chronic diastolic (congestive) heart failure; K57.32 Diverticulitis of large intestine without perforation or abscess without bleeding; I27.20 Pulmonary hypertension, unspecified; E11.42 Type 2 diabetes mellitus with diabetic polyneuropathy; I11.0 Hypertensive heart disease with heart failure; I48.0 Paroxysmal atrial fibrillation; E03.9 Hypothyroidism, unspecified; E87.6 Hypokalemia; E78.5 Hyperlipidemia, unspecified; K52.839 Microscopic colitis, unspecified; M10.9 Gout, unspecified; K20.0 Eosinophilic esophagitis; K29.70 Gastritis, unspecified, without bleeding; I25.10 Atherosclerotic heart disease of native coronary artery without angina pectoris; G20.C Parkinsonism, unspecified; Z79.01 Long term (current) use of anticoagulants; Z79.899 Other long term (current) drug therapy; Z87.891 Personal history of nicotine dependence; R13.19 Other dysphagia
CPT/HCPCS: 36415; 74177; 80048; 80053; 80076; 81001; 83605; 83690; 83735; 84443; 85025; 85610; 85730; 87493; 87506; 88305; 88342; 92526; 92610; 93005; 96365; 96366; 96372; 96375; 97162; 97166; 97530; 97535; 99285; J7030; J7050; J7120; Q9967; A4216; C1769; J0295; J2405

== ENCOUNTER 2023-09-06 16:17 | Inpatient (IN) | payer MEDICARE, SELFPAY ==
--- NOTE | 2023-09-06 16:53 | PCM.HP.STD ---
[facility] - General General Date of Admission: 09/06/23 Date of Service: 09/06/23 Chief Complaint: Dysphagia, frequent falls, diverticulitis, esophagitis - generalized weakness HPI Narrative BA LANZA, is a 83 YO F with a PMH of atrial fibrillation, chronic anticoagulation with Eliquis, cerebrovascular disease, chronic diastolic congestive heart failure, chronic fatigue, diverticulosis, essential hypertension, fatty infiltration of the liver, GERD, gout, coronary artery disease, hiatal hernia, hyperlipidemia, hypothyroidism, lumbar degenerative disc disease, mild cognitive impairment, microscopic colitis, Parkinson's disease, polyneuropathy, Shy-Drager syndrome, urine and fecal incontinence and dysphagia. She presented to the ED at [facility] on 09/03/2023 complaining that she had been on antibiotics for 4 days because of diverticulitis diagnosed on a CT scan and she was feeling worse with increasing pain, nausea and vomiting. She was having subjective fevers and chills and felt weak. She started getting sick approximately 1 week prior to the CT scan. She additionally complained of trouble swallowing and feeling as though things were stuck in her throat. She was having problems with liquids and solids. She had a repeat CT scan of the abdomen which showed the diverticulitis was improving on the antibiotic she was taking. Potassium was very low at 2.8 because she had been unable to swallow her medications. The white blood cell count was 9 however there was a marked left shift. Hemo the BUN was within normal limits and so were the platelets. Urine had 0 RBCs and 0 WBCs. She was admitted to the hospitalist service and Dr. Quintana was consulted for EGD. Eliquis was placed on hold. The EGD showed mucosal changes including ringed esophagus and small caliber esophagus in the middle and lower third of the esophagus. Biopsies were obtained from the proximal and distal esophagus for histology for suspected eosinophilic esophagitis. A pill was found in the lower third of the esophagus and it was removed with forceps. There was 1 benign-appearing intrinsic moderate stenosis found at 34 to 37 cm from the incisors and the stenosis was traversed. Esophageal dilation followed. There were diffuse severe inflammatory changes with erosions and erythema in the entire examined stomach at biopsies were taken. A biopsy for Helicobacter pylori was also taken. While in the hospital Ba c/o 3 falls in the past month and increased tremors. She was very fatigued and having trouble getting out af a chair and ambulating. She was seen by PT/OT and she was having a lot of difficulty getting up from a chair and required assistance. She also required assistance with stand pivot. She complained of lightheadedness. She felt too weak to even ambulate in her room and was shaky and fearful. She lives alone and at this time she is not able to care for herself. Previously she was independent with all ADL's. She was admitted to the acute inpt rehab unit at [facility] on `09/06/23 for 3 hours of therapy daily to restore function/independence at or near her level prior to the development of diverticulitis so that she may return home post DC from rehab. [facility] Medical History (Updated 09/07/23 @ 11:[address] Christina Youssef, ) Abnormal mammogram of right breast Acute insomnia Arthritis Atrial fibrillation Atrial fibrillation with RVR Back pain Biatrial enlargement Bleeding tendency Cellulitis Cerebrovascular disease Chronic diastolic (congestive) heart failure Chronic fatigue Claudication Congestive heart failure (CHF) Coronary artery disease Diabetes Diastolic dysfunction with chronic heart failure Difficulty balancing Diverticulosis Dysfunctional gallbladder Dyspnea Edema Essential (primary) hypertension Fatigue Fatty liver Former smoker Gastritis GERD (gastroesophageal reflux disease) Gout Hearing loss, left Hearing loss, right Heart disease Hiatal hernia High cholesterol History of steroid therapy History of stress test HLD (hyperlipidemia) Hypertension Hypothyroidism Hypoxia IBS (irritable bowel syndrome) Incontinence Limb weakness Low back pain with bilateral sciatica Lumbar degenerative disc disease MCI (mild cognitive impairment) Microscopic colitis Morbid obesity with BMI of 40.0-44.9, adult On home oxygen therapy Osteopenia Osteoporosis Parkinson disease Paroxysmal atrial fibrillation Pneumonia involving right lung Polyneuropathy, unspecified Post-menopausal Postural lightheadedness Restless legs Shy-Drager syndrome Sleep apnea Stool incontinence Tremor Urinary incontinence Home Medications allopurinol 300 mg tablet 300 mg PO DAILY see pcp 12/03/20 [History Last Taken 09/03/23] citalopram 20 mg tablet 20 mg PO QHS see pcp 06/13/21 [History Last Taken 09/02/23] yfyvjfcfbnik-bbgwkjxw-yuzhvc tablet 1 tab PO DAILY supplement 06/13/21 [History Last Taken 09/02/23] trazodone 100 mg tablet 100 mg PO QHS see pcp 09/05/21 [History Last Taken 09/02/23] ascorbate calcium (vitamin C) 500 mg tablet 500 mg PO DAILY supplement 01/17/22 [History Last Taken 09/03/23] cholecalciferol (vitamin D3) 25 mcg (1,000 unit) capsule 25 mcg PO DAILY see pcp 01/17/22 [History Last Taken 09/03/23] meclizine 25 mg tablet 25 mg PO DAILY PRN Dizziness 10/16/22 [History Last Taken Unknown] metoprolol tartrate 50 mg tablet 50 mg PO BID see pcp #180 tabs 11/15/22 [Rx Last Taken 09/03/23] zinc acetate 50 mg (zinc) capsule 100 mg PO DAILY see pcp 11/28/22 [History Last Taken 09/03/23] ursodiol 250 mg tablet 250 mg PO BID see pcp #180 tabs 01/04/23 [Rx Last Taken 09/03/23] budesonide 3 mg capsule,delayed,extended release 6 mg (2 x 3 mg) PO QAM see pcp #180 ea 03/20/23 [Rx Last Taken Unknown] entacapone 200 mg tablet 200 mg PO BID see pcp 06/05/23 [History Last Taken 09/03/23] furosemide 40 mg tablet 40 mg PO BID see pcp #180 tabs 06/05/23 [Rx Last Taken 09/03/23] carbidopa 25 mg-levodopa 100 mg tablet 2 tab PO .COMPLEX see pcp #540 tabs 06/08/23 [Rx Last Taken 09/03/23] carbidopa ER 50 mg-levodopa 200 mg tablet,extended release 1 tab PO .COMPLEX parkinson's #180 tabs 06/08/23 [Rx Last Taken 09/03/23] potassium chloride 20 mEq tablet,extended release 20 meq PO DAILY supplement #90 tabs 06/26/23 [Rx Last Taken 09/03/23] apixaban 2.5 mg tablet (Eliquis) 2.5 mg PO BID see pcp #180 tabs 08/06/23 [Rx Last Taken 09/03/23] folic acid 1 mg tablet 1 mg PO DAILY supplement #30 tabs 08/09/23 [Rx Last Taken 09/03/23] sulfasalazine 500 mg tablet,delayed release 1 g (2 x 500 mg) PO BID see pcp 30 days #120 tabs 08/09/23 [Rx Last Taken 09/03/23] spironolactone 25 mg tablet 25 mg PO DAILY see pcp #90 tabs 08/16/23 [Rx Last Taken 09/03/23] amlodipine 5 mg tablet 5 mg PO DAILY see pcp #90 tabs 08/20/23 [Rx Last Taken 09/03/23] colestipol 1 gram tablet 1 g PO BID see pcp 30 days #60 tabs 08/30/23 [Rx Last Taken 09/03/23] baclofen 20 mg tablet 20 mg PO QHS see pcp 08/31/23 [History Last Taken 09/02/23] buspirone 10 mg tablet 10 mg PO TID PRN anxiety 08/31/23 [History Last Taken 09/03/23] ciprofloxacin HCl 500 mg tablet 500 mg PO BID not taking #14 TABLETS 08/31/23 [Rx Last Taken 09/03/23] cyclosporine 0.05 % eye drops in a dropperette 1 drp ophthalmic (eye) Q12H see pcp 08/31/23 [History Last Taken 09/03/23] dicyclomine 10 mg capsule 20 mg (2 x 10 mg) PO TIDAC see pcp #20 CAPSULES 08/31/23 [Rx Last Taken 09/03/23] hydrocodone-acetaminophen 5-325mg 5mg-325mg 1 tab PO Q6H PRN PRN Pain 3 days #10 TABLETS 08/31/23 [Rx Last Taken 09/03/23] levothyroxine 175 mcg tablet 175 mcg PO DAILY see pcp 08/31/23 [History Last Taken 09/03/23] metronidazole 500 mg tablet 500 mg PO Q8H see pcp #21 tabs 08/31/23 [Rx Last Taken 09/03/23] pantoprazole 40 mg tablet,delayed release (Protonix) 40 mg PO DAILY see pcp #30 tabs 09/05/23 [Rx Last Taken Unknown] acidophilus 25 million cell-pectin, citrus 100 mg tablet 2 tab PO BID see pcp #0 tabs 09/06/23 [Rx Last Taken Unknown] amiodarone 200 mg tablet 200 mg PO DAILY see pcp 09/06/23 [History Last Taken Unknown] amoxicillin 500 mg-potassium clavulanate 125 mg tablet (Augmentin) 1 tab PO BID see pcp 5 days #10 tabs 09/06/23 [Rx Last Taken Unknown] ampicillin-sulbactam 3 gram solution for injection 3 g IV Q8 see pcp #0 ea 09/06/23 [Rx Last Taken 09/06/23 14:30] pravastatin 40 mg tablet 40 mg PO QHS see pcp 09/06/23 [History Last Taken Unknown] Allergy/AdvReac Type Severity Reaction Status Date / Time adhesive tape Allergy Intermediate Hives Verified 09/03/23 13:43 amitriptyline Allergy Intermediate Rash Verified 09/03/23 13:43 simvastatin AdvReac Severe myalgias Verified 09/03/23 13:43 celecoxib [From Celebrex] AdvReac Mild Diarrhea Verified 09/03/23 13:43 Family History Father CAD (coronary artery disease) CVA (cerebral vascular accident) Anesthesia complication Arthritis Heart disease Myocardial infarction Hypertension Mother CAD (coronary artery disease) Arthritis Breast cancer Heart disease Myocardial infarction Hypertension Thyroid disorder Sister Breast cancer Heart disease Thyroid disorder Aunt Parkinson's disease suspected but no diagnosis; maternal aunt Surgical History H/O bilateral salpingo-oophorectomy H/O cardiac catheterization History of appendectomy History of arthroscopic knee surgery History of cardioversion (03/30/23) History of colonoscopy History of hysterectomy History of left heart catheterization (08/14/16) History of left hip replacement History of lithotripsy History of lumpectomy S/P hysterectomy Social History (Updated 09/07/23 @ 10:[address] Christina Youssef DO) household members: none housing: condominium current occupational status: retired Smoking Status: Former smoker Tobacco: How many years used: 8 second hand exposure: No alcohol intake: current alcohol intake frequency: a few times a week Alcohol type: wine details: DAILY WINE substance use type: does not use ramsey/worship: Orthodox seatbelt use: always ROS Constitutional Constitutional: Reports fatigue and weakness; Denies anorexia, change in weight, chills, fever(s) or night sweats Eyes Eyes: Reports dry eyes; Denies blurry vision, change in vision, diplopia, discharge from eye(s), double vision, eye pain or loss of vision ENT HEENT: Reports dysphagia; Denies abnormal hearing, headache(s), hearing loss, nasal congestion, neck pain, odynophagia or sore throat Cardiovascular Cardiovascular: Reports dyspnea on exertion, edema and other Details: She has gained 22 pounds since admission to the hospital. Lasix has been on hold. She has pitting edema up to the upper thigh bilaterally ; Denies chest pain, lightheadedness, orthopnea, palpitations, paroxysmal nocturnal dyspnea or syncope Respiratory/Chest Respiratory/Chest: Reports shortness of breath with exertion and other Details: She has known obstructive sleep apnea but could not tolerate CPAP and therefore is on oxygen at night. ; Denies cough, dyspnea, shortness of breath at rest or wheezing Gastrointestinal Gastrointestinal: Reports dysphagia; Denies abdominal pain, constipation, diarrhea, dyspepsia, hematemesis, hematochezia, nausea or vomiting Genitourinary Genitourinary: Reports urinary incontinence; Denies dysuria, hematuria, nocturia, urinary frequency, urinary hesitancy or urinary urgency Musculoskeletal Musculoskeletal: Reports back pain and joint stiffness; Denies joint pain, joint swelling or neck pain Neurologic Neurologic: Reports disequilibrium, paresthesias, sensory deficit, tremor(s), vertigo and weakness; Denies confusion, dizziness, focal weakness, headache(s) or seizures Psychiatric Psychiatric: Reports other Details: She has a hx of MCI but, her thought processes and memory are intact when I talk with her. ; Denies anxiety, behavioral changes, depression, homicidal ideation or suicidal ideation Endocrine Endocrinology: Denies change in body appearance, polydipsia or polyuria Hematologic/Lymphatic Hematologic/Lymphatic: Reports easy bleeding and easy bruising; Denies lymphadenopathy Allergic/Immunologic Allergic/Immunologic: Denies rhinitis, eczemia or asthma Physical Exam Const alert, oriented x3 and no apparent distress Constitutional Narrative: Pleasant and making good eye contact. She is appropriate. General Appearance: cooperative and well kempt Nutritional Appearance: morbidly obese HEENT normocephalic, head/scalp atraumatic and hearing grossly normal bilaterally Eyes PERRL and EOMs intact bilaterally Eyes Narrative: No recent changes in vision and she feels like she sees pretty well. General Eye: normal appearance of both eyes Neck supple and no carotid bruits Neck Narrative: Thick neck General: trachea midline; Negative for tenderness Carotids: normal carotid upstroke and other Other Details: Good carotid pulse volume. Chest Chest: symmetrical chest wall rise Resp normal respiratory effort, normal air movement and clear to auscultation bilaterally Effort and Inspection: able to speak in complete sentences Cardio regular rate, S1 normal heart sound, S2 normal heart sound, no murmurs, no rub and no gallops Cardio Narrative: She is in A-fib with an irregular irregular rhythm but controlled ventricular response. GI normal to inspection, nondistended, normoactive bowel sounds, soft to palpation and non-tender GI Narrative: No guarding with palpation no CVA tenderness Back/Spine Back/Spine Narrative: No pain with palpation over the vertebrae in the thoracic and lumbar areas. General Back: Negative for mass or erythema Extremity no calf tenderness Extremity Narrative: She has 4+ tense pitting edema of the lower extremities up to the upper posterior thighs bilaterally. She weighed 235 pounds at presentation to the hospital and her weight today is 257.3 pounds for a 22 pound weight gain since admission. Her Lasix has been held. Skin no wounds and no jaundice Skin Narrative: She has small bruises on her legs and arms and this she states is chronic secondary to Eliquis. General Skin Exam: no breakdown Rashes: no rashes Neuro oriented x3, CN's II-XII intact bilaterally and moves all extremities Psych mental status grossly normal, thought process normal, cooperative, affect normal and speech normal Appearance: grossly normal Attitude: calm Activity / Motor Behavior: appropriate eye contact Results Lab / Micro Data 09/07/23 05:18 09/07/23 05:18 Assessment & Plan Assessment/Plan (1) Debility: (2) Esophageal dysphagia: (3) Esophagitis: (4) Esophageal stenosis: (5) Gastritis: QUALIFIERS: Gastritis type: unspecified gastritis Chronicity: acute Gastritis bleeding: without bleeding Qualified Code(s): K29.00 - Acute gastritis without bleeding PLAN: Bile gastritis., severe. (6) Acute diverticulitis: (7) Hypokalemia: PLAN: resolved (8) Macrocytic anemia: PLAN: mild (9) Hypophosphatemia: (10) Acute diastolic (congestive) heart failure: PLAN: 22 lb weight gain while in the acute side of the hospital. (11) Diastolic dysfunction with chronic heart failure: PLAN: Stage 3 diastolic dysfunction on ECHO 2020 with normal EF of 55% and no wall motion abnormalities. (12) Biatrial enlargement: PLAN: moderate R and mild LAE (13) Diarrhea: PLAN: C. DIFF is negative (14) Microscopic colitis: QUALIFIERS: Microscopic colitis type: other microscopic colitis Qualified Code(s): K52.838 - Other microscopic colitis (15) NAFLD (nonalcoholic fatty liver disease): (16) Hypothyroidism: QUALIFIERS: Hypothyroidism type: postoperative Qualified Code(s): E89.0 - Postprocedural hypothyroidism (17) Anxiety: (18) Premature ventricular contractions: (19) Morbid obesity with BMI of 40.0-44.9, adult: (20) Pulmonary hypertension: PLAN: RV systolic pressure estimated at 47 on ECHO in 2020 (21) KEE (obstructive sleep apnea): PLAN: Unable to tolerate CPAP due to nasal perforation so she wears oxygen 2-1/2 L anytime she is sleeping. 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: PLAN: Eliquis (24) Lumbar degenerative disc disease: (25) Postural lightheadedness: (26) Essential (primary) hypertension: (27) Chronic diastolic (congestive) heart failure: (28) HLD (hyperlipidemia): QUALIFIERS: Hyperlipidemia type: unspecified Qualified Code(s): E78.5 - Hyperlipidemia, unspecified (29) Shy-Drager syndrome: (30) Paroxysmal atrial fibrillation: (31) Cerebrovascular disease: (32) Chronic fatigue: (33) MCI (mild cognitive impairment): (34) Polyneuropathy, unspecified: (35) Parkinson disease: QUALIFIERS: Dyskinesia presence: with dyskinesia Fluctuating manifestations: with fluctuating manifestations Qualified Code(s): G20.B2 - Parkinson's disease with dyskinesia, with fluctuations (36) Dysfunctional gallbladder: PLAN: Plan PLAN PT for gait stability OT for ADL's ST for evaluation Analgesics as needed Bowel protocol Fall precautions Assess for Anxiety/Depression GI prophylaxis with pantoprazole 40 mg daily to treat gastritis/esophagitis DVT prophylaxis with apixaban 2.5 mg twice daily Follow up with Dr. [place], Dr. Quintana, Dr. Law and the heart group following DC from IP Rehab AM lab including CMP, CBC, Mag, phos, uric acid, Will start IV LAsix after I see the lab in the AM and make sure the Potassium is normal. She needs compression for the legs and she is unable to get the TEDS on and she lives alone. Will refer to Dr. Hein at the [facility] at [place] to get her measured for Circaids. Discontinue BuSpar 10 mg daily as needed because this medication does not work as needed Consider getting her off amlodipine because the biggest side effect is peripheral edema and she already has 4+ peripheral edema. Consider starting a low-dose ROSALBA or ARB. Charges/Coding Visit Charges Inpatient E&M: 70570 Init Hosp L3
[2023-09-06 17:52] VITALS: BP 132/72; PULSE 88; RESP 16; TEMP 36.3; O2SAT 97; BMI 40.3
[2023-09-06] MEDS: Carbidopa/Levodopa 25/100 Tablet PO (19:28)
[2023-09-06 19:47] VITALS: BP 140/77; PULSE 80; RESP 16; TEMP 36.8; O2SAT 95
[2023-09-06] MEDS: CARBIDOPA/LEVODOPA CR 50/200 Tablet PO (21:12)
[2023-09-06] MEDS: Citalopram 20 MG Tablet PO (21:12)
[2023-09-06] MEDS: Ursodiol 250 MG Tablet PO (21:12)
[2023-09-06 21:13] VITALS: PULSE 80
[2023-09-06] MEDS: Pravastatin 40 MG Tablet PO (21:13)
[2023-09-06] MEDS: APIXABAN 2.5 MG TABLET (WCH) PO (21:13)
[2023-09-06] MEDS: traZODone 100 MG Tablet PO (21:13)
[2023-09-06] MEDS: Colestipol 1 GM TABLET PO (21:13)
[2023-09-06] MEDS: Baclofen 10 MG Tablet 20 MG PO (21:13)
[2023-09-06] MEDS: Metoprolol Tartrate 50 MG Tablet PO (21:13)
[2023-09-06] MEDS: sulfaSALAzine 500 MG Tablet 1000 MG PO (21:13)
[2023-09-06] MEDS: 0.9% Saline Lock 10 ML Syringe IV (21:14)
[2023-09-06] MEDS: Ampicillin/Sulbactam 3 GM in 0.9% Normal Saline (100mL MB+) 100 ML IV (21:14)
[2023-09-07 05:55] LABS: Hematocrit 35.7 % (37-47); Hemoglobin 11.6 g/dL (12.0-15.0); Mean Corp Hgb Conc 32.5 g/dL (32-36); Mean Corpuscular Volume 101.4 fL (81-99); Platelet Count 166 K/mm3 (150-450); RBC Distribution Width CV 14.3 % (11.6-14.6); RBC Distribution Width SD 52.7 fl (35.1-43.9); Red Blood Count 3.52 M/mm3 (4.2-5.4); White Blood Count 7.1 K/mm3 (4.4-11.0)
[2023-09-07 06:15] LABS: Anion Gap 5 (5-15); BUN 6 mg/dL (7-18); Calcium,Total 8.4 mg/dL (8.5-10.1); Chloride 114 mmol/L (98-107); EST Glomerular Filtration Rate 102 mL/min (>60); Est Glom Filt Rate - Afr Amer 123 mL/min (>60); Estimated Creatinine Clearance 42.91 ml/min; Glucose 88 mg/dL (74-106); Magnesium 1.8 mg/dL (1.6-2.6); Phosphorus 2.3 mg/dL (2.5-4.9); Potassium 3.5 mmol/L (3.5-5.1); Sodium Level 144 mmol/L (136-145)
[2023-09-07] MEDS: Dicyclomine 10 MG Capsule 20 MG PO (06:16)
[2023-09-07] MEDS: Ampicillin/Sulbactam 3 GM in 0.9% Normal Saline (100mL MB+) 100 ML IV ×3 (06:16→22:01)
[2023-09-07] MEDS: Levothyroxine 175 MCG Tablet PO (06:16)
[2023-09-07] MEDS: 0.9% Saline Lock 10 ML Syringe IV ×4 (06:17→22:02)
[2023-09-07] MEDS: Sodium Chloride 0.65% 1 SPRAY SPRAY.BTL NASAL ×2 (06:21→21:41)
[2023-09-07 07:45] VITALS: BP 145/87; PULSE 90; RESP 19; TEMP 36.9; O2SAT 96
[2023-09-07] MEDS: Carbidopa/Levodopa 25/100 Tablet PO ×3 (08:16→17:19)
[2023-09-07] MEDS: Spironolactone 25 MG Tablet PO (08:16)
[2023-09-07] MEDS: Colestipol 1 GM TABLET PO ×2 (08:17→22:50)
[2023-09-07] MEDS: Multivitamins,Ther W-Minerals Tablet 1 TABLET PO (08:18)
[2023-09-07] MEDS: Allopurinol 300 MG Tablet PO (08:19)
[2023-09-07] MEDS: APIXABAN 2.5 MG TABLET (WCH) PO ×2 (08:19→21:41)
[2023-09-07] MEDS: sulfaSALAzine 500 MG Tablet 1000 MG PO ×2 (08:20→21:41)
[2023-09-07] MEDS: Budesonide 3 MG CAPSULE.EC 6 MG PO (08:21)
[2023-09-07] MEDS: Ascorbic Acid 500 MG Tablet PO (08:21)
[2023-09-07 08:22] VITALS: PULSE 90
[2023-09-07] MEDS: Folic Acid 1 MG Tablet PO (08:22)
[2023-09-07] MEDS: Amiodarone 200 MG Tablet PO (08:22)
[2023-09-07] MEDS: Metoprolol Tartrate 50 MG Tablet PO ×2 (08:22→21:40)
[2023-09-07] MEDS: Pantoprazole Sodium 40 MG Tablet PO (08:23)
[2023-09-07] MEDS: Cholecalciferol (VIT D3) 25 MCG TABLET (1,000 UNITS) PO (08:23)
[2023-09-07] MEDS: Zinc Sulfate 50 mg zinc (220 mg) ORAL capsule PO (08:23)
[2023-09-07] MEDS: Ursodiol 250 MG Tablet PO ×2 (08:24→21:41)
[2023-09-07] MEDS: amLODIPine 5 MG Tablet PO (08:24)
[2023-09-07] MEDS: Glycerin/Hypromellose/PEG400 15 ml Bottle EACH EYE ×2 (08:27→21:41)
[2023-09-07 11:23] LABS: Uric Acid 2.4 mg/dL (2.6-6.0)
--- NOTE | 2023-09-07 12:14 | PCM.RU.PYE ---
Admission Information Primary Diagnosis:: Debility due to functional decline and patient with acute diverticulitis/pill esophagitis/Parkinson's disease. Status Changes from Prescreening?: No changes Identified Actual Problem List:: Falls, Pain, ALteration in Cmfrt, Bladder Incontinence, Alteration in Sleep, Mobility Impaired, Self Care Deficit, Alteration/ Air Exchange, Fluid Overload r/t CHF and Alteration-Leisure Activ. Potential Problem List:: DVT, Bleeding, Infection, UTI, Aspiration, Falls, Skin Integrity and Depression Risk of Complications DVT: ERIK Hose and - (Eliquis 2.5 mg p.o. twice daily) Bleeding: Monitor Lab Values, Nursing to Teach Precautions for anti-coagulation therapy., Wound, if applicable, to be assessed every shift. and Stroke patients assessed for lethargy or change in status. Infection: Clinical Staff to Monitor for S/S of infection: and S/S of infection include fever, redness, warmth, etc. Urinary Tract Infection: Monitor for frequency, burning, discomfort, or incontinence. and Nursing will obtain urine sample for urinalysis and C&S when ordered. Aspiration: Clinical staff will monitor for coughing, drooling, congestion., Speech will evaluate swallowing and dsyphasia. and Nursing will monitor patient swallowing during meals. Falls: Patient will be evaluated for Fall Precautions and Patient will be placed on Fall Precautions as indicated per protocol. Skin Breakdown: Nursing will assess skin daily using assessment tool. and Nursing will place on Skin Breakdown Precautions as indicated. Pain: Clinical staff will assess patient's pain level per protocol., Medications will be given, if needed, and the pain level reassessed. and Other methods: Massage, distraction, decrease stimulus, etc. used PRN. Plan of Care Patient requires physician specializing in physical medicine and rehab oversight to provide close medical supervision of rehab issues including: Pain Management, Sleep Problems, Bowel and Bladder, Medical and co-morbidity Management, DVT prophylaxis, Rehabilitation Leadership and Coordination of treatment team Patient needs Physical Therapy: For a minimum of 1 hour and At least 5 out of 7 days Patient needs Physical Therapy to improve:: Mobility, Strengthening, Transfers, Stretching, ROM, Endurance, Stairs, Gait and Balance Patient needs Occupational Therapy: For a minimum of 1 hour and At least 5 out of 7 days Patient needs Occupational Therapy to improve ADL's incl.: Eating, Grooming, Bathing, Dressing, Toileting, Toilet transfers, Community Reintegration, Higher functioning activities, Household tasks, Adaptive Equipment, Splinting and Other activities as determined Patient requires speech therapy: For a minimum of 1 hour and At least 5 out of 7 days Patient requires speech therapy for: Swallowing, Cognition, Language Skills and Compensatory Strategies Patient requires 24/7 Rehabilitation Nursing for: Pain Issues, Identifying and preventing risk factors, Monitoring and reporting current medical conditions, Assisting with ambulation, transfer, and all ADL's, Teaching patients about disease process and medications, Family teaching, Providing safe environment, Bowel and Bladder Issues, Skin integrity and Medication Management Patient needs Traveling Plant Operator/ Case Management for: Discharge Planning, Arranging Home Equipment or Services and Family Interventions Patient needs Dietary and Nutrition Services for: Adequate Nutrition, Nutritional Supplements and Nutritional Education Goals Patient will remain: free from falls and or injury at time of discharge. Patient will perform bed mobility at: MOD I level of assist. Patient will complete transfers from bed to chair at: MOD I level of assist. Patient will ambulate: 100 feet and with LRD Patient will complete upper body dressing at: MOD I level of assist. Patient will complete lower body dressing at: MOD I level of assist. Patient will complete toileting at: MOD I level of assist. Patient will perform bathing at: MOD I level of assist. Patient will complete grooming at: MOD I level of assist. Patient will complete home management skills at: MOD I level of assist. Patient will achieve: - (1 curb step) Patient will have pain level of: of 3 or less Patient's skin will: remain intact Patient will receive: adequate nutrition. Discharge Planning Pt Prognosis for Sig. Practical Improv. w/in Reasonable Time: Good Estimated Length of stay (days): 10 Anticipated D/C Destination: Home with Outpt Therapy Was Preadmission Assessment Accurate?: Yes
[2023-09-07] MEDS: Flu Vacc QS2023-24(65YR UP)/PF 240 MCG/0.7 ML Syringe IM (12:15)
[2023-09-07] MEDS: CARBIDOPA/LEVODOPA CR 50/200 Tablet PO ×2 (12:20→21:41)
--- NOTE | 2023-09-07 12:21 | PCM.PROGNOTE ---
Subjective Subjective Afebrile VSS Maintaining appropriate oxygen saturation on RA Oral intake is good Discussed with nursing - no problems that need addressed Reviewed the PT/OT/ST notes Medication list reviewed. All lab drawn this morning was personally reviewed. Mirtha tells me that occupational therapy went well this morning. She has not seen physical therapy for her evaluation yet. She tells me she did not sleep well last night and could not fall asleep. She is taking 100 mg of trazodone nightly. We will continue this. Johanna denies chest pain, shortness of breath at rest, nausea/vomiting, calf pain and dysuria. She only had 2 stools yesterday. C. difficile was negative. She is amenable to the medications changes we discussed. Objective Data Objective Data Vital Signs: Vital Signs Temp Pulse Resp BP Pulse Ox O2 Del Method 98.5 F 90 19 H 145/87 H 96 Room Air 09/07/23 07:45 09/07/23 08:22 09/07/23 07:45 09/07/23 07:45 09/07/23 07:45 09/07/23 07:45 Oxygen Delivery Method Room Air Weight: 257 lb 4.471 oz Body Mass Index (BMI) 40.3 Intake & Output: Intake and Output for Last 24 Hours 09/05/23 09/06/23 09/07/23 23:59 23:59 23:59 Intake Total 752 / 752 552 / 552 Output Total 200 / 200 200 / 200 Balance 552 / 552 352 / 352 Lab / Micro Data 09/07/23 05:18 09/07/23 05:18 Labs: Laboratory Results - last 24 hr 09/07/23 05:18: WBC 7.1, RBC 3.52 L, Hgb 11.6 L, Hct 35.7 L, MCV 101.4 H, MCH 33.0 H, MCHC 32.5, RDW Std Deviation 52.7 H, RDW Coeff of Tika 14.3, Plt Count 166, MPV 10.0, Sodium 144, Potassium 3.5, Chloride 114 H, Carbon Dioxide 25.0, Anion Gap 5, BUN 6 L, Creatinine 0.60, Estim Creat Clear Calc 42.91, Est GFR (MDRD) Af Amer 123, Est GFR (MDRD) Non-Af 102, BUN/Creatinine Ratio 10.0, Glucose 88, Uric Acid 2.4 L, Calcium 8.4 L, Phosphorus 2.3 L, Magnesium 1.8 Physical Exam Const alert, oriented x3 and no apparent distress Nutritional Appearance: morbidly obese Resp normal respiratory effort, normal air movement and clear to auscultation bilaterally Effort and Inspection: able to speak in complete sentences Cardio regular rate, no murmurs, no rub and no gallops Cardio Narrative: She is in A-fib with an irregular irregular rhythm but controlled ventricular response. GI normal to inspection, nondistended, normoactive bowel sounds, soft to palpation and non-tender GI Narrative: No guarding with palpation Extremity no calf tenderness Extremity Narrative: She has 4+ tense pitting edema of the lower extremities up to the upper posterior thighs bilaterally. She weighed 235 pounds at presentation to the hospital and her weight today is 257.3 pounds for a 22 pound weight gain since admission. Her Lasix has been held. Skin General Skin Exam: no breakdown Rashes: no rashes Neuro oriented x3, CN's II-XII intact bilaterally and moves all extremities Psych mental status grossly normal, thought process normal, cooperative and affect normal Assessment & Plan Assessment/Plan (1) Debility: (2) Esophageal dysphagia: (3) Esophagitis: (4) Pill esophagitis due to potassium chloride: (5) Esophageal stenosis: (6) Gastritis: QUALIFIERS: Gastritis type: unspecified gastritis Chronicity: acute Gastritis bleeding: without bleeding Qualified Code(s): K29.00 - Acute gastritis without bleeding (7) Acute diverticulitis: (8) Hypokalemia: (9) Macrocytic anemia: (10) Hypophosphatemia: (11) Acute diastolic (congestive) heart failure: (12) Diastolic dysfunction with chronic heart failure: (13) Biatrial enlargement: (14) Diarrhea: QUALIFIERS: Diarrhea type: unspecified type Qualified Code(s): R19.7 - Diarrhea, unspecified (15) Microscopic colitis: QUALIFIERS: Microscopic colitis type: other microscopic colitis Qualified Code(s): K52.838 - Other microscopic colitis (16) NAFLD (nonalcoholic fatty liver disease): (17) Hypothyroidism: QUALIFIERS: Hypothyroidism type: postoperative Qualified Code(s): E89.0 - Postprocedural hypothyroidism (18) Anxiety: (19) Premature ventricular contractions: (20) Morbid obesity with BMI of 40.0-44.9, adult: (21) Pulmonary hypertension: (22) KEE (obstructive sleep apnea): (23) Dyspnea on minimal exertion: (24) 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: (25) Lumbar degenerative disc disease: (26) Postural lightheadedness: (27) Essential (primary) hypertension: (28) Chronic diastolic (congestive) heart failure: (29) HLD (hyperlipidemia): QUALIFIERS: Hyperlipidemia type: unspecified Qualified Code(s): E78.5 - Hyperlipidemia, unspecified (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 Continue therapy 2. DC PRN Buspar 3. DC Amlodipine due to peripheral edema 4. ADD Hydralazine PRN for BP > 150/90 5. Continue ROSALBA wraps on the LE's and elevation of both LE's when she is sitting in the recliner 6. Supplement potassium to keep K around 4. 7. Supplement phosphorous 8. Recheck a BMP in the AM and check BMP, CBC with diff, phos and albumin on Sunday 9. Check Uric acid and Albumin today and calculate true calcium corrected for hypoalbuminemia 10. She has been on Lisinopril in the past and does not know why it was stopped. If I need to start another antihypertensive will likely try this.......adding this to the Aldactone may keep the potassium high enough so that she does not have to take a potassium supplement......potassium is what caused the pill espohagitis. 11. I&O and daily weights. 12. Insert a Cook catheter for the next 2 to 3 days while she is receiving Lasix 40 mg IV twice daily. She has a history of some urinary incontinence and we need accurate intake and output. 13. CBC continues to show an increased immature granulocyte fraction and she still has some left lower quadrant abdominal pains we will continue the Unasyn for 1 day more and then likely switch to Levaquin/Flagyl or Augmentin. 14. Continue lactobacillus and start Imodium as needed loose stool. 15. Decrease Bentyl to 10 mg p.o. 3 times daily AC Charges/Coding Visit Charges Inpatient E&M: 84081 Subs Hosp L2
[2023-09-07 12:22] LABS: AST(SGOT) 12 U/L (15-37); Alanine Aminotransfer ALT/SGPT 10 U/L (13-56); Albumin, Serum 2.9 g/dL (3.2-5.0); Alkaline Phosphatase 59 U/L (45-117); Bilirubin, Direct 0.14 mg/dL (0.00-0.30); Globulin 2.9 g/dL (2.2-4.2); Protein, Total 5.8 g/dL (6.4-8.2)
[2023-09-07] MEDS: Loperamide 2 MG Capsule PO ×3 (12:55→21:41)
[2023-09-07] MEDS: Na Biphos/Potassium Phosphate PACKET 1 PACKET PO ×2 (12:55→21:41)
[2023-09-07] MEDS: Furosemide 40 MG/4 ML Vial IV ×2 (13:05→17:20)
[2023-09-07] MEDS: Potassium Chloride Oral Tablet 20 MEQ 40 MEQ PO (13:05)
[2023-09-07] MEDS: Dicyclomine 10 MG Capsule PO (15:19)
--- NOTE | 2023-09-07 16:00 | CASEMGMT ---
Social Work SW attempted to complete admission assessment with pt but pt requested this worker return Sunday. Lena Ferreira, PHYSICAL THERAPY ASSISTANT MACHINE MAINTENANCE REPAIRER
[2023-09-07] MEDS: Potassium Chloride Oral Tablet 20 MEQ PO (17:14)
[2023-09-07 21:40] VITALS: BP 145/80; PULSE 92
[2023-09-07] MEDS: Citalopram 20 MG Tablet PO (21:40)
[2023-09-07] MEDS: traZODone 100 MG Tablet PO (21:41)
[2023-09-07] MEDS: Pravastatin 40 MG Tablet PO (21:45)
[2023-09-07 22:00] VITALS: BP 122/72; PULSE 89; RESP 16; TEMP 37.2; O2SAT 93
[2023-09-07] MEDS: 0.9% Normal Saline (250mL Bag) 250 ML 15 ML IV (22:02)
[2023-09-08] MEDS: Na Biphos/Potassium Phosphate PACKET 1 PACKET PO ×3 (06:00→22:07)
[2023-09-08] MEDS: Levothyroxine 175 MCG Tablet PO (06:00)
[2023-09-08] MEDS: 0.9% Saline Lock 10 ML Syringe IV ×2 (06:00→13:05)
[2023-09-08] MEDS: Ampicillin/Sulbactam 3 GM in 0.9% Normal Saline (100mL MB+) 100 ML IV ×3 (06:01→22:15)
[2023-09-08] MEDS: Dicyclomine 10 MG Capsule PO ×3 (06:52→17:07)
[2023-09-08 08:00] VITALS: BMI 40.6
[2023-09-08 08:29] VITALS: PULSE 82
[2023-09-08] MEDS: sulfaSALAzine 500 MG Tablet 1000 MG PO ×2 (08:29→22:03)
[2023-09-08] MEDS: Folic Acid 1 MG Tablet PO (08:29)
[2023-09-08] MEDS: Metoprolol Tartrate 50 MG Tablet PO ×2 (08:29→22:05)
[2023-09-08 08:30] VITALS: BP 136/84; PULSE 80; RESP 18; TEMP 36.5; O2SAT 95
[2023-09-08] MEDS: Amiodarone 200 MG Tablet PO (08:30)
[2023-09-08] MEDS: Multivitamins,Ther W-Minerals Tablet 1 TABLET PO (08:30)
[2023-09-08] MEDS: Carbidopa/Levodopa 25/100 Tablet PO ×3 (08:31→18:03)
[2023-09-08] MEDS: Potassium Chloride Oral Tablet 20 MEQ PO ×3 (08:33→18:03)
[2023-09-08] MEDS: Spironolactone 25 MG Tablet PO (08:34)
[2023-09-08] MEDS: Sodium Chloride 0.65% 1 SPRAY SPRAY.BTL NASAL ×2 (08:35→17:17)
[2023-09-08] MEDS: APIXABAN 2.5 MG TABLET (WCH) PO ×2 (08:36→22:11)
[2023-09-08] MEDS: Pantoprazole Sodium 40 MG Tablet PO (08:37)
[2023-09-08] MEDS: Ursodiol 250 MG Tablet PO ×2 (08:37→22:09)
[2023-09-08] MEDS: Ascorbic Acid 500 MG Tablet PO (08:38)
[2023-09-08] MEDS: Cholecalciferol (VIT D3) 25 MCG TABLET (1,000 UNITS) PO (08:39)
[2023-09-08] MEDS: Budesonide 3 MG CAPSULE.EC 6 MG PO (08:41)
[2023-09-08] MEDS: Allopurinol 300 MG Tablet PO (08:41)
[2023-09-08] MEDS: Loperamide 2 MG Capsule PO ×2 (08:42→22:01)
[2023-09-08] MEDS: Zinc Sulfate 50 mg zinc (220 mg) ORAL capsule PO (08:42)
[2023-09-08 08:58] LABS: Anion Gap 10 (5-15); BUN 11 mg/dL (7-18); BUN/Creat Ratio 15.7 RATIO (10-20); Chloride 105 mmol/L (98-107); EST Glomerular Filtration Rate 85 mL/min (>60); Est Glom Filt Rate - Afr Amer 103 mL/min (>60); Estimated Creatinine Clearance 42.91 ml/min; Glucose 83 mg/dL (74-106); Potassium 3.4 mmol/L (3.5-5.1); Sodium Level 145 mmol/L (136-145)
[2023-09-08] MEDS: Furosemide 40 MG/4 ML Vial IV (09:02)
[2023-09-08] MEDS: Colestipol 1 GM TABLET PO ×2 (11:29→22:03)
[2023-09-08] MEDS: CARBIDOPA/LEVODOPA CR 50/200 Tablet PO ×2 (11:30→22:10)
[2023-09-08] MEDS: Glycerin/Hypromellose/PEG400 15 ml Bottle EACH EYE (11:31)
--- NOTE | 2023-09-08 12:26 | PN_ITS ---
Subjective Subjective Afebrile VSS-both systolic and diastolic pressures are sometimes above goal. Heart rate this morning was 80 and she has not had any tachycardia. She is known to have atrial fibrillation. Maintaining appropriate oxygen saturation on RA Oral intake is good Fluid intake yesterday was 1177 cc and the output was 5600 for a fluid balance of -4423. Overnight she had an additional 592 in but 1250 out for a balance of -658. Discussed with nursing - no problems that need addressed Reviewed the PT/OT notes Medication list reviewed. All lab from this morning was personally reviewed. Sodium is 145 and the potassium today is 3.4. Serum bicarb is 30 and the BUN is 11 with a creatinine of 0.7. This is stable. Calcium is 8.0 but when corrected for hypoalbuminemia is within normal limits. You denies lightheadedness, cephalgia, chest pain, shortness of breath at rest, nausea/vomiting/abdominal pain, dysuria and calf pain. She tells me that her legs feel softer and less tense today. She had a good diuresis yesterday. She denies leg cramps. Objective Data Objective Data Vital Signs: Vital Signs Temp Pulse Resp BP Pulse Ox O2 Del Method O2 Flow Rate 97.7 F L 80 18 136/84 H 95 Nasal Cannula 2.5 09/08/23 08:30 09/08/23 08:30 09/08/23 08:30 09/08/23 08:30 09/08/23 08:30 09/08/23 08:30 09/08/23 08:30 Oxygen Flow Rate (L/min) 2.5 Oxygen Delivery Method Nasal Cannula Weight: 259 lb 4.218 oz Body Mass Index (BMI) 40.6 Intake & Output: Intake and Output for Last 24 Hours 09/06/23 09/07/23 09/08/23 23:59 23:59 23:59 Intake Total 752 / 752 1176.5 / 1176.5 592 / 592 Output Total 200 / 200 5600 / 5600 1250 / 1250 Balance 552 / 552 -4423.5 / -4423.5 -658 / -658 Lab / Micro Data 09/07/23 05:18 09/08/23 07:32 Labs: Laboratory Results - last 24 hr 09/08/23 07:32: Sodium 145, Potassium 3.4 L, Chloride 105, Carbon Dioxide 30.0, Anion Gap 10, BUN 11, Creatinine 0.70, Estim Creat Clear Calc 42.91, Est GFR (MDRD) Af Amer 103, Est GFR (MDRD) Non-Af 85, BUN/Creatinine Ratio 15.7, Glucose 83, Calcium 8.0 L Physical Exam Const alert and no apparent distress Constitutional Narrative: Pleasant and talkative. Makes good eye contact. General Appearance: cooperative HEENT moist oral mucous membranes Resp normal respiratory effort, no use of accessory muscles and clear to auscultation bilaterally Effort and Inspection: Negative for tachypneic or labored Cardio no gallops Cardio Narrative: She has an irregular irregular rhythm with well-controlled rate. GI normal to inspection, nondistended, normoactive bowel sounds, non-tender and non-distended GI Narrative: no guarding with palpation. No pitting edema in the flanks. Extremity Negative for no calf tenderness Extremity Narrative: The legs are much softer and less tense today. The pitting of edema of the posterior thighs is markedly improved. There is still some pitting just above the knees bilaterally. General Extremity: edema Skin General Skin Exam: no breakdown Rashes: no rashes Neuro CN's II-XII intact bilaterally and no focal motor deficits Neuro Narrative: Resting tremor of the right hand. No marked stiffness or bradykinesia. Psych affect normal Assessment & Plan Assessment/Plan (1) Debility: (2) Esophageal dysphagia: (3) Esophagitis: (4) Pill esophagitis due to potassium chloride: (5) Esophageal stenosis: (6) Gastritis: QUALIFIERS: Gastritis type: unspecified gastritis Chronicity: acute Gastritis bleeding: without bleeding Qualified Code(s): K29.00 - Acute gastritis without bleeding (7) Acute diverticulitis: (8) Hypokalemia: (9) Macrocytic anemia: (10) Hypophosphatemia: (11) Acute diastolic (congestive) heart failure: (12) Diastolic dysfunction with chronic heart failure: (13) Biatrial enlargement: (14) Diarrhea: QUALIFIERS: Diarrhea type: unspecified type Qualified Code(s): R19.7 - Diarrhea, unspecified (15) Microscopic colitis: QUALIFIERS: Microscopic colitis type: other microscopic colitis Qualified Code(s): K52.838 - Other microscopic colitis (16) NAFLD (nonalcoholic fatty liver disease): (17) Hypothyroidism: QUALIFIERS: Hypothyroidism type: postoperative Qualified Code(s): E89.0 - Postprocedural hypothyroidism (18) Anxiety: (19) Premature ventricular contractions: (20) Morbid obesity with BMI of 40.0-44.9, adult: (21) Pulmonary hypertension: (22) KEE (obstructive sleep apnea): (23) Dyspnea on minimal exertion: (24) 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 continuous 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 (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) 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 of anticoagulants: (25) Lumbar degenerative disc disease: (26) Postural lightheadedness: (27) Essential (primary) hypertension: (28) Chronic diastolic (congestive) heart failure: (29) HLD (hyperlipidemia): QUALIFIERS: Hyperlipidemia type: unspecified Qualified Code(s): E78.5 - Hyperlipidemia, unspecified (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 Continue therapy 2. Decrease the Lasix to 40 mg IV once daily 3. 20 mEq of KCl now for a total of 60 mEq today 4. Recheck lab on Sunday 5. Continue cardiac, calorie controlled diet. 6. Will need fitted for compression stockings that she can put on herself following discharge. Charges/Coding Visit Charges Inpatient E&M: 14672 Subs Hosp L2
[2023-09-08 12:56] VITALS: BMI 39.5
[2023-09-08 20:19] VITALS: BP 125/75; PULSE 93; RESP 17; TEMP 36.8; O2SAT 95
[2023-09-08 20:21] VITALS: PULSE 93
[2023-09-08] MEDS: Citalopram 20 MG Tablet PO (22:04)
[2023-09-08 22:05] VITALS: BP 125/75; PULSE 93
[2023-09-08] MEDS: Baclofen 10 MG Tablet 20 MG PO (22:06)
[2023-09-08] MEDS: traZODone 100 MG Tablet PO (22:06)
[2023-09-08] MEDS: Pravastatin 40 MG Tablet PO (22:09)
[2023-09-09] MEDS: Levothyroxine 175 MCG Tablet PO (05:15)
[2023-09-09] MEDS: Na Biphos/Potassium Phosphate PACKET 1 PACKET PO ×3 (05:15→21:31)
[2023-09-09] MEDS: Ampicillin/Sulbactam 3 GM in 0.9% Normal Saline (100mL MB+) 100 ML IV ×3 (05:15→21:45)
[2023-09-09 06:00] VITALS: BMI 38.8
[2023-09-09 08:00] VITALS: BP 130/67; PULSE 72; RESP 17; TEMP 36.2; O2SAT 97
[2023-09-09] MEDS: Dicyclomine 10 MG Capsule PO ×3 (08:28→16:45)
[2023-09-09] MEDS: Spironolactone 25 MG Tablet PO (08:29)
[2023-09-09] MEDS: APIXABAN 2.5 MG TABLET (WCH) PO ×2 (08:29→21:32)
[2023-09-09 08:30] VITALS: PULSE 82
[2023-09-09] MEDS: Pantoprazole Sodium 40 MG Tablet PO (08:30)
[2023-09-09] MEDS: Ursodiol 250 MG Tablet PO ×2 (08:30→21:31)
[2023-09-09] MEDS: Metoprolol Tartrate 50 MG Tablet PO ×2 (08:30→21:37)
[2023-09-09] MEDS: Zinc Sulfate 50 mg zinc (220 mg) ORAL capsule PO (08:30)
[2023-09-09] MEDS: Amiodarone 200 MG Tablet PO (08:31)
[2023-09-09] MEDS: Allopurinol 300 MG Tablet PO (08:31)
[2023-09-09] MEDS: Multivitamins,Ther W-Minerals Tablet 1 TABLET PO (08:32)
[2023-09-09] MEDS: Ascorbic Acid 500 MG Tablet PO (08:33)
[2023-09-09] MEDS: Budesonide 3 MG CAPSULE.EC 6 MG PO (08:33)
[2023-09-09] MEDS: Carbidopa/Levodopa 25/100 Tablet PO ×3 (08:33→17:21)
[2023-09-09] MEDS: sulfaSALAzine 500 MG Tablet 1000 MG PO ×2 (08:34→21:34)
[2023-09-09] MEDS: Folic Acid 1 MG Tablet PO (08:34)
[2023-09-09] MEDS: Potassium Chloride Oral Tablet 20 MEQ PO ×2 (08:35→16:45)
[2023-09-09] MEDS: Cholecalciferol (VIT D3) 25 MCG TABLET (1,000 UNITS) PO (08:35)
[2023-09-09] MEDS: Sodium Chloride 0.65% 1 SPRAY SPRAY.BTL NASAL (08:40)
[2023-09-09] MEDS: Glycerin/Hypromellose/PEG400 15 ml Bottle EACH EYE ×2 (08:41→21:22)
[2023-09-09] MEDS: Loperamide 2 MG Capsule PO (08:42)
[2023-09-09] MEDS: Colestipol 1 GM TABLET PO ×2 (11:07→21:33)
[2023-09-09] MEDS: 0.9% Saline Lock 10 ML Syringe IV ×3 (11:09→21:45)
[2023-09-09] MEDS: Furosemide 40 MG/4 ML Vial IV ×2 (11:09→17:24)
[2023-09-09] MEDS: CARBIDOPA/LEVODOPA CR 50/200 Tablet PO ×2 (11:36→21:31)
[2023-09-09 20:34] VITALS: BP 104/63; PULSE 91; RESP 16; TEMP 36.3; O2SAT 92
[2023-09-09] MEDS: Pravastatin 40 MG Tablet PO (21:31)
[2023-09-09] MEDS: traZODone 100 MG Tablet PO (21:32)
[2023-09-09] MEDS: Baclofen 10 MG Tablet 20 MG PO (21:33)
[2023-09-09] MEDS: Citalopram 20 MG Tablet PO (21:35)
[2023-09-09 21:37] VITALS: PULSE 91
[2023-09-09 22:00] VITALS: PULSE 91; RESP 16; O2SAT 95
[2023-09-10] MEDS: Sodium Chloride 0.65% 1 SPRAY SPRAY.BTL NASAL ×2 (05:36→21:02)
[2023-09-10] MEDS: Glycerin/Hypromellose/PEG400 15 ml Bottle EACH EYE ×2 (05:36→21:02)
[2023-09-10] MEDS: Loperamide 2 MG Capsule PO ×2 (05:37→09:36)
[2023-09-10] MEDS: Na Biphos/Potassium Phosphate PACKET 1 PACKET PO ×3 (05:37→21:03)
[2023-09-10] MEDS: Levothyroxine 175 MCG Tablet PO (05:37)
[2023-09-10] MEDS: Ampicillin/Sulbactam 3 GM in 0.9% Normal Saline (100mL MB+) 100 ML IV ×2 (05:37→14:40)
[2023-09-10] MEDS: 0.9% Saline Lock 10 ML Syringe IV ×2 (05:40→14:43)
[2023-09-10 05:48] LABS: Absolute Lymphocyte Count 1.39 X10^3/uL (0.83-4.51); Absolute Neutrophil Count 4.8 X10^3/uL (2.0-7.7); Basophil# 0.02 X10^3/uL; Basophil% 0.3 % (0-1); Eosinophil# 0.07 X10^3/uL; Hematocrit 37.4 % (37-47); Hemoglobin 12.1 g/dL (12.0-15.0); Lymphocyte # 1.39 X10^3/ul (0.83-4.51); Lymphocyte % 20.2 % (19-41); Mean Corp Hgb Conc 32.4 g/dL (32-36); Mean Corpuscular Hgb 32.7 pg (27.0-32.0); Mean Corpuscular Volume 101.1 fL (81-99); Mean Platelet Vol. 10.1 fl (6.2-12.0); Monocyte% 8.7 % (0-10); NRBC Flagged by Analyzer 0 % (0-5); Neutrophil # 4.77 X10^3/uL (2.7-7.7); Neutrophil % 69.2 % (47-70); Platelet Count 186 K/mm3 (150-450); RBC Distribution Width CV 13.9 % (11.6-14.6); RBC Distribution Width SD 51.6 fl (35.1-43.9); White Blood Count 6.9 K/mm3 (4.4-11.0)
[2023-09-10] MEDS: Dicyclomine 10 MG Capsule PO ×3 (05:51→15:33)
[2023-09-10 06:00] VITALS: BMI 38.5
[2023-09-10 06:42] LABS: Albumin, Serum 2.8 g/dL (3.2-5.0); Magnesium 1.8 mg/dL (1.6-2.6); Phosphorus 3.8 mg/dL (2.5-4.9)
[2023-09-10 08:47] VITALS: BP 127/85; PULSE 90; RESP 16; TEMP 36.4; O2SAT 95
[2023-09-10] MEDS: Carbidopa/Levodopa 25/100 Tablet PO ×3 (09:12→17:47)
[2023-09-10] MEDS: Spironolactone 25 MG Tablet PO (09:12)
[2023-09-10] MEDS: Multivitamins,Ther W-Minerals Tablet 1 TABLET PO (09:12)
[2023-09-10] MEDS: Budesonide 3 MG CAPSULE.EC 6 MG PO (09:13)
[2023-09-10] MEDS: sulfaSALAzine 500 MG Tablet 1000 MG PO ×2 (09:13→21:06)
[2023-09-10] MEDS: Colestipol 1 GM TABLET PO ×2 (09:14→21:05)
[2023-09-10] MEDS: Folic Acid 1 MG Tablet PO (09:14)
[2023-09-10] MEDS: Amiodarone 200 MG Tablet PO (09:14)
[2023-09-10] MEDS: APIXABAN 2.5 MG TABLET (WCH) PO ×2 (09:14→21:05)
[2023-09-10 09:15] VITALS: BP 127/85; PULSE 90
[2023-09-10] MEDS: Metoprolol Tartrate 50 MG Tablet PO ×2 (09:15→21:03)
[2023-09-10] MEDS: Pantoprazole Sodium 40 MG Tablet PO (09:16)
[2023-09-10] MEDS: Ascorbic Acid 500 MG Tablet PO (09:16)
[2023-09-10] MEDS: Ursodiol 250 MG Tablet PO ×2 (09:16→21:04)
[2023-09-10] MEDS: Cholecalciferol (VIT D3) 25 MCG TABLET (1,000 UNITS) PO (09:16)
[2023-09-10] MEDS: Allopurinol 300 MG Tablet PO (09:17)
[2023-09-10] MEDS: Zinc Sulfate 50 mg zinc (220 mg) ORAL capsule PO (09:17)
[2023-09-10] MEDS: Furosemide 40 MG/4 ML Vial IV (09:22)
[2023-09-10] MEDS: Potassium Chloride Oral Tablet 20 MEQ PO ×2 (09:26→17:46)
[2023-09-10] MEDS: CARBIDOPA/LEVODOPA CR 50/200 Tablet PO ×2 (10:51→21:02)
[2023-09-10 11:07] VITALS: BP 127/85; PULSE 90; RESP 16; TEMP 36.4; O2SAT 95
--- NOTE | 2023-09-10 11:15 | PCM.PROGNOTE ---
Subjective Subjective Dotty was seen on team rounds today. Her son Abimael was present in the room. This is day 7 of IV antibiotics and will transition to p.o. today. Afebrile VSS- The diastolic pressure is 85 today and I want to see it < 80 consistently. Will recheck a BP later today and if the diastolic is still elevated will add Lisinopril to the drug regimen. While awake she is maintaining an oxygen saturation of 95 to 97% on room air. She uses supplemental oxygen at night because she has sleep apnea and cannot tolerate the CPAP. Maintaining appropriate oxygen saturation on RA Oral intake is good for food and fluids. The fluid balance yesterday was -1399 and so far today since MN she is - 1,578. We had to increase the Lasix back to twice daily. She took 2410 cc p.o. yesterday. The weight is down [id number] pounds since admission and institution of IV Lasix. Her dry weight at home and her weight at presentation to the hospital was 235. Today she is 214 pounds and 13 ounces. Discussed with nursing - no problems that need addressed Reviewed the PT/OT/ST notes Medication list reviewed. She has not taken any Vicodin since admission to rehab. With the change in the antihypertensives/discontinuation of amlodipine, she has not required any supplemental hydralazine. She has been using Imodium 1-2 tabs a day to control loose bowel movements. She has a history of microscopic colitis. All lab from this morning was personally reviewed. The white blood cell count is normal at 6.9. Hemoglobin is stable at 12.1 with an MCV of 101.1. The elevated MCV may be due to MÁRQUEZ. Platelets are normal. The phosphorus is 3.8 today following supplementation and the magnesium is stable at 1.8. Sodium is 144 today and the potassium is stable at 3.7. Serum bicarb is mildly increased at 33 and the BUN is 15 with a creatinine of 0.83. Calcium corrected for hypoalbuminemia is within normal limits. She complains of a little lightheadedness at the end of a longer walk today and this resolved with sitting down. She also has continued dyspnea on exertion but no dyspnea at rest. She denies chest pain, cough, nausea/vomiting/abdominal pain, calf pain and dysuria. Objective Data Objective Data Vital Signs: Vital Signs Temp Pulse Resp BP Pulse Ox O2 Del Method O2 Flow Rate 97.6 F L 90 16 127/85 H 95 Room Air 2 09/10/23 11:07 09/10/23 11:07 09/10/23 11:07 09/10/23 11:07 09/10/23 11:07 09/10/23 11:07 09/08/23 08:22 Oxygen Flow Rate (L/min) 2 Oxygen Delivery Method Room Air Weight: 248 lb 3.848 oz Body Mass Index (BMI) 38.8 Intake & Output: Intake and Output for Last 24 Hours 09/09/23 09/09/23 09/10/23 00:59 23:59 23:59 Intake Total 672 / 672 Output Total 750 / 750 Balance -78 / -78 Lab / Micro Data 09/10/23 05:09 09/10/23 05:09 Labs: Laboratory Results - last 24 hr 09/10/23 05:09: WBC 6.9, RBC 3.70 L, Hgb 12.1, Hct 37.4, MCV 101.1 H, MCH 32.7 H, MCHC 32.4, RDW Std Deviation 51.6 H, RDW Coeff of Tika 13.9, Plt Count 186, MPV 10.1, Immature Gran % (Auto) 0.600, Neut % (Auto) 69.2, Lymph % (Auto) 20.2, [place] % (Auto) 8.7, Eos % (Auto) 1.0, Baso % (Auto) 0.3, Absolute Neuts (auto) 4.8, Absolute Lymphs (auto) 1.39, Nucleated RBC % 0, Phosphorus 3.8, Magnesium 1.8, Albumin 2.8 L Physical Exam Const alert and no apparent distress Constitutional Narrative: Pleasant and talkative. Makes good eye contact. General Appearance: cooperative Resp normal respiratory effort, no use of accessory muscles and clear to auscultation bilaterally Effort and Inspection: Negative for tachypneic or labored Cardio no gallops Cardio Narrative: She has an irregular irregular rhythm with well-controlled rate. GI normal to inspection, nondistended, normoactive bowel sounds, non-tender and non-distended GI Narrative: no guarding with palpation. No pitting edema in the flanks. Extremity Negative for no calf tenderness Extremity Narrative: The legs are much softer and less tense today. The pitting of edema of the posterior thighs is markedly improved. The pitting edema is now all distal to the knee and it is decreasing. General Extremity: edema Skin General Skin Exam: no breakdown Rashes: no rashes Neuro CN's II-XII intact bilaterally and no focal motor deficits Neuro Narrative: Resting tremor of the right hand. No marked stiffness or bradykinesia. Psych affect normal Assessment & Plan Assessment/Plan (1) Debility: (2) Esophageal dysphagia: (3) Esophagitis: (4) Pill esophagitis due to potassium chloride: (5) Esophageal stenosis: (6) Gastritis: QUALIFIERS: Gastritis type: unspecified gastritis Chronicity: acute Gastritis bleeding: without bleeding Qualified Code(s): K29.00 - Acute gastritis without bleeding (7) Acute diverticulitis: (8) Hypokalemia: (9) Macrocytic anemia: (10) Hypophosphatemia: (11) Acute diastolic (congestive) heart failure: (12) Diastolic dysfunction with chronic heart failure: (13) Biatrial enlargement: (14) Diarrhea: QUALIFIERS: Diarrhea type: unspecified type Qualified Code(s): R19.7 - Diarrhea, unspecified (15) Microscopic colitis: QUALIFIERS: Microscopic colitis type: other microscopic colitis Qualified Code(s): K52.838 - Other microscopic colitis (16) NAFLD (nonalcoholic fatty liver disease): (17) Hypothyroidism: QUALIFIERS: Hypothyroidism type: postoperative Qualified Code(s): E89.0 - Postprocedural hypothyroidism (18) Anxiety: (19) Premature ventricular contractions: (20) Morbid obesity with BMI of 40.0-44.9, adult: (21) Pulmonary hypertension: (22) KEE (obstructive sleep apnea): PLAN: She had CPAP with nasal prongs and she developed a nasl septum perforation and so she sent the unit back. She has pulmonary HTN and really should be on CPAP to prevent progression. She sometimes desaturates to 88% during the day with exertion. Will have RT put her on CPAP tonight and try different mask to see if she can tolerate a mask better than the nasal prongs. She is agreeable to this plan. 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 Continue therapy 2. Check A BMP and a mag today - reviewed 3. Fluid restrict to 1300 cc daily 4. Recheck BMP on Sunday 5. The serum bicarb is up and she is lightheaded with prolonged standing. Will start fluid restriction and diurese slower. Decrease the Lasix to once a day 6. Discontinue Unasyn start Augmentin 500 mg p.o. 2 times daily for 3 days. Creatinine clearance is 51. No adjustment needed for kidney failure. 7. Recheck a BMP and mag on Sunday 8. Recheck a BMP this afternoon and if the diastolic is still above 80 will add lisinopril 2.5 mg daily. Continue to monitor the potassium as she is on potassium supplements, Aldactone and now an ROSALBA inhibitor. Rather than discontinue the ROSALBA I would prefer to decrease the potassium supplementation. She has pulmonary hypertension and diastolic dysfunction and lisinopril will help to treat chronic diastolic CHF. Charges/Coding Visit Charges Inpatient E&M: 07981 Subs Hosp L2
[2023-09-10 11:44] LABS: Anion Gap 5 (5-15); BUN 15 mg/dL (7-18); BUN/Creat Ratio 18.1 RATIO (10-20); Calcium,Total 7.8 mg/dL (8.5-10.1); Chloride 106 mmol/L (98-107); Creatinine, Serum 0.83 mg/dL (0.55-1.02); EST Glomerular Filtration Rate 70 mL/min (>60); Est Glom Filt Rate - Afr Amer 85 mL/min (>60); Estimated Creatinine Clearance 51.69 ml/min; Glucose 79 mg/dL (74-106); Potassium 3.7 mmol/L (3.5-5.1); Sodium Level 144 mmol/L (136-145)
--- NOTE | 2023-09-10 13:12 | CASEMGMT ---
Social Work IDT met with patient and son for Team meeting. Discussed patient's progress in PT/OT/ST/SN. Educated to [facility] insurance with [employer] 09/13 and continued stay is not guaranteed with each review. lives at home alone. Goal is to return home alone at [facility]. IDT recommending outpatient therapy and to follow up with [facility] programs. Pt reports to being active with program prior and is interested in returning. Will ReTeam weekly. SW will continue to follow. JAIME MayesW
[2023-09-10 13:23] LABS: Magnesium 1.8 mg/dL (1.6-2.6)
[2023-09-10] MEDS: 0.9% Normal Saline (250mL Bag) 250 ML 150 ML IV (14:43)
[2023-09-10] MEDS: Amox/Clavulanate 500 MG Tablet PO (17:46)
[2023-09-10 20:23] VITALS: BP 105/51; PULSE 84; RESP 18; TEMP 36.5; O2SAT 94
[2023-09-10 21:00] VITALS: PULSE 83; RESP 16; O2SAT 96
[2023-09-10 21:03] VITALS: PULSE 83
[2023-09-10] MEDS: Pravastatin 40 MG Tablet PO (21:03)
[2023-09-10] MEDS: traZODone 100 MG Tablet PO (21:05)
[2023-09-10] MEDS: Baclofen 10 MG Tablet 20 MG PO (21:05)
[2023-09-10] MEDS: Citalopram 20 MG Tablet PO (21:06)
[2023-09-11 06:00] VITALS: BMI 38.5
[2023-09-11] MEDS: Na Biphos/Potassium Phosphate PACKET 1 PACKET PO (06:21)
[2023-09-11] MEDS: Levothyroxine 175 MCG Tablet PO (06:22)
[2023-09-11] MEDS: Dicyclomine 10 MG Capsule PO ×3 (06:22→16:26)
[2023-09-11] MEDS: Glycerin/Hypromellose/PEG400 15 ml Bottle EACH EYE ×2 (06:26→21:08)
[2023-09-11] MEDS: Sodium Chloride 0.65% 1 SPRAY SPRAY.BTL NASAL ×2 (06:26→21:08)
[2023-09-11 07:40] VITALS: BP 116/72; PULSE 81; RESP 15; TEMP 36.2; O2SAT 95
[2023-09-11] MEDS: Potassium Chloride Oral Tablet 20 MEQ PO ×2 (08:12→16:25)
[2023-09-11] MEDS: Amox/Clavulanate 500 MG Tablet PO ×2 (08:13→16:26)
[2023-09-11] MEDS: APIXABAN 2.5 MG TABLET (WCH) PO ×2 (08:14→21:11)
[2023-09-11] MEDS: Spironolactone 25 MG Tablet PO (08:14)
[2023-09-11] MEDS: Colestipol 1 GM TABLET PO ×2 (08:14→21:11)
[2023-09-11] MEDS: Ascorbic Acid 500 MG Tablet PO (08:15)
[2023-09-11] MEDS: Budesonide 3 MG CAPSULE.EC 6 MG PO (08:15)
[2023-09-11] MEDS: Multivitamins,Ther W-Minerals Tablet 1 TABLET PO (08:15)
[2023-09-11] MEDS: Pantoprazole Sodium 40 MG Tablet PO (08:16)
[2023-09-11] MEDS: Carbidopa/Levodopa 25/100 Tablet PO ×3 (08:16→17:24)
[2023-09-11] MEDS: Cholecalciferol (VIT D3) 25 MCG TABLET (1,000 UNITS) PO (08:16)
[2023-09-11] MEDS: Folic Acid 1 MG Tablet PO (08:17)
[2023-09-11] MEDS: sulfaSALAzine 500 MG Tablet 1000 MG PO ×2 (08:17→21:11)
[2023-09-11] MEDS: Amiodarone 200 MG Tablet PO (08:17)
[2023-09-11 08:18] VITALS: BP 116/72; PULSE 81
[2023-09-11] MEDS: Metoprolol Tartrate 50 MG Tablet PO ×2 (08:18→21:10)
[2023-09-11] MEDS: Allopurinol 300 MG Tablet PO (08:18)
[2023-09-11] MEDS: Zinc Sulfate 50 mg zinc (220 mg) ORAL capsule PO (08:18)
[2023-09-11] MEDS: Ursodiol 250 MG Tablet PO ×2 (08:18→21:10)
[2023-09-11] MEDS: Loperamide 2 MG Capsule PO ×2 (09:10→21:10)
--- NOTE | 2023-09-11 09:24 | PN_ITS ---
Subjective Subjective Patient seen, examined. She has some diarrhea, but responds to Loperamide 2mg as needed. She is motivated, ready to do therapy. She has no new problems, concerns, issues, complaints. Objective Data Objective Data Vital Signs: Vital Signs Temp Pulse Resp BP Pulse Ox O2 Del Method O2 Flow Rate 97.2 F L 81 15 116/72 95 Room Air 2 09/11/23 07:40 09/11/23 08:18 09/11/23 07:40 09/11/23 08:18 09/11/23 07:40 09/11/23 07:40 09/08/23 08:22 Oxygen Flow Rate (L/min) 2 Oxygen Delivery Method Room Air Weight: 111.4 kg Body Mass Index (BMI) 38.5 Intake & Output: Intake and Output for Last 24 Hours 09/09/23 09/10/23 09/11/23 23:59 23:59 23:59 Intake Total 2751.5 / 2751.5 560 / 560 Output Total 2760 / 2760 450 / 450 Balance -8.5 / -8.5 110 / 110 Lab / Micro Data Attestation: I reviewed the patient's lab results. 09/10/23 05:09 09/10/23 05:09 Labs: Laboratory Results - last 24 hr 09/10/23 05:09: Sodium 144, Potassium 3.7, Chloride 106, Carbon Dioxide 33.0 H, Anion Gap 5, BUN 15, Creatinine 0.83, Estim Creat Clear Calc 51.69, Est GFR (MDRD) Af Amer 85, Est GFR (MDRD) Non-Af 70, BUN/Creatinine Ratio 18.1, Glucose 79, Calcium 7.8 L 09/10/23 11:56: Magnesium 1.8 Physical Exam Const alert General Appearance: cooperative HEENT normocephalic Eyes PERRL and EOMs intact bilaterally Neck supple, no JVD and no carotid bruits Resp normal respiratory effort, normal air movement and clear to auscultation bilaterally Cardio regular rate and regular rhythm GI normal to inspection, nondistended, normoactive bowel sounds, non-tender and non-distended Extremity normal capillary refill General Extremity: Negative for edema Skin no rashes or lesions noted General Skin Exam: no breakdown Psych affect normal Appearance: appropriate Assessment & Plan Assessment/Plan (1) Debility: (2) Diverticulitis of colon: (3) Chronic diastolic heart failure: (4) Microscopic colitis: QUALIFIERS: Microscopic colitis type: other microscopic colitis Qualified Code(s): K52.838 - Other microscopic colitis (5) NAFLD (nonalcoholic fatty liver disease): (6) Hypothyroidism: (7) Paroxysmal atrial fibrillation: (8) Essential (primary) hypertension: (9) HLD (hyperlipidemia): QUALIFIERS: Hyperlipidemia type: unspecified Qualified Code(s): E78.5 - Hyperlipidemia, unspecified (10) Parkinson disease: QUALIFIERS: Dyskinesia presence: with dyskinesia Fluctuating manifestations: with fluctuating manifestations Qualified Code(s): G20.B2 - Parkinson's disease with dyskinesia, with fluctuations PLAN: Plan 83 year old female with below past medical history hospitalized for diverticulitis of colon, admitted to for 3 hours daily rehabilitation, strengthening, prior to discharge home. * Debility - PT/OT/ST. * Pain - [place] 5/325mg q6 prn. * Bowel - Dulcolax 10mg pr x 1 prn, MOM 30ml po x 1 prn. * DVT prophylaxis - Eliquis. * Gout - Allopurinol 300mg daily. * Atrial fibrillation - Metoprolol 50mg bid, Amiodarone 200mg daily, Eliquis 2.5mg bid. * Diverticulitis of colon - Augmentin 500g bid thru 09/13/2023. * Vitamin C deficiency - Vitamin C 500mg daily. * Muscle spasm - Baclofen 20mg qhs. * Microscopic colitis - Budesonide 6mg qam, Colestipol 1gm bid, Bentyl 10mg tidac, Loperamide 2mg q6h prn. * Parkinson Disease - Sinemet 25/100mg 2 tablets tid, Sinemet ER 50/200mg bid, Comtan 200mg bid. * Vitamin D deficiency - D3 25mcg daily. * Depression - Citalopram 20mg qhs. * Folate deficiency - Folic acid 1mg daily. * Chronic diastolic heart failure - Metoprolol 50mg bid, Furosemide 40mg iv daily, Aldactone 25mg daily. * Hypertension - Metoprolol 50mg bid, Hydralazine 10mg q6h prn. * GI prophylaxis - Lactobacillus 2 tablets bid. * Hypothyroidism - Levothyroxine 175mg daily. * Dizziness - Meclizine 25mg daily prn. * Nutrition - MVI 1 tablet daily. * GERD - Pantoprazole 40mg daily. * Dry eyes - Artificial tears 1-2 gtt q2h prn. * Hypokalemia - KCL 20meq bidcm. * Hyperlipidemia - Pravastatin 40mg qhs. * Dry nares - [place] Srapy 1 spray nasal tid prn. Capacity Capacity Assessment Tool Can the patient make a choice & communicate that choice?: Yes Can the patient understand benefits, risks and alternatives?: Yes Can the patient make a logical, rational choice?: Yes Is the choice the patient makes consistent w/ their values?: Yes Is there an impending, emergent risk to the patient?: No Does the patient have an Advance Directive?: No Is there a Surrogate Available?: Yes i.e. HCPOA: Yes i.e. close relative (spouse, child, parent, sibling)?: Yes
--- NOTE | 2023-09-11 09:52 | CASEMGMT ---
Social Work SW received call from son with additional questions from Team meeting. SW spoke with son for extended period of time, answering questions and providing supportive listening. Son explained how pt was functioning prior, living a sedentary lifestyle. Son expressed repeated concern about pt living home alone, falling again and being weak. SW continued to explain the goals of RU, coordinating services to maintain improvement and safety at DC. Assured son IDT will make recommendations closer to DC, however, if son and pt do not want to wait for those and pursue other options, this worker offered to assist. Son inquired about options for care after DC. SW educated to nonskilled HHC, CCN, Parkinson's programs at [facility], [place], [place] and SNF care. All OOP costs to pt, except CCN. Son expressed appreciation for time and education. SW will continue to follow for DC planning. Lena Ferreira, JAIME NICHOLSONW
[2023-09-11] MEDS: 0.9% Saline Lock 10 ML Syringe IV (10:03)
[2023-09-11] MEDS: Furosemide 40 MG/4 ML Vial IV (10:04)
[2023-09-11] MEDS: CARBIDOPA/LEVODOPA CR 50/200 Tablet PO ×2 (10:52→21:10)
--- NOTE | 2023-09-11 16:14 | CHAPLAIN ---
Type of Pastoral Visit _x__ Initial Visit ___ Follow-up Visit ___ On-call Visit ___ General Patient Visit ___ Spiritual Assessment ___ Family Conference ___ Bereavement ___ Rapid Response ___ Code Blue ___ Other (describe below) Pastoral Care Referral From _x__ Patient ___ Family ___ Nurse ___ Physician ___ Actionscript Developer ___ Educational Therapy Teacher ___ Other (describe below) Sacrament/Intervention _x__ Active listening ___ Anointing ___ Buddhist ___ Bereavement ___ Communion ___ Anayeli exploration ___ _x__ Life review _x__ Prayer ___ Reconciliation ___ Sacrament of Sick ___ Supportive presence ___ Wedding ___ Other (describe below) Pastoral Comments patient is polite and welcoming; pt reports seeing some improvements so far and speaks of encouragement; pt has good neighbors and some family that are helping; pt goal is to be able to return home even if needing some home health care; pt gives report on her thoughts and feelings but does not express any worries at this time; pt welcomed presence and prayer
[2023-09-11 20:28] VITALS: BP 132/57; PULSE 85; RESP 16; TEMP 36.3; O2SAT 97
[2023-09-11 21:10] VITALS: PULSE 85
[2023-09-11] MEDS: Pravastatin 40 MG Tablet PO (21:10)
[2023-09-11] MEDS: traZODone 100 MG Tablet PO (21:11)
[2023-09-11] MEDS: Baclofen 10 MG Tablet 20 MG PO (21:11)
[2023-09-11] MEDS: Citalopram 20 MG Tablet PO (21:11)
[2023-09-11 22:00] VITALS: PULSE 85; RESP 16; O2SAT 97
[2023-09-12 06:00] VITALS: BMI 38.5
[2023-09-12] MEDS: Levothyroxine 175 MCG Tablet PO (06:26)
[2023-09-12] MEDS: Dicyclomine 10 MG Capsule PO ×3 (06:27→17:28)
[2023-09-12 07:03] LABS: Anion Gap 5 (5-15); BUN 15 mg/dL (7-18); BUN/Creat Ratio 21.1 RATIO (10-20); Calcium,Total 8.2 mg/dL (8.5-10.1); Chloride 105 mmol/L (98-107); Creatinine, Serum 0.71 mg/dL (0.55-1.02); EST Glomerular Filtration Rate 84 mL/min (>60); Est Glom Filt Rate - Afr Amer 101 mL/min (>60); Estimated Creatinine Clearance 42.91 ml/min; Glucose 81 mg/dL (74-106); Potassium 3.7 mmol/L (3.5-5.1); Sodium Level 143 mmol/L (136-145)
[2023-09-12 08:09] VITALS: BP 101/61; PULSE 80; RESP 18; TEMP 36.7; O2SAT 93
[2023-09-12] MEDS: Potassium Chloride Oral Tablet 20 MEQ PO ×2 (09:04→17:28)
[2023-09-12 09:09] VITALS: BP 101/61; PULSE 80
[2023-09-12] MEDS: APIXABAN 2.5 MG TABLET (WCH) PO ×2 (09:09→20:32)
[2023-09-12] MEDS: Metoprolol Tartrate 50 MG Tablet PO ×2 (09:09→20:32)
[2023-09-12] MEDS: Cholecalciferol (VIT D3) 25 MCG TABLET (1,000 UNITS) PO (09:09)
[2023-09-12] MEDS: Amiodarone 200 MG Tablet PO (09:09)
[2023-09-12] MEDS: Zinc Sulfate 50 mg zinc (220 mg) ORAL capsule PO (09:09)
[2023-09-12] MEDS: Ascorbic Acid 500 MG Tablet PO (09:09)
[2023-09-12] MEDS: Ursodiol 250 MG Tablet PO ×2 (09:09→20:32)
[2023-09-12] MEDS: Multivitamins,Ther W-Minerals Tablet 1 TABLET PO (09:10)
[2023-09-12] MEDS: Carbidopa/Levodopa 25/100 Tablet PO ×3 (09:10→17:28)
[2023-09-12] MEDS: sulfaSALAzine 500 MG Tablet 1000 MG PO ×2 (09:10→20:34)
[2023-09-12] MEDS: Pantoprazole Sodium 40 MG Tablet PO (09:10)
[2023-09-12] MEDS: Allopurinol 300 MG Tablet PO (09:10)
[2023-09-12] MEDS: Colestipol 1 GM TABLET PO ×2 (09:10→20:33)
[2023-09-12] MEDS: Budesonide 3 MG CAPSULE.EC 6 MG PO (09:10)
[2023-09-12] MEDS: Spironolactone 25 MG Tablet PO (09:10)
[2023-09-12] MEDS: Amox/Clavulanate 500 MG Tablet PO ×2 (09:10→17:28)
[2023-09-12] MEDS: Folic Acid 1 MG Tablet PO (09:11)
[2023-09-12] MEDS: 0.9% Saline Lock 10 ML Syringe IV (09:20)
[2023-09-12] MEDS: Furosemide 40 MG/4 ML Vial IV (09:20)
[2023-09-12] MEDS: Menthol/Lanolin/Calamine/Znox 113 GM Tube 1 APPLIC TOPICAL ×2 (09:28→20:34)
[2023-09-12] MEDS: Sodium Chloride 0.65% 1 SPRAY SPRAY.BTL NASAL ×2 (11:49→22:12)
[2023-09-12] MEDS: Glycerin/Hypromellose/PEG400 15 ml Bottle EACH EYE ×2 (11:52→22:12)
[2023-09-12] MEDS: CARBIDOPA/LEVODOPA CR 50/200 Tablet PO ×2 (12:04→20:34)
--- NOTE | 2023-09-12 19:41 | PN_ITS ---
Subjective Subjective Patient seen, examined, no overnight issues, slept well. Objective Data Objective Data Vital Signs: Vital Signs Temp Pulse Resp BP Pulse Ox O2 Del Method O2 Flow Rate 98.1 F 80 18 101/61 93 Room Air 2 09/12/23 08:09 09/12/23 09:09 09/12/23 08:09 09/12/23 09:09 09/12/23 08:09 09/12/23 08:09 09/08/23 08:22 FiO2 21 09/11/23 23:30 Oxygen Flow Rate (L/min) 2 Oxygen Delivery Method Room Air Weight: 111.6 kg Body Mass Index (BMI) 38.5 Intake & Output: Intake and Output for Last 24 Hours 09/10/23 09/11/23 09/12/23 23:59 23:59 23:59 Intake Total 2751.5 / 2751.5 1240 / 1240 1012 / 1012 Output Total 2760 / 2760 2550 / 2550 970 / 970 Balance -8.5 / -8.5 -1310 / -1310 42 / 42 Lab / Micro Data Attestation: I reviewed the patient's lab results. 09/10/23 05:09 09/12/23 05:13 Labs: Laboratory Results - last 24 hr 09/12/23 05:13: Sodium 143, Potassium 3.7, Chloride 105, Carbon Dioxide 33.0 H, Anion Gap 5, BUN 15, Creatinine 0.71, Estim Creat Clear Calc 42.91, Est GFR (MDRD) Af Amer 101, Est GFR (MDRD) Non-Af 84, BUN/Creatinine Ratio 21.1 H, Glucose 81, Calcium 8.2 L, Magnesium 2.0 Physical Exam Const alert General Appearance: cooperative HEENT normocephalic Eyes PERRL and EOMs intact bilaterally Neck supple, no JVD and no carotid bruits Resp normal respiratory effort, normal air movement and clear to auscultation bilaterally Cardio regular rate and regular rhythm GI normal to inspection, nondistended, normoactive bowel sounds, non-tender and non-distended Extremity normal capillary refill General Extremity: Negative for edema Skin no rashes or lesions noted General Skin Exam: no breakdown Psych affect normal Appearance: appropriate Assessment & Plan Assessment/Plan (1) Debility: (2) Diverticulitis of colon: (3) Chronic diastolic heart failure: (4) Microscopic colitis: QUALIFIERS: Microscopic colitis type: other microscopic colitis Qualified Code(s): K52.838 - Other microscopic colitis (5) NAFLD (nonalcoholic fatty liver disease): (6) Hypothyroidism: (7) Paroxysmal atrial fibrillation: (8) Essential (primary) hypertension: (9) HLD (hyperlipidemia): QUALIFIERS: Hyperlipidemia type: unspecified Qualified Code(s): E78.5 - Hyperlipidemia, unspecified (10) Parkinson disease: QUALIFIERS: Dyskinesia presence: with dyskinesia Fluctuating manifestations: with fluctuating manifestations Qualified Code(s): G20.B2 - Parkinson's disease with dyskinesia, with fluctuations PLAN: Plan 83 year old female with below past medical history hospitalized for diverticulitis of colon, admitted to for 3 hours daily rehabilitation, strengthening, prior to discharge home. * Debility - PT/OT/ST. * Pain - [place] 5/325mg q6 prn. * Bowel - Dulcolax 10mg pr x 1 prn, MOM 30ml po x 1 prn. * DVT prophylaxis - Eliquis. * Gout - Allopurinol 300mg daily. * Atrial fibrillation - Metoprolol 50mg bid, Amiodarone 200mg daily, Eliquis 2.5mg bid. * Diverticulitis of colon - Augmentin 500g bid thru 09/13/2023. * Vitamin C deficiency - Vitamin C 500mg daily. * Muscle spasm - Baclofen 20mg qhs. * Microscopic colitis - Budesonide 6mg qam, Colestipol 1gm bid, Bentyl 10mg tidac, Loperamide 2mg q6h prn. * Parkinson Disease - Sinemet 25/100mg 2 tablets tid, Sinemet ER 50/200mg bid, Comtan 200mg bid. * Vitamin D deficiency - D3 25mcg daily. * Depression - Citalopram 20mg qhs. * Folate deficiency - Folic acid 1mg daily. * Chronic diastolic heart failure - Metoprolol 50mg bid, Furosemide 40mg iv daily, Aldactone 25mg daily. * Hypertension - Metoprolol 50mg bid, Hydralazine 10mg q6h prn. * GI prophylaxis - Lactobacillus 2 tablets bid. * Hypothyroidism - Levothyroxine 175mg daily. * Dizziness - Meclizine 25mg daily prn. * Nutrition - MVI 1 tablet daily. * GERD - Pantoprazole 40mg daily. * Dry eyes - Artificial tears 1-2 gtt q2h prn. * Hypokalemia - KCL 20meq bidcm. * Hyperlipidemia - Pravastatin 40mg qhs. * Dry nares - [place] Srapy 1 spray nasal tid prn. Capacity Capacity Assessment Tool Can the patient make a choice & communicate that choice?: Yes Can the patient understand benefits, risks and alternatives?: Yes Can the patient make a logical, rational choice?: Yes Is the choice the patient makes consistent w/ their values?: Yes Is there an impending, emergent risk to the patient?: No Does the patient have an Advance Directive?: No Is there a Surrogate Available?: Yes i.e. HCPOA: Yes i.e. close relative (spouse, child, parent, sibling)?: Yes
[2023-09-12 20:32] VITALS: PULSE 87
[2023-09-12] MEDS: Pravastatin 40 MG Tablet PO (20:33)
[2023-09-12] MEDS: Citalopram 20 MG Tablet PO (20:33)
[2023-09-12] MEDS: Baclofen 10 MG Tablet 20 MG PO (20:34)
[2023-09-12] MEDS: traZODone 100 MG Tablet PO (20:35)
[2023-09-12 20:47] VITALS: BP 122/68; PULSE 87; RESP 17; TEMP 36.5; O2SAT 94
[2023-09-12 22:08] VITALS: PULSE 79; O2SAT 94
[2023-09-13] MEDS: Dicyclomine 10 MG Capsule PO ×3 (05:56→17:12)
[2023-09-13] MEDS: Levothyroxine 175 MCG Tablet PO (05:56)
[2023-09-13] MEDS: Potassium Chloride Oral Tablet 20 MEQ PO ×2 (09:32→17:10)
[2023-09-13 09:35] VITALS: PULSE 82
[2023-09-13] MEDS: Metoprolol Tartrate 50 MG Tablet PO ×2 (09:35→21:14)
[2023-09-13] MEDS: Spironolactone 25 MG Tablet PO (09:36)
[2023-09-13] MEDS: Pantoprazole Sodium 40 MG Tablet PO (09:36)
[2023-09-13] MEDS: Colestipol 1 GM TABLET PO ×2 (09:36→21:14)
[2023-09-13] MEDS: Cholecalciferol (VIT D3) 25 MCG TABLET (1,000 UNITS) PO (09:36)
[2023-09-13] MEDS: sulfaSALAzine 500 MG Tablet 1000 MG PO ×2 (09:36→21:14)
[2023-09-13] MEDS: APIXABAN 2.5 MG TABLET (WCH) PO ×2 (09:36→21:16)
[2023-09-13] MEDS: Allopurinol 300 MG Tablet PO (09:36)
[2023-09-13] MEDS: Budesonide 3 MG CAPSULE.EC 6 MG PO (09:36)
[2023-09-13] MEDS: Folic Acid 1 MG Tablet PO (09:36)
[2023-09-13] MEDS: Ascorbic Acid 500 MG Tablet PO (09:36)
[2023-09-13] MEDS: Zinc Sulfate 50 mg zinc (220 mg) ORAL capsule PO (09:36)
[2023-09-13] MEDS: Carbidopa/Levodopa 25/100 Tablet PO ×3 (09:37→17:12)
[2023-09-13] MEDS: Multivitamins,Ther W-Minerals Tablet 1 TABLET PO (09:37)
[2023-09-13] MEDS: Amox/Clavulanate 500 MG Tablet PO ×2 (09:37→17:12)
[2023-09-13] MEDS: Amiodarone 200 MG Tablet PO (09:37)
[2023-09-13] MEDS: Ursodiol 250 MG Tablet PO ×2 (09:37→21:14)
[2023-09-13] MEDS: Furosemide 40 MG/4 ML Vial IV (09:38)
[2023-09-13] MEDS: Loperamide 2 MG Capsule PO ×2 (09:42→14:37)
[2023-09-13] MEDS: 0.9% Saline Lock 10 ML Syringe IV (09:44)
[2023-09-13 10:00] VITALS: BP 101/58; PULSE 82; RESP 16; TEMP 36.1; O2SAT 95
[2023-09-13] MEDS: CARBIDOPA/LEVODOPA CR 50/200 Tablet PO ×2 (11:32→21:14)
[2023-09-13 20:20] VITALS: BP 104/60; PULSE 79; RESP 18; TEMP 36.8; O2SAT 94
[2023-09-13] MEDS: Baclofen 10 MG Tablet 20 MG PO (21:13)
[2023-09-13 21:14] VITALS: PULSE 78
[2023-09-13] MEDS: traZODone 100 MG Tablet PO (21:14)
[2023-09-13] MEDS: Pravastatin 40 MG Tablet PO (21:14)
[2023-09-13] MEDS: Citalopram 20 MG Tablet PO (21:15)
[2023-09-13] MEDS: Menthol/Lanolin/Calamine/Znox 113 GM Tube 1 APPLIC TOPICAL (21:16)
[2023-09-13 22:52] VITALS: PULSE 80; O2SAT 94
[2023-09-14 06:00] VITALS: BMI 38.0
[2023-09-14] MEDS: Levothyroxine 175 MCG Tablet PO (06:04)
[2023-09-14] MEDS: 0.9% Saline Lock 10 ML Syringe IV ×3 (06:04→21:50)
[2023-09-14] MEDS: Dicyclomine 10 MG Capsule PO ×3 (06:04→17:22)
--- NOTE | 2023-09-14 06:57 | NURSING ---
per P.T., pt scratched her left meehan and opened her skin. pt is in shower at this time will be assessed by day shift.
[2023-09-14] MEDS: Pantoprazole Sodium 40 MG Tablet PO (08:25)
[2023-09-14] MEDS: APIXABAN 2.5 MG TABLET (WCH) PO ×2 (08:25→21:49)
[2023-09-14] MEDS: sulfaSALAzine 500 MG Tablet 1000 MG PO ×2 (08:26→21:46)
[2023-09-14] MEDS: Ascorbic Acid 500 MG Tablet PO (08:26)
[2023-09-14] MEDS: Carbidopa/Levodopa 25/100 Tablet PO ×3 (08:26→18:19)
[2023-09-14] MEDS: Potassium Chloride Oral Tablet 20 MEQ PO ×2 (08:27→17:21)
[2023-09-14] MEDS: Folic Acid 1 MG Tablet PO (08:28)
[2023-09-14] MEDS: Amiodarone 200 MG Tablet PO (08:28)
[2023-09-14] MEDS: Allopurinol 300 MG Tablet PO (08:29)
[2023-09-14] MEDS: Multivitamins,Ther W-Minerals Tablet 1 TABLET PO (08:29)
[2023-09-14] MEDS: Budesonide 3 MG CAPSULE.EC 6 MG PO (08:29)
[2023-09-14] MEDS: Ursodiol 250 MG Tablet PO ×2 (08:30→21:46)
[2023-09-14] MEDS: Zinc Sulfate 50 mg zinc (220 mg) ORAL capsule PO (08:31)
[2023-09-14] MEDS: Cholecalciferol (VIT D3) 25 MCG TABLET (1,000 UNITS) PO (08:31)
[2023-09-14] MEDS: Spironolactone 25 MG Tablet PO (08:32)
[2023-09-14 08:37] VITALS: BP 119/71; PULSE 80
[2023-09-14] MEDS: Metoprolol Tartrate 50 MG Tablet PO ×2 (08:37→21:45)
[2023-09-14] MEDS: Furosemide 40 MG/4 ML Vial IV (08:48)
[2023-09-14] MEDS: Sodium Chloride 0.65% 1 SPRAY SPRAY.BTL NASAL ×2 (09:03→21:37)
[2023-09-14] MEDS: Glycerin/Hypromellose/PEG400 15 ml Bottle EACH EYE ×2 (09:04→21:37)
[2023-09-14] MEDS: Loperamide 2 MG Capsule PO ×3 (09:06→18:17)
[2023-09-14] MEDS: Menthol/Lanolin/Calamine/Znox 113 GM Tube 1 APPLIC TOPICAL ×2 (09:09→20:00)
[2023-09-14 10:00] VITALS: BP 119/71; PULSE 80; RESP 16; TEMP 35.6; O2SAT 92
[2023-09-14] MEDS: Colestipol 1 GM TABLET PO ×2 (11:34→21:47)
[2023-09-14] MEDS: CARBIDOPA/LEVODOPA CR 50/200 Tablet PO ×2 (11:34→21:44)
--- NOTE | 2023-09-14 12:17 | CASEMGMT ---
Social Work This worker received voicemail from insurance reviewer explaining [facility] process. Insurance requests updates weekly to follow along with pt's progress, however, relies on IDT to set DC date when appropriate. Reviewer made it clear the insurance will not issue a DC date for the pt, and has approved pts for 3-4 weeks before. SW phoned son to update on above. Son very appreciative. SW did note IDT would like additional time for pt to improve further and make a better determination if pt can return home alone safely. Son agreeable. Will Team on 09/17. Lena Ferreira, JAIME NICHOLSONW
[2023-09-14 19:27] VITALS: BP 114/80; PULSE 83; RESP 17; TEMP 36.3; O2SAT 93
[2023-09-14] MEDS: Diphenoxylate/Atrop 1 Tablet PO (21:36)
[2023-09-14 21:45] VITALS: BP 114/80; PULSE 83
[2023-09-14] MEDS: Citalopram 20 MG Tablet PO (21:45)
[2023-09-14] MEDS: traZODone 100 MG Tablet PO (21:46)
[2023-09-14] MEDS: Baclofen 10 MG Tablet 20 MG PO (21:48)
[2023-09-14] MEDS: Pravastatin 40 MG Tablet PO (21:49)
[2023-09-14 22:41] VITALS: PULSE 79; RESP 18; O2SAT 91
[2023-09-15] MEDS: Levothyroxine 175 MCG Tablet PO (05:10)
[2023-09-15] MEDS: Dicyclomine 10 MG Capsule PO ×3 (05:13→17:00)
[2023-09-15 06:00] VITALS: BMI 38.0
[2023-09-15 07:41] VITALS: BP 112/67; PULSE 94; RESP 16; TEMP 36.3; O2SAT 94
[2023-09-15] MEDS: Carbidopa/Levodopa 25/100 Tablet PO ×3 (08:05→17:00)
[2023-09-15] MEDS: Potassium Chloride Oral Tablet 20 MEQ PO ×2 (08:05→17:00)
[2023-09-15] MEDS: Cholecalciferol (VIT D3) 25 MCG TABLET (1,000 UNITS) PO (08:05)
[2023-09-15] MEDS: Ascorbic Acid 500 MG Tablet PO (08:06)
[2023-09-15] MEDS: Ursodiol 250 MG Tablet PO ×2 (08:06→21:53)
[2023-09-15 08:07] VITALS: PULSE 70
[2023-09-15] MEDS: Metoprolol Tartrate 50 MG Tablet PO ×2 (08:07→21:54)
[2023-09-15] MEDS: sulfaSALAzine 500 MG Tablet 1000 MG PO ×2 (08:07→21:53)
[2023-09-15] MEDS: APIXABAN 2.5 MG TABLET (WCH) PO ×2 (08:09→21:54)
[2023-09-15] MEDS: Pantoprazole Sodium 40 MG Tablet PO (08:09)
[2023-09-15] MEDS: Multivitamins,Ther W-Minerals Tablet 1 TABLET PO (08:09)
[2023-09-15] MEDS: Budesonide 3 MG CAPSULE.EC 6 MG PO (08:10)
[2023-09-15] MEDS: Allopurinol 300 MG Tablet PO (08:10)
[2023-09-15] MEDS: Zinc Sulfate 50 mg zinc (220 mg) ORAL capsule PO (08:11)
[2023-09-15] MEDS: Spironolactone 25 MG Tablet PO (08:11)
[2023-09-15] MEDS: Colestipol 1 GM TABLET PO ×2 (08:13→21:54)
[2023-09-15] MEDS: Amiodarone 200 MG Tablet PO (08:14)
[2023-09-15] MEDS: Folic Acid 1 MG Tablet PO (08:15)
[2023-09-15] MEDS: Sodium Chloride 0.65% 1 SPRAY SPRAY.BTL NASAL ×2 (08:22→22:21)
[2023-09-15] MEDS: Glycerin/Hypromellose/PEG400 15 ml Bottle EACH EYE ×2 (08:23→22:20)
[2023-09-15 10:00] VITALS: RESP 16; O2SAT 97
[2023-09-15] MEDS: Furosemide 40 MG/4 ML Vial IV (10:44)
--- NOTE | 2023-09-15 10:53 | RAD_ITS ---
STUDY: X-RAY - ABDOMEN/PELVIS REASON FOR EXAM: Female, 83 years old. Nausea and vomiting, diarrhea TECHNIQUE: Two AP supine views of the abdomen and pelvis. COMPARISON: None. FINDINGS: Normal visualized lung bases. There is an unremarkable bowel gas pattern. There is no demonstrated free abdominal air. The visualized liver, spleen and kidneys are grossly normal in size and morphology. Normal soft tissue structures. There are diffuse degenerative changes of the visualized lumbar spine. Replaced left hip joint free of complication RAD/Abdomen Single View (Portable) IMPRESSION: No abnormal findings Electronically Signed: Guy Steinberg MD at 15:31 EST ,
--- NOTE | 2023-09-15 10:58 | NURSING ---
Patient noted to continue to have excessive diarrhea; Spoke w/ MD to order KUB to check for possible Impaction- also noted to add Lomotil w/ the max tablet per day dose to PRN order list d/t loperamide not being effective anymore.
[2023-09-15] MEDS: CARBIDOPA/LEVODOPA CR 50/200 Tablet PO ×2 (12:30→21:53)
[2023-09-15] MEDS: Menthol/Lanolin/Calamine/Znox 113 GM Tube 1 APPLIC TOPICAL ×2 (12:30→22:22)
[2023-09-15] MEDS: Diphenoxylate/Atrop 1 Tablet 2 TABLET PO (15:01)
[2023-09-15] MEDS: traZODone 100 MG Tablet PO (21:53)
[2023-09-15] MEDS: Baclofen 10 MG Tablet 20 MG PO (21:53)
[2023-09-15] MEDS: Citalopram 20 MG Tablet PO (21:53)
[2023-09-15] MEDS: Pravastatin 40 MG Tablet PO (21:53)
[2023-09-15 21:54] VITALS: BP 102/62; PULSE 82
[2023-09-15 22:00] VITALS: BP 102/62; PULSE 82; RESP 14; TEMP 36.3; O2SAT 93
[2023-09-16] MEDS: Dicyclomine 10 MG Capsule PO ×3 (05:38→16:53)
[2023-09-16] MEDS: Levothyroxine 175 MCG Tablet PO (05:38)
[2023-09-16] MEDS: Diphenoxylate/Atrop 1 Tablet 2 TABLET PO ×3 (05:50→21:56)
[2023-09-16 06:00] VITALS: BMI 38.0
[2023-09-16 07:58] VITALS: BP 109/67; PULSE 82; RESP 16; TEMP 36.4; O2SAT 92
[2023-09-16 09:03] VITALS: PULSE 82
[2023-09-16] MEDS: Metoprolol Tartrate 50 MG Tablet PO ×2 (09:03→21:35)
[2023-09-16] MEDS: Pantoprazole Sodium 40 MG Tablet PO (09:04)
[2023-09-16] MEDS: Ascorbic Acid 500 MG Tablet PO (09:05)
[2023-09-16] MEDS: sulfaSALAzine 500 MG Tablet 1000 MG PO ×2 (09:06→21:33)
[2023-09-16] MEDS: Carbidopa/Levodopa 25/100 Tablet PO ×3 (09:06→16:53)
[2023-09-16] MEDS: Amiodarone 200 MG Tablet PO (09:06)
[2023-09-16] MEDS: Ursodiol 250 MG Tablet PO ×2 (09:06→21:34)
[2023-09-16] MEDS: Multivitamins,Ther W-Minerals Tablet 1 TABLET PO (09:06)
[2023-09-16] MEDS: Allopurinol 300 MG Tablet PO (09:06)
[2023-09-16] MEDS: Budesonide 3 MG CAPSULE.EC 6 MG PO (09:06)
[2023-09-16] MEDS: Cholecalciferol (VIT D3) 25 MCG TABLET (1,000 UNITS) PO (09:07)
[2023-09-16] MEDS: Folic Acid 1 MG Tablet PO (09:07)
[2023-09-16] MEDS: APIXABAN 2.5 MG TABLET (WCH) PO ×2 (09:07→21:35)
[2023-09-16] MEDS: Zinc Sulfate 50 mg zinc (220 mg) ORAL capsule PO (09:07)
[2023-09-16] MEDS: Potassium Chloride Oral Tablet 20 MEQ PO ×2 (09:08→16:53)
[2023-09-16] MEDS: Spironolactone 25 MG Tablet PO (09:08)
[2023-09-16] MEDS: Menthol/Lanolin/Calamine/Znox 113 GM Tube 1 APPLIC TOPICAL ×2 (09:08→21:36)
[2023-09-16] MEDS: Colestipol 1 GM TABLET PO ×2 (09:09→21:34)
[2023-09-16] MEDS: 0.9% Saline Lock 10 ML Syringe IV (10:55)
[2023-09-16] MEDS: Furosemide 40 MG/4 ML Vial IV (10:55)
[2023-09-16] MEDS: CARBIDOPA/LEVODOPA CR 50/200 Tablet PO ×2 (11:02→21:35)
[2023-09-16 20:50] VITALS: BP 123/69; PULSE 87; RESP 16; TEMP 36.5; O2SAT 94
[2023-09-16 20:55] VITALS: PULSE 87; RESP 16; O2SAT 94
[2023-09-16] MEDS: Sodium Chloride 0.65% 1 SPRAY SPRAY.BTL NASAL (21:33)
[2023-09-16] MEDS: traZODone 100 MG Tablet PO (21:33)
[2023-09-16] MEDS: Glycerin/Hypromellose/PEG400 15 ml Bottle EACH EYE (21:33)
[2023-09-16] MEDS: Pravastatin 40 MG Tablet PO (21:34)
[2023-09-16] MEDS: Citalopram 20 MG Tablet PO (21:34)
[2023-09-16 21:35] VITALS: BP 123/69; PULSE 87
[2023-09-16] MEDS: Baclofen 10 MG Tablet 20 MG PO (21:35)
[2023-09-16 23:59] VITALS: PULSE 80; O2SAT 92
[2023-09-17 06:00] VITALS: BMI 37.6
[2023-09-17] MEDS: Levothyroxine 175 MCG Tablet PO (06:02)
[2023-09-17] MEDS: Dicyclomine 10 MG Capsule PO ×3 (06:02→17:18)
[2023-09-17 07:22] VITALS: BP 120/71; PULSE 82; RESP 15; TEMP 36.6; O2SAT 93
--- NOTE | 2023-09-17 08:11 | CASEMGMT ---
Social Work IDT met with patient and son for Team meeting. Discussed patient's progress in PT/OT/ST/SN. Educated to [facility] insurance with [employer] 09/19. Educated insurance will not issue LCD, but will follow along with pt's progress. IDT and pt/family will set DC date. IDT expressed concern with memory, safety and toileting tasks with pt returning home at this time. Recommending help at home or [place], if not further noted improvement. SW requested son to provide copies of advanced directives. Will ReTeam next week. SW will continue to follow for DC planning. Lena Ferreira, JAIME SOLUTION DEVELOPER
[2023-09-17] MEDS: Potassium Chloride Oral Tablet 20 MEQ PO ×2 (09:03→17:18)
[2023-09-17 09:07] VITALS: BP 120/71; PULSE 82
[2023-09-17] MEDS: Metoprolol Tartrate 50 MG Tablet PO ×2 (09:07→21:45)
[2023-09-17] MEDS: Allopurinol 300 MG Tablet PO (09:07)
[2023-09-17] MEDS: Ursodiol 250 MG Tablet PO ×2 (09:07→21:44)
[2023-09-17] MEDS: APIXABAN 2.5 MG TABLET (WCH) PO ×2 (09:08→21:44)
[2023-09-17] MEDS: Pantoprazole Sodium 40 MG Tablet PO (09:08)
[2023-09-17] MEDS: Ascorbic Acid 500 MG Tablet PO (09:08)
[2023-09-17] MEDS: Spironolactone 25 MG Tablet PO (09:08)
[2023-09-17] MEDS: Zinc Sulfate 50 mg zinc (220 mg) ORAL capsule PO (09:08)
[2023-09-17] MEDS: sulfaSALAzine 500 MG Tablet 1000 MG PO ×2 (09:08→21:44)
[2023-09-17] MEDS: Folic Acid 1 MG Tablet PO (09:08)
[2023-09-17] MEDS: Cholecalciferol (VIT D3) 25 MCG TABLET (1,000 UNITS) PO (09:08)
[2023-09-17] MEDS: Colestipol 1 GM TABLET PO ×2 (09:08→21:44)
[2023-09-17] MEDS: Multivitamins,Ther W-Minerals Tablet 1 TABLET PO (09:09)
[2023-09-17] MEDS: Budesonide 3 MG CAPSULE.EC 6 MG PO (09:09)
[2023-09-17] MEDS: Amiodarone 200 MG Tablet PO (09:09)
[2023-09-17] MEDS: Carbidopa/Levodopa 25/100 Tablet PO ×3 (09:09→17:18)
[2023-09-17] MEDS: Furosemide 40 MG/4 ML Vial IV (09:09)
[2023-09-17] MEDS: Diphenoxylate/Atrop 1 Tablet 2 TABLET PO ×2 (09:13→17:26)
[2023-09-17] MEDS: 0.9% Saline Lock 10 ML Syringe IV (09:13)
[2023-09-17] MEDS: Menthol/Lanolin/Calamine/Znox 113 GM Tube 1 APPLIC TOPICAL ×2 (09:21→21:44)
--- NOTE | 2023-09-17 11:18 | PN_ITS ---
Subjective Subjective Patient seen during IDT rounds. Her son Jose was present. Her diarrhea is better controlled on Lomotil, but I warned her to look out for constipation, that is why I ordered it PRN. Shima admits she has some cognitive deficits, may benefit from discharge to [place]. Objective Data Objective Data Vital Signs: Vital Signs Temp Pulse Resp BP Pulse Ox O2 Del Method O2 Flow Rate 97.8 F 82 15 120/71 93 Room Air 2 09/17/23 07:22 09/17/23 09:07 09/17/23 07:22 09/17/23 09:07 09/17/23 07:22 09/17/23 07:22 09/08/23 08:22 FiO2 21 09/16/23 23:59 Oxygen Flow Rate (L/min) 2 Oxygen Delivery Method Room Air Weight: 108.9 kg Body Mass Index (BMI) 37.6 Intake & Output: Intake and Output for Last 24 Hours 09/15/23 09/16/23 09/17/23 23:59 23:59 23:59 Intake Total 2680 / 2680 1540 / 1540 200 / 200 Output Total 2600 / 2600 2350 / 2350 300 / 300 Balance 80 / 80 -810 / -810 -100 / -100 Lab / Micro Data 09/10/23 05:09 09/12/23 05:13 Physical Exam Const alert General Appearance: cooperative HEENT normocephalic Eyes PERRL and EOMs intact bilaterally Neck supple, no JVD and no carotid bruits Resp normal respiratory effort, normal air movement and clear to auscultation bilaterally Cardio regular rate and regular rhythm GI normal to inspection, nondistended, normoactive bowel sounds, non-tender and non-distended Bladder / Kidney Exam: catheter in place urethral Extremity normal capillary refill General Extremity: Negative for edema Skin no rashes or lesions noted General Skin Exam: no breakdown Psych affect normal Appearance: appropriate Assessment & Plan Assessment/Plan (1) Debility: (2) Diverticulitis of colon: (3) Chronic diastolic heart failure: (4) Microscopic colitis: QUALIFIERS: Microscopic colitis type: other microscopic colitis Qualified Code(s): K52.838 - Other microscopic colitis (5) NAFLD (nonalcoholic fatty liver disease): (6) Hypothyroidism: (7) Paroxysmal atrial fibrillation: (8) Essential (primary) hypertension: (9) HLD (hyperlipidemia): QUALIFIERS: Hyperlipidemia type: unspecified Qualified Code(s): E78.5 - Hyperlipidemia, unspecified (10) Parkinson disease: QUALIFIERS: Dyskinesia presence: with dyskinesia Fluctuating manifestations: with fluctuating manifestations Qualified Code(s): G20.B2 - Parkinson's disease with dyskinesia, with fluctuations PLAN: Plan 83 year old female with below past medical history hospitalized for diverticulitis of colon, admitted to for 3 hours daily rehabilitation, [facility], prior to discharge home. * Debility - PT/OT/ST. * Pain - [place] 5/325mg q6 prn. * Bowel - Dulcolax 10mg pr x 1 prn, MOM 30ml po x 1 prn. * DVT prophylaxis - Eliquis. * Gout - Allopurinol 300mg daily. * Atrial fibrillation - Metoprolol 50mg bid, Amiodarone 200mg daily, Eliquis 2.5mg bid. * Urinary retention - Indwelling hummel catheter. * Vitamin C deficiency - Vitamin C 500mg daily. * Muscle spasm - Baclofen 20mg qhs. * Microscopic colitis - Budesonide 6mg qam, Colestipol 1gm bid, Bentyl 10mg tidac, Loperamide 2mg q6h prn, Lomotil 2 tablets q6h prn. * Parkinson Disease - Sinemet 25/100mg 2 tablets tid, Sinemet ER 50/200mg bid, Comtan 200mg bid. * Vitamin D deficiency - D3 25mcg daily. * Depression - Citalopram 20mg qhs. * Folate deficiency - Folic acid 1mg daily. * Chronic diastolic heart failure - Metoprolol 50mg bid, Furosemide 40mg iv daily, Aldactone 25mg daily. * Hypertension - Metoprolol 50mg bid, Hydralazine 10mg q6h prn. * GI prophylaxis - Lactobacillus 2 tablets bid. * Hypothyroidism - Levothyroxine 175mg daily. * Dizziness - Meclizine 25mg daily prn. * Nutrition - MVI 1 tablet daily. * GERD - Pantoprazole 40mg daily. * Dry eyes - Artificial tears 1-2 gtt q2h prn. * Hypokalemia - KCL 20meq bidcm. * Hyperlipidemia - Pravastatin 40mg qhs. * Dry nares - [place] Srapy 1 spray nasal tid prn. Capacity Capacity Assessment Tool Can the patient make a choice & communicate that choice?: Yes Can the patient understand benefits, risks and alternatives?: Yes Can the patient make a logical, rational choice?: Yes Is the choice the patient makes consistent w/ their values?: Yes Is there an impending, emergent risk to the patient?: No Does the patient have an Advance Directive?: No Is there a Surrogate Available?: Yes i.e. HCPOA: Yes i.e. close relative (spouse, child, parent, sibling)?: Yes
[2023-09-17] MEDS: CARBIDOPA/LEVODOPA CR 50/200 Tablet PO ×2 (11:43→21:44)
[2023-09-17 21:00] VITALS: BP 99/60; PULSE 89; RESP 18; TEMP 36.5; O2SAT 93
[2023-09-17] MEDS: Glycerin/Hypromellose/PEG400 15 ml Bottle EACH EYE (21:43)
[2023-09-17] MEDS: Sodium Chloride 0.65% 1 SPRAY SPRAY.BTL NASAL (21:43)
[2023-09-17] MEDS: Pravastatin 40 MG Tablet PO (21:44)
[2023-09-17] MEDS: Citalopram 20 MG Tablet PO (21:44)
[2023-09-17 21:45] VITALS: BP 99/60; PULSE 89
[2023-09-17] MEDS: traZODone 100 MG Tablet PO (21:45)
[2023-09-17] MEDS: Baclofen 10 MG Tablet 20 MG PO (21:45)
[2023-09-18 06:00] VITALS: BMI 37.7
[2023-09-18] MEDS: Diphenoxylate/Atrop 1 Tablet 2 TABLET PO ×2 (06:35→16:30)
[2023-09-18] MEDS: Levothyroxine 175 MCG Tablet PO (06:35)
[2023-09-18] MEDS: Dicyclomine 10 MG Capsule PO ×3 (06:35→16:26)
--- NOTE | 2023-09-18 08:37 | PN_ITS ---
Subjective Subjective Patient seen, examined. She is eating breakfast. Diarrhea controlled with Lomotil. Objective Data Objective Data Vital Signs: Vital Signs Temp Pulse Resp BP Pulse Ox O2 Del Method O2 Flow Rate 97.7 F L 89 18 99/60 93 Room Air 2 09/17/23 21:00 09/17/23 21:45 09/17/23 21:00 09/17/23 21:45 09/17/23 21:00 09/17/23 21:00 09/08/23 08:22 FiO2 21 09/18/23 00:29 Oxygen Flow Rate (L/min) 2 Oxygen Delivery Method Room Air Weight: 108.953 kg Body Mass Index (BMI) 37.7 Intake & Output: Intake and Output for Last 24 Hours 09/16/23 09/17/23 09/18/23 23:59 23:59 23:59 Intake Total 1540 / 1540 1920 / 1920 500 / 500 Output Total 2350 / 2350 1650 / 1650 600 / 600 Balance -810 / -810 270 / 270 -100 / -100 Lab / Micro Data Attestation: I reviewed the patient's lab results. 09/10/23 05:09 09/12/23 05:13 Physical Exam Const alert General Appearance: cooperative HEENT normocephalic Eyes PERRL and EOMs intact bilaterally Neck supple, no JVD and no carotid bruits Resp normal respiratory effort, normal air movement and clear to auscultation bilaterally Cardio regular rate and regular rhythm GI normal to inspection, nondistended, normoactive bowel sounds, non-tender and non-distended Bladder / Kidney Exam: catheter in place urethral Extremity normal capillary refill General Extremity: Negative for edema Skin no rashes or lesions noted General Skin Exam: no breakdown Psych affect normal Appearance: appropriate Assessment & Plan Assessment/Plan (1) Debility: (2) Diverticulitis of colon: (3) Chronic diastolic heart failure: (4) Microscopic colitis: QUALIFIERS: Microscopic colitis type: other microscopic colitis Qualified Code(s): K52.838 - Other microscopic colitis (5) NAFLD (nonalcoholic fatty liver disease): (6) Hypothyroidism: (7) Paroxysmal atrial fibrillation: (8) Essential (primary) hypertension: (9) HLD (hyperlipidemia): QUALIFIERS: Hyperlipidemia type: unspecified Qualified Code(s): E78.5 - Hyperlipidemia, unspecified (10) Parkinson disease: QUALIFIERS: Dyskinesia presence: with dyskinesia Fluctuating manifestations: with fluctuating manifestations Qualified Code(s): G20.B2 - Parkinson's disease with dyskinesia, with fluctuations PLAN: Plan 83 year old female with below past medical history hospitalized for diverticulitis of colon, admitted to for 3 hours daily rehabilitation, [facility], prior to discharge home. * Debility - PT/OT/ST. * Pain - [place] 5/325mg q6 prn. * Bowel - Dulcolax 10mg pr x 1 prn, MOM 30ml po x 1 prn. * DVT prophylaxis - Eliquis. * Gout - Allopurinol 300mg daily. * Atrial fibrillation - Metoprolol 50mg bid, Amiodarone 200mg daily, Eliquis 2.5mg bid. * Urinary retention - Indwelling hummel catheter. * Vitamin C deficiency - Vitamin C 500mg daily. * Muscle spasm - Baclofen 20mg qhs. * Microscopic colitis - Budesonide 6mg qam, Colestipol 1gm bid, Bentyl 10mg tidac, Loperamide 2mg q6h prn, Lomotil 2 tablets q6h prn. * Parkinson Disease - Sinemet 25/100mg 2 tablets tid, Sinemet ER 50/200mg bid, Comtan 200mg bid. * Vitamin D deficiency - D3 25mcg daily. * Depression - Citalopram 20mg qhs. * Folate deficiency - Folic acid 1mg daily. * Chronic diastolic heart failure - Metoprolol 50mg bid, Furosemide 40mg iv daily, Aldactone 25mg daily. * Hypertension - Metoprolol 50mg bid, Hydralazine 10mg q6h prn. * GI prophylaxis - Lactobacillus 2 tablets bid. * Hypothyroidism - Levothyroxine 175mg daily. * Dizziness - Meclizine 25mg daily prn. * Nutrition - MVI 1 tablet daily. * GERD - Pantoprazole 40mg daily. * Dry eyes - Artificial tears 1-2 gtt q2h prn. * Hypokalemia - KCL 20meq bidcm. * Hyperlipidemia - Pravastatin 40mg qhs. * Dry nares - [place] Srapy 1 spray nasal tid prn. Capacity Capacity Assessment Tool Can the patient make a choice & communicate that choice?: Yes Can the patient understand benefits, risks and alternatives?: Yes Can the patient make a logical, rational choice?: Yes Is the choice the patient makes consistent w/ their values?: Yes Is there an impending, emergent risk to the patient?: No Does the patient have an Advance Directive?: No Is there a Surrogate Available?: Yes i.e. HCPOA: Yes i.e. close relative (spouse, child, parent, sibling)?: Yes
[2023-09-18] MEDS: APIXABAN 2.5 MG TABLET (WCH) PO ×2 (09:09→20:58)
[2023-09-18] MEDS: Allopurinol 300 MG Tablet PO (09:09)
[2023-09-18] MEDS: Spironolactone 25 MG Tablet PO (09:09)
[2023-09-18] MEDS: Budesonide 3 MG CAPSULE.EC 6 MG PO (09:10)
[2023-09-18] MEDS: Amiodarone 200 MG Tablet PO (09:10)
[2023-09-18] MEDS: Ascorbic Acid 500 MG Tablet PO (09:10)
[2023-09-18] MEDS: sulfaSALAzine 500 MG Tablet 1000 MG PO ×2 (09:10→20:59)
[2023-09-18] MEDS: Zinc Sulfate 50 mg zinc (220 mg) ORAL capsule PO (09:10)
[2023-09-18] MEDS: Pantoprazole Sodium 40 MG Tablet PO (09:10)
[2023-09-18] MEDS: Cholecalciferol (VIT D3) 25 MCG TABLET (1,000 UNITS) PO (09:10)
[2023-09-18] MEDS: Carbidopa/Levodopa 25/100 Tablet PO ×3 (09:10→17:21)
[2023-09-18] MEDS: Colestipol 1 GM TABLET PO ×2 (09:10→20:58)
[2023-09-18] MEDS: Multivitamins,Ther W-Minerals Tablet 1 TABLET PO (09:10)
[2023-09-18] MEDS: Folic Acid 1 MG Tablet PO (09:10)
[2023-09-18 09:11] VITALS: PULSE 81
[2023-09-18] MEDS: Metoprolol Tartrate 50 MG Tablet PO ×2 (09:11→20:59)
[2023-09-18] MEDS: Furosemide 40 MG/4 ML Vial IV (09:11)
[2023-09-18] MEDS: Potassium Chloride Oral Tablet 20 MEQ PO ×2 (09:11→16:26)
[2023-09-18] MEDS: Ursodiol 250 MG Tablet PO ×2 (09:12→20:58)
[2023-09-18] MEDS: 0.9% Saline Lock 10 ML Syringe IV (09:16)
[2023-09-18] MEDS: Menthol/Lanolin/Calamine/Znox 113 GM Tube 1 APPLIC TOPICAL ×2 (09:22→21:47)
[2023-09-18 09:24] VITALS: BP 101/60; PULSE 81; RESP 17; TEMP 36.6; O2SAT 94
[2023-09-18] MEDS: CARBIDOPA/LEVODOPA CR 50/200 Tablet PO ×2 (11:08→20:59)
[2023-09-18 19:44] VITALS: BP 104/55; PULSE 86; RESP 18; TEMP 36.7; O2SAT 94
[2023-09-18] MEDS: Sodium Chloride 0.65% 1 SPRAY SPRAY.BTL NASAL (20:57)
[2023-09-18] MEDS: Glycerin/Hypromellose/PEG400 15 ml Bottle EACH EYE (20:58)
[2023-09-18] MEDS: Baclofen 10 MG Tablet 20 MG PO (20:58)
[2023-09-18 20:59] VITALS: BP 104/55; PULSE 86
[2023-09-18] MEDS: Citalopram 20 MG Tablet PO (20:59)
[2023-09-18] MEDS: traZODone 100 MG Tablet PO (20:59)
[2023-09-18] MEDS: Pravastatin 40 MG Tablet PO (20:59)
[2023-09-18 21:00] VITALS: PULSE 86; RESP 18; O2SAT 94
[2023-09-18 21:48] VITALS: PULSE 85; RESP 18; O2SAT 92
--- NOTE | 2023-09-19 02:47 | NURSING ---
REVIEWED AND AGREE WITH RADAMES VERA, DOCUMENTATION AND ASSESSMENT CHARTING.
--- NOTE | 2023-09-19 03:25 | NURSING ---
Reviewed and agree with Oscar VERA, documentation and assessment charting.
[2023-09-19 06:00] VITALS: BMI 37.4
[2023-09-19] MEDS: Diphenoxylate/Atrop 1 Tablet 2 TABLET PO ×3 (06:49→22:00)
[2023-09-19] MEDS: Levothyroxine 175 MCG Tablet PO (06:49)
[2023-09-19] MEDS: Dicyclomine 10 MG Capsule PO ×3 (06:49→16:52)
--- NOTE | 2023-09-19 08:05 | PN_ITS ---
Subjective Subjective Patient seen, examined. No new complaints, nursing staff noted vaginal itching, cloudy urine, which is new. Objective Data Objective Data Vital Signs: Vital Signs Temp Pulse Resp BP Pulse Ox O2 Del Method O2 Flow Rate 98.0 F 85 18 104/55 L 92 Room Air 2 09/18/23 19:44 09/18/23 21:48 09/18/23 21:48 09/18/23 20:59 09/18/23 21:48 09/18/23 21:00 09/08/23 08:22 FiO2 21 09/18/23 21:48 Oxygen Flow Rate (L/min) 2 Oxygen Delivery Method Room Air Weight: 108.953 kg Body Mass Index (BMI) 37.7 Intake & Output: Intake and Output for Last 24 Hours 09/17/23 09/18/23 09/19/23 23:59 23:59 23:59 Intake Total 1920 / 1920 1540 / 1540 400 / 400 Output Total 1650 / 1650 2675 / 2675 200 / 200 Balance 270 / 270 -1135 / -1135 200 / 200 Lab / Micro Data Attestation: I reviewed the patient's lab results. 09/10/23 05:09 09/12/23 05:13 Physical Exam Const alert General Appearance: cooperative HEENT normocephalic Eyes PERRL and EOMs intact bilaterally Neck supple, no JVD and no carotid bruits Resp normal respiratory effort, normal air movement and clear to auscultation bilaterally Cardio regular rate and regular rhythm GI normal to inspection, nondistended, normoactive bowel sounds, non-tender and non-distended Bladder / Kidney Exam: catheter in place urethral Extremity normal capillary refill General Extremity: Negative for edema Skin no rashes or lesions noted General Skin Exam: no breakdown Psych affect normal Appearance: appropriate Assessment & Plan Assessment/Plan (1) Debility: (2) Diverticulitis of colon: (3) Chronic diastolic heart failure: (4) Microscopic colitis: QUALIFIERS: Microscopic colitis type: other microscopic colitis Qualified Code(s): K52.838 - Other microscopic colitis (5) NAFLD (nonalcoholic fatty liver disease): (6) Hypothyroidism: (7) Paroxysmal atrial fibrillation: (8) Essential (primary) hypertension: (9) HLD (hyperlipidemia): QUALIFIERS: Hyperlipidemia type: unspecified Qualified Code(s): E78.5 - Hyperlipidemia, unspecified (10) Parkinson disease: QUALIFIERS: Dyskinesia presence: with dyskinesia Fluctuating manifestations: with fluctuating manifestations Qualified Code(s): G20.B2 - Parkinson's disease with dyskinesia, with fluctuations PLAN: Plan 83 year old female with below past medical history hospitalized for diverticulitis of colon, admitted to for 3 hours daily rehabilitation, strengthening, prior to discharge home. * Debility - PT/OT/ST. * Pain - [place] 5/325mg q6 prn. * Bowel - Dulcolax 10mg pr x 1 prn, MOM 30ml po x 1 prn. * DVT prophylaxis - Eliquis. * Gout - Allopurinol 300mg daily. * Atrial fibrillation - Metoprolol 50mg bid, Amiodarone 200mg daily, Eliquis 2.5mg bid. * Urinary retention - Indwelling hummel catheter. * Vitamin C deficiency - Vitamin C 500mg daily. * Muscle spasm - Baclofen 20mg qhs. * Microscopic colitis - Budesonide 6mg qam, Colestipol 1gm bid, Bentyl 10mg tidac, Loperamide 2mg q6h prn, Lomotil 2 tablets q6h prn. * Parkinson Disease - Sinemet 25/100mg 2 tablets tid, Sinemet ER 50/200mg bid, Comtan 200mg bid. * Vitamin D deficiency - D3 25mcg daily. * Depression - Citalopram 20mg qhs. * Folate deficiency - Folic acid 1mg daily. * Chronic diastolic heart failure - Metoprolol 50mg bid, Furosemide 40mg iv daily, Aldactone 25mg daily. * Hypertension - Metoprolol 50mg bid, Hydralazine 10mg q6h prn. * GI prophylaxis - Lactobacillus 2 tablets bid. * Hypothyroidism - Levothyroxine 175mg daily. * Dizziness - Meclizine 25mg daily prn. * Nutrition - MVI 1 tablet daily. * GERD - Pantoprazole 40mg daily. * Dry eyes - Artificial tears 1-2 gtt q2h prn. * Hypokalemia - KCL 20meq bidcm. * Hyperlipidemia - Pravastatin 40mg qhs. * Dry nares - [place] Srapy 1 spray nasal tid prn. * Dysuria - cloudy urine, order UA, C+S. Capacity Capacity Assessment Tool Can the patient make a choice & communicate that choice?: Yes Can the patient understand benefits, risks and alternatives?: Yes Can the patient make a logical, rational choice?: Yes Is the choice the patient makes consistent w/ their values?: Yes Is there an impending, emergent risk to the patient?: No Does the patient have an Advance Directive?: No Is there a Surrogate Available?: Yes i.e. HCPOA: Yes i.e. close relative (spouse, child, parent, sibling)?: Yes
[2023-09-19 08:10] VITALS: BP 135/78; PULSE 89; RESP 17; TEMP 36.2; O2SAT 95
[2023-09-19 09:14] VITALS: PULSE 89
[2023-09-19] MEDS: Potassium Chloride Oral Tablet 20 MEQ PO ×2 (09:14→16:52)
[2023-09-19] MEDS: APIXABAN 2.5 MG TABLET (WCH) PO ×2 (09:14→21:42)
[2023-09-19] MEDS: Spironolactone 25 MG Tablet PO (09:14)
[2023-09-19] MEDS: Zinc Sulfate 50 mg zinc (220 mg) ORAL capsule PO (09:14)
[2023-09-19] MEDS: Ursodiol 250 MG Tablet PO ×2 (09:14→21:41)
[2023-09-19] MEDS: Metoprolol Tartrate 50 MG Tablet PO ×2 (09:14→21:41)
[2023-09-19] MEDS: Budesonide 3 MG CAPSULE.EC 6 MG PO (09:15)
[2023-09-19] MEDS: Carbidopa/Levodopa 25/100 Tablet PO ×3 (09:15→16:52)
[2023-09-19] MEDS: Allopurinol 300 MG Tablet PO (09:15)
[2023-09-19] MEDS: Pantoprazole Sodium 40 MG Tablet PO (09:15)
[2023-09-19] MEDS: Multivitamins,Ther W-Minerals Tablet 1 TABLET PO (09:15)
[2023-09-19] MEDS: sulfaSALAzine 500 MG Tablet 1000 MG PO ×2 (09:15→21:39)
[2023-09-19] MEDS: Colestipol 1 GM TABLET PO ×2 (09:15→21:42)
[2023-09-19] MEDS: Amiodarone 200 MG Tablet PO (09:15)
[2023-09-19] MEDS: Folic Acid 1 MG Tablet PO (09:15)
[2023-09-19] MEDS: Ascorbic Acid 500 MG Tablet PO (09:15)
[2023-09-19] MEDS: Cholecalciferol (VIT D3) 25 MCG TABLET (1,000 UNITS) PO (09:15)
[2023-09-19] MEDS: Furosemide 40 MG/4 ML Vial IV (09:16)
[2023-09-19] MEDS: Menthol/Lanolin/Calamine/Znox 113 GM Tube 1 APPLIC TOPICAL ×2 (09:24→22:06)
[2023-09-19] MEDS: CARBIDOPA/LEVODOPA CR 50/200 Tablet PO ×2 (11:10→21:39)
[2023-09-19 12:08] LABS: Color, Urine Yellow (Yellow); Glucose, Dipstick Normal (Normal); Ketone-Dipstick Negative (Negative); Leukocyte Esterase-Dipstick 100 /ul (Negative); Nitrite-Dipstick Positive (Negative); Occult Blood-Urine 10 /ul (Negative); Protein-Dipstick Negative (Negative); Urine Bilirubin Dipstick Negative (Negative); Urine Clarity Clear (Clear); Urine Urobilinogen Normal (Normal)
[2023-09-19 12:19] LABS: Bacteria 2+ /hpf (None Seen); Mucous, Urine 0 SEEN /hpf (<or=2+); Red Blood Cells-Urine 0 SEEN /hpf (0-5); Squamous Epithelial Cells - UA 0 SEEN /hpf (5-10); White Blood Cells 0-5 SEEN /hpf (0-5)
[2023-09-19 19:53] VITALS: BP 101/59; PULSE 82; RESP 16; TEMP 36.5; O2SAT 93
[2023-09-19] MEDS: Nitrofurantoin Macrocrystals 100 MG Capsule PO (21:39)
[2023-09-19] MEDS: Citalopram 20 MG Tablet PO (21:40)
[2023-09-19] MEDS: Pravastatin 40 MG Tablet PO (21:40)
[2023-09-19 21:41] VITALS: BP 108/63; PULSE 83
[2023-09-19] MEDS: Baclofen 10 MG Tablet 20 MG PO (21:41)
[2023-09-19] MEDS: traZODone 100 MG Tablet PO (21:42)
[2023-09-19 21:57] VITALS: PULSE 87; RESP 20; O2SAT 92
[2023-09-19] MEDS: Glycerin/Hypromellose/PEG400 15 ml Bottle EACH EYE (22:00)
[2023-09-19] MEDS: Sodium Chloride 0.65% 1 SPRAY SPRAY.BTL NASAL (22:01)
[2023-09-20] MEDS: Levothyroxine 175 MCG Tablet PO (06:13)
[2023-09-20] MEDS: Dicyclomine 10 MG Capsule PO ×3 (06:13→17:25)
[2023-09-20 07:59] VITALS: BP 116/68; PULSE 70; RESP 15; TEMP 36.4; O2SAT 93
[2023-09-20] MEDS: Potassium Chloride Oral Tablet 20 MEQ PO ×2 (08:56→17:25)
[2023-09-20] MEDS: Menthol/Lanolin/Calamine/Znox 113 GM Tube 1 APPLIC TOPICAL ×2 (08:58→21:40)
[2023-09-20] MEDS: Ursodiol 250 MG Tablet PO ×2 (08:59→21:27)
[2023-09-20] MEDS: Cholecalciferol (VIT D3) 25 MCG TABLET (1,000 UNITS) PO (08:59)
[2023-09-20] MEDS: Ascorbic Acid 500 MG Tablet PO (08:59)
[2023-09-20] MEDS: Colestipol 1 GM TABLET PO ×2 (08:59→22:38)
[2023-09-20] MEDS: Budesonide 3 MG CAPSULE.EC 6 MG PO (08:59)
[2023-09-20] MEDS: APIXABAN 2.5 MG TABLET (WCH) PO ×2 (08:59→21:28)
[2023-09-20 09:00] VITALS: PULSE 70
[2023-09-20] MEDS: Pantoprazole Sodium 40 MG Tablet PO (09:00)
[2023-09-20] MEDS: Metoprolol Tartrate 50 MG Tablet PO ×2 (09:00→21:27)
[2023-09-20] MEDS: sulfaSALAzine 500 MG Tablet 1000 MG PO ×2 (09:00→21:27)
[2023-09-20] MEDS: Amiodarone 200 MG Tablet PO (09:02)
[2023-09-20] MEDS: Furosemide 40 MG/4 ML Vial IV (09:02)
[2023-09-20] MEDS: Nitrofurantoin Macrocrystals 100 MG Capsule PO ×2 (09:03→17:25)
[2023-09-20] MEDS: Folic Acid 1 MG Tablet PO (09:03)
[2023-09-20] MEDS: Zinc Sulfate 50 mg zinc (220 mg) ORAL capsule PO (09:03)
[2023-09-20] MEDS: Allopurinol 300 MG Tablet PO (09:04)
[2023-09-20] MEDS: Multivitamins,Ther W-Minerals Tablet 1 TABLET PO (09:04)
[2023-09-20] MEDS: Carbidopa/Levodopa 25/100 Tablet PO ×3 (09:04→17:25)
[2023-09-20] MEDS: Spironolactone 25 MG Tablet PO (09:05)
[2023-09-20] MEDS: 0.9% Saline Lock 10 ML Syringe IV ×2 (09:13→21:39)
[2023-09-20] MEDS: Glycerin/Hypromellose/PEG400 15 ml Bottle EACH EYE ×2 (09:23→21:26)
[2023-09-20] MEDS: Sodium Chloride 0.65% 1 SPRAY SPRAY.BTL NASAL ×2 (09:23→21:26)
[2023-09-20] MEDS: CARBIDOPA/LEVODOPA CR 50/200 Tablet PO ×2 (12:20→21:28)
[2023-09-20] MEDS: Diphenoxylate/Atrop 1 Tablet 2 TABLET PO ×2 (13:20→21:27)
[2023-09-20 19:35] VITALS: BP 99/63; PULSE 70; RESP 14; TEMP 36.1; O2SAT 94
[2023-09-20 21:27] VITALS: BP 104/64; PULSE 86
[2023-09-20] MEDS: Pravastatin 40 MG Tablet PO (21:27)
[2023-09-20] MEDS: Baclofen 10 MG Tablet 20 MG PO (21:28)
[2023-09-20] MEDS: traZODone 100 MG Tablet PO (21:28)
[2023-09-20] MEDS: Citalopram 20 MG Tablet PO (21:28)
[2023-09-21 06:00] VITALS: BMI 36.8
[2023-09-21] MEDS: Levothyroxine 175 MCG Tablet PO (06:24)
[2023-09-21] MEDS: Dicyclomine 10 MG Capsule PO ×3 (06:24→16:27)
[2023-09-21 07:33] VITALS: BP 113/73; PULSE 67; RESP 16; TEMP 36.3; O2SAT 92
[2023-09-21] MEDS: Budesonide 3 MG CAPSULE.EC 6 MG PO (09:01)
[2023-09-21] MEDS: sulfaSALAzine 500 MG Tablet 1000 MG PO ×2 (09:02→20:33)
[2023-09-21] MEDS: Potassium Chloride Oral Tablet 20 MEQ PO ×2 (09:12→17:37)
[2023-09-21] MEDS: Carbidopa/Levodopa 25/100 Tablet PO ×3 (09:13→17:39)
[2023-09-21] MEDS: Folic Acid 1 MG Tablet PO (09:14)
[2023-09-21] MEDS: Multivitamins,Ther W-Minerals Tablet 1 TABLET PO (09:15)
[2023-09-21] MEDS: Zinc Sulfate 50 mg zinc (220 mg) ORAL capsule PO (09:15)
[2023-09-21] MEDS: Colestipol 1 GM TABLET PO (09:15)
[2023-09-21] MEDS: Pantoprazole Sodium 40 MG Tablet PO (09:16)
[2023-09-21] MEDS: Amiodarone 200 MG Tablet PO (09:16)
[2023-09-21] MEDS: APIXABAN 2.5 MG TABLET (WCH) PO ×2 (09:16→20:34)
[2023-09-21] MEDS: Spironolactone 25 MG Tablet PO (09:16)
[2023-09-21 09:17] VITALS: PULSE 67
[2023-09-21] MEDS: Metoprolol Tartrate 50 MG Tablet PO ×2 (09:17→20:33)
[2023-09-21] MEDS: Cholecalciferol (VIT D3) 25 MCG TABLET (1,000 UNITS) PO (09:17)
[2023-09-21] MEDS: Ursodiol 250 MG Tablet PO ×2 (09:17→20:34)
[2023-09-21] MEDS: Ascorbic Acid 500 MG Tablet PO (09:17)
[2023-09-21] MEDS: Allopurinol 300 MG Tablet PO (09:18)
[2023-09-21] MEDS: Diphenoxylate/Atrop 1 Tablet 2 TABLET PO (09:26)
[2023-09-21] MEDS: Glycerin/Hypromellose/PEG400 15 ml Bottle EACH EYE ×2 (09:27→20:35)
[2023-09-21] MEDS: Sodium Chloride 0.65% 1 SPRAY SPRAY.BTL NASAL ×2 (09:27→20:35)
[2023-09-21] MEDS: Menthol/Lanolin/Calamine/Znox 113 GM Tube 1 APPLIC TOPICAL ×2 (09:38→20:34)
[2023-09-21] MEDS: Furosemide 40 MG/4 ML Vial IV (10:00)
[2023-09-21] MEDS: 0.9% Saline Lock 10 ML Syringe IV ×2 (10:00→13:07)
[2023-09-21] MEDS: CARBIDOPA/LEVODOPA CR 50/200 Tablet PO ×2 (12:31→20:34)
[2023-09-21] MEDS: Cephalexin 500 MG Capsule PO ×2 (12:31→20:34)
[2023-09-21 12:52] LABS: Absolute Lymphocyte Count 1.18 X10^3/uL (0.83-4.51); Absolute Neutrophil Count 5.6 X10^3/uL (2.0-7.7); Basophil# 0.08 X10^3/uL; Eosinophils% 1.3 % (0-5); Hematocrit 41.4 % (37-47); Hemoglobin 13.4 g/dL (12.0-15.0); Lymphocyte # 1.18 X10^3/ul (0.83-4.51); Lymphocyte % 14.9 % (19-41); Mean Corp Hgb Conc 32.4 g/dL (32-36); Mean Corpuscular Hgb 32.4 pg (27.0-32.0); Mean Corpuscular Volume 100.2 fL (81-99); Monocyte% 10.1 % (0-10); NRBC Flagged by Analyzer 0 % (0-5); Neutrophil # 5.58 X10^3/uL (2.7-7.7); Neutrophil % 70.6 % (47-70); Platelet Count 217 K/mm3 (150-450); RBC Distribution Width CV 13.3 % (11.6-14.6); RBC Distribution Width SD 49.1 fl (35.1-43.9); Red Blood Count 4.13 M/mm3 (4.2-5.4); White Blood Count 7.9 K/mm3 (4.4-11.0)
[2023-09-21] MEDS: 0.9% Normal Saline (1000mL) 1,000 ML 75 ML IV (13:06)
[2023-09-21] MEDS: proCHLORPERazine 10 MG/2 ML Vial IV (13:07)
[2023-09-21 13:11] LABS: AST(SGOT) 20 U/L (15-37); Alanine Aminotransfer ALT/SGPT 8 U/L (13-56); Albumin, Serum 3.5 g/dL (3.2-5.0); Alkaline Phosphatase 83 U/L (45-117); Anion Gap 3 (5-15); BUN 17 mg/dL (7-18); BUN/Creat Ratio 19.9 RATIO (10-20); Calcium,Total 9.3 mg/dL (8.5-10.1); Chloride 101 mmol/L (98-107); Creatinine, Serum 0.86 mg/dL (0.55-1.02); EST Glomerular Filtration Rate 68 mL/min (>60); Est Glom Filt Rate - Afr Amer 82 mL/min (>60); Estimated Creatinine Clearance 49.89 ml/min; Globulin 3.6 g/dL (2.2-4.2); Glucose 105 mg/dL (74-106); Potassium 2.8 mmol/L (3.5-5.1); Protein, Total 7.1 g/dL (6.4-8.2); Sodium Level 140 mmol/L (136-145)
--- NOTE | 2023-09-21 13:18 | CASEMGMT ---
Addendum entered by Lena Ferreira 09/21/23 15:08: Received call from Mack, Advanced Quality Engineer, of [place]. Mack could not view referral via [facility], but would like to complete onsite 09/25 or 09/26. SW to follow up with IDT and provide Mack with time and will print off referral for visit. Original Note: Social Work Received phone call from son with further questions. SW answered questions and provided active listening to son's thoughts. SW did provide son with IDTs recommendations for pt needing 24/7 care for safety at [place] currently. Educated to options of nonksilled [facility] or AL. Son stated he has already toured several ALs, in [place] (where son is located), [place] and requesting a [place] area list, along with the [facility] list. SW offered to leave resources at nurse's station for son when he visits after hours tonight. Son appreciative. Son did request [facility] [place] [facility] be contacted for a referral. SW agreed and placed referral via [facility]Port. SW and son agreeable to anticipation of DC the last week of September. SW will continue to follow. Lena Ferreira, JAIME MUSEUM PREPARATOR
--- NOTE | 2023-09-21 13:50 | RAD_ITS ---
STUDY: X-RAY - ACUTE ABDOMINAL SERIES REASON FOR EXAM: Female, 83 years old. n/v/d TECHNIQUE: Single view of the chest. Supine, and erect view(s) of the abdomen were obtained. COMPARISON: None. FINDINGS: Hyperinflation. Mild increased markings at the lung bases suggestive of a basilar scarring. Normal size heart. Normal mediastinum and eran. Normal visualized pulmonary arteries. There is atherosclerotic tortuosity of the aortic arch and descending thoracic aorta. There is a moderate amount of colonic fecal material. The soft tissue structures of the abdomen and pelvis are unremarkable. There are diffuse degenerative changes of the visualized lumbar spine. Mild dextroscoliosis. Prior left total hip replacement. RAD/Acute Abdomen Inc Chest IMPRESSION: Moderate amount of fecal material is seen in the colon. Electronically Signed: Aramis Rodriguez MD at 14:50 EST ,
[2023-09-21] MEDS: Potassium Chloride 10mEq/100mL 10 MEQ/100 ML IV.SOLN. 100 MEQ IV BOLUS ×4 (14:20→17:37)
[2023-09-21] MEDS: HYDROcodone Bitartrate/Apap 5/325 Tablet PO (15:03)
[2023-09-21] MEDS: Potassium Chloride Oral Tablet 20 MEQ 40 MEQ PO (15:37)
[2023-09-21 19:42] LABS: Anion Gap 4 (5-15); BUN 17 mg/dL (7-18); BUN/Creat Ratio 17.4 RATIO (10-20); Calcium,Total 8.5 mg/dL (8.5-10.1); Chloride 103 mmol/L (98-107); Creatinine, Serum 0.98 mg/dL (0.55-1.02); EST Glomerular Filtration Rate 58 mL/min (>60); Est Glom Filt Rate - Afr Amer 70 mL/min (>60); Estimated Creatinine Clearance 43.78 ml/min; Glucose 146 mg/dL (74-106); Potassium 3.5 mmol/L (3.5-5.1); Sodium Level 140 mmol/L (136-145)
[2023-09-21 20:33] VITALS: BP 100/70; PULSE 63
[2023-09-21] MEDS: Baclofen 10 MG Tablet 20 MG PO (20:33)
[2023-09-21] MEDS: traZODone 100 MG Tablet PO (20:33)
[2023-09-21] MEDS: Pravastatin 40 MG Tablet PO (20:33)
[2023-09-21] MEDS: Citalopram 20 MG Tablet PO (20:34)
[2023-09-21 22:00] VITALS: BP 116/58; PULSE 63; RESP 17; TEMP 36.7; O2SAT 93
[2023-09-21] MEDS: Senna/Docusate Sodium 1 Tablet 2 TABLET PO (22:36)
[2023-09-22] MEDS: Levothyroxine 175 MCG Tablet PO (05:29)
[2023-09-22] MEDS: Magnesium Citrate 300 ML PO (05:32)
[2023-09-22] MEDS: 0.9% Saline Lock 10 ML Syringe IV ×2 (05:37→13:56)
[2023-09-22 07:57] LABS: Anion Gap 3 (5-15); BUN 13 mg/dL (7-18); Calcium,Total 9.4 mg/dL (8.5-10.1); Chloride 104 mmol/L (98-107); Creatinine, Serum 0.87 mg/dL (0.55-1.02); EST Glomerular Filtration Rate 67 mL/min (>60); Est Glom Filt Rate - Afr Amer 81 mL/min (>60); Estimated Creatinine Clearance 49.32 ml/min; Glucose 95 mg/dL (74-106); Potassium 3.5 mmol/L (3.5-5.1); Sodium Level 139 mmol/L (136-145)
[2023-09-22 08:43] VITALS: BP 113/68; PULSE 70; RESP 18; TEMP 36.4; O2SAT 94
[2023-09-22] MEDS: Potassium Chloride Oral Tablet 20 MEQ PO (08:57)
[2023-09-22] MEDS: Multivitamins,Ther W-Minerals Tablet 1 TABLET PO (08:57)
[2023-09-22] MEDS: Spironolactone 25 MG Tablet PO (08:59)
[2023-09-22] MEDS: Carbidopa/Levodopa 25/100 Tablet PO ×3 (08:59→17:58)
[2023-09-22] MEDS: sulfaSALAzine 500 MG Tablet 1000 MG PO ×2 (09:00→22:17)
[2023-09-22] MEDS: Folic Acid 1 MG Tablet PO (09:00)
[2023-09-22] MEDS: Amiodarone 200 MG Tablet PO (09:00)
[2023-09-22] MEDS: APIXABAN 2.5 MG TABLET (WCH) PO ×2 (09:00→22:20)
[2023-09-22] MEDS: Sodium Chloride 0.65% 1 SPRAY SPRAY.BTL NASAL ×2 (09:04→22:26)
[2023-09-22] MEDS: Glycerin/Hypromellose/PEG400 15 ml Bottle EACH EYE ×2 (09:05→22:25)
[2023-09-22] MEDS: Menthol/Lanolin/Calamine/Znox 113 GM Tube 1 APPLIC TOPICAL ×2 (10:14→22:18)
[2023-09-22] MEDS: Pantoprazole Sodium 40 MG Tablet PO (10:14)
[2023-09-22] MEDS: Cephalexin 500 MG Capsule PO ×2 (10:14→22:15)
[2023-09-22 10:15] VITALS: BP 110/60; PULSE 66
[2023-09-22] MEDS: Allopurinol 300 MG Tablet PO (10:15)
[2023-09-22] MEDS: Ascorbic Acid 500 MG Tablet PO (10:15)
[2023-09-22] MEDS: Metoprolol Tartrate 50 MG Tablet PO (10:15)
[2023-09-22] MEDS: Cholecalciferol (VIT D3) 25 MCG TABLET (1,000 UNITS) PO (10:15)
[2023-09-22] MEDS: Zinc Sulfate 50 mg zinc (220 mg) ORAL capsule PO (10:15)
[2023-09-22] MEDS: Ursodiol 250 MG Tablet PO ×2 (10:15→22:10)
[2023-09-22] MEDS: CARBIDOPA/LEVODOPA CR 50/200 Tablet PO ×2 (11:23→22:16)
[2023-09-22 11:25] VITALS: BP 93/57; PULSE 72
[2023-09-22 13:53] VITALS: BP 93/66; PULSE 87
[2023-09-22 14:02] VITALS: BMI 37.5
[2023-09-22] MEDS: Furosemide 40 MG Tablet PO (14:28)
[2023-09-22] MEDS: Potassium Chloride Oral Tablet 20 MEQ 40 MEQ PO (17:57)
[2023-09-22 22:00] VITALS: BP 97/57; PULSE 71; RESP 17; TEMP 36.3; O2SAT 94
[2023-09-22] MEDS: traZODone 100 MG Tablet PO (22:10)
[2023-09-22] MEDS: Baclofen 10 MG Tablet 20 MG PO (22:11)
[2023-09-22] MEDS: Pravastatin 40 MG Tablet PO (22:16)
[2023-09-22] MEDS: Citalopram 20 MG Tablet PO (22:17)
[2023-09-22 22:24] VITALS: BP 97/57; PULSE 71
[2023-09-23 03:26] VITALS: BMI 37.5
[2023-09-23] MEDS: Levothyroxine 175 MCG Tablet PO (05:14)
[2023-09-23 05:25] LABS: Anion Gap 6 (5-15); BUN 13 mg/dL (7-18); BUN/Creat Ratio 14.8 RATIO (10-20); Calcium,Total 8.5 mg/dL (8.5-10.1); Chloride 107 mmol/L (98-107); Creatinine, Serum 0.88 mg/dL (0.55-1.02); EST Glomerular Filtration Rate 65 mL/min (>60); Est Glom Filt Rate - Afr Amer 79 mL/min (>60); Estimated Creatinine Clearance 48.76 ml/min; Glucose 91 mg/dL (74-106); Potassium 3.1 mmol/L (3.5-5.1); Sodium Level 141 mmol/L (136-145)
[2023-09-23 07:20] VITALS: BP 102/60; PULSE 82; RESP 18; TEMP 36.8; O2SAT 95
[2023-09-23 09:09] VITALS: PULSE 82
[2023-09-23] MEDS: Metoprolol Tartrate 50 MG Tablet PO ×2 (09:09→21:34)
[2023-09-23] MEDS: Potassium Chloride Oral Tablet 20 MEQ 40 MEQ PO ×3 (09:10→16:56)
[2023-09-23] MEDS: Folic Acid 1 MG Tablet PO (09:10)
[2023-09-23] MEDS: Pantoprazole Sodium 40 MG Tablet PO (09:10)
[2023-09-23] MEDS: Cephalexin 500 MG Capsule PO ×2 (09:10→21:32)
[2023-09-23] MEDS: Zinc Sulfate 50 mg zinc (220 mg) ORAL capsule PO (09:10)
[2023-09-23] MEDS: Ascorbic Acid 500 MG Tablet PO (09:10)
[2023-09-23] MEDS: Allopurinol 300 MG Tablet PO (09:10)
[2023-09-23] MEDS: Amiodarone 200 MG Tablet PO (09:10)
[2023-09-23] MEDS: Carbidopa/Levodopa 25/100 Tablet PO ×3 (09:10→16:55)
[2023-09-23] MEDS: Ursodiol 250 MG Tablet PO ×2 (09:10→21:32)
[2023-09-23] MEDS: Multivitamins,Ther W-Minerals Tablet 1 TABLET PO (09:10)
[2023-09-23] MEDS: Cholecalciferol (VIT D3) 25 MCG TABLET (1,000 UNITS) PO (09:10)
[2023-09-23] MEDS: sulfaSALAzine 500 MG Tablet 1000 MG PO ×2 (09:11→21:32)
[2023-09-23] MEDS: Furosemide 40 MG Tablet PO (09:11)
[2023-09-23] MEDS: Spironolactone 25 MG Tablet PO ×2 (09:12→10:58)
[2023-09-23] MEDS: Menthol/Lanolin/Calamine/Znox 113 GM Tube 1 APPLIC TOPICAL ×2 (09:12→21:34)
[2023-09-23] MEDS: APIXABAN 2.5 MG TABLET (WCH) PO ×2 (09:13→21:32)
[2023-09-23] MEDS: CARBIDOPA/LEVODOPA CR 50/200 Tablet PO ×2 (11:01→21:33)
[2023-09-23] MEDS: Glycerin/Hypromellose/PEG400 15 ml Bottle EACH EYE ×2 (11:18→21:32)
[2023-09-23] MEDS: Sodium Chloride 0.65% 1 SPRAY SPRAY.BTL NASAL ×2 (11:18→21:31)
[2023-09-23 20:00] VITALS: BP 123/73; PULSE 87; RESP 16; TEMP 36.5; O2SAT 93
[2023-09-23] MEDS: Baclofen 10 MG Tablet 20 MG PO (21:32)
[2023-09-23] MEDS: Citalopram 20 MG Tablet PO (21:32)
[2023-09-23] MEDS: traZODone 100 MG Tablet PO (21:33)
[2023-09-23] MEDS: Pravastatin 40 MG Tablet PO (21:33)
[2023-09-23 21:34] VITALS: BP 111/57; PULSE 77
[2023-09-24 06:00] VITALS: BMI 36.9
[2023-09-24] MEDS: 0.9% Saline Lock 10 ML Syringe IV ×2 (06:06→09:06)
[2023-09-24] MEDS: Levothyroxine 175 MCG Tablet PO (06:06)
[2023-09-24 06:31] LABS: Anion Gap 6 (5-15); BUN 14 mg/dL (7-18); BUN/Creat Ratio 16.3 RATIO (10-20); Calcium,Total 8.8 mg/dL (8.5-10.1); Chloride 109 mmol/L (98-107); Creatinine, Serum 0.86 mg/dL (0.55-1.02); EST Glomerular Filtration Rate 67 mL/min (>60); Est Glom Filt Rate - Afr Amer 81 mL/min (>60); Estimated Creatinine Clearance 49.89 ml/min; Glucose 94 mg/dL (74-106); Potassium 3.2 mmol/L (3.5-5.1); Sodium Level 141 mmol/L (136-145)
[2023-09-24] MEDS: Potassium Chloride Oral Tablet 20 MEQ 40 MEQ PO ×4 (08:01→17:04)
[2023-09-24] MEDS: Amiodarone 200 MG Tablet PO (08:01)
[2023-09-24 08:02] VITALS: PULSE 88
[2023-09-24] MEDS: Metoprolol Tartrate 50 MG Tablet PO (08:02)
[2023-09-24] MEDS: Allopurinol 300 MG Tablet PO (08:02)
[2023-09-24] MEDS: Carbidopa/Levodopa 25/100 Tablet PO ×3 (08:02→17:12)
[2023-09-24] MEDS: Furosemide 40 MG Tablet PO (08:02)
[2023-09-24] MEDS: APIXABAN 2.5 MG TABLET (WCH) PO ×2 (08:02→20:48)
[2023-09-24] MEDS: Zinc Sulfate 50 mg zinc (220 mg) ORAL capsule PO (08:03)
[2023-09-24] MEDS: Cephalexin 500 MG Capsule PO ×2 (08:03→20:55)
[2023-09-24] MEDS: Multivitamins,Ther W-Minerals Tablet 1 TABLET PO (08:04)
[2023-09-24] MEDS: sulfaSALAzine 500 MG Tablet 1000 MG PO ×2 (08:04→20:50)
[2023-09-24] MEDS: Spironolactone 50 MG Tablet 100 MG PO (08:04)
[2023-09-24] MEDS: Ascorbic Acid 500 MG Tablet PO (08:04)
[2023-09-24] MEDS: Pantoprazole Sodium 40 MG Tablet PO (08:04)
[2023-09-24] MEDS: Ursodiol 250 MG Tablet PO ×2 (08:04→20:49)
[2023-09-24] MEDS: Folic Acid 1 MG Tablet PO (08:05)
[2023-09-24] MEDS: Cholecalciferol (VIT D3) 25 MCG TABLET (1,000 UNITS) PO (08:05)
--- NOTE | 2023-09-24 08:41 | CASEMGMT ---
Addendum entered by Lena Ferreira 09/24/23 15:51: Received call from son with clarifying questions. SW answered questions and reexplained the below information to son. Son is aware family needs to provide choices to this worker to complete referrals. Addendum entered by Lena Ferreira 09/24/23 14:44: Family requesting referral is canceled to [facility]. SW phoned Mack at [facility] to cancel. Original Note: Social Work IDT met with patient and dtr then son via conference call for Team meeting. Discussed patient's progress in PT/OT/ST/SN. Educated to [facility] insurance with NRD 09/26. IDT continues to recommend / care, actually noting decline, but pt is on ATB for UTI. Will continue with therapy this week and plans to set DC during Team meeting next week. Family and pt leaning toward AL placement with continued therapy. Children did ask clarifying questions on SNF vs AL. SW educated to differences - insurance may or may not approve for SNF stay after RU stay. SW educated to the few SNF choices [place] with insurance - [facility], [facility], [facility], [facility], [facility] and [facility]. Family not interested in going outside of [facility]. Family also discussed having pt placed in a SNF that also has an AL. SW agreed that is a benefit to pt for not making multiple transitions, but repeatedly educated to lack of insurance coverage. Family and pt expressed understanding. Family to update this worker on preference. Will continue to follow. JAIME MayesW
[2023-09-24] MEDS: 0.9% Normal Saline (250mL Bag) 250 ML 15 ML IV (09:06)
[2023-09-24] MEDS: Potassium Chloride 10mEq/100mL 10 MEQ/100 ML IV.SOLN. 100 MEQ IV BOLUS ×4 (09:06→12:39)
[2023-09-24] MEDS: Budesonide 3 MG CAPSULE.EC 6 MG PO (09:27)
[2023-09-24] MEDS: Menthol/Lanolin/Calamine/Znox 113 GM Tube 1 APPLIC TOPICAL ×2 (09:28→20:54)
[2023-09-24 10:00] VITALS: BP 117/63; PULSE 74; RESP 17; TEMP 36.4; O2SAT 95
[2023-09-24] MEDS: Colestipol 1 GM TABLET PO ×2 (14:05→21:00)
[2023-09-24] MEDS: CARBIDOPA/LEVODOPA CR 50/200 Tablet PO ×2 (14:06→20:59)
[2023-09-24 14:48] LABS: Anion Gap 6 (5-15); BUN 14 mg/dL (7-18); BUN/Creat Ratio 14.3 RATIO (10-20); Calcium,Total 8.5 mg/dL (8.5-10.1); Chloride 109 mmol/L (98-107); Creatinine, Serum 0.98 mg/dL (0.55-1.02); EST Glomerular Filtration Rate 58 mL/min (>60); Est Glom Filt Rate - Afr Amer 70 mL/min (>60); Estimated Creatinine Clearance 43.78 ml/min; Glucose 100 mg/dL (74-106); Sodium Level 141 mmol/L (136-145)
--- NOTE | 2023-09-24 18:31 | NURSING ---
Cook removed this evening w/ no report of discomfort. Will bladder scan PRN to check for retention.
--- NOTE | 2023-09-24 19:03 | PN_ITS ---
Subjective Subjective Patient seen, examined on IDT rounds. Daughter Aileen present, son Abimael on phone. 3 days prior, Shima's potassium 2.8, she developed nausea, vomiting. X-ray of abdomen was FOS, she was given Magnesium citrate with good results. Lomotil was stopped. Her loose stools are back to baseline, resume Budesonide, Colestipol, continue to replace potassium. K now 4.0. Patient amenable to discharge to [place]. Objective Data Objective Data Vital Signs: Vital Signs Temp Pulse Resp BP Pulse Ox O2 Del Method O2 Flow Rate 97.6 F L 74 17 117/63 95 Room Air 2 09/24/23 10:00 09/24/23 10:00 09/24/23 10:00 09/24/23 10:00 09/24/23 10:00 09/24/23 10:00 09/08/23 08:22 FiO2 21 09/24/23 03:35 Oxygen Flow Rate (L/min) 2 Oxygen Delivery Method Room Air Weight: 107 kg Body Mass Index (BMI) 36.9 Intake & Output: Intake and Output for Last 24 Hours 09/22/23 09/23/23 09/24/23 23:59 23:59 23:59 Intake Total 2180 / 2660 1940 / 1940 1360 / 1360 Output Total 850 / 1050 1700 / 1900 1250 / 1250 Balance 1330 / 1610 240 / 40 110 / 110 Lab / Micro Data 09/21/23 12:42 09/24/23 14:30 Labs: Laboratory Results - last 24 hr 09/24/23 05:45: Sodium 141, Potassium 3.2 L, Chloride 109 H, Carbon Dioxide 26.0, Anion Gap 6, BUN 14, Creatinine 0.86, Estim Creat Clear Calc 49.89, Est GFR (MDRD) Af Amer 81, Est GFR (MDRD) Non-Af 67, BUN/Creatinine Ratio 16.3, Gl ucose 94, Calcium 8.8 09/24/23 14:30: Sodium 141, Potassium 4.0, Chloride 109 H, Carbon Dioxide 26.0, Anion Gap 6, BUN 14, Creatinine 0.98, Estim Creat Clear Calc 43.78, Est GFR (MDRD) Af Amer 70, Est GFR (MDRD) Non-Af 58 L, BUN/Creatinine Ratio 14.3, Glucose 100, Calcium 8.5 Micro: Microbiology 09/21/23 12:57 Mucosa - Nasopharyngeal Respiratory Panel (PCR) - Final 09/21/23 12:34 Nasal Secretion SARS-CoV-2 & FLU Antigen (Rapid) - Final 09/19/23 12:55 Urine Catheter - Hummel Urine Culture - Final Klebsiella pneumoniae sp pneum Physical Exam Const alert General Appearance: cooperative HEENT normocephalic Eyes PERRL and EOMs intact bilaterally Neck supple, no JVD and no carotid bruits Resp normal respiratory effort, normal air movement and clear to auscultation bilaterally Cardio regular rate and regular rhythm GI normal to inspection, nondistended, normoactive bowel sounds, non-tender and non-distended Bladder / Kidney Exam: catheter in place urethral Extremity normal capillary refill General Extremity: Negative for edema Skin no rashes or lesions noted General Skin Exam: no breakdown Psych affect normal Appearance: appropriate Assessment & Plan Assessment/Plan (1) Debility: (2) Diverticulitis of colon: (3) Chronic diastolic heart failure: (4) Microscopic colitis: QUALIFIERS: Microscopic colitis type: other microscopic colitis Qualified Code(s): K52.838 - Other microscopic colitis (5) NAFLD (nonalcoholic fatty liver disease): (6) Hypothyroidism: (7) Paroxysmal atrial fibrillation: (8) Essential (primary) hypertension: (9) HLD (hyperlipidemia): QUALIFIERS: Hyperlipidemia type: unspecified Qualified Code(s): E78.5 - Hyperlipidemia, unspecified (10) Parkinson disease: QUALIFIERS: Dyskinesia presence: with dyskinesia Fluctuating manifestations: with fluctuating manifestations Qualified Code(s): G20.B2 - Parkinson's disease with dyskinesia, with fluctuations PLAN: Plan 83 year old female with below past medical history hospitalized for diverticulitis of colon, admitted to for 3 hours daily rehabilitation, strengthening, prior to discharge home. * Debility - PT/OT/ST. * Pain - [place] 5/325mg q6 prn. * Bowel - Dulcolax 10mg pr x 1 prn, MOM 30ml po x 1 prn. * DVT prophylaxis - Eliquis. * Gout - Allopurinol 300mg daily. * Atrial fibrillation - Metoprolol 50mg bid, Amiodarone 200mg daily, Eliquis 2.5mg bid. * Urinary retention - Indwelling hummel catheter. * Vitamin C deficiency - Vitamin C 500mg daily. * Muscle spasm - Baclofen 20mg qhs. * Microscopic colitis - Budesonide 6mg qam, Colestipol 1gm bid, Monitor * Parkinson Disease - Sinemet 25/100mg 2 tablets tid, Sinemet ER 50/200mg bid, Comtan 200mg bid. * Vitamin D deficiency - D3 25mcg daily. * Depression - Citalopram 20mg qhs. * Folate deficiency - Folic acid 1mg daily. * Chronic diastolic heart failure - Metoprolol 50mg bid, Furosemide 40mg po daily, Aldactone 100mg daily. * Hypertension - Metoprolol 50mg bid, Hydralazine 10mg q6h prn. * GI prophylaxis - Lactobacillus 2 tablets bid. * Hypothyroidism - Levothyroxine 175mg daily. * Dizziness - Meclizine 25mg daily prn. * Nutrition - MVI 1 tablet daily. * GERD - Pantoprazole 40mg daily. * Dry eyes - Artificial tears 1-2 gtt q2h prn. * Hypokalemia - KCL 40meq tidcm, KCL 40meq iv x1 dose given, K 4.0, monitor. * Hyperlipidemia - Pravastatin 40mg qhs. * Dry nares - [place] Srapy 1 spray nasal tid prn. * UTI - K. Pneumoniae, Keflex 500mg q12 x 7 days. Capacity Capacity Assessment Tool Can the patient make a choice & communicate that choice?: Yes Can the patient understand benefits, risks and alternatives?: Yes Can the patient make a logical, rational choice?: Yes Is the choice the patient makes consistent w/ their values?: Yes Is there an impending, emergent risk to the patient?: No Does the patient have an Advance Directive?: No Is there a Surrogate Available?: Yes i.e. HCPOA: Yes i.e. close relative (spouse, child, parent, sibling)?: Yes
[2023-09-24] MEDS: Baclofen 10 MG Tablet 20 MG PO (20:48)
[2023-09-24] MEDS: traZODone 100 MG Tablet PO (20:50)
[2023-09-24] MEDS: Citalopram 20 MG Tablet PO (20:56)
[2023-09-24 20:58] VITALS: BP 94/50; PULSE 80
[2023-09-24] MEDS: Pravastatin 40 MG Tablet PO (20:59)
[2023-09-24] MEDS: Sodium Chloride 0.65% 1 SPRAY SPRAY.BTL NASAL (21:01)
[2023-09-24] MEDS: Glycerin/Hypromellose/PEG400 15 ml Bottle EACH EYE (21:01)
[2023-09-24 21:43] VITALS: BP 94/50; PULSE 80; RESP 16; TEMP 36.9; O2SAT 96
[2023-09-25] MEDS: Levothyroxine 175 MCG Tablet PO (05:59)
[2023-09-25 06:00] VITALS: BMI 37.9
[2023-09-25 06:41] LABS: Anion Gap 4 (5-15); BUN 13 mg/dL (7-18); BUN/Creat Ratio 15.8 RATIO (10-20); Chloride 111 mmol/L (98-107); Creatinine, Serum 0.82 mg/dL (0.55-1.02); EST Glomerular Filtration Rate 71 mL/min (>60); Est Glom Filt Rate - Afr Amer 85 mL/min (>60); Estimated Creatinine Clearance 52.32 ml/min; Glucose 97 mg/dL (74-106); Potassium 4.8 mmol/L (3.5-5.1); Sodium Level 139 mmol/L (136-145)
[2023-09-25 07:33] VITALS: BP 122/70; PULSE 69; RESP 16; TEMP 36.8; O2SAT 95
--- NOTE | 2023-09-25 08:35 | PN_ITS ---
Subjective Subjective Patient seen, examined. Continent of bowel today, stool near formed. I asked Shima if she is okay with discharge to AL, she told me she would rather discharge home alone with caregiver help. I reminded her living alone is dull, and living in AL will stimulate her brain and her brain would benefit from stimulation. She asked about seeing Dr. Quintana for diarrhea secondary to microscopic colitis, I told her I would consult Dr. Quintana. Objective Data Objective Data Vital Signs: Vital Signs Temp Pulse Resp BP Pulse Ox O2 Del Method O2 Flow Rate 98.2 F 69 16 122/70 H 95 Room Air 2 09/25/23 07:33 09/25/23 07:33 09/25/23 07:33 09/25/23 07:33 09/25/23 07:33 09/25/23 07:33 09/08/23 08:22 FiO2 21 09/25/23 03:35 Oxygen Flow Rate (L/min) 2 Oxygen Delivery Method Room Air Weight: 109.911 kg Body Mass Index (BMI) 37.9 Intake & Output: Intake and Output for Last 24 Hours 09/23/23 09/24/23 09/25/23 23:59 23:59 23:59 Intake Total 1940 / 1940 2400 / 2400 250 / 250 Output Total 1700 / 1900 1250 / 1250 Balance 240 / 40 1150 / 1150 250 / 250 Lab / Micro Data Attestation: I reviewed the patient's lab results. 09/21/23 12:42 09/25/23 05:48 Labs: Laboratory Results - last 24 hr 09/24/23 14:30: Sodium 141, Potassium 4.0, Chloride 109 H, Carbon Dioxide 26.0, Anion Gap 6, BUN 14, Creatinine 0.98, Estim Creat Clear Calc 43.78, Est GFR (M DRD) Af Amer 70, Est GFR (MDRD) Non-Af 58 L, BUN/Creatinine Ratio 14.3, Glucose 100, Calcium 8.5 09/25/23 05:48: Sodium 139, Potassium 4.8, Chloride 111 H, Carbon Dioxide 24.0, Anion Gap 4 L, BUN 13, Creatinine 0.82, Estim Creat Clear Calc 52.32, Est GFR (MDRD) Af Amer 85, Est GFR (MDRD) Non-Af 71, BUN/Creatinine Ratio 15.8, Glucose 97, Calcium 9.0 Micro: Microbiology 09/21/23 12:57 Mucosa - Nasopharyngeal Respiratory Panel (PCR) - Final 09/21/23 12:34 Nasal Secretion SARS-CoV-2 & FLU Antigen (Rapid) - Final 09/19/23 12:55 Urine Catheter - Hummel Urine Culture - Final Klebsiella pneumoniae sp pneum Physical Exam Const alert General Appearance: cooperative HEENT normocephalic Eyes PERRL and EOMs intact bilaterally Neck supple, no JVD and no carotid bruits Resp normal respiratory effort, normal air movement and clear to auscultation bilaterally Cardio regular rate and regular rhythm GI normal to inspection, nondistended, normoactive bowel sounds, non-tender and non-distended Bladder / Kidney Exam: catheter in place urethral Extremity normal capillary refill General Extremity: Negative for edema Skin no rashes or lesions noted General Skin Exam: no breakdown Psych affect normal Appearance: appropriate Assessment & Plan Assessment/Plan (1) Debility: (2) Diverticulitis of colon: (3) Chronic diastolic heart failure: (4) Microscopic colitis: QUALIFIERS: Microscopic colitis type: other microscopic colitis Qualified Code(s): K52.838 - Other microscopic colitis (5) NAFLD (nonalcoholic fatty liver disease): (6) Hypothyroidism: (7) Paroxysmal atrial fibrillation: (8) Essential (primary) hypertension: (9) HLD (hyperlipidemia): QUALIFIERS: Hyperlipidemia type: unspecified Qualified Code(s): E78.5 - Hyperlipidemia, unspecified (10) Parkinson disease: QUALIFIERS: Dyskinesia presence: with dyskinesia Fluctuating manifestations: with fluctuating manifestations Qualified Code(s): G20.B2 - Parkinson's disease with dyskinesia, with fluctuations PLAN: Plan 83 year old female with below past medical history hospitalized for diverticulitis of colon, admitted to for 3 hours daily rehabilitation, strengthening, prior to discharge home. * Debility - PT/OT/ST. * Pain - [place] 5/325mg q6 prn. * Bowel - Dulcolax 10mg pr x 1 prn, MOM 30ml po x 1 prn. * DVT prophylaxis - Eliquis. * Gout - Allopurinol 300mg daily. * Atrial fibrillation - Metoprolol 50mg bid, Amiodarone 200mg daily, Eliquis 2.5mg bid. * Urinary retention - Resolved, hummel out. * Vitamin C deficiency - Vitamin C 500mg daily. * Muscle spasm - Baclofen 20mg qhs. * Microscopic colitis - Budesonide 6mg qam, Colestipol 1gm bid, consult Dr. Quintana. * Parkinson Disease - Sinemet 25/100mg 2 tablets tid, Sinemet ER 50/200mg bid, Comtan 200mg bid. * Vitamin D deficiency - D3 25mcg daily. * Depression - Citalopram 20mg qhs. * Folate deficiency - Folic acid 1mg daily. * Chronic diastolic heart failure - Metoprolol 50mg bid, Furosemide 40mg po daily, Aldactone 100mg daily. * Hypertension - Metoprolol 50mg bid, Hydralazine 10mg q6h prn. * GI prophylaxis - Lactobacillus 2 tablets bid. * Hypothyroidism - Levothyroxine 175mg daily. * Dizziness - Meclizine 25mg daily prn. * Nutrition - MVI 1 tablet daily. * GERD - Pantoprazole 40mg daily. * Dry eyes - Artificial tears 1-2 gtt q2h prn. * Hypokalemia - K 4.8 today, lower KCL ER to 20meq tid, BMP tomorrow. * Hyperlipidemia - Pravastatin 40mg qhs. * Dry nares - [place] Srapy 1 spray nasal tid prn. * UTI - K. Pneumoniae, Keflex 500mg q12 x 7 days thru 09/28/2023. Capacity Capacity Assessment Tool Can the patient make a choice & communicate that choice?: Yes Can the patient understand benefits, risks and alternatives?: Yes Can the patient make a logical, rational choice?: Yes Is the choice the patient makes consistent w/ their values?: Yes Is there an impending, emergent risk to the patient?: No Does the patient have an Advance Directive?: No Is there a Surrogate Available?: Yes i.e. HCPOA: Yes i.e. close relative (spouse, child, parent, sibling)?: Yes
[2023-09-25 08:52] VITALS: BP 122/70; PULSE 69
[2023-09-25] MEDS: Metoprolol Tartrate 50 MG Tablet PO (08:52)
[2023-09-25] MEDS: Zinc Sulfate 50 mg zinc (220 mg) ORAL capsule PO (08:52)
[2023-09-25] MEDS: Pantoprazole Sodium 40 MG Tablet PO (08:52)
[2023-09-25] MEDS: APIXABAN 2.5 MG TABLET (WCH) PO ×2 (08:53→20:59)
[2023-09-25] MEDS: Amiodarone 200 MG Tablet PO (08:53)
[2023-09-25] MEDS: Spironolactone 50 MG Tablet 100 MG PO (08:53)
[2023-09-25] MEDS: Carbidopa/Levodopa 25/100 Tablet PO ×3 (08:53→17:12)
[2023-09-25] MEDS: Budesonide 3 MG CAPSULE.EC 6 MG PO (08:53)
[2023-09-25] MEDS: Furosemide 40 MG Tablet PO (08:53)
[2023-09-25] MEDS: Cephalexin 500 MG Capsule PO ×2 (08:53→21:01)
[2023-09-25] MEDS: Folic Acid 1 MG Tablet PO (08:53)
[2023-09-25] MEDS: sulfaSALAzine 500 MG Tablet 1000 MG PO ×2 (08:54→21:01)
[2023-09-25] MEDS: Ursodiol 250 MG Tablet PO ×2 (08:54→21:02)
[2023-09-25] MEDS: Multivitamins,Ther W-Minerals Tablet 1 TABLET PO (08:54)
[2023-09-25] MEDS: Potassium Chloride Oral Tablet 20 MEQ PO ×3 (08:54→17:12)
[2023-09-25] MEDS: Cholecalciferol (VIT D3) 25 MCG TABLET (1,000 UNITS) PO (08:54)
[2023-09-25] MEDS: Ascorbic Acid 500 MG Tablet PO (08:55)
[2023-09-25] MEDS: Allopurinol 300 MG Tablet PO (08:55)
[2023-09-25] MEDS: Menthol/Lanolin/Calamine/Znox 113 GM Tube 1 APPLIC TOPICAL ×2 (08:59→21:03)
[2023-09-25] MEDS: Colestipol 1 GM TABLET PO ×2 (11:31→21:00)
[2023-09-25] MEDS: CARBIDOPA/LEVODOPA CR 50/200 Tablet PO ×2 (11:31→21:02)
[2023-09-25] MEDS: Glycerin/Hypromellose/PEG400 15 ml Bottle EACH EYE (20:59)
[2023-09-25] MEDS: Sodium Chloride 0.65% 1 SPRAY SPRAY.BTL NASAL (20:59)
[2023-09-25] MEDS: traZODone 100 MG Tablet PO (21:00)
[2023-09-25] MEDS: Citalopram 20 MG Tablet PO (21:01)
[2023-09-25] MEDS: Pravastatin 40 MG Tablet PO (21:01)
[2023-09-25] MEDS: Baclofen 10 MG Tablet 20 MG PO (21:02)
[2023-09-25 21:05] VITALS: BP 105/66; PULSE 84
[2023-09-25 22:00] VITALS: BP 105/66; PULSE 84; RESP 18; TEMP 36.1; O2SAT 98
[2023-09-26] MEDS: Levothyroxine 175 MCG Tablet PO (05:09)
[2023-09-26 06:00] VITALS: BMI 44.1
[2023-09-26 06:15] LABS: Anion Gap 6 (5-15); BUN 17 mg/dL (7-18); BUN/Creat Ratio 16.3 RATIO (10-20); Calcium,Total 8.7 mg/dL (8.5-10.1); Chloride 111 mmol/L (98-107); Creatinine, Serum 1.04 mg/dL (0.55-1.02); EST Glomerular Filtration Rate 54 mL/min (>60); Est Glom Filt Rate - Afr Amer 65 mL/min (>60); Estimated Creatinine Clearance 41.26 ml/min; Glucose 91 mg/dL (74-106); Potassium 3.7 mmol/L (3.5-5.1); Sodium Level 141 mmol/L (136-145)
[2023-09-26 07:27] VITALS: BP 104/67; PULSE 77; RESP 18; TEMP 36.2; O2SAT 94; BMI 37.9
[2023-09-26] MEDS: Potassium Chloride Oral Tablet 20 MEQ PO ×3 (09:13→17:30)
[2023-09-26] MEDS: Multivitamins,Ther W-Minerals Tablet 1 TABLET PO (09:14)
[2023-09-26] MEDS: Carbidopa/Levodopa 25/100 Tablet PO ×3 (09:14→17:30)
[2023-09-26] MEDS: sulfaSALAzine 500 MG Tablet 1000 MG PO ×2 (11:03→21:47)
[2023-09-26] MEDS: Budesonide 3 MG CAPSULE.EC 6 MG PO (11:03)
[2023-09-26] MEDS: Folic Acid 1 MG Tablet PO (11:03)
[2023-09-26] MEDS: Amiodarone 200 MG Tablet PO (11:03)
[2023-09-26] MEDS: APIXABAN 2.5 MG TABLET (WCH) PO ×2 (11:03→21:43)
[2023-09-26] MEDS: Spironolactone 50 MG Tablet 100 MG PO (11:03)
[2023-09-26] MEDS: Cephalexin 500 MG Capsule PO ×2 (11:04→21:45)
[2023-09-26] MEDS: Furosemide 40 MG Tablet PO (11:04)
[2023-09-26] MEDS: Pantoprazole Sodium 40 MG Tablet PO (11:04)
[2023-09-26] MEDS: Cholecalciferol (VIT D3) 25 MCG TABLET (1,000 UNITS) PO (11:05)
[2023-09-26] MEDS: Ascorbic Acid 500 MG Tablet PO (11:05)
[2023-09-26] MEDS: Zinc Sulfate 50 mg zinc (220 mg) ORAL capsule PO (11:05)
[2023-09-26] MEDS: Allopurinol 300 MG Tablet PO (11:05)
[2023-09-26] MEDS: Ursodiol 250 MG Tablet PO ×2 (11:06→21:37)
[2023-09-26] MEDS: Menthol/Lanolin/Calamine/Znox 113 GM Tube 1 APPLIC TOPICAL ×2 (11:08→21:55)
[2023-09-26 11:09] VITALS: BP 109/61; PULSE 85
[2023-09-26] MEDS: Metoprolol Tartrate 50 MG Tablet PO ×2 (11:09→21:41)
[2023-09-26] MEDS: CARBIDOPA/LEVODOPA CR 50/200 Tablet PO ×2 (11:16→21:40)
[2023-09-26] MEDS: Sodium Chloride 0.65% 1 SPRAY SPRAY.BTL NASAL ×2 (11:16→21:35)
[2023-09-26] MEDS: Glycerin/Hypromellose/PEG400 15 ml Bottle EACH EYE ×2 (11:17→21:35)
[2023-09-26] MEDS: Colestipol 1 GM TABLET PO ×2 (12:45→21:48)
--- NOTE | 2023-09-26 14:09 | PN_ITS ---
Subjective Subjective Patient seen, examined. Loose bowels still an issue, Friend pending. Objective Data Objective Data Vital Signs: Vital Signs Temp Pulse Resp BP Pulse Ox O2 Del Method O2 Flow Rate 97.2 F L 85 18 109/61 94 CPAP 2 09/26/23 07:27 09/26/23 11:09 09/26/23 07:27 09/26/23 11:09 09/26/23 07:27 09/26/23 07:49 09/08/23 08:22 FiO2 21 09/26/23 01:35 Oxygen Flow Rate (L/min) 2 Oxygen Delivery Method CPAP Weight: 109.911 kg Body Mass Index (BMI) 37.9 Intake & Output: Intake and Output for Last 24 Hours 09/24/23 09/25/23 09/26/23 23:59 23:59 23:59 Intake Total 2400 / 2400 1010 / 1010 Output Total 1250 / 1250 Balance 1150 / 1150 1010 / 1010 Lab / Micro Data Attestation: I reviewed the patient's lab results. 09/21/23 12:42 09/26/23 05:35 Labs: Laboratory Results - last 24 hr 09/26/23 05:35: Sodium 141, Potassium 3.7, Chloride 111 H, Carbon Dioxide 24.0, Anion Gap 6, BUN 17, Creatinine 1.04 H, Estim Creat Clear Calc 41.26, Est GFR (MDRD) Af Amer 65, Est GFR (MDRD) Non-Af 54 L, BUN/Creatinine Ratio 16.3, Glucose 91, Calcium 8.7 Micro: Microbiology 09/21/23 12:57 Mucosa - Nasopharyngeal Respiratory Panel (PCR) - Final 09/21/23 12:34 Nasal Secretion SARS-CoV-2 & FLU Antigen (Rapid) - Final 09/19/23 12:55 Urine Catheter - Hummel Urine Culture - Final Klebsiella pneumoniae sp pneum Physical Exam Const alert General Appearance: cooperative HEENT normocephalic Eyes PERRL and EOMs intact bilaterally Neck supple, no JVD and no carotid bruits Resp normal respiratory effort, normal air movement and clear to auscultation bilaterally Cardio regular rate and regular rhythm GI normal to inspection, nondistended, normoactive bowel sounds, non-tender and non-distended Bladder / Kidney Exam: catheter in place urethral Extremity normal capillary refill General Extremity: Negative for edema Skin no rashes or lesions noted General Skin Exam: no breakdown Psych affect normal Appearance: appropriate Assessment & Plan Assessment/Plan (1) Debility: (2) Diverticulitis of colon: (3) Chronic diastolic heart failure: (4) Microscopic colitis: QUALIFIERS: Microscopic colitis type: other microscopic colitis Qualified Code(s): K52.838 - Other microscopic colitis (5) NAFLD (nonalcoholic fatty liver disease): (6) Hypothyroidism: (7) Paroxysmal atrial fibrillation: (8) Essential (primary) hypertension: (9) HLD (hyperlipidemia): QUALIFIERS: Hyperlipidemia type: unspecified Qualified Code(s): E78.5 - Hyperlipidemia, unspecified (10) Parkinson disease: QUALIFIERS: Dyskinesia presence: with dyskinesia Fluctuating manifestations: with fluctuating manifestations Qualified Code(s): G20.B2 - Par kinson's disease with dyskinesia, with fluctuations PLAN: Plan 83 year old female with below past medical history hospitalized for diverticulitis of colon, admitted to for 3 hours daily rehabilitation, strengthening, prior to discharge home. * Debility - PT/OT/ST. * Pain - [place] 5/325mg q6 prn. * Bowel - Dulcolax 10mg pr x 1 prn, MOM 30ml po x 1 prn. * DVT prophylaxis - Eliquis. * Gout - Allopurinol 300mg daily. * Atrial fibrillation - Metoprolol 50mg bid, Amiodarone 200mg daily, Eliquis 2.5mg bid. * Urinary retention - Resolved, hummel out. * Vitamin C deficiency - Vitamin C 500mg daily. * Muscle spasm - Baclofen 20mg qhs. * Microscopic colitis - Budesonide 6mg qam, Colestipol 1gm bid, consult Dr. Quintana. * Parkinson Disease - Sinemet 25/100mg 2 tablets tid, Sinemet ER 50/200mg bid, Comtan 200mg bid. * Vitamin D deficiency - D3 25mcg daily. * Depression - Citalopram 20mg qhs. * Folate deficiency - Folic acid 1mg daily. * Chronic diastolic heart failure - Metoprolol 50mg bid, Furosemide 40mg po daily, Aldactone 100mg daily. * Hypertension - Metoprolol 50mg bid, Hydralazine 10mg q6h prn. * GI prophylaxis - Lactobacillus 2 tablets bid. * Hypothyroidism - Levothyroxine 175mg daily. * Dizziness - Meclizine 25mg daily prn. * Nutrition - MVI 1 tablet daily. * GERD - Pantoprazole 40mg daily. * Dry eyes - Artificial tears 1-2 gtt q2h prn. * Hypokalemia - K 4.8 today, lower KCL ER to 20meq tid, BMP tomorrow. * Hyperlipidemia - Pravastatin 40mg qhs. * Dry nares - [place] Srapy 1 spray nasal tid prn. * UTI - K. Pneumoniae, Keflex 500mg q12 x 7 days thru 09/28/2023. Capacity Capacity Assessment Tool Can the patient make a choice & communicate that choice?: Yes Can the patient understand benefits, risks and alternatives?: Yes Can the patient make a logical, rational choice?: Yes Is the choice the patient makes consistent w/ their values?: Yes Is there an impending, emergent risk to the patient?: No Does the patient have an Advance Directive?: No Is there a Surrogate Available?: Yes i.e. HCPOA: Yes i.e. close relative (spouse, child, parent, sibling)?: Yes
[2023-09-26] MEDS: 0.9% Saline Lock 10 ML Syringe IV (17:35)
[2023-09-26 19:26] VITALS: BP 114/69; PULSE 83; RESP 16; TEMP 36.2; O2SAT 94
[2023-09-26] MEDS: HYDROcodone Bitartrate/Apap 5/325 Tablet PO (21:34)
[2023-09-26] MEDS: Pravastatin 40 MG Tablet PO (21:40)
[2023-09-26 21:41] VITALS: PULSE 79
[2023-09-26] MEDS: Baclofen 10 MG Tablet 20 MG PO (21:41)
[2023-09-26] MEDS: traZODone 100 MG Tablet PO (21:43)
[2023-09-26] MEDS: Citalopram 20 MG Tablet PO (21:45)
[2023-09-26 22:00] VITALS: PULSE 82; RESP 16
[2023-09-27 06:00] VITALS: BMI 38.0
[2023-09-27] MEDS: Levothyroxine 175 MCG Tablet PO (06:38)
[2023-09-27] MEDS: Ascorbic Acid 500 MG Tablet PO (09:09)
[2023-09-27] MEDS: Cephalexin 500 MG Capsule PO ×2 (09:09→21:27)
[2023-09-27] MEDS: Pantoprazole Sodium 40 MG Tablet PO (09:09)
[2023-09-27] MEDS: Cholecalciferol (VIT D3) 25 MCG TABLET (1,000 UNITS) PO (09:09)
[2023-09-27] MEDS: Spironolactone 50 MG Tablet 100 MG PO (09:09)
[2023-09-27 09:10] VITALS: BP 125/64; PULSE 88
[2023-09-27] MEDS: Multivitamins,Ther W-Minerals Tablet 1 TABLET PO (09:10)
[2023-09-27] MEDS: Furosemide 40 MG Tablet PO (09:10)
[2023-09-27] MEDS: Budesonide 3 MG CAPSULE.EC 6 MG PO (09:10)
[2023-09-27] MEDS: Metoprolol Tartrate 50 MG Tablet PO ×2 (09:10→21:27)
[2023-09-27] MEDS: Zinc Sulfate 50 mg zinc (220 mg) ORAL capsule PO (09:10)
[2023-09-27] MEDS: Carbidopa/Levodopa 25/100 Tablet PO ×3 (09:10→17:07)
[2023-09-27] MEDS: Ursodiol 250 MG Tablet PO ×2 (09:10→21:28)
[2023-09-27] MEDS: sulfaSALAzine 500 MG Tablet 1000 MG PO ×2 (09:11→21:25)
[2023-09-27] MEDS: Potassium Chloride Oral Tablet 20 MEQ PO ×3 (09:11→17:07)
[2023-09-27] MEDS: Amiodarone 200 MG Tablet PO (09:11)
[2023-09-27] MEDS: APIXABAN 2.5 MG TABLET (WCH) PO ×2 (09:11→21:25)
[2023-09-27] MEDS: Folic Acid 1 MG Tablet PO (09:12)
[2023-09-27] MEDS: Allopurinol 300 MG Tablet PO (09:12)
[2023-09-27] MEDS: Menthol/Lanolin/Calamine/Znox 113 GM Tube 1 APPLIC TOPICAL ×2 (09:17→21:32)
[2023-09-27] MEDS: Glycerin/Hypromellose/PEG400 15 ml Bottle EACH EYE (09:19)
[2023-09-27] MEDS: Sodium Chloride 0.65% 1 SPRAY SPRAY.BTL NASAL (09:19)
[2023-09-27 09:34] VITALS: BP 125/64; PULSE 88; RESP 16; TEMP 36.1; O2SAT 94
[2023-09-27] MEDS: CARBIDOPA/LEVODOPA CR 50/200 Tablet PO ×2 (11:21→21:25)
[2023-09-27] MEDS: Colestipol 1 GM TABLET PO ×2 (11:21→23:16)
[2023-09-27 21:25] VITALS: BP 102/55; PULSE 82; RESP 16; TEMP 35.7; O2SAT 94
[2023-09-27] MEDS: Pravastatin 40 MG Tablet PO (21:26)
[2023-09-27] MEDS: Baclofen 10 MG Tablet 20 MG PO (21:26)
[2023-09-27] MEDS: Citalopram 20 MG Tablet PO (21:26)
[2023-09-27] MEDS: traZODone 100 MG Tablet PO (21:26)
[2023-09-27 21:27] VITALS: PULSE 80
[2023-09-27 23:10] VITALS: PULSE 66; O2SAT 91
[2023-09-28] MEDS: Levothyroxine 175 MCG Tablet PO (05:23)
[2023-09-28 06:00] VITALS: BMI 36.7
[2023-09-28 06:13] LABS: Anion Gap 6 (5-15); BUN 19 mg/dL (7-18); BUN/Creat Ratio 19.8 RATIO (10-20); Calcium,Total 8.4 mg/dL (8.5-10.1); Chloride 111 mmol/L (98-107); Creatinine, Serum 0.96 mg/dL (0.55-1.02); EST Glomerular Filtration Rate 59 mL/min (>60); Est Glom Filt Rate - Afr Amer 72 mL/min (>60); Estimated Creatinine Clearance 44.69 ml/min; Glucose 102 mg/dL (74-106); Potassium 3.3 mmol/L (3.5-5.1); Sodium Level 141 mmol/L (136-145)
[2023-09-28] MEDS: Potassium Chloride Oral Tablet 20 MEQ 40 MEQ PO ×3 (07:52→16:40)
[2023-09-28] MEDS: Carbidopa/Levodopa 25/100 Tablet PO ×3 (07:59→16:40)
[2023-09-28] MEDS: Multivitamins,Ther W-Minerals Tablet 1 TABLET PO (07:59)
[2023-09-28 08:00] VITALS: BP 121/67; PULSE 81
[2023-09-28] MEDS: Pantoprazole Sodium 40 MG Tablet PO (08:00)
[2023-09-28] MEDS: Metoprolol Tartrate 50 MG Tablet PO ×2 (08:00→20:55)
[2023-09-28] MEDS: Amiodarone 200 MG Tablet PO (08:00)
[2023-09-28] MEDS: Zinc Sulfate 50 mg zinc (220 mg) ORAL capsule PO (08:01)
[2023-09-28] MEDS: Ascorbic Acid 500 MG Tablet PO (08:01)
[2023-09-28] MEDS: Cephalexin 500 MG Capsule PO (08:01)
[2023-09-28] MEDS: sulfaSALAzine 500 MG Tablet 1000 MG PO ×2 (08:02→20:53)
[2023-09-28] MEDS: Allopurinol 300 MG Tablet PO (08:03)
[2023-09-28] MEDS: Folic Acid 1 MG Tablet PO (08:03)
[2023-09-28] MEDS: Furosemide 40 MG Tablet PO (08:03)
[2023-09-28] MEDS: Spironolactone 50 MG Tablet 100 MG PO (08:05)
[2023-09-28] MEDS: APIXABAN 2.5 MG TABLET (WCH) PO ×2 (08:05→20:54)
[2023-09-28] MEDS: Budesonide 3 MG CAPSULE.EC 6 MG PO (08:06)
[2023-09-28] MEDS: Ursodiol 250 MG Tablet PO ×2 (08:07→20:54)
[2023-09-28] MEDS: Cholecalciferol (VIT D3) 25 MCG TABLET (1,000 UNITS) PO (08:07)
[2023-09-28] MEDS: Menthol/Lanolin/Calamine/Znox 113 GM Tube 1 APPLIC TOPICAL ×2 (08:08→20:56)
[2023-09-28 09:46] VITALS: BP 121/67; PULSE 81; RESP 16; TEMP 36.8; O2SAT 92
[2023-09-28] MEDS: Colestipol 1 GM TABLET PO ×2 (10:15→20:54)
[2023-09-28] MEDS: Glycerin/Hypromellose/PEG400 15 ml Bottle EACH EYE ×2 (10:16→21:00)
[2023-09-28] MEDS: Sodium Chloride 0.65% 1 SPRAY SPRAY.BTL NASAL ×2 (10:17→20:58)
[2023-09-28] MEDS: CARBIDOPA/LEVODOPA CR 50/200 Tablet PO ×2 (10:52→20:55)
[2023-09-28 19:31] VITALS: BP 111/67; PULSE 76; RESP 16; TEMP 36.1; O2SAT 97
[2023-09-28] MEDS: 0.9% Saline Lock 10 ML Syringe IV (20:51)
[2023-09-28] MEDS: Citalopram 20 MG Tablet PO (20:53)
[2023-09-28] MEDS: Baclofen 10 MG Tablet 20 MG PO (20:54)
[2023-09-28 20:55] VITALS: BP 111/67; PULSE 76
[2023-09-28] MEDS: traZODone 100 MG Tablet PO (20:55)
[2023-09-28] MEDS: Pravastatin 40 MG Tablet PO (20:55)
[2023-09-29] MEDS: Levothyroxine 175 MCG Tablet PO (06:40)
[2023-09-29 07:57] LABS: Anion Gap 5 (5-15); BUN 16 mg/dL (7-18); BUN/Creat Ratio 17.4 RATIO (10-20); Chloride 112 mmol/L (98-107); Creatinine, Serum 0.92 mg/dL (0.55-1.02); EST Glomerular Filtration Rate 62 mL/min (>60); Est Glom Filt Rate - Afr Amer 75 mL/min (>60); Estimated Creatinine Clearance 46.64 ml/min; Glucose 84 mg/dL (74-106); Potassium 3.8 mmol/L (3.5-5.1); Sodium Level 141 mmol/L (136-145)
[2023-09-29] MEDS: Potassium Chloride Oral Tablet 20 MEQ 40 MEQ PO ×2 (08:15→16:56)
[2023-09-29 08:16] VITALS: PULSE 77
[2023-09-29] MEDS: Allopurinol 300 MG Tablet PO (08:16)
[2023-09-29] MEDS: Multivitamins,Ther W-Minerals Tablet 1 TABLET PO (08:16)
[2023-09-29] MEDS: sulfaSALAzine 500 MG Tablet 1000 MG PO ×2 (08:16→21:07)
[2023-09-29] MEDS: Metoprolol Tartrate 50 MG Tablet PO ×2 (08:16→21:06)
[2023-09-29] MEDS: Carbidopa/Levodopa 25/100 Tablet PO ×3 (08:16→17:05)
[2023-09-29] MEDS: Sodium Chloride 0.65% 1 SPRAY SPRAY.BTL NASAL ×2 (08:18→21:08)
[2023-09-29] MEDS: Glycerin/Hypromellose/PEG400 15 ml Bottle EACH EYE ×2 (08:18→21:08)
[2023-09-29 08:30] VITALS: BP 130/75; PULSE 76; RESP 18; TEMP 36.8; O2SAT 95
[2023-09-29] MEDS: Budesonide 3 MG CAPSULE.EC 6 MG PO (09:03)
[2023-09-29] MEDS: Menthol/Lanolin/Calamine/Znox 113 GM Tube 1 APPLIC TOPICAL ×2 (09:03→22:19)
[2023-09-29] MEDS: Cholecalciferol (VIT D3) 25 MCG TABLET (1,000 UNITS) PO (09:04)
[2023-09-29] MEDS: APIXABAN 2.5 MG TABLET (WCH) PO ×2 (09:05→21:07)
[2023-09-29] MEDS: Spironolactone 50 MG Tablet 100 MG PO (09:06)
[2023-09-29] MEDS: Pantoprazole Sodium 40 MG Tablet PO (09:06)
[2023-09-29] MEDS: Ascorbic Acid 500 MG Tablet PO (09:07)
[2023-09-29] MEDS: Ursodiol 250 MG Tablet PO ×2 (09:07→22:16)
[2023-09-29] MEDS: Furosemide 40 MG Tablet PO (09:08)
[2023-09-29] MEDS: Amiodarone 200 MG Tablet PO (09:08)
[2023-09-29] MEDS: Zinc Sulfate 50 mg zinc (220 mg) ORAL capsule PO (09:08)
[2023-09-29] MEDS: Folic Acid 1 MG Tablet PO (09:09)
[2023-09-29 10:00] VITALS: BMI 36.6
[2023-09-29] MEDS: Colestipol 1 GM TABLET PO ×2 (11:39→22:18)
[2023-09-29] MEDS: CARBIDOPA/LEVODOPA CR 50/200 Tablet PO ×2 (11:39→21:06)
[2023-09-29 19:27] VITALS: BP 120/59; PULSE 85; RESP 16; TEMP 36.9; O2SAT 95
[2023-09-29 21:06] VITALS: PULSE 82
[2023-09-29] MEDS: Pravastatin 40 MG Tablet PO (21:06)
[2023-09-29] MEDS: Baclofen 10 MG Tablet 20 MG PO (21:07)
[2023-09-29] MEDS: Citalopram 20 MG Tablet PO (21:07)
[2023-09-29] MEDS: traZODone 100 MG Tablet PO (21:07)
[2023-09-29 22:00] VITALS: PULSE 63; RESP 16; O2SAT 95
[2023-09-30] MEDS: Levothyroxine 175 MCG Tablet PO (05:29)
[2023-09-30 06:25] LABS: Anion Gap 4 (5-15); BUN 19 mg/dL (7-18); Chloride 108 mmol/L (98-107); Creatinine, Serum 0.95 mg/dL (0.55-1.02); EST Glomerular Filtration Rate 60 mL/min (>60); Est Glom Filt Rate - Afr Amer 72 mL/min (>60); Estimated Creatinine Clearance 45.16 ml/min; Glucose 92 mg/dL (74-106); Potassium 3.9 mmol/L (3.5-5.1); Sodium Level 140 mmol/L (136-145)
[2023-09-30 07:17] VITALS: BP 108/70; PULSE 88; RESP 16; TEMP 36.3; O2SAT 93
[2023-09-30] MEDS: Sodium Chloride 0.65% 1 SPRAY SPRAY.BTL NASAL ×2 (08:09→20:58)
[2023-09-30] MEDS: Glycerin/Hypromellose/PEG400 15 ml Bottle EACH EYE ×2 (08:09→20:57)
[2023-09-30] MEDS: sulfaSALAzine 500 MG Tablet 1000 MG PO ×2 (08:09→21:01)
[2023-09-30] MEDS: APIXABAN 2.5 MG TABLET (WCH) PO ×2 (08:10→21:00)
[2023-09-30] MEDS: Multivitamins,Ther W-Minerals Tablet 1 TABLET PO (08:10)
[2023-09-30] MEDS: Zinc Sulfate 50 mg zinc (220 mg) ORAL capsule PO (08:10)
[2023-09-30] MEDS: Spironolactone 50 MG Tablet 100 MG PO (08:10)
[2023-09-30] MEDS: Carbidopa/Levodopa 25/100 Tablet PO ×3 (08:11→19:01)
[2023-09-30] MEDS: Potassium Chloride Oral Tablet 20 MEQ 40 MEQ PO ×2 (08:11→16:29)
[2023-09-30] MEDS: Menthol/Lanolin/Calamine/Znox 113 GM Tube 1 APPLIC TOPICAL ×2 (08:12→21:08)
[2023-09-30 10:00] VITALS: BMI 36.6
[2023-09-30 10:46] VITALS: PULSE 80
[2023-09-30] MEDS: Budesonide 3 MG CAPSULE.EC 6 MG PO (10:46)
[2023-09-30] MEDS: Ursodiol 250 MG Tablet PO ×2 (10:46→20:58)
[2023-09-30] MEDS: Metoprolol Tartrate 50 MG Tablet PO ×2 (10:46→21:00)
[2023-09-30] MEDS: Amiodarone 200 MG Tablet PO (10:46)
[2023-09-30] MEDS: Pantoprazole Sodium 40 MG Tablet PO (10:47)
[2023-09-30] MEDS: Furosemide 40 MG Tablet PO (10:48)
[2023-09-30] MEDS: Cholecalciferol (VIT D3) 25 MCG TABLET (1,000 UNITS) PO (10:48)
[2023-09-30] MEDS: Ascorbic Acid 500 MG Tablet PO (10:48)
[2023-09-30] MEDS: Colestipol 1 GM TABLET PO ×2 (10:49→21:01)
[2023-09-30] MEDS: Allopurinol 300 MG Tablet PO (10:49)
[2023-09-30] MEDS: Folic Acid 1 MG Tablet PO (10:49)
[2023-09-30] MEDS: CARBIDOPA/LEVODOPA CR 50/200 Tablet PO ×2 (10:50→21:00)
[2023-09-30] MEDS: HYDROcodone Bitartrate/Apap 5/325 Tablet PO (19:04)
[2023-09-30 19:45] VITALS: BP 108/68; PULSE 76; RESP 18; TEMP 36.5; O2SAT 95
[2023-09-30 21:00] VITALS: PULSE 73
[2023-09-30] MEDS: traZODone 100 MG Tablet PO (21:00)
[2023-09-30] MEDS: Pravastatin 40 MG Tablet PO (21:00)
[2023-09-30] MEDS: Baclofen 10 MG Tablet 20 MG PO (21:00)
[2023-09-30] MEDS: Citalopram 20 MG Tablet PO (21:00)
[2023-09-30 22:00] VITALS: PULSE 61; RESP 15; O2SAT 96
[2023-10-01] MEDS: Levothyroxine 175 MCG Tablet PO (05:30)
[2023-10-01 05:36] VITALS: BMI 36.6
[2023-10-01 06:21] LABS: Anion Gap 6 (5-15); BUN 22 mg/dL (7-18); BUN/Creat Ratio 24.4 RATIO (10-20); Calcium,Total 9.2 mg/dL (8.5-10.1); Chloride 109 mmol/L (98-107); EST Glomerular Filtration Rate 64 mL/min (>60); Est Glom Filt Rate - Afr Amer 77 mL/min (>60); Estimated Creatinine Clearance 47.67 ml/min; Glucose 95 mg/dL (74-106); Potassium 3.8 mmol/L (3.5-5.1); Sodium Level 140 mmol/L (136-145)
[2023-10-01 07:21] VITALS: BP 120/79; PULSE 73; RESP 15; TEMP 36.4; O2SAT 92
[2023-10-01] MEDS: Potassium Chloride Oral Tablet 20 MEQ 40 MEQ PO ×2 (07:27→16:25)
[2023-10-01] MEDS: Sodium Chloride 0.65% 1 SPRAY SPRAY.BTL NASAL ×2 (07:28→21:05)
[2023-10-01] MEDS: Amiodarone 200 MG Tablet PO (07:28)
[2023-10-01] MEDS: Glycerin/Hypromellose/PEG400 15 ml Bottle EACH EYE ×2 (07:28→21:05)
[2023-10-01] MEDS: Ascorbic Acid 500 MG Tablet PO (07:29)
[2023-10-01] MEDS: Allopurinol 300 MG Tablet PO (07:29)
[2023-10-01] MEDS: sulfaSALAzine 500 MG Tablet 1000 MG PO ×2 (07:29→21:06)
[2023-10-01] MEDS: Cholecalciferol (VIT D3) 25 MCG TABLET (1,000 UNITS) PO (07:29)
[2023-10-01] MEDS: Carbidopa/Levodopa 25/100 Tablet PO ×3 (07:29→16:59)
--- NOTE | 2023-10-01 08:14 | CASEMGMT ---
Addendum entered by Lena Ferreira 10/01/23 18:05: Received call from son with further questions. SW answered questions to best of ability. Son repeating questions from Team meeting this morning and this worker reiterating responses from IDT. Ongoing extensive education given to son on differences between SNF and AL. Son having difficulty comprehending the difference LOC and why IDT could not give clear determination of which LOC pt needs. SW continued to educated that final determination is made from the potential accepting facility as each facility as their own criteria. SW provided explanation that overall IDT is recommending least restrictive environment for pt, which would be AL, if LOC can be met, again determined by the facility. Son also having difficulty understanding the need for 24/7 care and why that cannot be accomplished at home. SW reiterated IDT is providing recommendations for DC plans, but pt/family does not have to follow those. 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 Explained if pt can be in AL, have her own apartment and some independence and privacy, but has the access to assistance when needed, that is the benefit of AL. At home, an aide or caregiver would be sitting in pt's home with her 24/7. Explained the need for 24/7 care stems from incontinence, B&B issues, and some assist with physical tasks, all that cannot be scheduled, like a bath or meal prep could be - again concluding the 24/7 care. Son also continuing to questions for INN and OON SNFs. SW reeducated to those benefits and the differences of those benefits relating to AL and SNF. Son also remains consistent with stating pt will need to sell condo and car to pay for LTC placement and continuing to press for an answer from this worker/IDT of pt ever returning home. SW and IDT previously has been unable to provide that answer. It is unknown from the IDT perspective if pt can return home. FREDY offered that decision does not need to be made right now - the properties do not need to be sold at this time to admit. Son stated pt would need to use the money from the sale of condo and car to pay for care. SW clarified further in regards to Medicaid eligibility to determine a better timeframe of when pt would need to apply. Son stated pt has no other assets and has less than $2000 in her checking and savings. FREDY then inquired how son/pt was intending on paying for the first month's care at either facility if pt does not have the available funds to do so. Son stated well the specifics haven't been discussed until this conversation. SW kindly reminded son of multiple Team meetings and separate phone conversations between this worker and pt/son/daughter that including this worker's ongoing education of cost of AL and SNF and the lack of insurance coverage for those facilities. Noted a condo or car could not be sold and have welsh available for pt to DC 10/05. Immediately redirected conversation to need for pt to apply for Medicaid as AL is no longer a current option - pt would need to transfer to a SNF Medicaid pending. Son expressed being overwhelmed with this information, stating he has to talk to the pt about this, and could not make a decision for another 24-48 hours. SW kindly noted that son/pt does not have that time as Medicaid takes time to process, SNFs still need referred to, and discharge planning has been ongoing for the past almost 4 weeks. Son began to refute the quick discharge for 10/05 as he noted pt had been having bowel and potassium issues that impacted her intensity to participate in therapy with request for ongoing care on RU. SW educated that regardless of how the past 4 weeks were used, the IDT made it clear today that pt has reached her max potential on the unit, no longer will meet criteria for ongoing stay, and since insurance is relying on IDT to make DC decisions, IDT is being cautious on time used. Son expressed understanding. SW redirected conversation back to Medicaid and private pay as referrals to SNFs cannot be made until payer source is identified. SW educated further to IAM guidelines, specifically if pt has intent to return home, IAM will not require immediate sale of house or car. Son also noted he could personally pay for the first month of a facility until decisions are made further. SW cautioned pt not being able to pay back son if IAM is applied for as that is a gift or improper transfer. Son expressed understanding. Son stated he will need to discuss all the information with pt to make a decision. However, did agree to pay privately for pt to admit to a facility on 10/05. SW repeated back to son franz parts to conversation concluding son will provide funds for pt to admit to a facility 10/05, then pt will determine Medicaid application or sale of property to continue paying privately; SW to place referrals to SNFs requesting verification of OON and INN benefits; son requesting OON SNFs if they can complete a one-time contract; determination by the facility for AL or SNF. Son confirmed. Son will speak with pt this evening and contact this worker tomorrow morning. SW will continue to follow. Time spent via phone call: 45 minutes. Referral sent to [facility] and [facility] via [address] with the following message, included to ensure confirmation of request from this worker to facilities: DC 10/05. 1. Please verify if you are INN or OON with pt's insurance. 2. If OON, does she have any benefits? 3. Can you get a one-time contract? 4. If not, pt is prepared to pay privately for the first month then will determine DC home or selling home or applying for Medicaid and remaining LTC. 5. Referring to multiple facilities - if you have an AL, please determine if pt is more appropriate for SNF or AL obviously knowing insurance will not cover AL regardless. Thank you!! Lena Ferreira, JAIME ROLLED HAM LACER Original Note: Social Work IDT met with patient and son for Team meeting. Discussed patient's progress in PT/OT/ST/SN. Educated to [facility] insurance with NRD 10/03. SW inquired about DC plans to begin referrals. Goal for DC is by the end of this week. Son asked several more questions in relation to DC. Provided again explanation of SNF and AL differences, and unable to determine if placement is permanent. Educated again to skilled HHC at AL or part B therapies at a SNF to continue at new location. Son stated he has been speaking to ALs and ALs have told him pt sounds more appropriate for SNF d/t toileting assistance needed. SW stressed the referrals are crucial in the facilities determining if they can meet pt's LOC and often ALs do complete onsite assessment. Educated to different pricing for LOC. Requested son provide options today for this worker to place referrals. Son requested list of AL and SNFs, as his sister did not share those with him. Son inquired about TCU for further skilled needs. IDT collectively agreed pt has reached max skilled potential and TCU would not be appropriate. Son expressed understanding. SW provided AL list and printed [facility] SNF list with quality and resource data via [employer]. FREDY noted [facility] and [facility] are the only local SNFs that are INN with pt's insurance, per insurance website. FREDY will continue to follow for DC planning and will await options to place referrals. Lena Ferreira, HOME HEALTH PROVIDER ROLLED HAM LACER
[2023-10-01 10:22] VITALS: PULSE 80
[2023-10-01] MEDS: Furosemide 40 MG Tablet PO (10:22)
[2023-10-01] MEDS: Ursodiol 250 MG Tablet PO ×2 (10:22→21:05)
[2023-10-01] MEDS: Metoprolol Tartrate 50 MG Tablet PO ×2 (10:22→21:05)
[2023-10-01] MEDS: Budesonide 3 MG CAPSULE.EC 6 MG PO (10:22)
[2023-10-01] MEDS: Multivitamins,Ther W-Minerals Tablet 1 TABLET PO (10:22)
[2023-10-01] MEDS: Zinc Sulfate 50 mg zinc (220 mg) ORAL capsule PO (10:22)
[2023-10-01] MEDS: APIXABAN 2.5 MG TABLET (WCH) PO ×2 (10:22→21:06)
[2023-10-01] MEDS: Spironolactone 50 MG Tablet 100 MG PO (10:22)
[2023-10-01] MEDS: Pantoprazole Sodium 40 MG Tablet PO (10:23)
[2023-10-01] MEDS: Folic Acid 1 MG Tablet PO (10:23)
[2023-10-01] MEDS: Menthol/Lanolin/Calamine/Znox 113 GM Tube 1 APPLIC TOPICAL ×2 (10:26→22:06)
[2023-10-01] MEDS: CARBIDOPA/LEVODOPA CR 50/200 Tablet PO ×2 (11:31→21:05)
[2023-10-01] MEDS: Colestipol 1 GM TABLET PO ×2 (11:31→22:06)
[2023-10-01 19:00] VITALS: BP 102/65; PULSE 95; RESP 18; TEMP 36.6; O2SAT 95
--- NOTE | 2023-10-01 19:06 | PN_ITS ---
Subjective Subjective Patient seen during IDT rounds. Patient son Jose present. IDT discussed discharge plans with patient, currently not safe to go home. Jose given options for discharge by SW, but Jose having difficult time coming to a decision. Current plan for discharge to [place] private pay, Jose willing to write check for first month of care. Objective Data Objective Data Vital Signs: Vital Signs Temp Pulse Resp BP Pulse Ox O2 Del Method O2 Flow Rate 97.9 F 95 18 102/65 95 Room Air 2 10/01/23 19:00 10/01/23 19:00 10/01/23 19:00 10/01/23 19:00 10/01/23 19:00 10/01/23 19:00 09/08/23 08:22 FiO2 21 09/30/23 04:24 Oxygen Flow Rate (L/min) 2 Oxygen Delivery Method Room Air Weight: 106 kg Body Mass Index (BMI) 36.6 Intake & Output: Intake and Output for Last 24 Hours 09/29/23 09/30/23 10/01/23 23:59 23:59 23:59 Intake Total 2210 / 2210 2550 / 2550 1750 / 1750 Output Total 650 / 650 1060 / 1060 400 / 400 Balance 1560 / 1560 1490 / 1490 1350 / 1350 Lab / Micro Data Attestation: I reviewed the patient's lab results. 09/21/23 12:42 10/01/23 05:41 Labs: Laboratory Results - last 24 hr 10/01/23 05:41: Sodium 140, Potassium 3.8, Chloride 109 H, Carbon Dioxide 25.0, Anion Gap 6, BUN 22 H, Creatinine 0.90, Estim Creat Clear Calc 47.67, Est GFR (MDRD) Af Amer 77, Est GFR (MDRD) Non-Af 64, BUN/Creatinine Ratio 24.4 H, Glucose 95, Calcium 9.2 Micro: Microbiology 09/21/23 12:57 Mucosa - Nasopharyngeal Respiratory Panel (PCR) - Final 09/21/23 12:34 Nasal Secretion SARS-CoV-2 & FLU Antigen (Rapid) - Final 09/19/23 12:55 Urine Catheter - Cook Urine Culture - Final Klebsiella pneumoniae sp pneum Physical Exam Const alert General Appearance: cooperative HEENT normocephalic Eyes PERRL and EOMs intact bilaterally Neck supple, no JVD and no carotid bruits Resp normal respiratory effort, normal air movement and clear to auscultation bilaterally Cardio regular rate and regular rhythm GI normal to inspection, nondistended, normoactive bowel sounds, non-tender and non-distended Bladder / Kidney Exam: catheter in place urethral Extremity normal capillary refill General Extremity: Negative for edema Skin no rashes or lesions noted General Skin Exam: no breakdown Psych affect normal Appearance: appropriate Assessment & Plan Assessment/Plan (1) Debility: (2) Diverticulitis of colon: (3) Chronic diastolic heart failure: (4) Microscopic colitis: QUALIFIERS: Microscopic colitis type: other microscopic colitis Qualified Code(s): K52.838 - Other microscopic colitis (5) NAFLD (nonalcoholic fatty liver disease): (6) Hypothyroidism: (7) Paroxysmal atrial fibrillation: (8) Essential (primary) hypertension: (9) HLD (hyperlipidemia): QUALIFIERS: Hyperlipidemia type: unspecified Qualified Code(s): E78.5 - Hyperlipidemia, unspecified (10) Parkinson disease: QUALIFIERS: Dyskinesia presence: with dyskinesia Fluctuating manifestations: with fluctuating manifestations Qualified Code(s): G20.B2 - Parkinson's disease with dyskinesia, with fluctuations PLAN: Plan 83 year old female with below past medical history hospitalized for diverticulitis of colon, admitted to for 3 hours daily rehabilitation, strengthening, prior to discharge home. * Debility - PT/OT/ST. * Pain - [place] 5/325mg q6 prn. * Bowel - Dulcolax 10mg pr x 1 prn, MOM 30ml po x 1 prn. * DVT prophylaxis - Eliquis. * Gout - Allopurinol 300mg daily. * Atrial fibrillation - Metoprolol 50mg bid, Amiodarone 200mg daily, Eliquis 2.5mg bid. * Vitamin C deficiency - Vitamin C 500mg daily. * Muscle spasm - Baclofen 20mg qhs. * Microscopic colitis - Budesonide 6mg qam, Colestipol 1gm bid, Dr. Quintana pending. * Parkinson Disease - Sinemet 25/100mg 2 tablets tid, Sinemet ER 50/200mg bid, Comtan 200mg bid. * Vitamin D deficiency - D3 25mcg daily. * Depression - Citalopram 20mg qhs. * Folate deficiency - Folic acid 1mg daily. * Chronic diastolic heart failure - Metoprolol 50mg bid, Furosemide 40mg po daily, Aldactone 100mg daily. * Hypertension - Metoprolol 50mg bid, Hydralazine 10mg q6h prn. * GI prophylaxis - Lactobacillus 2 tablets bid. * Hypothyroidism - Levothyroxine 175mg daily. * Dizziness - Meclizine 25mg daily prn. * Nutrition - MVI 1 tablet daily. * GERD - Pantoprazole 40mg daily. * Dry eyes - Artificial tears 1-2 gtt q2h prn. * Hypokalemia - KCL ER 40meq bid, K 3.8 today, now stable, continue to monitor. * Hyperlipidemia - Pravastatin 40mg qhs. * Dry nares - [place] Srapy 1 spray nasal tid prn.
[2023-10-01 21:05] VITALS: PULSE 95
[2023-10-01] MEDS: Pravastatin 40 MG Tablet PO (21:05)
[2023-10-01] MEDS: Baclofen 10 MG Tablet 20 MG PO (21:06)
[2023-10-01] MEDS: Citalopram 20 MG Tablet PO (21:06)
[2023-10-01] MEDS: traZODone 100 MG Tablet PO (21:06)
[2023-10-01 22:00] VITALS: PULSE 65; RESP 16; O2SAT 95
[2023-10-01] MEDS: HYDROcodone Bitartrate/Apap 5/325 Tablet PO (22:15)
[2023-10-02 06:00] VITALS: BMI 36.1
[2023-10-02] MEDS: Levothyroxine 175 MCG Tablet PO (06:15)
[2023-10-02 07:42] VITALS: BP 112/63; PULSE 82; RESP 15; TEMP 36.2; O2SAT 99
--- NOTE | 2023-10-02 08:20 | PN_ITS ---
Subjective Subjective Patient seen, examined. She has no new complaints, continent of bowel last night. Patient agreeable to discharge to AL, and if she improves, she can try to get home from there. Objective Data Objective Data Vital Signs: Vital Signs Temp Pulse Resp BP Pulse Ox O2 Del Method O2 Flow Rate 97.2 F L 82 15 112/63 99 Room Air 2 10/02/23 07:42 10/02/23 07:42 10/02/23 07:42 10/02/23 07:42 10/02/23 07:42 10/02/23 07:42 09/08/23 08:22 FiO2 21 10/01/23 22:30 Oxygen Flow Rate (L/min) 2 Oxygen Delivery Method Room Air Weight: 104.5 kg Body Mass Index (BMI) 36.1 Intake & Output: Intake and Output for Last 24 Hours 09/30/23 10/01/23 10/02/23 23:59 23:59 23:59 Intake Total 2550 / 2550 1870 / 1870 250 / 250 Output Total 1060 / 1060 850 / 850 300 / 300 Balance 1490 / 1490 1020 / 1020 -50 / -50 Lab / Micro Data Attestation: I reviewed the patient's lab results. 09/21/23 12:42 10/01/23 05:41 Micro: Microbiology 09/21/23 12:57 Mucosa - Nasopharyngeal Respiratory Panel (PCR) - Final 09/21/23 12:34 Nasal Secretion SARS-CoV-2 & FLU Antigen (Rapid) - Final 09/19/23 12:55 Urine Catheter - Cook Urine Culture - Final Klebsiella pneumoniae sp pneum Physical Exam Const alert General Appearance: cooperative HEENT normocephalic Eyes PERRL and EOMs intact bilaterally Neck supple, no JVD and no carotid bruits Resp normal respiratory effort, normal air movement and clear to auscultation bilaterally Cardio regular rate and regular rhythm GI normal to inspection, nondistended, normoactive bowel sounds, non-tender and non-distended Bladder / Kidney Exam: catheter in place urethral Extremity normal capillary refill General Extremity: Negative for edema Skin no rashes or lesions noted General Skin Exam: no breakdown Psych affect normal Appearance: appropriate Assessment & Plan Assessment/Plan (1) Debility: (2) Diverticulitis of colon: (3) Chronic diastolic heart failure: (4) Microscopic colitis: QUALIFIERS: Microscopic colitis type: other microscopic colitis Qualified Code(s): K52.838 - Other microscopic colitis (5) NAFLD (nonalcoholic fatty liver disease): (6) Hypothyroidism: (7) Paroxysmal atrial fibrillation: (8) Essential (primary) hypertension: (9) HLD (hyperlipidemia): QUALIFIERS: Hyperlipidemia type: unspecified Qualified Code(s): E78.5 - Hyperlipidemia, unspecified (10) Parkinson disease: QUALIFIERS: Dyskinesia presence: with dyskinesia Fluctuating manifestations: with fluctuating manifestations Qualified Code(s): G20.B2 - Parkinson's disease with dyskinesia, with fluctuations PLAN: Plan 83 year old female with below past medical history hospitalized for diverticulitis of colon, admitted to for 3 hours daily rehabilitation, strengthening, prior to discharge home. * Debility - PT/OT/ST. * Pain - [place] 5/325mg q6 prn. * Bowel - Dulcolax 10mg pr x 1 prn, MOM 30ml po x 1 prn. * DVT prophylaxis - Eliquis. * Gout - Allopurinol 300mg daily. * Atrial fibrillation - Metoprolol 50mg bid, Amiodarone 200mg daily, Eliquis 2.5mg bid. * Vitamin C deficiency - Vitamin C 500mg daily. * Muscle spasm - Baclofen 20mg qhs. * Microscopic colitis - Budesonide 6mg qam, Colestipol 1gm bid, Dr. Quintana pending. * Parkinson Disease - Sinemet 25/100mg 2 tablets tid, Sinemet ER 50/200mg bid, Comtan 200mg bid. * Vitamin D deficiency - D3 25mcg daily. * Depression - Citalopram 20mg qhs. * Folate deficiency - Folic acid 1mg daily. * Chronic diastolic heart failure - Metoprolol 50mg bid, Furosemide 40mg po daily, Aldactone 100mg daily. * Hypertension - Metoprolol 50mg bid, Hydralazine 10mg q6h prn. * GI prophylaxis - Lactobacillus 2 tablets bid. * Hypothyroidism - Levothyroxine 175mg daily. * Dizziness - Meclizine 25mg daily prn. * Nutrition - MVI 1 tablet daily. * GERD - Pantoprazole 40mg daily. * Dry eyes - Artificial tears 1-2 gtt q2h prn. * Hypokalemia - KCL ER 40meq bid, K 3.8 yesterday, bmp today. * Hyperlipidemia - Pravastatin 40mg qhs. * Dry nares - [place] 1 spray nasal tid prn. Capacity Capacity Assessment Tool Can the patient make a choice & communicate that choice?: Yes Can the patient understand benefits, risks and alternatives?: Yes Can the patient make a logical, rational choice?: Yes Is the choice the patient makes consistent w/ their values?: Yes Is there an impending, emergent risk to the patient?: No Does the patient have an Advance Directive?: No Is there a Surrogate Available?: Yes i.e. HCPOA: Yes i.e. close relative (spouse, child, parent, sibling)?: Yes
[2023-10-02] MEDS: Sodium Chloride 0.65% 1 SPRAY SPRAY.BTL NASAL ×2 (08:24→20:18)
[2023-10-02] MEDS: Glycerin/Hypromellose/PEG400 15 ml Bottle EACH EYE ×2 (08:24→20:19)
[2023-10-02] MEDS: APIXABAN 2.5 MG TABLET (WCH) PO ×2 (08:25→21:28)
[2023-10-02] MEDS: Amiodarone 200 MG Tablet PO (08:25)
[2023-10-02] MEDS: Pantoprazole Sodium 40 MG Tablet PO (08:25)
[2023-10-02] MEDS: Carbidopa/Levodopa 25/100 Tablet PO ×3 (08:25→16:28)
[2023-10-02 08:26] VITALS: PULSE 94
[2023-10-02] MEDS: Multivitamins,Ther W-Minerals Tablet 1 TABLET PO (08:26)
[2023-10-02] MEDS: Folic Acid 1 MG Tablet PO (08:26)
[2023-10-02] MEDS: Ascorbic Acid 500 MG Tablet PO (08:26)
[2023-10-02] MEDS: Budesonide 3 MG CAPSULE.EC 6 MG PO (08:26)
[2023-10-02] MEDS: Zinc Sulfate 50 mg zinc (220 mg) ORAL capsule PO (08:26)
[2023-10-02] MEDS: Spironolactone 50 MG Tablet 100 MG PO (08:26)
[2023-10-02] MEDS: Ursodiol 250 MG Tablet PO ×2 (08:26→21:28)
[2023-10-02] MEDS: Cholecalciferol (VIT D3) 25 MCG TABLET (1,000 UNITS) PO (08:26)
[2023-10-02] MEDS: Metoprolol Tartrate 50 MG Tablet PO ×2 (08:26→21:28)
[2023-10-02] MEDS: Menthol/Lanolin/Calamine/Znox 113 GM Tube 1 APPLIC TOPICAL ×2 (08:27→20:20)
[2023-10-02] MEDS: Furosemide 40 MG Tablet PO (08:27)
[2023-10-02] MEDS: Potassium Chloride Oral Tablet 20 MEQ 40 MEQ PO ×2 (08:27→16:28)
[2023-10-02] MEDS: Allopurinol 300 MG Tablet PO (08:27)
[2023-10-02] MEDS: sulfaSALAzine 500 MG Tablet 1000 MG PO ×2 (08:27→21:28)
[2023-10-02 10:00] VITALS: PULSE 66
[2023-10-02 10:44] LABS: Anion Gap 8 (5-15); BUN 19 mg/dL (7-18); BUN/Creat Ratio 17.4 RATIO (10-20); Calcium,Total 9.2 mg/dL (8.5-10.1); Chloride 108 mmol/L (98-107); Creatinine, Serum 1.09 mg/dL (0.55-1.02); EST Glomerular Filtration Rate 51 mL/min (>60); Est Glom Filt Rate - Afr Amer 62 mL/min (>60); Estimated Creatinine Clearance 39.36 ml/min; Glucose 98 mg/dL (74-106); Sodium Level 140 mmol/L (136-145)
[2023-10-02] MEDS: Colestipol 1 GM TABLET PO ×2 (13:27→22:15)
[2023-10-02] MEDS: CARBIDOPA/LEVODOPA CR 50/200 Tablet PO ×2 (13:27→22:15)
--- NOTE | 2023-10-02 13:56 | CASEMGMT ---
Social Work Received call from son to follow up on final decision. Son and pt elected to remove [facility] from choices and purse [facility] and [facility]. Son confirms to wait on applying for IAM or selling any property; he will pay for the first month at a SNF until a further determination is made. FREDY educated to answer from [facility]. Florencia phoned this worker stating she met with pt's son the day prior for about an hour and answer questions, discussed SNF and AL, pricing and LOC needs with staffing in AL. Florencia was told from son that pt was in TCU, not RU, and some other varying details than the referral showed. Florencia, at that time, also stressed to son that she cannot make the decision on selling property, if the stay will be permanament and that to provide official approval, a referral from the facility needs placed. Florencia explained after the review of the referral and insurance benefits, pt has 40% OON benefit; a precert will need submitted first, and pt would initially admit to their SNF and will assess for AL if LOC improves once admitted. FREDY explained acceptance to son. Son expressed understanding. Son and this worker will await outcome from [facility]. SW updated [facility] to cancel referral via [facility]. -- SW followed up with [facility] and they do not have any beds in SNF or AL. FREDY phoned son - left about [facility] and will continue with [facility]. Son presented to this worker's office after speaking with pt. Pt and son both agree to [facility] and family can transport on 10/05. FREDY updated Florencia and offered to send updated clinicals to submit for precert. 7000 started. SW will continue to follow. Plan: DC 10/05 to [facility], skilled, pending precert - if denied, paying privately with part B therapies Lena Ferreira, JAIME GARRETT
[2023-10-02 21:23] VITALS: BP 104/50; PULSE 75; RESP 16; TEMP 35.7; O2SAT 94
[2023-10-02 21:28] VITALS: PULSE 75
[2023-10-02] MEDS: Baclofen 10 MG Tablet 20 MG PO (21:28)
[2023-10-02] MEDS: Pravastatin 40 MG Tablet PO (21:28)
[2023-10-02] MEDS: Citalopram 20 MG Tablet PO (21:28)
[2023-10-02] MEDS: traZODone 100 MG Tablet PO (21:28)
[2023-10-03 06:00] VITALS: BMI 36.2
[2023-10-03] MEDS: Levothyroxine 175 MCG Tablet PO (06:27)
[2023-10-03 07:26] LABS: Anion Gap 3 (5-15); BUN 21 mg/dL (7-18); BUN/Creat Ratio 19.6 RATIO (10-20); Calcium,Total 8.9 mg/dL (8.5-10.1); Chloride 108 mmol/L (98-107); Creatinine, Serum 1.07 mg/dL (0.55-1.02); EST Glomerular Filtration Rate 52 mL/min (>60); Est Glom Filt Rate - Afr Amer 63 mL/min (>60); Glucose 92 mg/dL (74-106); Sodium Level 139 mmol/L (136-145)
[2023-10-03] MEDS: Potassium Chloride Oral Tablet 20 MEQ 40 MEQ PO ×2 (08:41→17:35)
[2023-10-03] MEDS: Pantoprazole Sodium 40 MG Tablet PO (08:48)
[2023-10-03] MEDS: Budesonide 3 MG CAPSULE.EC 6 MG PO (08:48)
[2023-10-03] MEDS: Zinc Sulfate 50 mg zinc (220 mg) ORAL capsule PO (08:48)
[2023-10-03] MEDS: Allopurinol 300 MG Tablet PO (08:48)
[2023-10-03] MEDS: Cholecalciferol (VIT D3) 25 MCG TABLET (1,000 UNITS) PO (08:49)
[2023-10-03] MEDS: Amiodarone 200 MG Tablet PO (08:49)
[2023-10-03] MEDS: Carbidopa/Levodopa 25/100 Tablet PO ×3 (08:49→17:37)
[2023-10-03] MEDS: Multivitamins,Ther W-Minerals Tablet 1 TABLET PO (08:49)
[2023-10-03] MEDS: Ursodiol 250 MG Tablet PO ×2 (08:49→20:44)
[2023-10-03] MEDS: Ascorbic Acid 500 MG Tablet PO (08:49)
[2023-10-03] MEDS: sulfaSALAzine 500 MG Tablet 1000 MG PO ×2 (08:49→20:44)
[2023-10-03] MEDS: Furosemide 40 MG Tablet PO (08:49)
[2023-10-03 08:50] VITALS: BP 131/88; PULSE 92
[2023-10-03] MEDS: Spironolactone 50 MG Tablet 100 MG PO (08:50)
[2023-10-03] MEDS: APIXABAN 2.5 MG TABLET (WCH) PO ×2 (08:50→20:45)
[2023-10-03] MEDS: Metoprolol Tartrate 50 MG Tablet PO ×2 (08:50→20:45)
[2023-10-03] MEDS: Folic Acid 1 MG Tablet PO (08:52)
[2023-10-03] MEDS: Menthol/Lanolin/Calamine/Znox 113 GM Tube 1 APPLIC TOPICAL ×2 (08:54→20:48)
[2023-10-03 09:14] VITALS: BP 131/88; PULSE 92; RESP 16; TEMP 36.6; O2SAT 96
[2023-10-03] MEDS: CARBIDOPA/LEVODOPA CR 50/200 Tablet PO ×2 (11:40→20:46)
[2023-10-03] MEDS: Colestipol 1 GM TABLET PO ×2 (11:40→22:37)
[2023-10-03] MEDS: Glycerin/Hypromellose/PEG400 15 ml Bottle EACH EYE ×2 (12:02→20:49)
[2023-10-03] MEDS: Sodium Chloride 0.65% 1 SPRAY SPRAY.BTL NASAL ×2 (12:03→20:49)
--- NOTE | 2023-10-03 13:37 | EX.PCM.PN.RE ---
Subjective Subjective Patient was admitted for daily rehab following a hospital stay for dysphagia, esophagitis and generalized weakness. No events overnight. The patient feels that overall she is doing well. She is working well with therapy and denies any pain. [facility]. She reports that she is ready to go. She is eating well, although notes that she doesn't have as much of an appetite here in the hospital. She continues to have problems with diarrhea, which has been chronic for her. She reports her leg swelling has been doing better and she has been able to wear her shoes over the last 2 days. She has no other questions or concerns at this time. Objective Data Objective Data Vital Signs: Vital Signs Temp Pulse Resp BP Pulse Ox O2 Del Method O2 Flow Rate 97.8 F 92 16 131/88 H 96 Room Air 2 10/03/23 09:14 10/03/23 09:14 10/03/23 09:14 10/03/23 09:14 10/03/23 09:14 10/03/23 09:14 09/08/23 08:22 FiO2 21 10/03/23 00:28 Oxygen Flow Rate (L/min) 2 Oxygen Delivery Method Room Air Weight: 231 lb 7.766 oz Body Mass Index (BMI) 36.2 Intake & Output: Intake and Output for Last 24 Hours 10/01/23 10/02/23 10/03/23 23:59 23:59 23:59 Intake Total 1870 / 1870 1979 / 1979 740 / 740 Output Total 850 / 850 300 / 300 300 / 300 Balance 1020 / 1020 1680 / 1680 440 / 440 Lab / Micro Data Attestation: I reviewed the patient's lab results. 09/21/23 12:42 10/03/23 05:15 Labs: Laboratory Results - last 24 hr 10/03/23 05:15: Sodium 139, Potassium 4.0, Chloride 108 H, Carbon Dioxide 28.0, Anion Gap 3 L, BUN 21 H, Creatinine 1.07 H, Estim Creat Clear Calc 40.10, Est GFR (MDRD) Af Amer 63, Est GFR (MDRD) Non-Af 52 L, BUN/Creatinine Ratio 19.6, Glucose 92, Calcium 8.9 Micro: Microbiology 09/21/23 12:57 Mucosa - Nasopharyngeal Respiratory Panel (PCR) - Final 09/21/23 12:34 Nasal Secretion SARS-CoV-2 & FLU Antigen (Rapid) - Final 09/19/23 12:55 Urine Catheter - Cook Urine Culture - Final Klebsiella pneumoniae sp pneum Indicators for Scoring Admitted with or Primary Diagnosis of CVA/Stroke: No Hx of CVA/Stroke: No Physical Exam Const alert, oriented x3, no apparent distress and well nourished Constitutional Narrative: sitting up in the chair General Appearance: cooperative and comfortable; Negative for in distress, ill appearing or diaphoretic Orientation / Consciousness: awake, oriented to person, oriented to place and oriented to time Exam Limitations: Negative for altered mental status HEENT normocephalic, head/scalp atraumatic, moist oral mucous membranes and oropharynx normal Head and Scalp: normocephalic and atraumatic Face and Sinus: normal facial exam Eyes General Eye: normal appearance of both eyes Chest inspection of chest normal Chest: abnormal inspection of the chest and symmetrical chest wall rise Resp normal respiratory effort, normal air movement, no use of accessory muscles and clear to auscultation bilaterally Effort and Inspection: able to speak in complete sentences and symmetric chest movement; Negative for respiratory distress or audible wheezes Auscultation: clear to auscultation bilaterally Cardio regular rate, regular rhythm and no murmurs Rate: regular rate Rhythm: regular rhythm Heart Sounds: Negative for murmur GI normal to inspection, nondistended, normoactive bowel sounds, soft to palpation and non-distended Auscultation: normoactive bowel sounds Palpation: soft and tender other (minimal generalized); Negative for guarding Extremity normal to inspection Extremity Narrative: ROSALBA wraps over bilateral lower extremities General Extremity: Negative for edema Skin no rashes or lesions noted General Skin Exam: no breakdown Lesions: no lesions Rashes: no rashes Neuro oriented x3 Sensorium / Orientation: awake, alert, oriented to person, oriented to place and oriented to time Speech: speech normal Psych mental status grossly normal, cooperative, affect normal and speech normal Appearance: grossly normal Attitude: calm Assessment & Plan Assessment/Plan (1) Debility: PLAN: Will continue with PT/OT and follow up on findings and recommendations. Likely d/c planned for 10/05 to Assisted living facility. Continue with PRN pain management, bowel regimen and fall precautions. (2) Diarrhea: QUALIFIERS: Diarrhea type: unspecified type Qualified Code(s): R19.7 - Diarrhea, unspecified PLAN: Patient continues to complain of diarrhea. It has been a chronic issue and she sees Dr. Quintana. Patient will need to follow up upon discharge from inpatient rehab. Electrolytes have been stable. Stool was checked on arrival to rehab for c.diff or other infectious etiology which was negative. (3) Elevated serum creatinine: PLAN: Creatinine is slightly elevated today, up from 0.9 yesterday. Will continue to monitor. No current signs of fluid overload, so her lasix dose may need cut back further if kidneys remain strained. (4) Diverticulitis of colon: PLAN: Patient has completed antibiotic therapy. Will continue to monitor. (5) Chronic diastolic heart failure: PLAN: Stable. No signs of fluid overload at this time. Patient was diuresed on arrival to rehab and did well with it. (6) Microscopic colitis: QUALIFIERS: Microscopic colitis type: other microscopic colitis Qualified Code(s): K52.838 - Other microscopic colitis PLAN: As above, patient follows with GI. Will continue budesonide as prescribed. (7) Hypothyroidism: QUALIFIERS: Hypothyroidism type: acquired Qualified Code(s): E03.9 - Hypothyroidism, unspecified PLAN: Stable. Continue home synthroid dosing. (8) Paroxysmal atrial fibrillation: PLAN: Patient is currently in sinus rhythm. Will continue current management and monitor. (9) Essential (primary) hypertension: PLAN: Blood pressure shows good control. Will continue current management and monitor. (10) HLD (hyperlipidemia): QUALIFIERS: Hyperlipidemia type: unspecified Qualified Code(s): E78.5 - Hyperlipidemia, unspecified PLAN: Stable. Continue home medication. (11) Parkinson disease: QUALIFIERS: Dyskinesia presence: with dyskinesia Fluctuating manifestations: with fluctuating manifestations Qualified Code(s): G20.B2 - Parkinson's disease with dyskinesia, with fluctuations PLAN: Stable. Continue home medications. (12) Esophagitis: PLAN: Stable. Continue PPI therapy. (13) Hypokalemia: PLAN: Patient's potassium level has maintained normal range over the last 5 days. Will continue to monitor. Charges/Coding Visit Charges Inpatient E&M: 05252 Subs Hosp L2
[2023-10-03 19:26] VITALS: BP 103/60; PULSE 72; RESP 16; TEMP 37.1; O2SAT 93
[2023-10-03 20:45] VITALS: BP 131/64; PULSE 96
[2023-10-03] MEDS: Baclofen 10 MG Tablet 20 MG PO (20:45)
[2023-10-03] MEDS: traZODone 100 MG Tablet PO (20:46)
[2023-10-03] MEDS: Pravastatin 40 MG Tablet PO (20:47)
[2023-10-03] MEDS: Citalopram 20 MG Tablet PO (20:51)
[2023-10-04 05:07] VITALS: BMI 36.3
[2023-10-04] MEDS: Levothyroxine 175 MCG Tablet PO (05:26)
[2023-10-04 06:20] LABS: Anion Gap 10 (5-15); BUN 17 mg/dL (7-18); BUN/Creat Ratio 17.5 RATIO (10-20); Calcium,Total 8.9 mg/dL (8.5-10.1); Chloride 106 mmol/L (98-107); Creatinine, Serum 0.97 mg/dL (0.55-1.02); EST Glomerular Filtration Rate 59 mL/min (>60); Est Glom Filt Rate - Afr Amer 71 mL/min (>60); Estimated Creatinine Clearance 44.23 ml/min; Glucose 88 mg/dL (74-106); Potassium 3.7 mmol/L (3.5-5.1); Sodium Level 141 mmol/L (136-145)
[2023-10-04] MEDS: Ursodiol 250 MG Tablet PO ×2 (09:19→21:23)
[2023-10-04] MEDS: Cholecalciferol (VIT D3) 25 MCG TABLET (1,000 UNITS) PO (09:19)
[2023-10-04] MEDS: Ascorbic Acid 500 MG Tablet PO (09:19)
[2023-10-04] MEDS: Furosemide 40 MG Tablet PO (09:19)
[2023-10-04] MEDS: APIXABAN 2.5 MG TABLET (WCH) PO ×2 (09:19→21:25)
[2023-10-04] MEDS: Pantoprazole Sodium 40 MG Tablet PO (09:19)
[2023-10-04] MEDS: Allopurinol 300 MG Tablet PO (09:19)
[2023-10-04] MEDS: Zinc Sulfate 50 mg zinc (220 mg) ORAL capsule PO (09:19)
[2023-10-04] MEDS: sulfaSALAzine 500 MG Tablet 1000 MG PO ×2 (09:20→21:24)
[2023-10-04] MEDS: Amiodarone 200 MG Tablet PO (09:20)
[2023-10-04] MEDS: Spironolactone 50 MG Tablet 100 MG PO (09:20)
[2023-10-04] MEDS: Budesonide 3 MG CAPSULE.EC 6 MG PO (09:20)
[2023-10-04 09:21] VITALS: PULSE 82
[2023-10-04] MEDS: Folic Acid 1 MG Tablet PO (09:21)
[2023-10-04] MEDS: Potassium Chloride Oral Tablet 20 MEQ 40 MEQ PO ×2 (09:21→17:06)
[2023-10-04] MEDS: Multivitamins,Ther W-Minerals Tablet 1 TABLET PO (09:21)
[2023-10-04] MEDS: Metoprolol Tartrate 50 MG Tablet PO (09:21)
[2023-10-04] MEDS: Carbidopa/Levodopa 25/100 Tablet PO ×3 (09:21→17:11)
[2023-10-04 10:00] VITALS: BP 114/75; PULSE 83; RESP 17; TEMP 36.2; O2SAT 94
[2023-10-04] MEDS: CARBIDOPA/LEVODOPA CR 50/200 Tablet PO ×2 (11:12→21:25)
[2023-10-04] MEDS: Colestipol 1 GM TABLET PO ×2 (11:12→21:24)
[2023-10-04] MEDS: Menthol/Lanolin/Calamine/Znox 113 GM Tube 1 APPLIC TOPICAL ×2 (11:13→21:25)
--- NOTE | 2023-10-04 12:56 | DS.PCM_ITS ---
Providers Date of Admission: 09/06/23 Date of Discharge: 10/05/23 Primary Care Physician: Dr. Bernice Moctezuma, DO Consultations 09/25/23 08:13 Consult: Gastroenterology Routine Consulting Provider: [facility] Reason for Consult: Uncontrolled microscopic colitis. EMERGENT Consult: No MD Notified: Yes Date Notified: 09/25/23 Time Notified: 08:13 Method of Notification: Answering Service Reason For Visit: DEBILITY Diagnosis Discharge Diagnosis (1) Debility: Status: Acute Code(s): R53.81 - Other malaise Plan: Will continue with PT/OT and follow up on findings and recommendations. D/C planned for 10/05 to senior care facility. Continue with PRN pain management, bowel regimen and fall precautions. (2) Diarrhea: Status: Acute Code(s): R19.7 - Diarrhea, unspecified Qualifiers: Diarrhea type: unspecified type Qualified Code(s): R19.7 - Diarrhea, unspecified Plan: Patient continues to complain of diarrhea, although notes it is a little more formed today. It has been a chronic issue and she sees Dr. Quintana. Patient will need to follow up upon discharge from inpatient rehab. Electrolytes have been stable. Stool was checked on arrival to rehab for c.diff or other infectious etiology which was negative. (3) Elevated serum creatinine: Status: Resolved Code(s): R79.89 - Other specified abnormal findings of blood chemistry Plan: Creatinine was slightly elevated yesterday, but appears normalized again today. Will continue to monitor. (4) Diverticulitis of colon: Status: Acute Code(s): K57.32 - Diverticulitis of large intestine without perforation or abscess without bleeding Plan: Patient has completed antibiotic therapy. Will continue to monitor. (5) Chronic diastolic heart failure: Status: Chronic Code(s): I50.32 - Chronic diastolic (congestive) heart failure Plan: Stable. No signs of fluid overload at this time. Patient was diuresed on arrival to rehab and did well with it. (6) Microscopic colitis: Status: Chronic Code(s): K52.839 - Microscopic colitis, unspecified Qualifiers: Microscopic colitis type: other microscopic colitis Qualified Code(s): K52.838 - Other microscopic colitis Plan: As above, patient follows with GI. Will continue budesonide as prescribed. (7) Hypothyroidism: Status: Acute Code(s): E03.9 - Hypothyroidism, unspecified Qualifiers: Hypothyroidism type: acquired Qualified Code(s): E03.9 - Hypothyroidism, unspecified Plan: Stable. Continue home synthroid dosing. (8) Paroxysmal atrial fibrillation: Status: Chronic Code(s): I48.0 - Paroxysmal atrial fibrillation Plan: Patient is currently in sinus rhythm. Will continue current management and monitor. (9) Essential (primary) hypertension: Status: Chronic Code(s): I10 - Essential (primary) hypertension Plan: Blood pressure shows good control. Will continue current management and monitor. (10) HLD (hyperlipidemia): Status: Chronic Code(s): E78.5 - Hyperlipidemia, unspecified Qualifiers: Hyperlipidemia type: unspecified Qualified Code(s): E78.5 - Hyperlipidemia, unspecified Plan: Stable. Continue home medication. (11) Parkinson disease: Status: Chronic Code(s): G20 - Parkinson's disease Qualifiers: Dyskinesia presence: with dyskinesia Fluctuating manifestations: with fluctuating manifestations Qualified Code(s): G20.B2 - Parkinson's disease with dyskinesia, with fluctuations Plan: Stable. Continue home medications. (12) Esophagitis: Status: Acute Code(s): K20.90 - Esophagitis, unspecified without bleeding Plan: Stable. Continue PPI therapy. (13) Hypokalemia: Status: Resolved Code(s): E87.6 - Hypokalemia Plan: Patient's potassium level has maintained normal range over the last 6 days. Will continue to monitor. Medications at Discharge Home Medications allopurinol 300 mg tablet 300 mg PO DAILY see pcp 12/03/20 citalopram 20 mg tablet 20 mg PO QHS see pcp 06/13/21 ihurnoqryahl-yhrjbvll-jwqtna tablet 1 tab PO DAILY supplement 06/13/21 trazodone 100 mg tablet 100 mg PO QHS see pcp 09/05/21 ascorbate calcium (vitamin C) 500 mg tablet 500 mg PO DAILY supplement 01/17/22 cholecalciferol (vitamin D3) 25 mcg (1,000 unit) capsule 25 mcg PO DAILY see pcp 01/17/22 meclizine 25 mg tablet 25 mg PO DAILY PRN Dizziness 10/16/22 metoprolol tartrate 50 mg tablet 50 mg PO BID see pcp #180 tabs 11/15/22 zinc acetate 50 mg (zinc) capsule 100 mg PO DAILY see pcp 11/28/22 ursodiol 250 mg tablet 250 mg PO BID see pcp #180 tabs 01/04/23 budesonide 3 mg capsule,delayed,extended release 6 mg (2 x 3 mg) PO QAM see pcp #180 ea 03/20/23 entacapone 200 mg tablet 200 mg PO BID see pcp 06/05/23 carbidopa 25 mg-levodopa 100 mg tablet 2 tab PO .COMPLEX see pcp #540 tabs 06/08/23 carbidopa ER 50 mg-levodopa 200 mg tablet,extended release 1 tab PO .COMPLEX parkinson's #180 tabs 06/08/23 apixaban 2.5 mg tablet (Eliquis) 2.5 mg PO BID see pcp #180 tabs 08/06/23 folic acid 1 mg tablet 1 mg PO DAILY supplement #30 tabs 08/09/23 sulfasalazine 500 mg tablet,delayed release 1 g (2 x 500 mg) PO BID see pcp 30 days #120 tabs 08/09/23 amlodipine 5 mg tablet 5 mg PO DAILY see pcp #90 tabs 08/20/23 colestipol 1 gram tablet 1 g PO BID see pcp 30 days #60 tabs 08/30/23 baclofen 20 mg tablet 20 mg PO QHS see pcp 08/31/23 buspirone 10 mg tablet 10 mg PO TID PRN anxiety 08/31/23 cyclosporine 0.05 % eye drops in a dropperette 1 drp ophthalmic (eye) Q12H see pcp 08/31/23 dicyclomine 10 mg capsule 20 mg (2 x 10 mg) PO TIDAC see pcp #20 CAPSULES 08/31/23 hydrocodone-acetaminophen 5-325mg 5mg-325mg 1 tab PO Q6H PRN PRN Pain 3 days #10 TABLETS 08/31/23 levothyroxine 175 mcg tablet 175 mcg PO DAILY see pcp 08/31/23 pantoprazole 40 mg tablet,delayed release (Protonix) 40 mg PO DAILY see pcp #30 tabs 09/05/23 acidophilus 25 million cell-pectin, citrus 100 mg tablet 2 tab PO BID see pcp #0 tabs 09/06/23 amiodarone 200 mg tablet 200 mg PO DAILY see pcp 09/06/23 pravastatin 40 mg tablet 40 mg PO QHS see pcp 09/06/23 furosemide 40 mg tablet 40 mg PO DAILY see pcp #30 tabs 10/04/23 potassium chloride 20 mEq tablet,extended release 20 meq PO BIDCM supplement #60 tabs 10/04/23 spironolactone 50 mg tablet 100 mg (2 x 50 mg) PO DAILY #60 tabs 10/04/23 Hospital Course Summary of Care Provided Minutes Spent on Discharge: 35 Hospital Course: Patient was admitted to [facility] on 09/03 with complaints of abdominal pain, nausea and vomiting as well as dysphagia after being treated for diverticulitis as an outpatient. Labs showed hypokalemia and imaging showed improvement of her diverculitis. She was admitted for further management. During her admission, she underwent an EGD which showed a ringed esophagus and esophagitis. A pill was found in her lower esophagus and retrieved and her esophagus was dilated. Therapy saw the patient who felt she would benefit from rehab. Once clinically stable, she was transferred to inpatient rehab for physical, occupational and speech therapies on 09/06. During her admission, the patient was diuresed. She clinically improved, however, continued to require assistance, so it was felt she would be discharged to SNF for continued therapy. The patient felt well overall on the day of assessment and was ready to contin ue with her therapy journey in the hopes of returning home. Physical Exam Const alert, oriented x3, no apparent distress and well nourished Constitutional Narrative: sitting up in the chair General Appearance: cooperative and comfortable; Negative for in distress, ill appearing or diaphoretic Orientation / Consciousness: awake, oriented to person, oriented to place and oriented to time Exam Limitations: Negative for altered mental status HEENT normocephalic and head/scalp atraumatic Head and Scalp: normocephalic and atraumatic Face and Sinus: normal facial exam Eyes General Eye: normal appearance of both eyes Chest inspection of chest normal Chest: abnormal inspection of the chest and symmetrical chest wall rise Resp normal respiratory effort, normal air movement, no use of accessory muscles and clear to auscultation bilaterally Effort and Inspection: able to speak in complete sentences and symmetric chest movement; Negative for respiratory distress or audible wheezes Auscultation: clear to auscultation bilaterally Cardio regular rate, regular rhythm and no murmurs Rate: regular rate Rhythm: regular rhythm Heart Sounds: Negative for murmur GI normal to inspection, nondistended, normoactive bowel sounds, soft to palpation and non-distended Auscultation: normoactive bowel sounds Palpation: soft and tender other (minimal generalized); Negative for guarding Extremity normal to inspection Extremity Narrative: ROSALBA wraps over bilateral lower extremities General Extremity: Negative for edema Skin no rashes or lesions noted General Skin Exam: no breakdown Lesions: no lesions Rashes: no rashes Neuro oriented x3 Sensorium / Orientation: awake, alert, oriented to person, oriented to place and oriented to time Speech: speech normal Psych mental status grossly normal, cooperative, affect normal and speech normal Appearance: grossly normal Attitude: calm Weight / BMI Weight Weight: 232 lb 2.348 oz Body Mass Index (BMI) 36.3 ABG / Lab / Microbiology Data Attestation: I reviewed the patient's lab results. 09/21/23 12:42 10/04/23 05:13 Laboratory: Laboratory Results - last 24 hr 10/04/23 05:13: Sodium 141, Potassium 3.7, Chloride 106, Carbon Dioxide 25.0, An ion Gap 10, BUN 17, Creatinine 0.97, Estim Creat Clear Calc 44.23, Est GFR (MDRD) Af Amer 71, Est GFR (MDRD) Non-Af 59 L, BUN/Creatinine Ratio 17.5, Glucose 88, Calcium 8.9 Microbiology: Microbiology 09/21/23 12:57 Mucosa - Nasopharyngeal Respiratory Panel (PCR) - Final 09/21/23 12:34 Nasal Secretion SARS-CoV-2 & FLU Antigen (Rapid) - Final 09/19/23 12:55 Urine Catheter - Cook Urine Culture - Final Klebsiella pneumoniae sp pneum Indicators for Scoring Admitted with or Primary Diagnosis of CVA/Stroke: No Hx of CVA/Stroke: No D/C Instructions Discharge Diet: 1800 Calorie Control Diet Discharge Activity: Use Walker Weight Bearing Status: Full weight bearing Call your doctor if you observe: Shortness of breath, Dizziness, Fainting spells, Swelling in the ankles, Chest pain and Uncontrolled pain Meaningful Use Info Meaningful Use Diagnoses (Choose all that apply): None applicable Discharge Plan Admission Admit Date/Time: 09/06/23 16:17 Primary Reason for Your Visit: Debility - Dysphagia, esophagitis, generalized weakness Attending Provider: Sementi,Lennie Primary Care Provider: Bernice Moctezuma Discharge Orders/Prescriptions Prescriptions: New spironolactone 50 mg Tablet 100 mg PO DAILY Qty: 60 0RF Continued allopurinol 300 mg tablet 300 mg PO DAILY trazodone 100 mg tablet 100 mg PO QHS ascorbate calcium (vitamin C) 500 mg tablet 500 mg PO DAILY cholecalciferol (vitamin D3) 25 mcg (1,000 unit) capsule 25 mcg PO DAILY zinc acetate 50 mg (zinc) capsule 100 mg PO DAILY meclizine 25 mg tablet 25 mg PO DAILY PRN (Reason: Dizziness) ursodiol 250 mg tablet 250 mg PO BID Qty: 180 3RF carbidopa-levodopa 25-100 mg tablet 2 tab PO .COMPLEX Qty: 540 1RF Rx Instructions: 2 tabs orally 3 times daily (8 AM, 2 PM and 6 PM) carbidopa-levodopa 50-200 mg tablet extended release 1 tab PO .COMPLEX Qty: 180 1RF Rx Instructions: 1 TAB orally Twice daily (11 AM and 10 PM) sulfasalazine 500 mg tablet,delayed release (DR/EC) 1 g PO BID 30 Days Qty: 120 3RF folic acid 1 mg tablet 1 mg PO DAILY Qty: 30 3RF entacapone 200 mg tablet 200 mg PO BID Rx Instructions: administer at the same time as l-dopa/carbidopa dose citalopram 20 mg Tablet 20 mg PO QHS shgfnrokajdi-phuvvxyw-eynyth Tablet 1 tab PO DAILY levothyroxine 175 mcg tablet 175 mcg PO DAILY Patient Comments: TAKE 1 TABLET BY MOUTH EVERY DAY cyclosporine 0.05 % dropperette 1 drp ophthalmic (eye) Q12H Rx Instructions: EACH EYE baclofen 20 mg tablet 20 mg PO QHS buspirone 10 mg tablet 10 mg PO TID PRN (Reason: anxiety) hydrocodone-acetaminophen 5-325 mg tablet 1 tab PO Q6H PRN PRN (Reason: Pain) 3 Days Qty: 10 0RF dicyclomine 10 mg capsule 20 mg PO TIDAC Qty: 20 0RF pantoprazole [Protonix] 40 mg tablet,delayed release (DR/EC) 40 mg PO DAILY Qty: 30 2RF acidophilus-pectin, citrus 25 million cell -100 mg Tablet 2 tab PO BID Qty: 0 0RF amiodarone 200 mg tablet 200 mg PO DAILY pravastatin 40 mg tablet 40 mg PO QHS metoprolol tartrate 50 mg tablet 50 mg PO BID Qty: 180 3RF budesonide 3 mg capsule,delayed,extend.release 6 mg PO QAM Qty: 180 1RF Eliquis 2.5 mg tablet 2.5 mg PO BID Qty: 180 4RF amlodipine 5 mg tablet 5 mg PO DAILY Qty: 90 3RF colestipol 1 gram tablet 1 g PO BID 30 Days Qty: 60 1RF Changed furosemide 40 mg tablet 40 mg PO DAILY Qty: 30 0RF Patient Comments: OCCASIONALLY TAKES ONLY ONCE DAILY potassium chloride 20 mEq tablet extended release 20 meq PO BIDCM Qty: 60 0RF Discontinued ciprofloxacin HCl 500 mg tablet 500 mg PO BID Qty: 14 0RF metronidazole 500 mg tablet 500 mg PO Q8H Qty: 21 0RF amoxicillin-pot clavulanate [Augmentin] 500-125 mg tablet 1 tab PO BID 5 Days Qty: 10 0RF ampicillin-sulbactam 3 gram Recon Soln 3 g IV Q8 Qty: 0 0RF Rx Instructions: IV Unasyn to continue today and acute rehab tomorrow. Dr. Youssef will discontinue Unasyn there and will start Augmentin. spironolactone 25 mg tablet 25 mg PO DAILY Qty: 90 3RF Referrals / Follow Up: Bernice Moctezuma DO [Primary Care Provider] - 10/09/23 11:30 am Friend[place]ino DO [Med Staff - Active Staff] - 10/15/23 3:30 pm Disposition Disposition (needs filled in before D/C Order can be placed): [facility] Facility Charges/Coding Visit Charges Inpatient E&M: 88920 Disch Hosp >30min
--- NOTE | 2023-10-04 12:58 | PCM.TXEXTCAR ---
Diet Diet Order/Speech Therapy: 09/07/23 10:13 Diet: Cardiac: Calorie-Controlled Food consistency:: Regular Liquid Consistency:: Regular/Thin Dietary Modifications:: Sodium Restricted How many daily calories?: 1800 calorie Wound(s) right meehan: Wound Type: Abrasion sebas top of toes: Wound Type: Abrasion back of right calf: Wound Type: Abrasion Lt meehan: Wound Type: Skin Tear top of lt foot: Wound Type: Abrasion Therapies Physical Therapy: Eval and Treat Occupational Therapy: Eval and Treat Speech Therapy: Eval and Treat Problem/Diagnosis (1) Debility: Status: Acute Code(s): R53.81 - Other malaise Plan: Will continue with PT/OT/ST. D/C planned for 10/05 to custodial facility. Continue with PRN pain management, bowel regimen and fall precautions. (2) Diarrhea: Status: Acute Code(s): R19.7 - Diarrhea, unspecified Plan: Patient continues to complain of diarrhea. It has been a chronic issue and she sees Dr. Quintana. Patient will need to follow up upon discharge from inpatient rehab. Electrolytes have been stable. Stool was checked on arrival to rehab for c.diff or other infectious etiology which was negative. (3) Elevated serum creatinine: Status: Resolved Code(s): R79.89 - Other specified abnormal findings of blood chemistry Plan: Creatinine was slightly elevated yesterday, up from 0.9 two days ago. Will continue to monitor. No current signs of fluid overload, so her lasix dose may need cut back further if kidneys remain strained. (4) Diverticulitis of colon: Status: Acute Code(s): K57.32 - Diverticulitis of large intestine without perforation or abscess without bleeding Plan: Patient has completed antibiotic therapy. Will continue to monitor. (5) Chronic diastolic heart failure: Status: Chronic Code(s): I50.32 - Chronic diastolic (congestive) heart failure Plan: Stable. No signs of fluid overload at this time. Patient was diuresed on arrival to rehab and did well with it. (6) Microscopic colitis: Status: Chronic Code(s): K52.839 - Microscopic colitis, unspecified Plan: As above, patient follows with GI. Will continue budesonide as prescribed. (7) Hypothyroidism: Status: Acute Code(s): E03.9 - Hypothyroidism, unspecified Plan: Stable. Continue home synthroid dosing. Comment: has had a thyroidectomy in the past.....suspected malignancy but it was benign (8) Paroxysmal atrial fibrillation: Status: Chronic Code(s): I48.0 - Paroxysmal atrial fibrillation Plan: Patient is currently in sinus rhythm. Will continue current management and monitor. (9) Essential (primary) hypertension: Status: Chronic Code(s): I10 - Essential (primary) hypertension Plan: Blood pressure shows good control. Will continue current management and monitor. (10) HLD (hyperlipidemia): Status: Chronic Code(s): E78.5 - Hyperlipidemia, unspecified Plan: Stable. Continue home medication. (11) Parkinson disease: Status: Chronic Code(s): G20 - Parkinson's disease Plan: Stable. Continue home medications. (12) Esophagitis: Status: Acute Code(s): K20.90 - Esophagitis, unspecified without bleeding Plan: Stable. Continue PPI therapy. (13) Hypokalemia: Status: Resolved Code(s): E87.6 - Hypokalemia Plan: Patient's potassium level has maintained normal range over the last 5 days. Will continue to monitor. Allergies/Procedures Done in Hospital Allergies adhesive tape Allergy (Intermediate, Verified 09/03/23 13:43) Hives amitriptyline Allergy (Intermediate, Verified 09/03/23 13:43) Rash simvastatin Adverse Reaction (Severe, Verified 09/03/23 13:43) myalgias celecoxib [From Celebrex] Adverse Reaction (Mild, Verified 09/03/23 13:43) Diarrhea Type of Care/Length of Stay Estimated LOS: Convalescent Care Less Than 30 days Type of Care Needed: Skilled Rehab Potential: Fair Prognosis: Fair Additional Orders/Day of Discharge Day of Discharge: 10/05/23 Dietary and Speech Recommendations Dietitian Recommendations/Changes: Will continue 1800 calorie/cardiac; sodium-restricted diet. Diet education prior to d/c as needed. Discharge Plan Admission Admit Date/Time: 09/06/23 16:17 Primary Reason for Your Visit: Debility - Dysphagia, esophagitis, generalized weakness Attending Provider: Christina Youssef Primary Care Provider: Bernice Moctezuma Discharge Orders/Prescriptions Prescriptions: New spironolactone 50 mg Tablet 100 mg PO DAILY Qty: 60 0RF Continued allopurinol 300 mg tablet 300 mg PO DAILY trazodone 100 mg tablet 100 mg PO QHS ascorbate calcium (vitamin C) 500 mg tablet 500 mg PO DAILY cholecalciferol (vitamin D3) 25 mcg (1,000 unit) capsule 25 mcg PO DAILY zinc acetate 50 mg (zinc) capsule 100 mg PO DAILY meclizine 25 mg tablet 25 mg PO DAILY PRN (Reason: Dizziness) ursodiol 250 mg tablet 250 mg PO BID Qty: 180 3RF carbidopa-levodopa 25-100 mg tablet 2 tab PO .COMPLEX Qty: 540 1RF Rx Instructions: 2 tabs orally 3 times daily (8 AM, 2 PM and 6 PM) carbidopa-levodopa 50-200 mg tablet extended release 1 tab PO .COMPLEX Qty: 180 1RF Rx Instructions: 1 TAB orally Twice daily (11 AM and 10 PM) sulfasalazine 500 mg tablet,delayed release (DR/EC) 1 g PO BID 30 Days Qty: 120 3RF folic acid 1 mg tablet 1 mg PO DAILY Qty: 30 3RF entacapone 200 mg tablet 200 mg PO BID Rx Instructions: administer at the same time as l-dopa/carbidopa dose citalopram 20 mg Tablet 20 mg PO QHS qckybamyxdtq-lezitymd-vflvve Tablet 1 tab PO DAILY levothyroxine 175 mcg tablet 175 mcg PO DAILY Patient Comments: TAKE 1 TABLET BY MOUTH EVERY DAY cyclosporine 0.05 % dropperette 1 drp ophthalmic (eye) Q12H Rx Instructions: EACH EYE baclofen 20 mg tablet 20 mg PO QHS buspirone 10 mg tablet 10 mg PO TID PRN (Reason: anxiety) hydrocodone-acetaminophen 5-325 mg tablet 1 tab PO Q6H PRN PRN (Reason: Pain) 3 Days Qty: 10 0RF dicyclomine 10 mg capsule 20 mg PO TIDAC Qty: 20 0RF pantoprazole [Protonix] 40 mg tablet,delayed release (DR/EC) 40 mg PO DAILY Qty: 30 2RF acidophilus-pectin, citrus 25 million cell -100 mg Tablet 2 tab PO BID Qty: 0 0RF amiodarone 200 mg tablet 200 mg PO DAILY pravastatin 40 mg tablet 40 mg PO QHS metoprolol tartrate 50 mg tablet 50 mg PO BID Qty: 180 3RF budesonide 3 mg capsule,delayed,extend.release 6 mg PO QAM Qty: 180 1RF Eliquis 2.5 mg tablet 2.5 mg PO BID Qty: 180 4RF amlodipine 5 mg tablet 5 mg PO DAILY Qty: 90 3RF colestipol 1 gram tablet 1 g PO BID 30 Days Qty: 60 1RF Changed furosemide 40 mg tablet 40 mg PO DAILY Qty: 30 0RF Patient Comments: OCCASIONALLY TAKES ONLY ONCE DAILY potassium chloride 20 mEq tablet extended release 20 meq PO BIDCM Qty: 60 0RF Discontinued ciprofloxacin HCl 500 mg tablet 500 mg PO BID Qty: 14 0RF metronidazole 500 mg tablet 500 mg PO Q8H Qty: 21 0RF amoxicillin-pot clavulanate [Augmentin] 500-125 mg tablet 1 tab PO BID 5 Days Qty: 10 0RF ampicillin-sulbactam 3 gram Recon Soln 3 g IV Q8 Qty: 0 0RF Rx Instructions: IV Unasyn to continue today and acute rehab tomorrow. Dr. Youssef will discontinue Unasyn there and will start Augmentin. spironolactone 25 mg tablet 25 mg PO DAILY Qty: 90 3RF Referrals / Follow Up: Bernice Moctezuma DO [Primary Care Provider] - 10/09/23 11:30 am Chino Quintana DO [Med Staff - Active Staff] - 10/15/23 3:30 pm Disposition Disposition (needs filled in before D/C Order can be placed): [facility] Charges/Coding Visit Charges Inpatient E&M: 16744 Disch Hosp >30min (2) Diarrhea Qualifiers: Diarrhea type: unspecified type Qualified Code(s): R19.7 - Diarrhea, unspecified (6) Microscopic colitis Qualifiers: Microscopic colitis type: other microscopic colitis Qualified Code(s): K52.838 - Other microscopic colitis (7) Hypothyroidism Qualifiers: Hypothyroidism type: acquired Qualified Code(s): E03.9 - Hypothyroidism, unspecified (10) HLD (hyperlipidemia) Qualifiers: Hyperlipidemia type: unspecified Qualified Code(s): E78.5 - Hyperlipidemia, unspecified (11) Parkinson disease Qualifiers: Dyskinesia presence: with dyskinesia Fluctuating manifestations: with fluctuating manifestations Qualified Code(s): G20.B2 - Parkinson's disease with dyskinesia, with fluctuations
--- NOTE | 2023-10-04 14:12 | CASEMGMT ---
Social Work Precert denied at [facility] . SW left with the son and updated Florencia at [facility]. DC paperwork and 7000 sent to [facility] JAIME MayesW
[2023-10-04 19:49] VITALS: BP 109/63; PULSE 88; RESP 17; TEMP 36.6; O2SAT 96
[2023-10-04] MEDS: Sodium Chloride 0.65% 1 SPRAY SPRAY.BTL NASAL (21:23)
[2023-10-04] MEDS: HYDROcodone Bitartrate/Apap 5/325 Tablet PO (21:23)
[2023-10-04] MEDS: Glycerin/Hypromellose/PEG400 15 ml Bottle EACH EYE (21:23)
[2023-10-04] MEDS: Pravastatin 40 MG Tablet PO (21:24)
[2023-10-04] MEDS: Citalopram 20 MG Tablet PO (21:24)
[2023-10-04] MEDS: Baclofen 10 MG Tablet 20 MG PO (21:25)
[2023-10-04] MEDS: traZODone 100 MG Tablet PO (21:25)
[2023-10-04 21:26] VITALS: BP 95/53; PULSE 70
[2023-10-05 06:00] VITALS: BMI 36.2
[2023-10-05] MEDS: Levothyroxine 175 MCG Tablet PO (06:25)
[2023-10-05 08:07] VITALS: BP 126/69; PULSE 72; RESP 16; TEMP 36.6; O2SAT 96
[2023-10-05] MEDS: Potassium Chloride Oral Tablet 20 MEQ 40 MEQ PO (08:22)
[2023-10-05] MEDS: Allopurinol 300 MG Tablet PO (08:25)
[2023-10-05] MEDS: Carbidopa/Levodopa 25/100 Tablet PO (08:25)
[2023-10-05] MEDS: Multivitamins,Ther W-Minerals Tablet 1 TABLET PO (08:25)
[2023-10-05] MEDS: Cholecalciferol (VIT D3) 25 MCG TABLET (1,000 UNITS) PO (08:25)
[2023-10-05] MEDS: APIXABAN 2.5 MG TABLET (WCH) PO (08:26)
[2023-10-05] MEDS: Ascorbic Acid 500 MG Tablet PO (08:26)
[2023-10-05] MEDS: sulfaSALAzine 500 MG Tablet 1000 MG PO (08:26)
[2023-10-05] MEDS: Zinc Sulfate 50 mg zinc (220 mg) ORAL capsule PO (08:27)
[2023-10-05] MEDS: Amiodarone 200 MG Tablet PO (08:27)
[2023-10-05] MEDS: Furosemide 40 MG Tablet PO (08:27)
[2023-10-05 08:28] VITALS: BP 129/69; PULSE 72
[2023-10-05] MEDS: Pantoprazole Sodium 40 MG Tablet PO (08:28)
[2023-10-05] MEDS: Metoprolol Tartrate 50 MG Tablet PO (08:28)
[2023-10-05] MEDS: Ursodiol 250 MG Tablet PO (08:28)
[2023-10-05] MEDS: Spironolactone 50 MG Tablet 100 MG PO (08:29)
[2023-10-05] MEDS: Budesonide 3 MG CAPSULE.EC 6 MG PO (08:29)
[2023-10-05] MEDS: Folic Acid 1 MG Tablet PO (08:30)
[2023-10-05 11:34] VITALS: BP 126/69; PULSE 72; RESP 16; TEMP 36.6; O2SAT 96
--- NOTE | 2023-10-05 11:37 | NURSING ---
Discharged [facility]. Report called to
== END 2023-10-05 11:38 | disposition skilled nursing facility (03) | DRG 392 ==
PROVIDERS: Family Medicine Geriatric Medicine; Admitting Provider Internal Medicine; PCP Internal Medicine; Visit Provider Internal Medicine
DX: K57.32 Diverticulitis of large intestine without perforation or abscess without bleeding (principal); Z68.41 Body mass index [BMI] 40.0-44.9, adult; I50.32 Chronic diastolic (congestive) heart failure; N39.0 Urinary tract infection, site not specified; I27.20 Pulmonary hypertension, unspecified; K22.2 Esophageal obstruction; E11.42 Type 2 diabetes mellitus with diabetic polyneuropathy; B96.1 Klebsiella pneumoniae [K. pneumoniae] as the cause of diseases classified elsewhere; E53.8 Deficiency of other specified B group vitamins; I48.0 Paroxysmal atrial fibrillation; G31.84 Mild cognitive impairment of uncertain or unknown etiology; I11.0 Hypertensive heart disease with heart failure; E66.01 Morbid (severe) obesity due to excess calories; K76.0 Fatty (change of) liver, not elsewhere classified; E89.0 Postprocedural hypothyroidism; E55.9 Vitamin D deficiency, unspecified; K29.00 Acute gastritis without bleeding; K21.00 Gastro-esophageal reflux disease with esophagitis, without bleeding; K52.838 Other microscopic colitis; M10.9 Gout, unspecified; I25.10 Atherosclerotic heart disease of native coronary artery without angina pectoris; E87.6 Hypokalemia; F41.9 Anxiety disorder, unspecified; E78.00 Pure hypercholesterolemia, unspecified; G47.33 Obstructive sleep apnea (adult) (pediatric); I49.3 Ventricular premature depolarization; Z87.891 Personal history of nicotine dependence; Z79.51 Long term (current) use of inhaled steroids; R13.10 Dysphagia, unspecified; Z79.01 Long term (current) use of anticoagulants; G20.B2 Parkinson's disease with dyskinesia, with fluctuations; G47.00 Insomnia, unspecified; Z23 Encounter for immunization; Z79.899 Other long term (current) drug therapy; Z79.890 Hormone replacement therapy
CPT/HCPCS: 36415; 74018; 74022; 80048; 80053; 80076; 81001; 82040; 83735; 84100; 84550; 85025; 85027; 87077; 87086; 87088; 87186; 87428; 87633; 92507; 92523; 92526; 92610; 94002; 94003; 97110; 97112; 97116; 97129; 97130; 97162; 97166; 97530; 97535; 97802; 97803; J7030; J7050; 90662; A4216; J0295; J1940

== ENCOUNTER → 2023-11-06 | Outpatient (CLI) | payer MEDICARE, SELFPAY ==
--- NOTE | 2023-11-06 15:00 | RAD_ITS ---
STUDY: X-RAY - RIGHT ANKLE REASON FOR EXAM: Female, 83 years old. RIGHT ANKLE PAIN -- RIGHT ANKLE PAIN TECHNIQUE: 3 view(s) of the ankle. COMPARISON: None. FINDINGS: Diffuse demineralization. Probable nondisplaced oblique fracture through the distal fibular shaft seen on only one view. No acute abnormality of the tibia. Plantar spur otherwise negative visualized talus and calcaneus. The visualized subtalar, talonavicular, calcaneocuboid and tarsal articulations are normal. Nonspecific soft tissue swelling. RAD/Ankle min 3 Views IMPRESSION: Probable nondisplaced oblique fracture through the distal fibular shaft seen on only one view. Electronically Signed: Yasir Gee MD at 19:53 EST ,
--- NOTE | 2023-11-06 15:00 | RAD_ITS ---
STUDY: X-RAY - RIGHT TIBIA AND FIBULA REASON FOR EXAM: Female, 83 years old. right leg pain -- right leg pain TECHNIQUE: 2 view(s) of the tibia and fibula were obtained. COMPARISON: None. FINDINGS: There is demineralization of the tibia. Nondisplaced fracture through the distal fibula above the malleolus is seen on only one view. Otherwise normal visualized fibula. The soft tissue structures are unremarkable. RAD/Tibia & Fibula 2 Views IMPRESSION: Probable nondisplaced oblique fracture through the distal fibula only seen on the frontal view. Electronically Signed: Yasir Gee MD at 19:52 EST ,
== END | disposition home or self-care (01) ==
LOC: MTRAD 14:45
PROVIDERS: PCP Internal Medicine; Referring Provider Internal Medicine; Visit Provider Internal Medicine
DX: M79.604 Pain in right leg (principal)
CPT/HCPCS: 73590; 73610

== ENCOUNTER → 2024-04-18 | Outpatient (CLI) | payer MEDICARE, SELFPAY ==
--- NOTE | 2024-04-18 09:40 | US_ITS ---
STUDY: ABDOMINAL ULTRASOUND - RIGHT UPPER QUADRANT; ELASTOGRAPHY REASON FOR VISIT: Female, 84 years old. NAFLD TECHNIQUE: Ultrasound evaluation of the right upper quadrant was performed with real-time and static zheng-scale imaging. Point quantification shear wave elastography was performed ([place]). TECHNICAL QUALITY: Adequate. COMPARISON: Comparison is made with prior study dated August 29, 2022. FINDINGS: Liver: The liver measures 15.5 cm. There is increased echogenicity consistent with fatty infiltration. The bile ducts are within normal limits. There is hepatic color flow. The direction of portal flow is hepatopetal. There is no demonstrated mass lesion. Median liver stiffness measured 8.0 kPa. Gallbladder: Normal distended gallbladder. The gallbladder wall measures 2.3 mm. There is a negative sonographic Grajeda''s sign. There is no pericholecystic fluid. There are no gallstones. Common Bile Duct (C.B.D.): The common bile duct measures 7.0 mm. Pancreas: There is normal echogenicity of the visualized pancreas. There is no demonstrated pancreatic mass or cyst. Right Kidney: Normal size of the right kidney. The right kidney measures 10.4 cm x 4.5 cm x 5.1 cm. Normal renal cortex. The right cortex measures 1.1 cm. There is no demonstrated renal mass or cyst. There is no right hydronephrosis. US/ABD Limited w/ Elastography IMPRESSION: 1. Liver stiffness measures 8 kPa compatible with F2-F3 (Mild to moderate liver fibrosis) Metavir score. Electronically Signed: Aramis Rodriguez MD at 14:46 EDT ,
== END | disposition home or self-care (01) ==
PROVIDERS: PCP Internal Medicine; Referring Provider Internal Medicine Gastroenterology; Visit Provider Internal Medicine Gastroenterology
DX: K76.0 Fatty (change of) liver, not elsewhere classified (principal)
CPT/HCPCS: 76705; 76981

== ENCOUNTER → 2024-05-01 | Outpatient (CLI) | payer MEDICARE, SELFPAY ==
--- NOTE | 2024-05-01 13:12 | BI_ITS ---
MAMMOGRAPHY - BILATERAL SCREENING REASON FOR EXAM: Female, 84 years old. Routine annual screening examination. PERTINENT HISTORY: Sister with breast cancer. Mother with breast cancer. Aunt with breast cancer. Remote right excisional breast biopsy. TECHNIQUE: Digital bilateral breast abraham (3D mammographic acquisition) in the CC and MLO projections. 2-D mediolateral oblique (MLO) and craniocaudad (CC) views of both breasts were obtained. CAD: Full Field Digital Mammography with Computer Added Detection was performed. COMPARISON: Comparison is made with prior study dated January 19, 2023 and August 15, 2022. FINDINGS: Breast Composition: There are scattered areas of fibroglandular density. There are no dominant masses or suspicious calcifications. A tissue clip marker is once again seen in the inferior retroareolar region of the right breast. Stable bilateral secretory calcifications. No other significant abnormalities are identified. There has been no significant change since the prior study. BI/SCRN MAMM (CAD)W/ABRAHAM BILAT IMPRESSION: Stable bilateral screening mammogram. Yearly follow-up mammogram recommended. (A) ASSESSMENT CATEGORY: BIRADS Category 2: Benign. A letter regarding these results will be sent to the patient by the facility within 30 days. Approximately 10% of breast cancers are not detected by mammography. A normal mammogram should not delay biopsy of a clinically suspicious abnormality. [id number] Electronically Signed: Aramis Rodriguez MD at 16:17 EDT ,
--- NOTE | 2024-05-01 13:50 | BD_ITS ---
STUDY: DUAL ENERGY X-RAY ABSORPTIOMETRY / DXA REASON FOR EXAM: Female, 84 years old. [id number] TECHNIQUE: Bone Mineral Density (BMD) measurements of lumbar spine and right hip were obtained. COMPARISON: Comparison is made with prior study in August 23, 2021. FINDINGS: Lumbar Spine (L1-L4): g/cm2 (0.936) / T-score (-1.3) / Z-score (1.6) Findings are suggestive of osteopenia with a low fracture risk. Right Femur Total: g/cm2 (0.681) / T-score (-2.1) / Z-score (0.1) Right Femoral Neck: g/cm2 (0.591) / T-score (-2.3) / Z-score (0.1) The T-Scores on the most recent prior examination were: Lumbar Spine (L1-L4): There has been worsening of bone density since the previous examination. Right Femur Total: which represents a worsening of 14.5%. BD/Dexa Bone Density Study IMPRESSION: The patient is considered osteopenic as outlined below according to World [place] Organization (WHO) criteria with a high fracture risk. There has been worsening of bone density since the previous examination. Reference Information: The T-score is the number of standard deviations above or below the standard which is normal for young adults at their peak bone mineral density. The World Health Organization (WHO) interprets the T-scores as follows: Above -1 Normal bone density Between -1 and -2.5 Osteopenia Equal to / or below -2.5 Osteoporosis As a practical clinical guideline, osteopenia may be graded as follows: Mild -1 through -1.5 Moderate -1.6 through -2.0 Severe -2.1 through -2.4 The Z-score is the number of standard deviations above or below age-matched controls. A Z-score of less than -1.5 would be considered abnormal. References: 1. NIH Osteoporosis and Related Bone Diseases www osteo.org 2. International Society for Clinical Densitometry www iscd.org 3. National Osteoporosis Foundation www nof.org Electronically Signed: Aramis Rodriguez MD at 13:11 EDT ,
== END | disposition home or self-care (01) ==
LOC: OPBD 13:11
PROVIDERS: PCP Internal Medicine; Referring Provider Internal Medicine; Visit Provider Internal Medicine
DX: Z12.31 Encounter for screening mammogram for malignant neoplasm of breast (principal); Z78.0 Asymptomatic menopausal state; Z80.3 Family history of malignant neoplasm of breast
CPT/HCPCS: 77063; 77067; 77080

== ENCOUNTER → 2024-05-12 | Outpatient (CLI) | payer MEDICARE, SELFPAY ==
--- NOTE | 2024-05-12 16:05 | MRI_ITS ---
STUDY: MR CHOLANGIOPANCREATOGRAPHY (MRCP) REASON FOR EXAM: Female, 84 years old. abnormal CBD TECHNIQUE: Standard MRCP technique was utilized. 3-D reconstructions were performed. COMPARISON: Ultrasound 04/18/2024, MRCP 05/25/2016 FINDINGS: Gall Bladder: Normal with no distention or demonstrated fixed intraluminal filling defect. Cystic duct: Normal with no demonstrated fixed filling defect. Intrahepatic ducts: Normal visualized intrahepatic ducts with no demonstrated fixed filling defect, dilation or stricture. Common hepatic duct: Normal with no demonstrated fixed filling defect, dilation or stricture. Common bile duct: Normal with no demonstrated fixed filling defect, dilation or stricture. Pancreatic duct: No demonstrated fixed filling defect, dilation or stricture. However, there is a 5 mm round mass of fluid intensity along the superior margin of the main pancreatic duct within the proximal body the pancreas. Differential diagnosis includes pancreatic cyst, diverticulum of the pancreatic duct, or less likely intraductal papillary mucinous neoplasm (IPMN). MRI/MRCP Abdomen without Contrast IMPRESSION: 1. Normal biliary tree. 2. 5 mm unilocular cyst adjacent to and possibly arising from the main pancreatic duct. Differential diagnosis includes pancreatic cyst, pancreatic duct diverticulum, or intraductal papillary mucinous neoplasm (IPMN). Electronically Signed: Thien Coker MD at 11:35 EDT ,
== END | disposition home or self-care (01) ==
LOC: MRI 16:03
PROVIDERS: PCP Internal Medicine; Referring Provider Internal Medicine Gastroenterology; Visit Provider Internal Medicine Gastroenterology
DX: K83.9 Disease of biliary tract, unspecified (principal)
CPT/HCPCS: 74181

== ENCOUNTER → 2025-04-07 | Outpatient (CLI) | payer MEDICARE, SELFPAY ==
[2025-04-07 12:48] LABS: Absolute Lymphocyte Count 1.89 X10^3/uL (0.83-4.51); Absolute Neutrophil Count 5.3 X10^3/uL (2.0-7.7); Basophil# 0.02 X10^3/uL; Basophil% 0.3 % (0-1); Eosinophil# 0.04 X10^3/uL; Eosinophils% 0.5 % (0-5); Hematocrit 38.1 % (37-47); Hemoglobin 12.9 g/dL (12.0-15.0); Lymphocyte # 1.89 X10^3/ul (0.83-4.51); Lymphocyte % 23.8 % (19-41); Mean Corp Hgb Conc 33.9 g/dL (32-36); Mean Corpuscular Hgb 34.8 pg (27.0-32.0); Mean Corpuscular Volume 102.7 fL (81-99); Mean Platelet Vol. 9.8 fl (6.2-12.0); Monocyte# 0.62 X10^3/uL; Monocyte% 7.8 % (0-10); NRBC Flagged by Analyzer 0 % (0-5); Neutrophil # 5.33 X10^3/uL (2.7-7.7); Neutrophil % 67.2 % (47-70); Platelet Count 205 K/mm3 (150-450); RBC Distribution Width SD 45.4 fl (35.1-43.9); Red Blood Count 3.71 M/mm3 (4.2-5.4); White Blood Count 7.9 K/mm3 (4.4-11.0)
[2025-04-07 13:53] LABS: Anion Gap 11 (5-15); BUN 10 mg/dL (4-19); BUN/Creat Ratio 12.4 RATIO (10-20); Calcium,Total 9.3 mg/dL (7.6-11.0); Carbon Dioxide 26.7 mmol/L (21.0-32.0); Chloride 96 mmol/L (98-108); Creatinine, Serum 0.82 mg/dL (0.70-1.20); EST Glomerular Filtration Rate 71 (>60); Glucose 101 mg/dL (70-99); Potassium 4.3 mmol/L (3.3-5.1); Pro- Brain NATRIURETIC PEPTIDE 1816 pg/mL (<=1800); Sodium Level 134 mmol/L (133-145)
== END | disposition home or self-care (01) ==
LOC: LAB 11:15
PROVIDERS: PCP Internal Medicine; Referring Provider Nurse Practitioner Gerontology; Visit Provider Nurse Practitioner Gerontology
DX: R06.02 Shortness of breath (principal); R53.83 Other fatigue
CPT/HCPCS: 36415; 80048; 83880; 84443; 85025

== ENCOUNTER → 2025-06-15 | Outpatient (CLI) | payer MEDICARE, SELFPAY ==
--- NOTE | 2025-06-15 11:44 | BI_ITS ---
EXAM: SCRN MAMM (CAD)W/ABRAHAM BILAT DATE: 06/15/2025 CLINICAL HISTORY: F, Age 85 y/o , SCREENING TECHNIQUE: SCRN MAMM (CAD)W/ABRAHAM BILAT COMPARISON: Prior exam(s) were compared FINDINGS: TISSUE DENSITY: There are scattered areas of fibroglandular density. Bilateral Breast Mammographic Findings: No suspicious masses, calcifications or other abnormalities are identified. BI/SCRN MAMM (CAD)W/ABRAHAM BILAT IMPRESSION: No mammographic evidence of malignancy in either breast OVERALL FINAL ASSESSMENT BI-RADS 1: NEGATIVE. RECOMMENDATION: Routine annual follow-up in 1 Year A letter with findings and recommendations will be mailed to the patient. Reading Location: [id number]
--- NOTE | 2025-06-15 11:44 | BI_ITS ---
EXAM: SCRN MAMM (CAD)W/ABRAHAM BILAT DATE: 06/15/2025 CLINICAL HISTORY: F, Age 85 y/o , SCREENING TECHNIQUE: SCRN MAMM (CAD)W/ABRAHAM BILAT COMPARISON: Prior exam(s) were compared FINDINGS: TISSUE DENSITY: There are scattered areas of fibroglandular density. Bilateral Breast Mammographic Findings: No suspicious masses, calcifications or other abnormalities are identified. BI/SCRN MAMM (CAD)W/ABRAHAM BILAT IMPRESSION: No mammographic evidence of malignancy in either breast OVERALL FINAL ASSESSMENT BI-RADS 1: NEGATIVE. RECOMMENDATION: Routine annual follow-up in 1 Year A letter with findings and recommendations will be mailed to the patient. Reading Location: [id number]
--- NOTE | 2025-06-15 12:15 | ECHOD_ITS ---
Reason For Study : SOB Procedure This was a 2D Doppler, Color Flow transthoracic echocardiogram. Exam performed in department. Left Ventricle Normal LV size. Moderate concentric left ventricular hypertrophy. Left ventricular systolic function is normal. The left ventricular ejection fraction is 60 %. No regional wall motion abnormalities noted. Right Ventricle Normal RV size. Normal systolic function. Mitral Valve Normal mitral valve. There is mild mitral annular calcification. Mild (1+) eccentric mitral valve insufficiency. Tricuspid Valve Normal tricuspid valve. Moderate (2+) tricuspid valve insufficiency. Pulmonary artery systolic pressure is 55 mmHg. Moderate pulmonary hypertension. Aortic Valve Trisinus/trileaflet aortic valve. Mild focal aortic valve calcification. Pulmonic Valve Normal pulmonic valve. Great Vessels Normal aortic root. Pericardium/Pleural No pericardial effusion. MMode/2D Measurements & Calculations LVIDd: 5.0 cm IVSd: 1.4 cm LVOT diam: 2.0 cm LVIDs: 3.1 cm LVPWd: 1.7 cm LVOT area: 3.2 cm2 FS: 37.7 % Ao root diam: 3.6 cm LAV(MOD-bp): 82.0 ml LVAd ap4: 21.7 cm2 LAV(MOD-bp) Indexed: 40.1 ml/m2 LVLd ap4: 6.7 cm LAV(MOD-sp2): 71.3 ml EDV(MOD-sp4): 59.0 ml LAV(MOD-sp4): 86.5 ml EDV(sp4-el): 59.7 ml LVAs ap4: 13.1 cm2 LVLs ap4: 5.7 cm ESV(MOD-sp4): 25.5 ml ESV(sp4-el): 25.6 ml EF(MOD-sp4): 56.7 % EF(sp4-el): 57.2 % SV(MOD-sp4): 33.4 ml SV(sp4-el): 34.1 ml LA A4 area: 24.6 cm2 SI(MOD-sp4): 16.3 ml/m2 LA dimension(2D): 4.4 cm RA A4 area: 20.5 cm2 Doppler Measurements & Calculations MV E max jyoti: 98.6 cm/sec Ao V2 max: 126.9 cm/sec LV V1 max: 126.8 cm/sec Ao max P.4 mmHg LV V1 max P.4 mmHg Ao V2 mean: 94.8 cm/sec LV V1 mean P.9 mmHg Ao mean P.0 mmHg LV V1 mean: 93.9 cm/sec Ao V2 VTI: 28.2 cm LV V1 VTI: 26.3 cm AV (velocity ratio): 0.93 SARAH(I,D): 3.0 cm2 SARAH(V,D): 3.2 cm2 SV(LVOT): 84.5 ml PA V2 max: 89.4 cm/sec TR max jyoti: 357.7 cm/sec PA V2 mean: 66.0 cm/sec TR max P.2 mmHg ECHO/Echo Complete Interpretation Summary Normal LV size. Left ventricular systolic function is normal. The left ventricular ejection fraction is 60 %. Moderate concentric left ventricular hypertrophy. Pulmonary artery systolic pressure is 55 mmHg. Moderate pulmonary hypertension. Mild (1+) eccentric mitral valve insufficiency. Ordering Physician: Giovany^Maude^^^MAILING CLERK, MAILING CLERK-C Referring Physician: Maude Adair Performed By: Renu Schultz RCS
--- NOTE | 2025-06-15 12:15 | ECHOD_ITS ---
Reason For Study : SOB Procedure This was a 2D Doppler, Color Flow transthoracic echocardiogram. Exam performed in department. Left Ventricle Normal LV size. Moderate concentric left ventricular hypertrophy. Left ventricular systolic function is normal. The left ventricular ejection fraction is 60 %. No regional wall motion abnormalities noted. Right Ventricle Normal RV size. Normal systolic function. Mitral Valve Normal mitral valve. There is mild mitral annular calcification. Mild (1+) eccentric mitral valve insufficiency. Tricuspid Valve Normal tricuspid valve. Moderate (2+) tricuspid valve insufficiency. Pulmonary artery systolic pressure is 55 mmHg. Moderate pulmonary hypertension. Aortic Valve Trisinus/trileaflet aortic valve. Mild focal aortic valve calcification. Pulmonic Valve Normal pulmonic valve. Great Vessels Normal aortic root. Pericardium/Pleural No pericardial effusion. MMode/2D Measurements & Calculations LVIDd: 5.0 cm IVSd: 1.4 cm LVOT diam: 2.0 cm LVIDs: 3.1 cm LVPWd: 1.7 cm LVOT area: 3.2 cm2 FS: 37.7 % Ao root diam: 3.6 cm LAV(MOD-bp): 82.0 ml LVAd ap4: 21.7 cm2 LAV(MOD-bp) Indexed: 40.1 ml/m2 LVLd ap4: 6.7 cm LAV(MOD-sp2): 71.3 ml EDV(MOD-sp4): 59.0 ml LAV(MOD-sp4): 86.5 ml EDV(sp4-el): 59.7 ml LVAs ap4: 13.1 cm2 LVLs ap4: 5.7 cm ESV(MOD-sp4): 25.5 ml ESV(sp4-el): 25.6 ml EF(MOD-sp4): 56.7 % EF(sp4-el): 57.2 % SV(MOD-sp4): 33.4 ml SV(sp4-el): 34.1 ml LA A4 area: 24.6 cm2 SI(MOD-sp4): 16.3 ml/m2 LA dimension(2D): 4.4 cm RA A4 area: 20.5 cm2 Doppler Measurements & Calculations MV E max jyoti: 98.6 cm/sec Ao V2 max: 126.9 cm/sec LV V1 max: 126.8 cm/sec Ao max P.4 mmHg LV V1 max P.4 mmHg Ao V2 mean: 94.8 cm/sec LV V1 mean P.9 mmHg Ao mean P.0 mmHg LV V1 mean: 93.9 cm/sec Ao V2 VTI: 28.2 cm LV V1 VTI: 26.3 cm AV (velocity ratio): 0.93 SARAH(I,D): 3.0 cm2 SARAH(V,D): 3.2 cm2 SV(LVOT): 84.5 ml PA V2 max: 89.4 cm/sec TR max jyoti: 357.7 cm/sec PA V2 mean: 66.0 cm/sec TR max P.2 mmHg ECHO/Echo Complete Interpretation Summary Normal LV size. Left ventricular systolic function is normal. The left ventricular ejection fraction is 60 %. Moderate concentric left ventricular hypertrophy. Pulmonary artery systolic pressure is 55 mmHg. Moderate pulmonary hypertension. Mild (1+) eccentric mitral valve insufficiency. Ordering Physician: Giovany^Maude^^^DRAW FRAME RUNNER, DRAW FRAME RUNNER-C Referring Physician: Maude Adair Performed By: Renu Schultz RCS
== END | disposition home or self-care (01) ==
PROVIDERS: PCP Internal Medicine; Referring Provider Nurse Practitioner Gerontology; Visit Provider Nurse Practitioner Gerontology
DX: Z12.31 Encounter for screening mammogram for malignant neoplasm of breast (principal); R06.02 Shortness of breath
CPT/HCPCS: 77063; 77067; 93306